=== PATIENT | female | born 1935 | race Caucasian/White ===

== ENCOUNTER 2016-08-20 08:00 | Day surgery (SDC) | payer MEDICARE, BC ==
[2016-08-15 15:37] VITALS: BMI 24.6
[~2016-08-20 08:00] MED LIST: DEXAMETHASONE SOD PHOSPHATE 10 MG/ML 1 ML VIAL IV ONE; FAMOTIDINE 20 MG/2 ML VIAL IV ONE; HYDROmorphone 1 MG/ML 1 ML SYRINGE IVP PRN; LACTATED RINGERS 1,000 ML IV SCH; LIDOCAINE 1% 20 ML VIAL (10MG/ML) FOR IV START INTRADERMA PRN; MIDAZOLAM 2 MG/2 ML VIAL IV PRN; ONDANSETRON 4 MG/2 ML VIAL IVP ONE; SCOPOLAMINE 1.5MG/72HR PATCH TRANSDERM ONE
[2016-08-20 09:08] LABS: Glucose,Whole Blood 156 mg/dL (75-99)
[2016-08-20] MEDS ORDERED: fentaNYL (PF) 50 MCG/ML 2 ML AMP ONE (09:10)
[2016-08-20] MEDS ORDERED: PROPOFOL 10 MG/ML 20 ML VIAL IV ONE (09:10)
[2016-08-20] MEDS ORDERED: LIDOCAINE 1% INJ 10MG/ML (20 ML MDV) ONE (09:10)
[2016-08-20] MEDS ORDERED: LIDOCAINE 1%-EPI 1:100,000 20 ML VIAL SQ ONE (09:30)
[2016-08-20] MEDS ORDERED: BACITRACIN 500 UNIT/GM OINT 28.4 GM TUBE TOPICAL ONE (09:36)
--- NOTE | 2016-08-20 10:17 | P.OP ---
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 Operative Findings: Healing eschar/cicatrix left cheek Description of Procedure: The patient was brought in the operative suite and placed in a supine position. The patient underwent induction of IV sedation by the christian counselor after appropriate monitors were placed. The patient was prepped and draped in usual aseptic fashion. 1% lidocaine with 1 100,000 epinephrine was infused subcutaneously and field block fashion. This was left to work for 7 minutes vasoconstrictive effect. The lesion was then excised from the surrounding tissue grossly entirely. This was sent to the pathologist for frozen section. Frozen section margins were noted to be negative. Defect this required local flap reconstruction. Once the lesion was excised an additional issue was removed in order to facilitate closure this was the final lesion and defect size. A local flap based inferiorly was then developed rotated and advanced into position at the appropriate level of depth and was then raised and sutured into place in the subcutaneous layer with inverted interrupted 5-0 Vicryl suture skin closed with running locking and simple interrupted 5-0 Prolene suture. Bacitracin ointment and a sterile dressing were placed. The patient was allowed to emerge from anesthesia having tolerated procedure well and was transferred postoperative recovery area in satisfactory condition.
[2016-08-20 10:24] VITALS: TEMP 97.8
[2016-08-20 10:35] VITALS: RESP 16
[2016-08-20 10:38] LABS: Glucose,Whole Blood 176 mg/dL (75-99)
[2016-08-20 11:01] VITALS: BP 135/66; PULSE 84
== END 2016-08-20 11:13 | disposition home or self-care (01) ==
LOC: OR 08:00
PROVIDERS: ATTEND Otolaryngology
DX: L90.5 Scar conditions and fibrosis of skin (principal); I10 Essential (primary) hypertension; E78.5 Hyperlipidemia, unspecified; E11.9 Type 2 diabetes mellitus without complications; Z79.84 Long term (current) use of oral hypoglycemic drugs; E07.9 Disorder of thyroid, unspecified; Z85.3 Personal history of malignant neoplasm of breast; Z79.82 Long term (current) use of aspirin; Z79.899 Other long term (current) drug therapy
CPT/HCPCS: 88305; 84132; 88331; 14041; J1100; J2405; J2001; J3010; J2704

== ENCOUNTER 2016-08-31 03:12 | Inpatient (IN) | payer MEDICARE, BC ==
[2016-08-31] MEDS ORDERED: SODIUM CHLORIDE 0.9% 1,000 ML IV ONE (03:47)
[2016-08-31] MEDS ORDERED: IV FLUID CONTINUATION 1,000 ML IV ONE (03:47)
[2016-08-31] MEDS ORDERED: LIDOCAINE 2% INJ 20 MG/ML (20 ML MDV) ONE (03:59)
[2016-08-31] MEDS ORDERED: MIDAZOLAM 2 MG/2 ML VIAL ONE (04:03)
[2016-08-31] MEDS ORDERED: MIDAZOLAM 2 MG/2 ML VIAL IV ONE (04:05)
[2016-08-31] MEDS ORDERED: LIDOCAINE 2% INJ 20 MG/ML SQ ONE (04:07)
--- NOTE | 2016-08-31 04:15 | P.CRDCN ---
History of Present Illness Consult reason: other History of present illness: 81-year-old female presenting with nausea and vomiting intermittently since Thursday. She presented to [facility] with symptoms that started this morning. She had no chest discomfort only nausea and vomiting only abdominal symptoms upper abdominal symptoms. On detailed questioning she's been having symptoms since Thursday intermittently with symptoms went away No chest discomfort no dizziness no shortness of breath Past history of diabetes and hypertension Past history of carotid atherosclerosis moderate NO KNOWN DRUG ALLERGIES Medication list not known at this time On examination her blood pressure is 152/81 mmHg heart rate in the 80s She has no symptoms at this time the symptoms resolved with nitroglycerin and on IV heparin. She also received atorvastatin and aspirin Breath sounds are normal no rhonchi no crackles. Heart sounds S1 and S2 are normal no murmurs no gallops Abdomen is soft Central obesity noted Extremities no edema Twelve-lead ECG shows sinus rhythm. Abdomen ST depression in inferior leads and lateral precordial leads with ST segment abnormality in aVr and V1 Patient transferred from [facility] for cardiac catheterization for acute coronary syndrome with symptoms onset continuously since this morning with symptoms actually began on Thursday intermittently Impression Acute OK with symptom onset this morning with symptoms actually began several days back on Thursday this week Diabetes adult-onset Hypertension Plan Initiate medical treatment Coronary angiography urgently Past Medical History Past Medical History: Cancer, Diabetes Mellitus, GERD/Reflux, Hyperlipidemia, Hypertension, Osteoarthritis (OA), Thyroid Disorder Additional Past Medical History / Comment(s): hx kidney stones, breast cancer, skin cancer, tear rt rotator cuff History of Any Multi-Drug Resistant Organisms: None Reported Past Surgical History: Breast Surgery, Cholecystectomy Additional Past Surgical History / Comment(s): skin cancer removed from nose, rt breast lumpectomy, brandon cataracts Past Anesthesia/Blood Transfusion Reactions: Motion Sickness Past Psychological History: No Psychological Hx Reported Smoking Status: Former smoker Past Alcohol Use History: None Reported Additional Past Alcohol Use History / Comment(s): quit smoking 45 yrs ago, smoked for 5 yrs, Past Drug Use History: None Reported - Past Family History Sister(s) Family Medical History: Cancer Brother(s) Family Medical History: Cancer Medications and Allergies Home Medications Medication Instructions Recorded Confirmed Type Aspirin [Adult Low Dose Aspirin EC] 81 mg PO DAILY 08/15/16 08/20/16 History Calcium Carbonate [Calcium] 600 mg PO BID 08/15/16 08/20/16 History Cholecalciferol [Vitamin D3] 2,000 unit PO DAILY 08/15/16 08/20/16 History Diltiazem HCl [Diltiazem ER] 240 mg PO BID 08/15/16 08/20/16 History Glimepiride [Amaryl] 1 mg PO BID 08/15/16 08/20/16 History Hydrochlorothiazide [Hydrodiuril] 25 mg PO 1200 08/15/16 08/20/16 History Methimazole [Tapazole] 5 mg PO DAILY 08/15/16 08/20/16 History Multivitamins, Thera [Multivitamin 1 tab PO DAILY 08/15/16 08/20/16 History (formulary)] Potassium 99 mg PO DAILY 08/15/16 08/20/16 History Red Yeast Rice 1,200 mg PO DAILY 08/15/16 08/20/16 History Slow-Mag(Dose Unknown) 1 tab PO BID 08/15/16 08/20/16 History hydrALAZINE HCL [Apresoline] 100 mg PO BID 08/15/16 08/20/16 History sitaGLIPtin PHOS/metFORMIN HCL 1 each PO BID 08/15/16 08/20/16 History [Janumet 50-500 mg Tablet] Allergies Allergy/AdvReac Type Severity Reaction Status Date / Time No Known Allergies Allergy Verified 08/20/16 08:25 Physical Exam Vitals: Intake and Output 08/30/16 08/30/16 08/31/16 14:59 22:59 06:59 Other: Weight 63.6 kg Patient Weight 08/31/16 06:59 Weight 63.6 kg Results Intake and Output 08/30/16 08/30/16 08/31/16 14:59 22:59 06:59 Other: Weight 63.6 kg Patient Weight 08/31/16 06:59 Weight 63.6 kg
[2016-08-31] MEDS ORDERED: IOHEXOL 350 MG/ML 125ML BOTTLE INJ ONE (04:58)
[2016-08-31] MEDS ORDERED: NITROGLYCERIN-D5W PMX 50 MG in DEXTROSE/WATER 1 250ML.BAG IV ONE (05:06)
[2016-08-31 05:21] LABS: Glucose,Whole Blood 169 mg/dL (75-99)
[2016-08-31] MEDS ORDERED: RX INFO: IV CONTRAST WAS GIVEN 1 EACH MISC MISCELLANE PRN (06:24)
[2016-08-31] MEDS ORDERED: SODIUM CHLORIDE 0.9% 1,000 ML IV SCH (06:30)
[2016-08-31 08:04] LABS: CH 24.6; CHCM 29.5; HCT 27.9 % (34.0-46.0); HDW 3.11; HGB 8.7 gm/dL (11.4-16.0); Hypochromasia Marked; MCHC 31.2 g/dL (31.0-37.0); MCV 83.4 fL (80.0-100.0); Mean Platelet Volume 7.9; RBC 3.35 m/uL (3.80-5.40); RDW 15.6 % (11.5-15.5)
[2016-08-31 08:13] LABS: INR 1.1 (<1.1); Partial Thromboplastin Time 24.4 sec (22.0-30.0); Prothrombin Time 10.9 sec (9.0-12.0)
[2016-08-31 08:18] LABS: Anion Gap 9 mmol/L; Blood Urea Nitrogen 15 mg/dL (7-17); Calcium 11.6 mg/dL (8.4-10.2); Carbon Dioxide 27 mmol/L (22-30); Chloride 99 mmol/L (98-107); Glucose 140 mg/dL (74-99); Non-African American GFR(MDRD) >60 (>60 ml/min/1.73 sqM); Sodium 135 mmol/L (137-145)
[2016-08-31 08:21] LABS: Potassium 2.8 mmol/L (3.5-5.1)
--- NOTE | 2016-08-31 08:44 | CC ---
DATE OF SERVICE: August 31, 2016 PERFORMING PHYSICIAN: Reed Fisher MD, crimping machine operator. PROCEDURE PERFORMED: 1. Selective right and left coronary angiogram. 2. Selective right common femoral artery angiogram. INDICATION: This is a pleasant 81-year-old female patient who presented to [facility] complaining of chest discomfort and she was ruled in for acute non- STEMI. The EKG showed sinus rhythm with diffuse ischemic changes. The cardiac enzymes were checked and came in to be abnormal. The patient was transferred to [facility] where she was seen and evaluated by Dr. Rivera and heart catheterization was recommended. APPROACH: Right common femoral artery. COMPLICATIONS: None. LEVEL OF SEDATION: Moderate with a sedation length of 30 minutes. PROCEDURE DESCRIPTION: After obtaining informed consent, the patient was brought to the cardiac cleaner laboratory equipment, the right common femoral artery was cannulated using micropuncture technique. The micropuncture wire passed easily, then I placed 6 Guamanian sheath in the right common femoral artery. Subsequently, I did selective right and left coronary angiogram using JR4 and JL4 catheters. The procedure was completed without any complication. SELECTIVE CORONARY ANGIOGRAM: 1. The right coronary artery is a large-caliber vessel, and is heavily calcified vessel. The proximal RCA appeared to have mild disease only. The mid RCA has calcified lesion that seems to be in the range of 30%. The RCA distally has mild disease only and bifurcates into PDA and PLV branches. The PDA branch appeared to have a long tubular lesion in the range of 50% and the PLV branch appeared to have mild disease only. 2. The left main is calcified as well. The distal left main appeared to have a plaque that seems to be in the range of 50% to 60%, involving the bifurcation of the LAD and left circumflex coronary artery. 3. Left circumflex is a large-caliber vessel and it is a nondominant vessel. The ostial left circumflex is involved in the plaque from the left main and appeared to have disease in the range of 70%. The proximal left circumflex has a plaque that seems to be in the range of 90%. The left circumflex distally appeared to have mild disease only. 4. Left anterior descending artery: The ostial LAD is also involved in the plaque from the left main and seems to be diseased in the range of 70%. The proximal LAD appeared to have mild disease only and gives rises into first diagonal branch. The LAD distally appeared to be angiographically normal and gives rise into second diagonal branch, which seems to be angiographically normal. CONCLUSION: 1. Extremely calcified right and left coronary systems. 2. Mild disease involving the mid right coronary artery. 3. Severe disease involving the distal left main coronary artery and involving the ostial left circumflex and ostial LAD. 4. Severe disease involving the ostial and proximal left circumflex coronary artery. 5. Severe disease involving the ostial LAD as well. POSTPROCEDURE MANAGEMENT: We will consult the surgeon to evaluate the patient for coronary artery bypass grafting. I discussed that with the patient in detail and also with the family.
[2016-08-31] MEDS: POTASSIUM CHLORIDE 10 MEQ, LIDOCAINE 2% INJ 10 MG in SODIUM CHLORIDE 0.9% 100 ML IV SCH ×5 (09:15→21:26)
[2016-08-31] MEDS: INSULIN LISPRO (humaLOG) 300 UNIT/3 ML VIAL SQ SCH ×4 (09:15→21:23)
[2016-08-31] MEDS ORDERED: HEPARIN SODIUM,PORCINE 5,000 UNIT/ML 1 ML VIAL IV PRN (09:25)
[2016-08-31] MEDS: HEPARIN SODIUM,PORCINE/D5W PMX 25,000 UNIT in DEXTROSE/WATER 1 500ML.BAG IV SCH (10:41)
[2016-08-31] MEDS: ASPIRIN 81 MG CHEW PO SCH (10:43)
[2016-08-31] MEDS: ATORVASTATIN 80 MG TAB PO SCH (10:43)
[2016-08-31] MEDS: METOPROLOL TARTRATE 25 MG TAB PO SCH ×2 (10:44→21:25)
[2016-08-31] MEDS ORDERED: Magnesium Replacement Protocol 1 EACH MISC MISCELLANE PRN (11:04)
--- NOTE | 2016-08-31 11:21 | HP ---
DATE OF ADMISSION: 08/31/2016 CHIEF COMPLAINT: Nausea, vomiting and tightness in the chest. This is an 81-year-old female with past medical history for diabetes, presents to [facility] with chest pain, nausea and vomiting intermittently since mid the last week. The patient stated that symptoms were persistent, not going away and presented to the emergency, EKG showed ST elevation in V1 V2 one V3 and cardiology consult was obtained. Immediately [employer] was activated and patient was stent to [facility] for immediate cardiac catheterization which showed multivessel disease including proximal lesion on the LAD and RCA and severe calcified vessels not amenable by traditional procedures and plan discussed with the family who were aware and cardiothoracic surgery consult was placed for open heart surgery. Patient was transferred to the intensive care unit and placed on the heparin drip and nitro drip and currently is denying chest pain, shortness breath, nausea, vomiting, abdominal pain, dizziness, lightheadedness, or blurry vision. Said that she is still sleepy from the procedure. No other symptoms patient reported that this point. ALLERGIES: No known drug allergies. HOME MEDICATIONS: 1. Sitagliptin/metformin 1 tablet twice daily. 2. Hydralazine 100 mg twice daily. 3. ( ) Rice daily. 4. Magnesium 1 tablet twice daily. 5. Potassium 99 mg p.o. daily. 6. Multivitamin daily. 7. Methimazole 5 mg p.o. daily. 8. Hydrochlorothiazide 25 mg p.o. daily. 9. Glimepiride 1 mg twice daily. 10. Diltiazem 240 mg twice daily. 11. Cholecalciferol 2000 units daily. 12. Calcium twice daily. 13. Aspirin 81 mg daily. SOCIAL HISTORY: The patient quit smoking a long time ago with no history of alcohol or drug abuse. PAST MEDICAL AND SURGICAL HISTORY: 1. Diabetes type 2. 2. Thyroid disease. 3. Hypertension. 4. 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 5. Peripheral arterial disease. 6. GERD. 7. Hyperlipidemia. 8. Osteoarthritis. 9. History of breast cancer. 10. History of kidney stones. PAST SURGICAL HISTORY: 1. Breast surgery. 2. Cholecystectomy. 3. Skin cancer removed from nose. 4. Right breast lumpectomy. 5. Bilateral cataract. 6. Recent cardiac catheterization. FAMILY HISTORY: Significant for cancer in brother and sister. PHYSICAL EXAMINATION: VITAL SIGNS: Reviewed and stable. GENERAL: In her stated age, in no acute distress. HEENT: Atraumatic, normocephalic. PERRLA. LUNGS: Clear to auscultation bilaterally. HEART: Normal S1, S2. ABDOMEN: Soft, no tenderness, quadrants. EXTREMITIES: Lower extremity no edema. PSYCH: Alert, oriented, following simple commands. Patient is lethargic after the cardiac catheterization. Imaging and labs: Revealed potassium at 2.8. Sodium 135, glucose 140, normal chemistry otherwise. PT, PTT, INR within normal limits. CBC showed hemoglobin 8.7, platelets 265, white blood count within normal limits. ASSESSMENT AND PLAN: 1. ST elevation myocardial infarction, status post cardiac catheterization and multivessel including proximal lesion to the RCA and LAD with severe calcification. The patient is felt to be candidate for open heart surgery. Consult placed for cardiothoracic surgeon. Family at the bedside understands risk and benefits and they would like to discuss it with the surgeon. Consider open heart surgery given the functional status for the patient, where she used to be independent in all her daily activities. Still drives her own car. The patient is limited with ambulation, said that she lives in a one story house, has no steps and does not do any exercise or activities but would like to consider surgery if that will help her to be ambulating and dependent as she used to be. We will continue heparin drip at this point. Nitro drip p.r.n. and will continue statin at this point. No Plavix indicated at this point and discussed the case with Dr. Rivera in detail. 2. Diabetes. Will place patient on her insulin sliding scale, hold oral medication at this point and continue monitoring. 3. Hyperlipidemia. We will continue statin. 4. Osteoarthritis we will continue with pain regimen as needed. 5. Hypertension, seems to be under fair control. We will continue home regimen. 6. Severe hypokalemia, will replace and repeat electrolytes in the morning. 7. Prognosis is still guarded.
[2016-08-31] MEDS ORDERED: MD COMMUNICATION TO PHARMACY 1 EACH MISC PO ONE ×2 (11:26)
--- NOTE | 2016-08-31 11:52 | P.CNPUL ---
History of Present Illness Consult date: 08/31/16 Reason for consult: chest pain (Coronary artery disease) History of present illness: This is a 81-year-old female patient was having intermittent nausea vomiting and her symptoms initially were essentially of a gastrointestinal in nature. Apparently there was no reported chest pain. The patient initially presented to [facility] and the EKG showed ST segment depression in the inferior leads and lateral leads and the patient was considered to have an acute coronary syndrome. The patient also ruled in for an acute ID. Based on that, the patient underwent a cardiac catheterization patient was found to have a left main disease and tight lesions in her left circumflex. The official report from the cardiac cath is not available to me at this point. This chest x -ray was free of any acute abnormalities. For that reason, the patient was started on IV heparin and the patient got moved to [facility] for cardiothoracic surgery evaluation. At this point in time, the patient is free of any chest pain. She is asymptomatic. She is hemodynamically stable. She has no specific complaints. She is known to have diabetes and hypertension pH is also known to have carotid artery disease. She is an ex-smoker. Most of emphysema. Most of asthma. She does not utilize any form of respiratory medications are inhalers on a regular basis. She is on oxygen at home.The patient has been independent. The patient has been able to perform household activities pH she is able to walk more than 600-700 feet at a time patient doesn 't own grocery. No pneumonias. No previous history of breathing complications. Review of Systems 12 point review of system was done and the positive findings are almost above in history of present illness Past Medical History Past Medical History: Cancer, Diabetes Mellitus, GERD/Reflux, Hyperlipidemia, Hypertension, Osteoarthritis (OA), Thyroid Disorder Additional Past Medical History / Comment(s): Coronary artery disease, diabetes mellitus, hypertension, hyperlipidemia, acid reflux, osteoarthritis, skin cancer , hyperthyroidism, breast cancer, rotator cuff surgery on the right, nephrolithiasis History of Any Multi-Drug Resistant Organisms: None Reported Past Surgical History: Breast Surgery, Cholecystectomy Additional Past Surgical History / Comment(s): skin cancer removed from nose, rt breast lumpectomy, brandon cataracts Past Anesthesia/Blood Transfusion Reactions: Motion Sickness Past Psychological History: No Psychological Hx Reported Smoking Status: Former smoker Past Alcohol Use History: None Reported Additional Past Alcohol Use History / Comment(s): quit smoking 45 yrs ago, smoked for 5 yrs, Past Drug Use History: None Reported - Past Family History Sister(s) Family Medical History: Cancer Brother(s) Family Medical History: Cancer Medications and Allergies Home Medications Medication Instructions Recorded Confirmed Type Aspirin [Adult Low Dose Aspirin EC] 81 mg PO DAILY 08/15/16 08/31/16 History Calcium Carbonate [Calcium] 600 mg PO BID 08/15/16 08/31/16 History Cholecalciferol [Vitamin D3] 2,000 unit PO DAILY 08/15/16 08/31/16 History Diltiazem HCl [Diltiazem ER] 240 mg PO BID 08/15/16 08/31/16 History Glimepiride [Amaryl] 1 mg PO BID 08/15/16 08/31/16 History Hydrochlorothiazide [Hydrodiuril] 25 mg PO 1200 08/15/16 08/31/16 History Methimazole [Tapazole] 5 mg PO DAILY 08/15/16 08/31/16 History Multivitamins, Thera [Multivitamin 1 tab PO DAILY 08/15/16 08/31/16 History (formulary)] Potassium 99 mg PO DAILY 08/15/16 08/31/16 History Red Yeast Rice 1,200 mg PO DAILY 08/15/16 08/31/16 History Slow-Mag(Dose Unknown) 1 tab PO BID 08/15/16 08/31/16 History hydrALAZINE HCL [Apresoline] 100 mg PO BID 08/15/16 08/31/16 History sitaGLIPtin PHOS/metFORMIN HCL 1 tab PO BID 08/15/16 08/31/16 History [Janumet 50-500 mg Tablet] Allergies Allergy/AdvReac Type Severity Reaction Status Date / Time No Known Allergies Allergy Verified 08/31/16 08:52 Physical Exam Vitals: Vital Signs Temp Pulse Pulse Resp BP BP Pulse Ox 08/31/16 11:00 79 125/58 08/31/16 10:30 80 140/65 08/31/16 10:00 80 130/59 08/31/16 09:30 68 118/58 08/31/16 09:00 73 113/57 08/31/16 08:30 68 120/58 08/31/16 08:00 98.4 F 75 18 131/56 100 05/21/17 07:30 75 134/56 08/31/16 07:00 84 124/53 98 08/31/16 06:30 77 141/62 08/31/16 06:00 98.7 F 85 140/52 98 08/31/16 05:30 83 140/72 08/31/16 05:18 84 08/31/16 04:23 98.6 F 76 12 140/72 95 Intake and Output 08/30/16 08/31/16 08/31/16 22:59 06:59 14:59 Intake Total 200 860 Output Total 100 100 Balance 100 760 Intake: IV 100 Intake, IV Titration 100 500 Amount Potassium Chloride 10 meq 200 Lidocaine 2% Inj 10 mg In Sodium Chloride 0.9% 100 ml @ 100 mls/hr IV Q1HR KALIN Rx#:[id number] Sodium Chloride 0.9% 1, 100 300 000 ml @ 100 mls/hr IV . Q10H KALIN Rx#:[id number] Oral 360 Output: Urine 100 100 Other: Voiding Method Bedpan # Voids 1 Weight 66.3 kg 66.3 kg Patient Weight 09/01/16 06:59 Weight 66.3 kg The patient appeared well nourished and normally developed. Vital signs as documented. Head exam is unremarkable. No scleral icterus or corneal arcus noted. Neck is without jugular venous distension, thyromegaly, or carotid bruits. Carotid upstrokes are brisk bilaterally. Lungs are clear to auscultation and percussion. Cardiac exam reveals the PMI to be normally sized and situated. Rhythm is regular. First and second heart sounds normal. No murmurs, rubs or gallops. Abdominal exam reveals normal bowel sounds, no masses , no organomegaly and no aortic enlargement. Extremities are nonedematous and both femoral and pedal pulses are normal. Results - Laboratory Findings CBC and BMP: 08/31/16 07:38 08/31/16 07:38 PT/INR, D-dimer PT 10.9 sec (9.0-12.0) 08/31/16 07:38 INR 1.1 (<1.1) 08/31/16 07:38 Abnormal lab findings: Abnormal Labs 08/31/16 08/31/16 08/31/16 05:20 07:38 07:38 RBC 3.35 L Hgb 8.7 L Hct 27.9 L RDW 15.6 H Sodium 135 L Potassium 2.8 L* Glucose 140 H POC Glucose (mg/dL) 169 H Calcium 11.6 H Magnesium 08/31/16 07:38 RBC Hgb Hct RDW Sodium Potassium Glucose POC Glucose (mg/dL) Calcium Magnesium 1.3 L Assessment and Plan Plan: Assessment 1 acute non-STEMI with multivessel coronary artery disease including left main disease. The patient is awaiting CT surgery evaluation for possible bypass surgery. Patient is hemodynamically stable at this point 2 diabetes mellitus 3 hypertension 4 hyperlipidemia 5 breast cancer with a previous lumpectomy 6 carotid artery disease 7 skin cancer 8 hypothyroidism 9 osteoarthritis 10 acid reflux PLAN Awaiting CT surgery evaluation. We'll continue to follow. She is hemodynamically stable and she is currently resting comfortably in bed. No active respiratory issues. May need to do a bedside spirometry to assess her lung functions if surgery is contemplated. Chest x-rays clear for now. We'll follow.
[2016-08-31 12:16] LABS: Hemoglobin A1C 7.2 % (4.2-6.1)
[2016-08-31] MEDS: MAGNESIUM SULFATE-D5W PMX 1 GM in DEXTROSE/WATER 1 100ML.BAG IVPB SCH ×2 (14:00→17:38)
[2016-08-31 14:54] LABS: Amorphous Sediment,Urine Rare /hpf; Appearance,Urine Cloudy (Clear); Bilirubin,Urine Negative (Negative); Glucose,Urine (UA) Negative (Negative); Ketones,Urine 1+ (Negative); Leukocyte Esterase,Urine Negative (Negative); Mucus,Urine Rare /hpf; Nitrite,Urine Negative (Negative); PH, Urine 6.5 (5.0-8.0); Particle Count 4148; Protein,Urine Trace (Negative); RBC,Urine 5 /hpf (0-5); Squamous Epithelial Cell,Urine <1 /hpf (0-4); UA Billing (MACRO vs. MICRO) MICRO; Urobilinogen,Urine <2.0 mg/dL (<2.0); WBC,Urine 2 /hpf (0-5)
[2016-08-31 15:19] LABS: Specific Gravity,Urine >1.050 (1.001-1.035)
--- NOTE | 2016-08-31 16:18 | US ---
EXAMINATION TYPE: US carotid duplex BILAT DATE OF EXAM: 08/31/2016 3:41 PM COMPARISON: NONE CLINICAL HISTORY: Ankle Brachial Index (ANTONIO) . EXAM MEASUREMENTS: RIGHT: Peak Systolic Velocity (PSV) cm/sec ----- Right CCA: 55.0 ----- Right ICA: 130.5 ----- Right ECA: 110.8 ICA/CCA ratio: 2.4 RIGHT: End Diastole cm/sec ----- Right CCA: 14.6 ----- Right ICA: 28.6 ----- Right ECA: 0.0 LEFT: Peak Systolic Velocity (PSV) cm/sec ----- Left CCA: 56.3 ----- Left ICA: 396.0 ----- Left ECA: 112.9 ICA/CCA ratio: 7.0 LEFT: End Diastole cm/sec ----- Left CCA: 16.8 ----- Left ICA: 176.4 ----- Left ECA: 7.3 VERTEBRALS (direction of flow): Right Vertebral: Antegrade Left Vertebral: Antegrade Severe atherosclerotic changes, more so on left with near occlusion on left. Moderate stenosis betwee n 50 and 69% right internal carotid artery. Severe stenosis within the left internal carotid artery g reater than 70%. Atheromatous plaquing is present within the right carotid bulb and proximal right internal carotid ar niko. Severe atheromatous plaquing is present on the left. IMPRESSION: 1. Severe stenosis left internal carotid artery from atheromatous plaquing greater than 70% with ma rked elevated internal left carotid artery velocity. 2. Mild atheromatous plaquing right internal carotid artery stenosis estimated between 50 and 69% Criteria for Assigning % of Stenosis / Diameter reduction (Estimation based on the indirect measurements of the internal carotid artery velocities (ICA PSV). 1. Normal (no stenosis)=ICA PSV < 125 cm/s: ratio < 2.0: ICA EDV<40 cm/s. 2. Less than 50% stenosis=ICA PSV < 125 cm/s: ratio < 2.0: ICA EDV<40 cm/s. 3. 50 to 69% stenosis=ICA PSV of 125 to 230 cm/s: ration 2.0 ? 4.0: ICA EDV 40-100 cm/s. 4. Greater than 70% stenosis to near occlusion= ICA PSV > 230 cm/s: ratio > 4.0: ICA EDV > 100 cm/s. 5. Near occlusion= ICA PSV velocities may be low or undetectable: variable ratio and ICA EDV. 6. Total occlusion=unable to detect flow.
--- NOTE | 2016-08-31 16:28 | P.GSCN ---
History of Present Illness Consult date: 08/31/16 Reason for Consult: Evaluation for coronary artery bypass grafting Requesting physician: Jake Rivera History of present illness: Patient is an 81s old lady transferred from [facility] for urgent cardiac catheterization and ST elevation myocardial infarction. Patient starting having a heartburn-like chest pain last week that initially lasted around half day then recurred couple of times. Yesterday she had associated nausea and vomiting and was taken to [facility] where she was ruled in for an ST elevation myocardial infarction. There was reportedly ST elevation in V1 to V3. Cardiac catheterization performed earlier this morning showed triple-vessel disease with left main involvement with heavily calcific coronaries. Patient is presently pain-free on IV heparin only without nitroglycerin. She is independent and relatively active. we were asked to evaluate this lady for potential coronary artery bypass grafting. Review of Systems - Constitutional Reports chills - Cardiovascular Reports chest pain, Reports high blood pressure - Respiratory Denies cough, Denies 7 - Gastrointestinal Reports heartburn - Genitourinary Genitourinary: Denies dysuria, Denies hematuria - Integumentary Integumentary Comment(s): Patient just had a left cheek skin cancer removed Past Medical History Past Medical History: Cancer, Diabetes Mellitus, GERD/Reflux, Hyperlipidemia, Hypertension, Osteoarthritis (OA), Thyroid Disorder Additional Past Medical History / Comment(s): Coronary artery disease, diabetes mellitus, hypertension, hyperlipidemia, acid reflux, osteoarthritis, skin cancer , hyperthyroidism, breast cancer, rotator cuff surgery on the right, nephrolithiasis History of Any Multi-Drug Resistant Organisms: None Reported Past Surgical History: Breast Surgery, Cholecystectomy Additional Past Surgical History / Comment(s): skin cancer removed from nose, rt breast lumpectomy, brandon cataracts Past Anesthesia/Blood Transfusion Reactions: Motion Sickness Past Psychological History: No Psychological Hx Reported Smoking Status: Former smoker Past Alcohol Use History: None Reported Additional Past Alcohol Use History / Comment(s): quit smoking 45 yrs ago, smoked for 5 yrs, Past Drug Use History: None Reported - Past Family History Sister(s) Family Medical History: Cancer Brother(s) Family Medical History: Cancer Medications and Allergies Home Medications Medication Instructions Recorded Confirmed Type Aspirin [Adult Low Dose Aspirin EC] 81 mg PO DAILY 08/15/16 08/31/16 History Calcium Carbonate [Calcium] 600 mg PO BID 08/15/16 08/31/16 History Cholecalciferol [Vitamin D3] 2,000 unit PO DAILY 08/15/16 08/31/16 History Diltiazem HCl [Diltiazem ER] 240 mg PO BID 08/15/16 08/31/16 History Glimepiride [Amaryl] 1 mg PO BID 08/15/16 08/31/16 History Hydrochlorothiazide [Hydrodiuril] 25 mg PO 1200 08/15/16 08/31/16 History Methimazole [Tapazole] 5 mg PO DAILY 08/15/16 08/31/16 History Multivitamins, Thera [Multivitamin 1 tab PO DAILY 08/15/16 08/31/16 History (formulary)] Potassium 99 mg PO DAILY 08/15/16 08/31/16 History Red Yeast Rice 1,200 mg PO DAILY 08/15/16 08/31/16 History Slow-Mag(Dose Unknown) 1 tab PO BID 08/15/16 08/31/16 History hydrALAZINE HCL [Apresoline] 100 mg PO BID 08/15/16 08/31/16 History sitaGLIPtin PHOS/metFORMIN HCL 1 tab PO BID 08/15/16 08/31/16 History [Janumet 50-500 mg Tablet] Allergies Allergy/AdvReac Type Severity Reaction Status Date / Time No Known Allergies Allergy Verified 08/31/16 08:52 Surgical - Exam Vital Signs Temp Pulse Resp BP Pulse Ox 98.6 F 76 12 140/72 95 08/31/16 04:23 08/31/16 04:23 08/31/16 04:23 08/31/16 04:23 08/31/16 04:23 - General well developed, well nourished, no distress - ENT Decreased hearing - Neck carotid bruit: left - Respiratory Left partial mastectomy scar normal respiratory effort, clear to auscultation - Cardiovascular Rhythm: regular (The) Heart Sounds: normal: S1, S2 - Rectum Deferred No peripheral edema. No obvious varicose veins. Recent left cheek scar well- healed. Results - Labs 08/31/16 07:38 08/31/16 07:38 Abnormal Lab Results - Last 24 Hours (Table) 08/31/16 08/31/16 08/31/16 Range/Units 05:20 07:38 07:38 RBC 3.35 L (3.80-5.40) m/uL Hgb 8.7 L (11.4-16.0) gm/dL Hct 27.9 L (34.0-46.0) % RDW 15.6 H (11.5-15.5) % Sodium 135 L (137-145) mmol/L Potassium 2.8 L* (3.5-5.1) mmol/L Glucose 140 H (74-99) mg/dL POC Glucose (mg/dL) 169 H (75-99) mg/dL Hemoglobin A1c (4.2-6.1) % Calcium 11.6 H (8.4-10.2) mg/dL Magnesium (1.6-2.3) mg/dL Urine Appearance (Clear) Ur Specific [place] (1.001-1.035) Urine Protein (Negative) Urine Ketones (Negative) Amorphous Sediment (None) /hpf Urine Mucus (None) /hpf Urine Yeast (Budding) (None) /hpf 08/31/16 08/31/16 08/31/16 Range/Units 07:38 07:38 14:28 RBC (3.80-5.40) m/uL Hgb (11.4-16.0) gm/dL Hct (34.0-46.0) % RDW (11.5-15.5) % Sodium (137-145) mmol/L Potassium (3.5-5.1) mmol/L Glucose (74-99) mg/dL POC Glucose (mg/dL) (75-99) mg/dL Hemoglobin A1c 7.2 H (4.2-6.1) % Calcium (8.4-10.2) mg/dL Magnesium 1.3 L (1.6-2.3) mg/dL Urine Appearance Cloudy H (Clear) Ur Specific [place] >1.050 H (1.001-1.035) Urine Protein Trace H (Negative) Urine Ketones 1+ H (Negative) Amorphous Sediment Rare H (None) /hpf Urine Mucus Rare H (None) /hpf Urine Yeast (Budding) Many H (None) /hpf Diabetes panel 08/31/16 08/31/16 Range/Units 07:38 07:38 Sodium 135 L (137-145) mmol/L Potassium 2.8 L* (3.5-5.1) mmol/L Chloride 99 (98-107) mmol/L Carbon Dioxide 27 (22-30) mmol/L BUN 15 (7-17) mg/dL Creatinine 0.61 (0.52-1.04) mg/dL Glucose 140 H (74-99) mg/dL Hemoglobin A1c 7.2 H (4.2-6.1) % Calcium 11.6 H (8.4-10.2) mg/dL Calcium panel 08/31/16 Range/Units 07:38 Calcium 11.6 H (8.4-10.2) mg/dL Pituitary panel 08/31/16 Range/Units 07:38 Sodium 135 L (137-145) mmol/L Potassium 2.8 L* (3.5-5.1) mmol/L Chloride 99 (98-107) mmol/L Carbon Dioxide 27 (22-30) mmol/L BUN 15 (7-17) mg/dL Creatinine 0.61 (0.52-1.04) mg/dL Glucose 140 H (74-99) mg/dL Calcium 11.6 H (8.4-10.2) mg/dL Adrenal panel 08/31/16 Range/Units 07:38 Sodium 135 L (137-145) mmol/L Potassium 2.8 L* (3.5-5.1) mmol/L Chloride 99 (98-107) mmol/L Carbon Dioxide 27 (22-30) mmol/L BUN 15 (7-17) mg/dL Creatinine 0.61 (0.52-1.04) mg/dL Glucose 140 H (74-99) mg/dL Calcium 11.6 H (8.4-10.2) mg/dL - Imaging EKG: report reviewed, image reviewed (Appearance of my diagnosis of the consult) Additional studies: Troponin 2.5. BNP 2200 Assessment and Plan Plan: 81s old lady with above past medical history with currently non-ST duration myocardial infarction and calcific triple-vessel disease with left main involvement not ideal for PTCA stenting strategy. We will be initiating workup to assess her surgical risks in particular echocardiogram and carotid duplex. She had a neck CTA in March 2016 that rules out significant carotid stenosis. We will finalize plans once the workup is completed. Patient was seen with family in the room and all their questions were answered. We'll follow the patient closely with you. Thank you Dr. Rivera for the privilege of this consult
[2016-08-31 17:45] LABS: Glucose,Whole Blood 134 mg/dL (75-99)
[2016-08-31] MEDS ORDERED: Potassium Replacement Protocol 1 EACH MISC MISCELLANE PRN (18:36)
[2016-08-31 21:04] LABS: Glucose,Whole Blood 156 mg/dL (75-99)
[2016-08-31] MEDS: MUPIROCIN 2% OINT 22 GM TUBE TOPICAL SCH (21:25)
[2016-09-01] MEDS ORDERED: Potassium Replacement Protocol 1 EACH MISC MISCELLANE PRN ×3 (01:38→18:59)
[2016-09-01] MEDS: POTASSIUM CHLORIDE 10 MEQ in WATER FOR INJECTION 1 100ML.BAG IVPB SCH ×2 (02:22→08:49)
[2016-09-01 05:48] LABS: Basophils % (A) 1 %; CH 24.6; CHCM 28.7; Eosinophils % (A) 0 %; HCT 24.5 % (34.0-46.0); HDW 3.06; Hypochromasia Marked; Luc # (Auto) 0.19; Luc % (Auto) 3; Lymphocytes # (A) 1.5 k/uL (1.0-4.8); Lymphocytes % (A) 23 %; MCH 25.1 pg (25.0-35.0); MCHC 29.3 g/dL (31.0-37.0); MCV 85.9 fL (80.0-100.0); Mean Platelet Volume 8.2; Monocytes # (A) 0.4 k/uL (0-1.0); Monocytes % (A) 5 %; Neutrophils # (A) 4.7 k/uL (1.3-7.7); Neutrophils % (A) 69 %; RBC 2.85 m/uL (3.80-5.40); RDW 15.6 % (11.5-15.5); WBC 6.8 k/uL (3.8-10.6); WBC (Perox) 6.96
[2016-09-01 05:52] LABS: HGB 7.2 gm/dL (11.4-16.0)
[2016-09-01 05:54] LABS: Partial Thromboplastin Time 66.5 sec (22.0-30.0); Prothrombin Time 10.6 sec (9.0-12.0)
[2016-09-01 06:23] LABS: ALT 32 U/L (9-52); AST 54 U/L (14-36); Alkaline Phosphatase 58 U/L (38-126); Bilirubin, Delta 0.1 mg/dL (0.0-0.2); Magnesium 1.9 mg/dL (1.6-2.3); Total Bilirubin 0.3 mg/dL (0.2-1.3); Total Protein 5.4 g/dL (6.3-8.2)
--- NOTE | 2016-09-01 07:22 | XR ---
EXAMINATION TYPE: XR chest 1V portable DATE OF EXAM: 09/01/2016 7:04 AM HISTORY: sob. REFERENCE: NONE. FINDINGS: Lung volumes are mildly prominent. There is left basilar airspace disease. The heart is mildly enlarged. I suspect a small left effusion . Surgical clips project over the right hemithorax. IMPRESSION: 1. I SUSPECT UNDERLYING COPD. 2. MILD CARDIOMEGALY. 3. LEFT BASILAR AIRSPACE DISEASE WITH A CONCOMITANT SMALL EFFUSION.
[2016-09-01 07:24] LABS: Glucose,Whole Blood 107 mg/dL (75-99)
[2016-09-01 08:04] LABS: Hepatitis B Core IgM Index 0.01; Hepatitis B Surface Ag Index 0.04; Hepatitis C Virus IgG Ab Negative (Negative); Hepatitis C Virus IgG Index 0.17
[2016-09-01 08:20] LABS: Anion Gap 5 mmol/L; Blood Urea Nitrogen 19 mg/dL (7-17); Calcium 9.7 mg/dL (8.4-10.2); Carbon Dioxide 24 mmol/L (22-30); Chloride 106 mmol/L (98-107); Glucose 105 mg/dL (74-99); Non-African American GFR(MDRD) >60 (>60 ml/min/1.73 sqM); Potassium 3.8 mmol/L (3.5-5.1); Sodium 135 mmol/L (137-145)
[2016-09-01] MEDS: INSULIN LISPRO (humaLOG) 300 UNIT/3 ML VIAL SQ SCH ×4 (08:50→21:23)
[2016-09-01] MEDS: ASPIRIN 81 MG CHEW PO SCH (08:55)
[2016-09-01] MEDS: ATORVASTATIN 80 MG TAB PO SCH (08:55)
[2016-09-01] MEDS: METOPROLOL TARTRATE 25 MG TAB PO SCH ×2 (08:56→21:20)
[2016-09-01] MEDS: METHIMAZOLE 5 MG TAB PO SCH (08:56)
[2016-09-01] MEDS: MUPIROCIN 2% OINT 22 GM TUBE TOPICAL SCH ×2 (08:56→21:20)
[2016-09-01] MEDS ORDERED: POTASSIUM CHLORIDE ER 20 MEQ TAB.ER PO ONE (11:00)
--- NOTE | 2016-09-01 11:26 | ECHOF ---
Referral Reason:DE, going for open heart surgery MEASUREMENTS -------- HEIGHT: 160.0 cm WEIGHT: 66.2 kg BP: 105/48 IVSd: 1.4 cm (0.6 - 1.1) LVIDd: 3.2 cm (3.9 - 5.3) LVPWd: 1.4 cm (0.6 - 1.1) IVSs: 2.2 cm LVIDs: 1.9 cm LVPWs: 1.9 cm LAESV Index (A-L): 14.17 ml/m Ao Diam: 3.4 cm (2.0 - 3.7) AV Cusp: 1.5 cm (1.5 - 2.6) LA Diam: 2.8 cm (2.7 - 3.8) MV EXCURSION: 13.666 mm (> 18.000) MV EF SLOPE: 64 mm/s (70 - 150) EPSS: 0.4 cm MV E Thang: 1.01 m/s MV DecT: 272 ms MV A Thang: 1.20 m/s MV E/A Ratio: 0.84 RAP: 5.00 mmHg RVSP: 26.13 mmHg FINDINGS -------- Sinus rhythm. This was a technically adequate study. The left ventricular size is normal. There is moderate concentric left ventricular hypertrophy. Overall left ventricular systolic function is normal with, an EF between 55 - 60 %. The right ventricle is normal in size and function. Normal LA size by volume 22+/-6 ml/m2. The right atrium is normal in size. There is mild aortic valve sclerosis. There is no evidence of aortic regurgitation. There is no evidence of aortic stenosis. The mitral valve leaflets are mildly thickened. Mild mitral regurgitation is present. Mild tricuspid regurgitation present. There is no evidence of pulmonary hypertension. The right ventricular systolic pressure, as measured by Doppler, is 26.13mmHg. The pulmonic valve was not well visualized. There is no pulmonic regurgitation present. The aortic root size is normal. There is no pericardial effusion. CONCLUSIONS -------- 1. Sinus rhythm. 2. The pulmonic valve was not well visualized. 3. There is no pulmonic regurgitation present. 4. The aortic root size is normal. 5. There is no pericardial effusion. 6. This was a technically adequate study. 7. There is moderate concentric left ventricular hypertrophy. 8. Overall left ventricular systolic function is normal with, an EF between 55 - 60 %. 9. Normal LA size by volume 22+/-6 ml/m2. 10. There is mild aortic valve sclerosis. 11. The mitral valve leaflets are mildly thickened. 12. Mild mitral regurgitation is present. 13. There is no evidence of pulmonary hypertension. REPAIR SERVICER: Vern Inman RDCS
[2016-09-01 11:28] LABS: Glucose,Whole Blood 165 mg/dL (75-99)
[2016-09-01] MEDS: MAGNESIUM OXIDE 400 MG TAB PO SCH ×2 (11:57→21:19)
--- NOTE | 2016-09-01 13:40 | P.PN ---
Subjective Principal diagnosis: Acute non-ST elevation myocardial infarction with multiple coronary artery disease including left main disease. This is a 81-year-old female patient was having intermittent nausea vomiting and her symptoms initially were essentially of a gastrointestinal in nature. Apparently there was no reported chest pain. The patient initially presented to [facility] and the EKG showed ST segment depression in the inferior leads and lateral leads and the patient was considered to have an acute coronary syndrome. The patient also ruled in for an acute MN. Based on that, the patient underwent a cardiac catheterization patient was found to have a left main disease and tight lesions in her left circumflex. The official report from the cardiac cath is not available to me at this point. This chest x -ray was free of any acute abnormalities. For that reason, the patient was started on IV heparin and the patient got moved to [facility] for cardiothoracic surgery evaluation. At this point in time, the patient is free of any chest pain. She is asymptomatic. She is hemodynamically stable. She has no specific complaints. She is known to have diabetes and hypertension pH is also known to have carotid artery disease. She is an ex-smoker. Most of emphysema. Most of asthma. She does not utilize any form of respiratory medications are inhalers on a regular basis. She is on oxygen at home.The patient has been independent. The patient has been able to perform household activities pH she is able to walk more than 600-700 feet at a time patient doesn 't own grocery. No pneumonias. No previous history of breathing complications. Patient was reevaluated today on 09/01/2016, she was already seen by cardiac surgery on consultation, and plans are being considered for possible myocardial revascularization in the next 24-48 hours. In the meantime the patient remains hemodynamically stable, denies any chest pain, no shortness of breath, no cough , no wheezing. Labs were reviewed, PTT is 66.5, hemoglobin is 7.2, basic metabolic profile and renal profile are normal. Hepatitis screening has been negative. Objective - Vital Signs Vital signs: Vital Signs Temp 98.0 F 09/01/16 12:00 Pulse 61 09/01/16 13:00 Resp 21 09/01/16 13:00 BP 110/44 09/01/16 13:00 Pulse Ox 99 09/01/16 13:00 Intake & Output 08/31/16 09/01/1617 18:59 06:59 18:59 Intake Total 1560 725.846 120 Output Total 300 0 0 Balance 1260 725.846 120 Weight 66.3 kg 60.9 kg Intake: IV 120 Sodium Chloride 0.9% 1, 120 000 ml @ 100 mls/hr IV . Q10H [facility] Rx#:[id number] Intake, IV Titration 1200 725.846 Amount Heparin Sodium,Porcine/ 265.846 D5w Pmx 25,000 unit In Dextrose/Water 1 500ml. bag @ 12 UNITS/KG/HR 15. 91 mls/hr IV .Q24H [facility] Rx #:[id number] Magnesium Sulfate-D5w Pmx 300 1 gm In Dextrose/Water 1 100ml.bag @ 100 mls/hr IVPB Q1H [facility] Rx#: [id number] Potassium Chloride 10 meq 200 Lidocaine 2% Inj 10 mg In Sodium Chloride 0.9% 100 ml @ 100 mls/hr IV Q1HR [facility] Rx#:[id number] Potassium Chloride 10 meq 360 Lidocaine 2% Inj 10 mg In Sodium Chloride 0.9% 100 ml @ 100 mls/hr IV Q1HR [facility] Rx#:[id number] Sodium Chloride 0.9% 1, 700 100 000 ml @ 100 mls/hr IV . Q10H [facility] Rx#:[id number] Oral 360 Output: Urine 300 0 0 Other: Voiding Method Bedpan Bedpan Bedpan # Voids 1 1 # Bowel Movements 1 - Exam Physical Exam: Revealed 81-year-old female in no distress. HEENT:[Neck is supple.] [No neck masses.] [No thyromegaly.] [No JVD.] Chest: [Clear throughout, no crackles, no rhonchi, no wheezes.] Cardiac Exam: [Normal S1 and S2, no S3 gallop, no murmur.] Abdomen: [Soft, nontender, no megaly, no rebound, no guarding, normal bowel sounds.] Extremities: [No clubbing, no edema, no cyanosis.] Neurological Exam: [No focal neurologic deficit.] - Labs CBC & Chem 7: 09/01/16 04:51 09/01/16 04:51 Labs: Abnormal Lab Results - Last 24 Hours (Table) 08/31/16 08/31/16 08/31/16 Range/Units 07:38 14:28 16:05 RBC (3.80-5.40) m/uL Hgb (11.4-16.0) gm/dL Hct (34.0-46.0) % MCHC (31.0-37.0) g/dL RDW (11.5-15.5) % APTT 39.9 H (22.0-30.0) sec Sodium (137-145) mmol/L Potassium (3.5-5.1) mmol/L BUN (7-17) mg/dL Glucose (74-99) mg/dL POC Glucose (mg/dL) (75-99) mg/dL Hemoglobin A1c 7.2 H (4.2-6.1) % AST (14-36) U/L Troponin I (0.000-0.034) ng/mL Total Protein (6.3-8.2) g/dL Albumin (3.5-5.0) g/dL Urine Appearance Cloudy H (Clear) Ur Specific [place] >1.050 H (1.001-1.035) Urine Protein Trace H (Negative) Urine Ketones 1+ H (Negative) Amorphous Sediment Rare H (None) /hpf Urine Mucus Rare H (None) /hpf Urine Yeast (Budding) Many H (None) /hpf 08/31/16 08/31/16 08/31/16 Range/Units 16:05 16:05 17:43 RBC (3.80-5.40) m/uL Hgb (11.4-16.0) gm/dL Hct (34.0-46.0) % MCHC (31.0-37.0) g/dL RDW (11.5-15.5) % APTT (22.0-30.0) sec Sodium (137-145) mmol/L Potassium 3.4 L (3.5-5.1) mmol/L BUN (7-17) mg/dL Glucose (74-99) mg/dL POC Glucose (mg/dL) 134 H (75-99) mg/dL Hemoglobin A1c (4.2-6.1) % AST (14-36) U/L Troponin I 7.620 H* (0.000-0.034) ng/mL Total Protein (6.3-8.2) g/dL Albumin (3.5-5.0) g/dL Urine Appearance (Clear) Ur Specific [place] (1.001-1.035) Urine Protein (Negative) Urine Ketones (Negative) Amorphous Sediment (None) /hpf Urine Mucus (None) /hpf Urine Yeast (Budding) (None) /hpf 08/31/16 09/01/16 09/01/16 Range/Units 21:03 00:51 00:51 RBC (3.80-5.40) m/uL Hgb (11.4-16.0) gm/dL Hct (34.0-46.0) % MCHC (31.0-37.0) g/dL RDW (11.5-15.5) % APTT 142.4 H* (22.0-30.0) sec Sodium (137-145) mmol/L Potassium 3.4 L (3.5-5.1) mmol/L BUN (7-17) mg/dL Glucose (74-99) mg/dL POC Glucose (mg/dL) 156 H (75-99) mg/dL Hemoglobin A1c (4.2-6.1) % AST (14-36) U/L Troponin I (0.000-0.034) ng/mL Total Protein (6.3-8.2) g/dL Albumin (3.5-5.0) g/dL Urine Appearance (Clear) Ur Specific [place] (1.001-1.035) Urine Protein (Negative) Urine Ketones (Negative) Amorphous Sediment (None) /hpf Urine Mucus (None) /hpf Urine Yeast (Budding) (None) /hpf 09/01/16 09/01/16 09/01/16 Range/Units 04:51 04:51 04:51 RBC 2.85 L (3.80-5.40) m/uL Hgb 7.2 L D (11.4-16.0) gm/dL Hct 24.5 L (34.0-46.0) % MCHC 29.3 L (31.0-37.0) g/dL RDW 15.6 H (11.5-15.5) % APTT (22.0-30.0) sec Sodium (137-145) mmol/L Potassium (3.5-5.1) mmol/L BUN (7-17) mg/dL Glucose (74-99) mg/dL POC Glucose (mg/dL) (75-99) mg/dL Hemoglobin A1c (4.2-6.1) % AST 54 H (14-36) U/L Troponin I 5.310 H* (0.000-0.034) ng/mL Total Protein 5.4 L (6.3-8.2) g/dL Albumin 2.8 L (3.5-5.0) g/dL Urine Appearance (Clear) Ur Specific [place] (1.001-1.035) Urine Protein (Negative) Urine Ketones (Negative) Amorphous Sediment (None) /hpf Urine Mucus (None) /hpf Urine Yeast (Budding) (None) /hpf 09/01/16 09/01/16 09/01/16 Range/Units 04:51 04:51 07:22 RBC (3.80-5.40) m/uL Hgb (11.4-16.0) gm/dL Hct (34.0-46.0) % MCHC (31.0-37.0) g/dL RDW (11.5-15.5) % APTT 66.5 H (22.0-30.0) sec Sodium 135 L (137-145) mmol/L Potassium (3.5-5.1) mmol/L BUN 19 H (7-17) mg/dL Glucose 105 H (74-99) mg/dL POC Glucose (mg/dL) 107 H (75-99) mg/dL Hemoglobin A1c (4.2-6.1) % AST (14-36) U/L Troponin I (0.000-0.034) ng/mL Total Protein (6.3-8.2) g/dL Albumin (3.5-5.0) g/dL Urine Appearance (Clear) Ur Specific [place] (1.001-1.035) Urine Protein (Negative) Urine Ketones (Negative) Amorphous Sediment (None) /hpf Urine Mucus (None) /hpf Urine Yeast (Budding) (None) /hpf 09/01/16 Range/Units 11:25 RBC (3.80-5.40) m/uL Hgb (11.4-16.0) gm/dL Hct (34.0-46.0) % MCHC (31.0-37.0) g/dL RDW (11.5-15.5) % APTT (22.0-30.0) sec Sodium (137-145) mmol/L Potassium (3.5-5.1) mmol/L BUN (7-17) mg/dL Glucose (74-99) mg/dL POC Glucose (mg/dL) 165 H (75-99) mg/dL Hemoglobin A1c (4.2-6.1) % AST (14-36) U/L Troponin I (0.000-0.034) ng/mL Total Protein (6.3-8.2) g/dL Albumin (3.5-5.0) g/dL Urine Appearance (Clear) Ur Specific [place] (1.001-1.035) Urine Protein (Negative) Urine Ketones (Negative) Amorphous Sediment (None) /hpf Urine Mucus (None) /hpf Urine Yeast (Budding) (None) /hpf Microbiology - Last 24 Hours (Table) 08/31/16 14:28 Urine Culture - Preliminary Urine,Voided 08/31/16 17:50 Nasal Screen MRSA/MSSA ([facility]IE) - Preliminary Nasal Swab Assessment and Plan Plan: 1 acute non-STEMI with multivessel coronary artery disease including left main disease. The patient is awaiting CT surgery evaluation for possible bypass surgery. Patient is hemodynamically stable at this point 2 diabetes mellitus 3 hypertension 4 hyperlipidemia 5 breast cancer with a previous lumpectomy 6 carotid artery disease 7 skin cancer 8 hypothyroidism 9 osteoarthritis 10 acid reflux Recommendation: Continue present treatment plan, patient will be cleared from the pulmonary perspective for surgical intervention, chest x-ray was reviewed, we'll continue to follow. Patient is considered low operative risk. Time with Patient: Less than 30
--- NOTE | 2016-09-01 14:42 | P.PN ---
Subjective Principal diagnosis: STEMI, preoperative coronary artery bypass graft surgery. Patient's currently sitting up in bed in no apparent distress. She is currently pain-free on IV heparin. Objective - Vital Signs Vital signs: Vital Signs Temp 98.0 F 09/01/16 12:00 Pulse 61 09/01/16 13:00 Resp 21 09/01/16 13:00 BP 110/44 09/01/16 13:00 Pulse Ox 99 09/01/16 13:00 Intake & Output 08/31/16 09/01/16 09/01/16 18:59 06:59 18:59 Intake Total 1560 725.846 120 Output Total 300 0 0 Balance 1260 725.846 120 Weight 66.3 kg 60.9 kg Intake: IV 120 Sodium Chloride 0.9% 1, 120 000 ml @ 100 mls/hr IV . Q10H [facility] Rx#:[id number] Intake, IV Titration 1200 725.846 Amount Heparin Sodium,Porcine/ 265.846 D5w Pmx 25,000 unit In Dextrose/Water 1 500ml. bag @ 12 UNITS/KG/HR 15. 91 mls/hr IV .Q24H [facility] Rx #:[id number] Magnesium Sulfate-D5w Pmx 300 1 gm In Dextrose/Water 1 100ml.bag @ 100 mls/hr IVPB Q1H [facility] Rx#: [id number] Potassium Chloride 10 meq 200 Lidocaine 2% Inj 10 mg In Sodium Chloride 0.9% 100 ml @ 100 mls/hr IV Q1HR [facility] Rx#:[id number] Potassium Chloride 10 meq 360 Lidocaine 2% Inj 10 mg In Sodium Chloride 0.9% 100 ml @ 100 mls/hr IV Q1HR [facility] Rx#:[id number] Sodium Chloride 0.9% 1, 700 100 000 ml @ 100 mls/hr IV . Q10H [facility] Rx#:[id number] Oral 360 Output: Urine 300 0 0 Other: Voiding Method Bedpan Bedpan Bedpan # Voids 1 1 # Bowel Movements 1 - Constitutional General appearance: Present: cooperative, no acute distress, obese - Respiratory Details: Lungs sounds diminished bilaterally. Respirations even, nonlabored. Currently on 2 L with oxygen saturation 98%. Able to achieve 1500 mL on her incentive spirometer. - Cardiovascular Details: S1, S2 present. Regular rate and rhythm, normal sinus rhythm on telemetry. - Gastrointestinal Gastrointestinal Comment(s): Abdomen soft, nontender, nondistended. Active bowel sounds 4 quadrants. Tolerating diet. - Genitourinary Genitourinary Comment(s): Continues to void clear, yellow urine. - Musculoskeletal Musculoskeletal: Present: strength equal bilaterally - Psychiatric Psychiatric: Present: A&O x's 3, appropriate affect, intact judgment & insight - Allied health notes Allied health notes reviewed: nursing - Labs CBC & Chem 7: 09/01/16 04:51 09/01/16 04:51 Labs: Abnormal Lab Results - Last 24 Hours (Table) 08/31/16 08/31/16 08/31/16 Range/Units 14:28 16:05 16:05 RBC (3.80-5.40) m/uL Hgb (11.4-16.0) gm/dL Hct (34.0-46.0) % MCHC (31.0-37.0) g/dL RDW (11.5-15.5) % APTT 39.9 H (22.0-30.0) sec Sodium (137-145) mmol/L Potassium 3.4 L (3.5-5.1) mmol/L BUN (7-17) mg/dL Glucose (74-99) mg/dL POC Glucose (mg/dL) (75-99) mg/dL AST (14-36) U/L Troponin I (0.000-0.034) ng/mL Total Protein (6.3-8.2) g/dL Albumin (3.5-5.0) g/dL Urine Appearance Cloudy H (Clear) Ur Specific [place] >1.050 H (1.001-1.035) Urine Protein Trace H (Negative) Urine Ketones 1+ H (Negative) Amorphous Sediment Rare H (None) /hpf Urine Mucus Rare H (None) /hpf Urine Yeast (Budding) Many H (None) /hpf Crossmatch 08/31/16 08/31/16 08/31/16 Range/Units 16:05 17:43 21:03 RBC (3.80-5.40) m/uL Hgb (11.4-16.0) gm/dL Hct (34.0-46.0) % MCHC (31.0-37.0) g/dL RDW (11.5-15.5) % APTT (22.0-30.0) sec Sodium (137-145) mmol/L Potassium (3.5-5.1) mmol/L BUN (7-17) mg/dL Glucose (74-99) mg/dL POC Glucose (mg/dL) 134 H 156 H (75-99) mg/dL AST (14-36) U/L Troponin I 7.620 H* (0.000-0.034) ng/mL Total Protein (6.3-8.2) g/dL Albumin (3.5-5.0) g/dL Urine Appearance (Clear) Ur Specific [place] (1.001-1.035) Urine Protein (Negative) Urine Ketones (Negative) Amorphous Sediment (None) /hpf Urine Mucus (None) /hpf Urine Yeast (Budding) (None) /hpf Crossmatch 09/01/16 09/01/16 09/01/16 Range/Units 00:51 00:51 04:51 RBC 2.85 L (3.80-5.40) m/uL Hgb 7.2 L D (11.4-16.0) gm/dL Hct 24.5 L (34.0-46.0) % MCHC 29.3 L (31.0-37.0) g/dL RDW 15.6 H (11.5-15.5) % APTT 142.4 H* (22.0-30.0) sec Sodium (137-145) mmol/L Potassium 3.4 L (3.5-5.1) mmol/L BUN (7-17) mg/dL Glucose (74-99) mg/dL POC Glucose (mg/dL) (75-99) mg/dL AST (14-36) U/L Troponin I (0.000-0.034) ng/mL Total Protein (6.3-8.2) g/dL Albumin (3.5-5.0) g/dL Urine Appearance (Clear) Ur Specific [place] (1.001-1.035) Urine Protein (Negative) Urine Ketones (Negative) Amorphous Sediment (None) /hpf Urine Mucus (None) /hpf Urine Yeast (Budding) (None) /hpf Crossmatch 09/01/16 09/01/16 09/01/16 Range/Units 04:51 04:51 04:51 RBC (3.80-5.40) m/uL Hgb (11.4-16.0) gm/dL Hct (34.0-46.0) % MCHC (31.0-37.0) g/dL RDW (11.5-15.5) % APTT 66.5 H (22.0-30.0) sec Sodium (137-145) mmol/L Potassium (3.5-5.1) mmol/L BUN (7-17) mg/dL Glucose (74-99) mg/dL POC Glucose (mg/dL) (75-99) mg/dL AST 54 H (14-36) U/L Troponin I 5.310 H* (0.000-0.034) ng/mL Total Protein 5.4 L (6.3-8.2) g/dL Albumin 2.8 L (3.5-5.0) g/dL Urine Appearance (Clear) Ur Specific [place] (1.001-1.035) Urine Protein (Negative) Urine Ketones (Negative) Amorphous Sediment (None) /hpf Urine Mucus (None) /hpf Urine Yeast (Budding) (None) /hpf Crossmatch 09/01/16 09/01/16 09/01/16 Range/Units 04:51 07:22 11:25 RBC (3.80-5.40) m/uL Hgb (11.4-16.0) gm/dL Hct (34.0-46.0) % MCHC (31.0-37.0) g/dL RDW (11.5-15.5) % APTT (22.0-30.0) sec Sodium 135 L (137-145) mmol/L Potassium (3.5-5.1) mmol/L BUN 19 H (7-17) mg/dL Glucose 105 H (74-99) mg/dL POC Glucose (mg/dL) 107 H 165 H (75-99) mg/dL AST (14-36) U/L Troponin I (0.000-0.034) ng/mL Total Protein (6.3-8.2) g/dL Albumin (3.5-5.0) g/dL Urine Appearance (Clear) Ur Specific [place] (1.001-1.035) Urine Protein (Negative) Urine Ketones (Negative) Amorphous Sediment (None) /hpf Urine Mucus (None) /hpf Urine Yeast (Budding) (None) /hpf Crossmatch 09/01/16 Range/Units 11:53 RBC (3.80-5.40) m/uL Hgb (11.4-16.0) gm/dL Hct (34.0-46.0) % MCHC (31.0-37.0) g/dL RDW (11.5-15.5) % APTT (22.0-30.0) sec Sodium (137-145) mmol/L Potassium (3.5-5.1) mmol/L BUN (7-17) mg/dL Glucose (74-99) mg/dL POC Glucose (mg/dL) (75-99) mg/dL AST (14-36) U/L Troponin I (0.000-0.034) ng/mL Total Protein (6.3-8.2) g/dL Albumin (3.5-5.0) g/dL Urine Appearance (Clear) Ur Specific [place] (1.001-1.035) Urine Protein (Negative) Urine Ketones (Negative) Amorphous Sediment (None) /hpf Urine Mucus (None) /hpf Urine Yeast (Budding) (None) /hpf Crossmatch See Detail Microbiology - Last 24 Hours (Table) 08/31/16 14:28 Urine Culture - Preliminary Urine,Voided 08/31/16 17:50 Nasal Screen MRSA/MSSA ([facility]) - Preliminary Nasal Swab - Imaging and Cardiology Chest x-ray: image reviewed Assessment and Plan (1) STEMI (ST elevation myocardial infarction) Status: Acute (2) Diabetes Status: Acute (3) Hypertension Status: Acute (4) Hyperlipidemia Status: Acute (5) Hyperthyroidism Status: Acute (6) History of breast cancer Status: Acute Plan: 1. Continue aspirin, Lipitor, Lopressor, heparin drip. 2. Echo pending. Preoperative diagnostics reviewed. 3. Encourage incentive spirometry. 4. Encourage increased activity. 5. Anticipate coronary artery bypass grafting tomorrow. DC heparin on-call to the OR. 6. More recommendations as patient progresses. Time with Patient: Greater than 30
--- NOTE | 2016-09-01 15:59 | P.PN ---
Subjective This is an 81-year-old female patient of Dr. Laboy with past medical history of breast cancer, diabetes mellitus type 2, gastroesophageal reflux disease, hyperlipidemia, hypertension. She initially presented to [facility] with nausea and vomiting and abdominal symptoms. She had no chest discomfort or dizziness, shortness of breath. She had an EKG that showed a sinus rhythm and abnormal ST depression in the inferior leads and lateral precordial leads with ST segment abnormality in aVR and V1. Patient was then transferred to [facility] for heart catheterization for acute coronary syndrome. Patient underwent heart catheterization that showed severe disease involving the distal left main coronary artery and involving the ostial left circumflex and ostial LAD. Severe disease involving ostial and proximal left circumflex coronary artery. Severe disease involving the ostial LAD. Carotid ultrasound showed severe stenosis of the left internal carotid artery of 70% and mild right internal carotid artery stenosis of 50-69%. Patient has been seen in consultation by Dr. Corona from pulmonary medicine. Chest x-ray reveals suspect COPD, mild cardiomegaly, left basilar airspace disease with constant intermittent small effusion. Echocardiogram shows moderate concentric left ventricular hypertrophy, EF 55-60%, mild aortic valve sclerosis, mild mitral regurgitation. Patient is tentatively planned for CABG in the next 24- 48 hours. Objective - Vital Signs Vital signs: Vital Signs Temp 98.3 F 09/01/16 08:00 Pulse 64 09/01/16 10:30 Resp 18 09/01/16 10:30 BP 107/49 09/01/16 10:30 Pulse Ox 96 09/01/16 10:30 Intake & Output 08/31/16 09/01/16 09/01/16 18:59 06:59 18:59 Intake Total 1560 725.846 40 Output Total 300 0 0 Balance 1260 725.846 40 Weight 66.3 kg Intake: IV 40 Sodium Chloride 0.9% 1, 40 000 ml @ 100 mls/hr IV . Q10H [facility] Rx#:[id number] Intake, IV Titration 1200 725.846 Amount Heparin Sodium,Porcine/ 265.846 D5w Pmx 25,000 unit In Dextrose/Water 1 500ml. bag @ 12 UNITS/KG/HR 15. 91 mls/hr IV .Q24H [facility] Rx #:[id number] Magnesium Sulfate-D5w Pmx 300 1 gm In Dextrose/Water 1 100ml.bag @ 100 mls/hr IVPB Q1H [facility] Rx#: [id number] Potassium Chloride 10 meq 200 Lidocaine 2% Inj 10 mg In Sodium Chloride 0.9% 100 ml @ 100 mls/hr IV Q1HR [facility] Rx#:[id number] Potassium Chloride 10 meq 360 Lidocaine 2% Inj 10 mg In Sodium Chloride 0.9% 100 ml @ 100 mls/hr IV Q1HR [facility] Rx#:[id number] Sodium Chloride 0.9% 1, 700 100 000 ml @ 100 mls/hr IV . Q10H [facility] Rx#:[id number] Oral 360 Output: Urine 300 0 0 Other: Voiding Method Bedpan Bedpan # Voids 1 1 # Bowel Movements 1 - Exam Gen: This is an 81-year-old female. She is laying in bed in the ICU and appears to be in no acute distress. Patient appears to be comfortable. HEENT: Head is atraumatic, normocephalic. Pupils equal, round. Sclerae is anicteric. NECK: Supple. No JVD. No lymphadenopathy. No thyromegaly. LUNGS: Clear to auscultation. No wheezes or rhonchi. No intercostal retractions. HEART: Regular rate and rhythm. No murmur. ABDOMEN: Soft. Bowel sounds are present. No masses. No tenderness. EXTREMITIES: No pedal edema. No calf tenderness. NEUROLOGICAL: Patient is awake, alert and oriented x3. Cranial nerves 2 through 12 are grossly intact. - Labs CBC & Chem 7: 09/01/16 04:51 09/01/16 04:51 Labs: Abnormal Lab Results - Last 24 Hours (Table) 08/31/16 08/31/16 08/31/16 Range/Units 07:38 14:28 16:05 RBC (3.80-5.40) m/uL Hgb (11.4-16.0) gm/dL Hct (34.0-46.0) % MCHC (31.0-37.0) g/dL RDW (11.5-15.5) % APTT 39.9 H (22.0-30.0) sec Sodium (137-145) mmol/L Potassium (3.5-5.1) mmol/L BUN (7-17) mg/dL Glucose (74-99) mg/dL POC Glucose (mg/dL) (75-99) mg/dL Hemoglobin A1c 7.2 H (4.2-6.1) % AST (14-36) U/L Troponin I (0.000-0.034) ng/mL Total Protein (6.3-8.2) g/dL Albumin (3.5-5.0) g/dL Urine Appearance Cloudy H (Clear) Ur Specific [place] >1.050 H (1.001-1.035) Urine Protein Trace H (Negative) Urine Ketones 1+ H (Negative) Amorphous Sediment Rare H (None) /hpf Urine Mucus Rare H (None) /hpf Urine Yeast (Budding) Many H (None) /hpf 08/31/16 08/31/16 08/31/16 Range/Units 16:05 16:05 17:43 RBC (3.80-5.40) m/uL Hgb (11.4-16.0) gm/dL Hct (34.0-46.0) % MCHC (31.0-37.0) g/dL RDW (11.5-15.5) % APTT (22.0-30.0) sec Sodium (137-145) mmol/L Potassium 3.4 L (3.5-5.1) mmol/L BUN (7-17) mg/dL Glucose (74-99) mg/dL POC Glucose (mg/dL) 134 H (75-99) mg/dL Hemoglobin A1c (4.2-6.1) % AST (14-36) U/L Troponin I 7.620 H* (0.000-0.034) ng/mL Total Protein (6.3-8.2) g/dL Albumin (3.5-5.0) g/dL Urine Appearance (Clear) Ur Specific [place] (1.001-1.035) Urine Protein (Negative) Urine Ketones (Negative) Amorphous Sediment (None) /hpf Urine Mucus (None) /hpf Urine Yeast (Budding) (None) /hpf 08/31/16 09/01/16 09/01/16 Range/Units 21:03 00:51 00:51 RBC (3.80-5.40) m/uL Hgb (11.4-16.0) gm/dL Hct (34.0-46.0) % MCHC (31.0-37.0) g/dL RDW (11.5-15.5) % APTT 142.4 H* (22.0-30.0) sec Sodium (137-145) mmol/L Potassium 3.4 L (3.5-5.1) mmol/L BUN (7-17) mg/dL Glucose (74-99) mg/dL POC Glucose (mg/dL) 156 H (75-99) mg/dL Hemoglobin A1c (4.2-6.1) % AST (14-36) U/L Troponin I (0.000-0.034) ng/mL Total Protein (6.3-8.2) g/dL Albumin (3.5-5.0) g/dL Urine Appearance (Clear) Ur Specific [place] (1.001-1.035) Urine Protein (Negative) Urine Ketones (Negative) Amorphous Sediment (None) /hpf Urine Mucus (None) /hpf Urine Yeast (Budding) (None) /hpf 09/01/16 09/01/16 09/01/16 Range/Units 04:51 04:51 04:51 RBC 2.85 L (3.80-5.40) m/uL Hgb 7.2 L D (11.4-16.0) gm/dL Hct 24.5 L (34.0-46.0) % MCHC 29.3 L (31.0-37.0) g/dL RDW 15.6 H (11.5-15.5) % APTT (22.0-30.0) sec Sodium (137-145) mmol/L Potassium (3.5-5.1) mmol/L BUN (7-17) mg/dL Glucose (74-99) mg/dL POC Glucose (mg/dL) (75-99) mg/dL Hemoglobin A1c (4.2-6.1) % AST 54 H (14-36) U/L Troponin I 5.310 H* (0.000-0.034) ng/mL Total Protein 5.4 L (6.3-8.2) g/dL Albumin 2.8 L (3.5-5.0) g/dL Urine Appearance (Clear) Ur Specific [place] (1.001-1.035) Urine Protein (Negative) Urine Ketones (Negative) Amorphous Sediment (None) /hpf Urine Mucus (None) /hpf Urine Yeast (Budding) (None) /hpf 09/01/16 09/01/16 09/01/16 Range/Units 04:51 04:51 07:22 RBC (3.80-5.40) m/uL Hgb (11.4-16.0) gm/dL Hct (34.0-46.0) % MCHC (31.0-37.0) g/dL RDW (11.5-15.5) % APTT 66.5 H (22.0-30.0) sec Sodium 135 L (137-145) mmol/L Potassium (3.5-5.1) mmol/L BUN 19 H (7-17) mg/dL Glucose 105 H (74-99) mg/dL POC Glucose (mg/dL) 107 H (75-99) mg/dL Hemoglobin A1c (4.2-6.1) % AST (14-36) U/L Troponin I (0.000-0.034) ng/mL Total Protein (6.3-8.2) g/dL Albumin (3.5-5.0) g/dL Urine Appearance (Clear) Ur Specific [place] (1.001-1.035) Urine Protein (Negative) Urine Ketones (Negative) Amorphous Sediment (None) /hpf Urine Mucus (None) /hpf Urine Yeast (Budding) (None) /hpf Microbiology - Last 24 Hours (Table) 08/31/16 14:28 Urine Culture - Preliminary Urine,Voided 08/31/16 17:50 Nasal Screen MRSA/MSSA ([facility]) - Preliminary Nasal Swab Assessment and Plan Plan: 1. 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 Patient has been seen by cardiothoracic surgeon for evaluation for possible CABG. Patient remains in the intensive care unit and hemodynamically stable. Continue aspirin, Lipitor, heparin, Lopressor 2. Diabetes mellitus type 2. Patient was on Janumet at home. Continue insulin drip. 3. Hypertension. Patient was on Cardizem, hydrochlorothiazide, hydralazine at home 4. Hyperlipidemia. Continue Lipitor 5. History of breast cancer status post lumpectomy. 6. Carotid artery disease. 7. History of skin cancer. 8. Hyperthyroidism. Continue Tapazole 9. Gastrointestinal prophylaxis. 10. DVT prophylaxis. Heparin. Discharge plan: To be determined Impression and plan of care have been directed as dictated by the signing physician. Eileen Gomez nurse practitioner acting as scribe for signing physician.
[2016-09-01] MEDS: HEPARIN SODIUM,PORCINE/D5W PMX 25,000 UNIT in DEXTROSE/WATER 1 500ML.BAG IV SCH (16:29)
[2016-09-01 17:11] LABS: Glucose,Whole Blood 142 mg/dL (75-99)
[2016-09-01] MEDS ORDERED: LACTATED RINGERS 1,000 ML IV SCH (19:39)
[2016-09-01] MEDS ORDERED: MIDAZOLAM 2 MG/2 ML VIAL IV PRN (19:39)
[2016-09-01] MEDS ORDERED: POTASSIUM CHLORIDE ER 20 MEQ TAB.ER PO SCH (20:30)
[2016-09-01 21:25] LABS: Glucose,Whole Blood 138 mg/dL (75-99)
[2016-09-02] MEDS ORDERED: ATORVASTATIN 10 MG TAB PO ONE (05:00)
[2016-09-02] MEDS ORDERED: NOREPINEPHRIN 4 MG-0.9% NS PMX 4 MG/250 ML ML IV SCH (05:00)
[2016-09-02] MEDS ORDERED: ALBUMIN HUMAN 25% 50 ML in EMPTY BAG 1 BAG IVPB ONE (05:00)
[2016-09-02] MEDS ORDERED: PROTAMINE SULFATE 250 MG in EMPTY BAG 1 BAG IV ONE (05:00)
[2016-09-02] MEDS ORDERED: CLEVIDIPINE BUTYRATE 25 MG in EMPTY BAG 1 BAG IV ONE (05:00)
[2016-09-02] MEDS ORDERED: PROTAMINE SULFATE 10 MG/ML 25 ML VIAL IV ONE (05:00)
[2016-09-02] MEDS ORDERED: ceFAZolin 2 GM in SODIUM CHLORIDE 0.9% 30 ML IVPB ONE (05:00)
[2016-09-02] MEDS ORDERED: ceFAZolin 1,000 MG in SODIUM CHLORIDE 0.9% IRRIGATIO 1,000 ML IRRIGATION ONE (05:00)
[2016-09-02] MEDS ORDERED: LACTATED RINGERS 1,000 ML IV SCH (05:00)
[2016-09-02] MEDS ORDERED: METOPROLOL TARTRATE 25 MG TAB PO ONE (05:00)
[2016-09-02] MEDS ORDERED: HEPARIN SODIUM 1,000 UNIT/ML VIAL IV ONE (05:00)
[2016-09-02] MEDS ORDERED: PHENYLEPHRINE-0.9% NACL SYG 1 MG/10 ML SYRINGE IV ONE ×4 (05:00)
[2016-09-02] MEDS ORDERED: CALCIUM CHLORIDE 100 MG/ML 10 ML SYRINGE IVP ONE (05:00)
[2016-09-02] MEDS ORDERED: CHLORHEXIDINE GLUCONATE 15 ML CUP MUCOUS MEM ONE (05:00)
[2016-09-02] MEDS ORDERED: HEPARIN SODIUM,PORCINE 5,000 UNIT in SODIUM CHLORIDE 0.9% 500 ML IV ONE (05:00)
[2016-09-02] MEDS ORDERED: SODIUM BICARB 8.4% 50 ML SYR (1 MEQ/ML) IV ONE (05:00)
[2016-09-02] MEDS ORDERED: ceFAZolin 2,000 MG in SODIUM CHLORIDE 0.9% 30 ML IVPB ONE (05:00)
[2016-09-02] MEDS ORDERED: ASPIRIN 325 MG TAB PO ONE (05:00)
[2016-09-02] MEDS ORDERED: PROPOFOL 500 MG in EMPTY BAG 1 BAG IV ONE (05:00)
[2016-09-02] MEDS ORDERED: NITROGLYCERIN-D5W PMX 50 MG in DEXTROSE/WATER 1 250ML.BAG IV ONE (05:00)
[2016-09-02] MEDS ORDERED: MAGNESIUM SULFATE SYG 4.06 MEQ/ML SYRINGE IV ONE (05:00)
[2016-09-02] MEDS ORDERED: NITROGLYCERIN-D5W PMX 25 MG/250 ML BTL IV ONE (05:00)
[2016-09-02] MEDS ORDERED: PAPAVERINE 360 MG in SODIUM CHLORIDE 0.9% 90 ML IV ONE (05:00)
[2016-09-02] MEDS ORDERED: INSULIN REGULAR 100 UNIT in SODIUM CHLORIDE 0.9% 100 ML IV ONE (05:00)
[2016-09-02] MEDS ORDERED: ALBUMIN HUMAN 5% 500 ML in EMPTY BAG 1 BAG IVPB ONE ×6 (05:00)
[2016-09-02] MEDS ORDERED: PHENYLEPHRINE 40 MG in SODIUM CHLORIDE 0.9% 250 ML IV ONE (05:00)
[2016-09-02 06:13] LABS: ALT 36 U/L (9-52); AST 33 U/L (14-36); Alkaline Phosphatase 67 U/L (38-126); Anion Gap 7 mmol/L; Blood Urea Nitrogen 16 mg/dL (7-17); Calcium 8.9 mg/dL (8.4-10.2); Carbon Dioxide 23 mmol/L (22-30); Chloride 106 mmol/L (98-107); Glucose 129 mg/dL (74-99); Non-African American GFR(MDRD) >60 (>60 ml/min/1.73 sqM); Partial Thromboplastin Time 51.4 sec (22.0-30.0); Prothrombin Time 10.5 sec (9.0-12.0); Sodium 136 mmol/L (137-145); Total Bilirubin 0.3 mg/dL (0.2-1.3); Total Protein 5.5 g/dL (6.3-8.2)
[2016-09-02] MEDS ORDERED: IV FLUID CONTINUATION 1,000 ML IV ONE (06:24)
[2016-09-02 06:54] LABS: Basophils % (A) 0 %; CH 24.5; CHCM 28.7; Eosinophils # (A) 0.1 k/uL (0-0.7); Eosinophils % (A) 1 %; HCT 22.9 % (34.0-46.0); HDW 3.12; Hypochromasia Marked; Luc # (Auto) 0.15; Luc % (Auto) 2; Lymphocytes # (A) 1.5 k/uL (1.0-4.8); Lymphocytes % (A) 20 %; MCHC 29.2 g/dL (31.0-37.0); MCV 85.4 fL (80.0-100.0); Mean Platelet Volume 8.4; Monocytes # (A) 0.4 k/uL (0-1.0); Monocytes % (A) 5 %; Neutrophils # (A) 5.6 k/uL (1.3-7.7); Neutrophils % (A) 72 %; RBC 2.68 m/uL (3.80-5.40); RDW 15.7 % (11.5-15.5); WBC 7.8 k/uL (3.8-10.6)
[2016-09-02 07:12] LABS: HGB 6.7 gm/dL (11.4-16.0)
[2016-09-02] MEDS ORDERED: ePHEDrine 50 MG/ML 1 ML AMP ONE (07:30)
[2016-09-02] MEDS ORDERED: PHENYLEPHRINE-0.9% NACL SYG 1 MG/10 ML SYRINGE ONE (07:30)
[2016-09-02] MEDS ORDERED: PROPOFOL 10 MG/ML 20 ML VIAL IV ONE (07:30)
[2016-09-02] MEDS ORDERED: ALBUMIN HUMAN 5% 500 ML VIAL IVPB ONE (07:30)
[2016-09-02] MEDS ORDERED: MIDAZOLAM 2 MG/2 ML VIAL ONE (07:30)
[2016-09-02] MEDS ORDERED: fentaNYL (PF) 50 MCG/ML 2 ML AMP ONE (07:30)
[2016-09-02] MEDS ORDERED: PROTAMINE SULFATE 10 MG/ML 5 ML VIAL IV ONE (07:30)
[2016-09-02] MEDS ORDERED: SODIUM CHLORIDE 0.9% IRRIG 1,000 ML BTL IRRIGATION ONE (07:30)
[2016-09-02] MEDS ORDERED: HEPARIN SODIUM,PORCINE 10,000 UNIT/ML 1 ML VIAL ONE (07:30)
[2016-09-02] MEDS ORDERED: WATER FOR INJECTION, STERILE 10 ML VIAL IV ONE (07:30)
[2016-09-02] MEDS ORDERED: SUCCINYLCHOLINE CHLORIDE 100 MG/5 ML SYR IV ONE (07:30)
[2016-09-02] MEDS ORDERED: HEPARIN SODIUM 1,000 UNIT/ML VIAL ONE (07:30)
[2016-09-02] MEDS ORDERED: SODIUM BICARB 8.4% 50 ML SYR (1 MEQ/ML) ONE (07:30)
[2016-09-02] MEDS ORDERED: fentaNYL (PF) 50 MCG/ML 50 ML VIAL ONE (07:30)
[2016-09-02] MEDS ORDERED: VECURONIUM 10 MG VIAL IV ONE (07:30)
[2016-09-02 09:26] LABS: Glucose,Whole Blood 132 mg/dL (75-99)
[2016-09-02 10:49] LABS: Glucose,Whole Blood 138 mg/dL (75-99)
[2016-09-02 11:40] LABS: Glucose,Whole Blood 135 mg/dL (75-99)
[2016-09-02 12:05] LABS: Glucose,Whole Blood 145 mg/dL (75-99)
--- NOTE | 2016-09-02 12:26 | P.PN ---
Subjective This is an 81-year-old female patient of Dr. Laboy with past medical history of breast cancer, diabetes mellitus type 2, gastroesophageal reflux disease, hyperlipidemia, hypertension. She initially presented to [facility] with nausea and vomiting and abdominal symptoms. She had no chest discomfort or dizziness, shortness of breath. She had an EKG that showed a sinus rhythm and abnormal ST depression in the inferior leads and lateral precordial leads with ST segment abnormality in aVR and V1. Patient was then transferred to [facility] for heart catheterization for acute coronary syndrome. Patient underwent heart catheterization that showed severe disease involving the distal left main coronary artery and involving the ostial left circumflex and ostial LAD. Severe disease involving ostial and proximal left circumflex coronary artery. Severe disease involving the ostial LAD. Carotid ultrasound showed severe stenosis of the left internal carotid artery of 70% and mild right internal carotid artery stenosis of 50-69%. Patient has been seen in consultation by Dr. Corona from pulmonary medicine. Chest x-ray reveals suspect COPD, mild cardiomegaly, left basilar airspace disease with constant intermittent small effusion. Echocardiogram shows moderate concentric left ventricular hypertrophy, EF 55-60%, mild aortic valve sclerosis, mild mitral regurgitation. Patient is tentatively planned for CABG in the next 24- 48 hours. 09/02: Patient is gone for CABG. Objective - Vital Signs Vital signs: Vital Signs Temp 98.5 F 09/02/16 06:21 Pulse 65 09/02/16 06:21 Resp 16 09/02/16 06:21 BP 138/56 09/02/16 06:21 Pulse Ox 100 09/02/16 06:21 Intake & Output 09/01/16 09/02/16 09/02/16 18:59 06:59 18:59 Intake Total 434.255 585 33 Output Total 900 1250 Balance -465.745 -665 33 Weight 62.7 kg Intake: IV 220 45 33 Sodium Chloride 0.9% 1, 220 20 000 ml @ 100 mls/hr IV . Q10H [facility] Rx#:[id number] Intake, IV Titration 214.255 60 Amount Heparin Sodium,Porcine/ 214.255 D5w Pmx 25,000 unit In Dextrose/Water 1 500ml. bag @ 12 UNITS/KG/HR 15. 91 mls/hr IV .Q24H [facility] Rx #:[id number] Sodium Chloride 0.9% 1, 60 000 ml As IV .[employer] Rx#:[id number] Oral 480 Blood Product 0 Rc As-1 Unit 0 [id number] Rc Pheresis As-3 Unit 0 [id number] Output: Urine 900 1250 Other: Voiding Method Bedpan Bedpan # Voids 1 # Bowel Movements 0 - Exam Gen: This is an 81-year-old female. She is laying in bed in the ICU and appears to be in no acute distress. Patient appears to be comfortable. HEENT: Head is atraumatic, normocephalic. Pupils equal, round. Sclerae is anicteric. NECK: Supple. No JVD. No lymphadenopathy. No thyromegaly. LUNGS: Clear to auscultation. No wheezes or rhonchi. No intercostal retractions. HEART: Regular rate and rhythm. No murmur. ABDOMEN: Soft. Bowel sounds are present. No masses. No tenderness. EXTREMITIES: No pedal edema. No calf tenderness. NEUROLOGICAL: Patient is awake, alert and oriented x3. Cranial nerves 2 through 12 are grossly intact. - Labs CBC & Chem 7: 09/02/16 05:30 09/02/16 05:30 Labs: Abnormal Lab Results - Last 24 Hours (Table) 09/01/16 09/01/16 09/01/16 Range/Units 11:25 11:53 17:09 RBC (3.80-5.40) m/uL Hgb (11.4-16.0) gm/dL Hct (34.0-46.0) % MCHC (31.0-37.0) g/dL RDW (11.5-15.5) % APTT (22.0-30.0) sec Sodium (137-145) mmol/L Glucose (74-99) mg/dL POC Glucose (mg/dL) 165 H 142 H (75-99) mg/dL Total Protein (6.3-8.2) g/dL Albumin (3.5-5.0) g/dL Crossmatch See Detail 09/01/16 09/02/16 09/02/16 Range/Units 21:23 05:30 05:30 RBC 2.68 L (3.80-5.40) m/uL Hgb 6.7 L* (11.4-16.0) gm/dL Hct 22.9 L (34.0-46.0) % MCHC 29.2 L (31.0-37.0) g/dL RDW 15.7 H (11.5-15.5) % APTT 51.4 H (22.0-30.0) sec Sodium (137-145) mmol/L Glucose (74-99) mg/dL POC Glucose (mg/dL) 138 H (75-99) mg/dL Total Protein (6.3-8.2) g/dL Albumin (3.5-5.0) g/dL Crossmatch 09/02/16 09/02/16 Range/Units 05:30 09:11 RBC (3.80-5.40) m/uL Hgb (11.4-16.0) gm/dL Hct (34.0-46.0) % MCHC (31.0-37.0) g/dL RDW (11.5-15.5) % APTT (22.0-30.0) sec Sodium 136 L (137-145) mmol/L Glucose 129 H (74-99) mg/dL POC Glucose (mg/dL) 132 H (75-99) mg/dL Total Protein 5.5 L (6.3-8.2) g/dL Albumin 2.9 L (3.5-5.0) g/dL Crossmatch Microbiology - Last 24 Hours (Table) 08/31/16 14:28 Urine Culture - Preliminary Urine,Voided Gram Neg Bacilli 08/31/16 17:50 Nasal Screen MRSA/MSSA (CATIE) - Final Nasal Swab Assessment and Plan Plan: 1. 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 Patient has been seen by cardiothoracic surgeon for evaluation for possible CABG. Patient remains in the intensive care unit and hemodynamically stable. Continue aspirin, Lipitor, heparin, Lopressor 2. Diabetes mellitus type 2. Patient was on Janumet at home. Continue insulin drip. 3. Hypertension. Patient was on Cardizem, hydrochlorothiazide, hydralazine at home 4. Hyperlipidemia. Continue Lipitor 5. History of breast cancer status post lumpectomy. 6. Carotid artery disease. 7. History of skin cancer. 8. Hyperthyroidism. Continue Tapazole 9. Gastrointestinal prophylaxis. 10. DVT prophylaxis. Heparin. Discharge plan: To be determined Impression and plan of care have been directed as dictated by the signing physician. Eileen Gomez nurse practitioner acting as scribe for signing physician.
[2016-09-02 12:54] LABS: Glucose,Whole Blood 168 mg/dL (75-99)
[2016-09-02 13:28] LABS: Glucose,Whole Blood 150 mg/dL (75-99)
[2016-09-02] MEDS ORDERED: Magnesium Replacement Protocol 1 EACH MISC MISCELLANE PRN (14:04)
[2016-09-02] MEDS ORDERED: METOCLOPRAMIDE 5 MG/ML 2 ML VIAL IVP PRN (14:04)
[2016-09-02] MEDS ORDERED: ALBUMIN HUMAN 5% 250 ML in EMPTY BAG 1 BAG IVPB PRN (14:04)
[2016-09-02] MEDS ORDERED: BENZOCAINE/MENTHOL LOZENG 1 EACH LOZENGE MUCOUS MEM PRN (14:04)
[2016-09-02] MEDS ORDERED: Potassium Replacement Protocol 1 EACH MISC MISCELLANE PRN (14:04)
[2016-09-02] MEDS ORDERED: ONDANSETRON 4 MG/2 ML VIAL IVP PRN (14:04)
[2016-09-02] MEDS ORDERED: ASPIRIN 300 MG SUPP RECTAL ONE (14:04)
[2016-09-02] MEDS ORDERED: Phosphorus Replacement Protoco 1 EACH MISC MISCELLANE PRN (14:04)
[2016-09-02] MEDS ORDERED: CALCIUM GLUCONATE 2,000 MG in SODIUM CHLORIDE 0.9% 100 ML IVPB PRN (14:04)
[2016-09-02 14:59] LABS: Glucose,Whole Blood 133 mg/dL (75-99)
[2016-09-02 15:03] LABS: ABG Base Excess -2.7 mmol/L; ABG HCO3 22 mmol/L (21-25); ABG PCO2 40 mmHg (35-45); ABG PH 7.36 (7.35-7.45); ABG PO2 335 mmHg (83-108); ABG TCO2 23 mmol/L (19-24)
[2016-09-02] MEDS: HEPARIN SODIUM,PORCINE/D5W PMX 25,000 UNIT in DEXTROSE/WATER 1 500ML.BAG IV SCH (15:03)
[2016-09-02 15:13] LABS: Ionized Calcium 4.9 mg/dL (4.5-5.3)
[2016-09-02] MEDS: IPRATROPIUM-ALBUTEROL 3 ML NEB INHALATION SCH ×3 (15:21→23:15)
--- NOTE | 2016-09-02 15:21 | PN ---
DATE OF SERVICE: 09/01/2016 I saw her on September 01, 2016. I am dictated on September 02, 2016. Nancy is lying flat in bed. She looks comfortable. She has no chest discomfort. No dizziness or lightheadedness. She denies any nausea or any upper abdominal symptoms that brought her to the hospital. She is post IA with significant 2-vessel disease. She is awaiting Surgery. Her blood pressure is 127/57 mmHg, heart rate is in the 60s. Head and neck examination is normal. Heart sounds are normal. Lungs are clear to auscultation. Extremities are warm, no edema. She is on appropriate medical treatment at this time and is awaiting bypass surgery. PLAN: Continue medications and proceed with bypass surgery on September 02, 2016. I discussed this with Dr. Kelsey and he will be proceeding with an off-pump bypass surgery. We did discuss that she had extremely calcified vessels that were visible even on fluoroscopy during cath.
[2016-09-02 15:23] LABS: INR 1.4 (<1.1); Partial Thromboplastin Time 37.6 sec (22.0-30.0)
--- NOTE | 2016-09-02 15:28 | XR ---
EXAMINATION TYPE: XR chest 1V portable DATE OF EXAM: 09/02/2016 3:09 PM Comparison: 09/01/2016 Clinical History: 81 year-old female post Operative Cardiac Surgery Findings: ET tube is present. NG tube courses below the diaphragm but the sidehole is at the level of the GE ju nction. Right IJ Washburn-Jose David catheter is looped within the right atrium and the tip appears somewhat mo re right-sided than expected. Median sternotomy wires with post-CABG clips, mediastinal drain, and le ft-sided chest tube are present. There is mild prominence to the pulmonary vasculature and some patch y left basilar opacity. Impression: 1. NG tube side hole at the level of the GE junction. This could be further advanced into the stomach . 2. Washburn-Jose David catheter looped within the right atrium. The tip of the catheter is somewhat more rightw bobbi positioned than typically seen and could still be within the right heart. Consider repositioning. 3. Possible mild pulmonary vascular congestion. 4. Trace left pleural effusion with left basilar and retrocardiac atelectasis and/or consolidation.
[2016-09-02 15:51] LABS: Glucose,Whole Blood 146 mg/dL (75-99)
[2016-09-02] MEDS: NITROGLYCERIN-D5W PMX 50 MG in DEXTROSE/WATER 1 250ML.BAG IV SCH (15:57)
[2016-09-02] MEDS: LACTATED RINGERS 1,000 ML IV SCH (15:57)
[2016-09-02] MEDS: PROPOFOL 500 MG in EMPTY BAG 1 BAG IV SCH ×3 (16:01→23:24)
[2016-09-02] MEDS: INSULIN REGULAR 100 UNIT in SODIUM CHLORIDE 0.9% 100 ML IV SCH (16:02)
[2016-09-02 16:03] LABS: Basophils % (A) 0 %; CH 26.9; CHCM 31.7; Eosinophils # (A) 0.1 k/uL (0-0.7); Eosinophils % (A) 1 %; HCT 21.4 % (34.0-46.0); HDW 4.68; Hypochromasia Marked; Luc # (Auto) 0.03; Luc % (Auto) 1; Lymphocytes # (A) 1.3 k/uL (1.0-4.8); Lymphocytes % (A) 22 %; MCH 27.3 pg (25.0-35.0); MCHC 32.1 g/dL (31.0-37.0); MCV 85.2 fL (80.0-100.0); Mean Platelet Volume 7.3; Monocytes # (A) 0.2 k/uL (0-1.0); Monocytes % (A) 4 %; Neutrophils # (A) 4.4 k/uL (1.3-7.7); Neutrophils % (A) 73 %; Poikilocytosis Marked; RBC 2.51 m/uL (3.80-5.40); RDW 15.4 % (11.5-15.5); WBC (Perox) 6.16
[2016-09-02 16:05] LABS: HGB 6.9 gm/dL (11.4-16.0)
[2016-09-02 16:06] LABS: ALT 49 U/L (9-52); AST 89 U/L (14-36); Alkaline Phosphatase 34 U/L (38-126); Anion Gap 8 mmol/L; Blood Urea Nitrogen 11 mg/dL (7-17); Calcium 7.4 mg/dL (8.4-10.2); Carbon Dioxide 22 mmol/L (22-30); Chloride 113 mmol/L (98-107); Glucose 121 mg/dL (74-99); Magnesium 1.8 mg/dL (1.6-2.3); Non-African American GFR(MDRD) >60 (>60 ml/min/1.73 sqM); Potassium 3.6 mmol/L (3.5-5.1); Sodium 143 mmol/L (137-145); Total Bilirubin 1.8 mg/dL (0.2-1.3); Total Protein 4.1 g/dL (6.3-8.2)
[2016-09-02] MEDS: CLEVIDIPINE BUTYRATE 25 MG in EMPTY BAG 1 BAG IV SCH ×2 (16:20→17:45)
[2016-09-02] MEDS: ceFAZolin 2 GM in SODIUM CHLORIDE 0.9% 100 ML IVPB SCH ×2 (16:25→22:59)
[2016-09-02] MEDS: MAGNESIUM SULFATE-D5W PMX 1 GM in DEXTROSE/WATER 1 100ML.BAG IVPB SCH ×2 (16:33→17:57)
[2016-09-02] MEDS: POTASSIUM CHLORIDE 10 MEQ in WATER FOR INJECTION 1 100ML.BAG IVPB SCH ×2 (16:34→17:57)
--- NOTE | 2016-09-02 16:47 | P.PN ---
Subjective Principal diagnosis: Non ST segment elevation myocardial infarction, coronary artery disease. This is a 81-year-old female patient was having intermittent nausea vomiting and her symptoms initially were essentially of a gastrointestinal in nature. Apparently there was no reported chest pain. The patient initially presented to [facility] and the EKG showed ST segment depression in the inferior leads and lateral leads and the patient was considered to have an acute coronary syndrome. The patient also ruled in for an acute [place]. Based on that, the patient underwent a cardiac catheterization patient was found to have a left main disease and tight lesions in her left circumflex. The official report from the cardiac cath is not available to me at this point. This chest x -ray was free of any acute abnormalities. For that reason, the patient was started on IV heparin and the patient got moved to [facility] for cardiothoracic surgery evaluation. At this point in time, the patient is free of any chest pain. She is asymptomatic. She is hemodynamically stable. She has no specific complaints. She is known to have diabetes and hypertension pH is also known to have carotid artery disease. She is an ex-smoker. Most of emphysema. Most of asthma. She does not utilize any form of respiratory medications are inhalers on a regular basis. She is on oxygen at home.The patient has been independent. The patient has been able to perform household activities pH she is able to walk more than 600-700 feet at a time patient doesn 't own grocery. No pneumonias. No previous history of breathing complications. The patient is seen again today 09/02/2016 immediately postoperatively in the intensive care unit. She is status post off-pump coronary artery bypass grafting utilizing a RAO to LAD, SVG to the OM1, SVG to the PDA. She is currently sedated and on the mechanical ventilator settings of SIMV of 12 tidal volume 350 FiO2 100% and a PEEP of 5. Follow-up blood gases revealed a pO2 of 335, pCO2 of 40 and a pH of 7.36. There are [address] 1 to the left pleural cavity and 2 to the mediastinum. Urine output is adequate. Current cardiac output 3.9, cardiac index 2.4. PA pressures 31/20 with a mean of 26. Current drips include nitroglycerin at 5 mcg/m, propofol at 50 mcg/kg/m , lactated Ringer's at 50 mL per hour, insulin drip at 1.5 units per hour. Dmitry hugger is in place. Core temperature 93.8. The patient did have a drop in hemoglobin prior to surgery from 8.7 down to 6.7 and received 3 units of packed red cells before the OR. Current hemoglobin is 6.9. Objective - Vital Signs Vital signs: Vital Signs Temp 93.8 F L 09/02/16 14:45 Pulse 81 09/02/16 15:27 Resp 16 09/02/16 06:21 BP 138/56 09/02/16 06:21 Pulse Ox 100 09/02/16 14:45 Intake & Output 09/01/16 09/02/16 09/02/16 18:59 06:59 18:59 Intake Total 434.255 585 844.6 Output Total 900 1250 2750 Balance -465.745 -665 -1905.4 Weight 62.7 kg Intake: IV 220 45 33 Sodium Chloride 0.9% 1, 220 20 000 ml @ 100 mls/hr IV . Q10H [facility] Rx#:[id number] Intake, IV Titration 214.255 60 191.6 Amount Heparin Sodium,Porcine/ 214.255 D5w Pmx 25,000 unit In Dextrose/Water 1 500ml. bag @ 12 UNITS/KG/HR 15. 91 mls/hr IV .Q24H [facility] Rx #:[id number] Insulin Regular 100 unit 1.5 In Sodium Chloride 0.9% 100 ml @ Per Protocol IV .Q0M [facility] Rx#:[id number] Lactated Ringers 1,000 ml 150 @ 50 mls/hr IV .Q20H [facility] Rx#:[id number] Nitroglycerin-D5w Pmx 50 3.0 mg In Dextrose/Water 1 250ml.bag @ 5 MCG/MIN 1.5 mls/hr IV .Q24H [facility] Rx#: [id number] Propofol 500 mg In Empty 37.1 Bag 1 bag @ Titrate IV . Q0M [facility] Rx#:[id number] Sodium Chloride 0.9% 1, 60 000 ml As IV .STK-MED ONE Rx#:[id number] Oral 480 Blood Product 620 Rc As-1 Unit 310 [id number] Rc Pheresis As-3 Unit 310 [id number] Rc Pheresis As-3 Unit 0 [id number] Output: Chest Tube Drainage 140 Bilateral Mid-Axillary 70 Chest Mediastinal 70 Urine 900 1250 1610 Estimated Blood Loss 1000 Other: Voiding Method Bedpan Bedpan # Voids 1 # Bowel Movements 0 - Exam GENERAL EXAM: Intubated, sedated. HEAD: Normocephalic. EYES: Sluggish reaction of pupils, equal size. NOSE: Clear with pink turbinates. THROAT: No erythema or exudates. NECK: No masses, no JVD. Right [place]-Jose David catheter in place. CHEST: Sternal dressing is dry and intact. Midsternal and left pleural chest tubes in place. LUNGS: Equal air entry with faint crackles in the left posterior base. CVS: S1 and S2 normal with no audible murmurs, regular rhythm. ABDOMEN: Soft. SPINE: No scoliosis or deformity SKIN: No rashes Extremities: There is bilateral lower extremities. SADAF drains by bilaterally. Peripheral pulses are intact. - Labs CBC & Chem 7: 09/02/16 14:49 09/02/16 14:49 Labs: Abnormal Lab Results - Last 24 Hours (Table) 09/01/16 09/01/16 09/01/16 Range/Units 11:53 17:09 21:23 RBC (3.80-5.40) m/uL Hgb (11.4-16.0) gm/dL Hct (34.0-46.0) % MCHC (31.0-37.0) g/dL RDW (11.5-15.5) % Plt Count (150-450) k/uL PT (9.0-12.0) sec APTT (22.0-30.0) sec ABG pO2 (83-108) mmHg ABG O2 Saturation (94-97) % Sodium (137-145) mmol/L Chloride (98-107) mmol/L Creatinine (0.52-1.04) mg/dL Glucose (74-99) mg/dL POC Glucose (mg/dL) 142 H 138 H (75-99) mg/dL Calcium (8.4-10.2) mg/dL Total Bilirubin (0.2-1.3) mg/dL AST (14-36) U/L Alkaline Phosphatase (38-126) U/L Total Protein (6.3-8.2) g/dL Albumin (3.5-5.0) g/dL Crossmatch See Detail 09/02/16 09/02/16 09/02/16 Range/Units 05:30 05:30 05:30 RBC 2.68 L (3.80-5.40) m/uL Hgb 6.7 L* (11.4-16.0) gm/dL Hct 22.9 L (34.0-46.0) % MCHC 29.2 L (31.0-37.0) g/dL RDW 15.7 H (11.5-15.5) % Plt Count (150-450) k/uL PT (9.0-12.0) sec APTT 51.4 H (22.0-30.0) sec ABG pO2 (83-108) mmHg ABG O2 Saturation (94-97) % Sodium 136 L (137-145) mmol/L Chloride (98-107) mmol/L Creatinine (0.52-1.04) mg/dL Glucose 129 H (74-99) mg/dL POC Glucose (mg/dL) (75-99) mg/dL Calcium (8.4-10.2) mg/dL Total Bilirubin (0.2-1.3) mg/dL AST (14-36) U/L Alkaline Phosphatase (38-126) U/L Total Protein 5.5 L (6.3-8.2) g/dL Albumin 2.9 L (3.5-5.0) g/dL Crossmatch 09/02/16 09/02/16 09/02/16 Range/Units 09:11 10:46 11:27 RBC (3.80-5.40) m/uL Hgb (11.4-16.0) gm/dL Hct (34.0-46.0) % MCHC (31.0-37.0) g/dL RDW (11.5-15.5) % Plt Count (150-450) k/uL PT (9.0-12.0) sec APTT (22.0-30.0) sec ABG pO2 (83-108) mmHg ABG O2 Saturation (94-97) % Sodium (137-145) mmol/L Chloride (98-107) mmol/L Creatinine (0.52-1.04) mg/dL Glucose (74-99) mg/dL POC Glucose (mg/dL) 132 H 138 H 135 H (75-99) mg/dL Calcium (8.4-10.2) mg/dL Total Bilirubin (0.2-1.3) mg/dL AST (14-36) U/L Alkaline Phosphatase (38-126) U/L Total Protein (6.3-8.2) g/dL Albumin (3.5-5.0) g/dL Crossmatch 09/02/16 09/02/16 09/02/16 Range/Units 12:02 12:52 13:25 RBC (3.80-5.40) m/uL Hgb (11.4-16.0) gm/dL Hct (34.0-46.0) % MCHC (31.0-37.0) g/dL RDW (11.5-15.5) % Plt Count (150-450) k/uL PT (9.0-12.0) sec APTT (22.0-30.0) sec ABG pO2 (83-108) mmHg ABG O2 Saturation (94-97) % Sodium (137-145) mmol/L Chloride (98-107) mmol/L Creatinine (0.52-1.04) mg/dL Glucose (74-99) mg/dL POC Glucose (mg/dL) 145 H 168 H 150 H (75-99) mg/dL Calcium (8.4-10.2) mg/dL Total Bilirubin (0.2-1.3) mg/dL AST (14-36) U/L Alkaline Phosphatase (38-126) U/L Total Protein (6.3-8.2) g/dL Albumin (3.5-5.0) g/dL Crossmatch 09/02/16 09/02/16 09/02/16 Range/Units 14:49 14:49 14:49 RBC 2.51 L (3.80-5.40) m/uL Hgb 6.9 L* (11.4-16.0) gm/dL Hct 21.4 L (34.0-46.0) % MCHC (31.0-37.0) g/dL RDW (11.5-15.5) % Plt Count 68 L D (150-450) k/uL PT 14.0 H (9.0-12.0) sec APTT 37.6 H (22.0-30.0) sec ABG pO2 (83-108) mmHg ABG O2 Saturation (94-97) % Sodium (137-145) mmol/L Chloride 113 H (98-107) mmol/L Creatinine 0.50 L (0.52-1.04) mg/dL Glucose 121 H (74-99) mg/dL POC Glucose (mg/dL) (75-99) mg/dL Calcium 7.4 L (8.4-10.2) mg/dL Total Bilirubin 1.8 H (0.2-1.3) mg/dL AST 89 H (14-36) U/L Alkaline Phosphatase 34 L (38-126) U/L Total Protein 4.1 L (6.3-8.2) g/dL Albumin 2.7 L (3.5-5.0) g/dL Crossmatch 09/02/16 09/02/16 09/02/16 Range/Units 14:50 14:58 15:49 RBC (3.80-5.40) m/uL Hgb (11.4-16.0) gm/dL Hct (34.0-46.0) % MCHC (31.0-37.0) g/dL RDW (11.5-15.5) % Plt Count (150-450) k/uL PT (9.0-12.0) sec APTT (22.0-30.0) sec ABG pO2 335 H (83-108) mmHg ABG O2 Saturation 100.0 H (94-97) % Sodium (137-145) mmol/L Chloride (98-107) mmol/L Creatinine (0.52-1.04) mg/dL Glucose (74-99) mg/dL POC Glucose (mg/dL) 133 H 146 H (75-99) mg/dL Calcium (8.4-10.2) mg/dL Total Bilirubin (0.2-1.3) mg/dL AST (14-36) U/L Alkaline Phosphatase (38-126) U/L Total Protein (6.3-8.2) g/dL Albumin (3.5-5.0) g/dL Crossmatch Microbiology - Last 24 Hours (Table) 08/31/16 14:28 Urine Culture - Preliminary Urine,Voided Gram Neg Bacilli 08/31/16 17:50 Nasal Screen MRSA/MSSA (CATIE) - Final Nasal Swab Assessment and Plan Plan: Impression: 1 acute non-STEMI with multivessel coronary artery disease including left main disease. Status post off-pump coronary artery bypass grafting utilizing a RAO to the LAD, SVG to the OM1, SVG to the PDA. Postoperative day #0. 2 postoperative thoracotomy with ventilator dependence as an expected outcome. 3 hypertension 4 hyperlipidemia 5 breast cancer with a previous lumpectomy 6 carotid artery disease 7 skin cancer 8 hypothyroidism 9 osteoarthritis 10 acid reflux 11 diabetes mellitus PLAN: The patient was seen and evaluated by Dr. Olivarez. Vent settings were adjusted appropriately according to the ABGs. She is now on SIMV of 10, tidal volume 450 , PEEP of 5 and FiO2 of 50%. Chest x-ray shows some mild pulmonary vascular congestion with a trace left pleural effusion with left basilar atelectasis. Continue bronchodilators. To receive an additional unit of packed red blood cells. We will continue to follow make further recommendations based on her clinical status. Critical care time 35 minutes. Time with Patient: Greater than 30
[2016-09-02 16:51] LABS: Glucose,Whole Blood 155 mg/dL (75-99)
[2016-09-02] MEDS: ACETAMINOPHEN IV (For NPO) 1,000 MG in EMPTY BAG 1 BAG IVPB SCH ×2 (17:58→22:59)
[2016-09-02 18:11] LABS: Glucose,Whole Blood 176 mg/dL (75-99)
[2016-09-02 19:04] LABS: Glucose,Whole Blood 163 mg/dL (75-99)
[2016-09-02 19:48] LABS: Glucose,Whole Blood 143 mg/dL (75-99)
[2016-09-02] MEDS: MUPIROCIN 2% OINT 22 GM TUBE NASAL SCH (20:03)
[2016-09-02 20:04] LABS: Basophils % (A) 0 %; CH 28.1; Eosinophils % (A) 0 %; HCT 28.8 % (34.0-46.0); HDW 4.84; Hypochromasia Marked; Luc # (Auto) 0.07; Luc % (Auto) 1; Lymphocytes # (A) 0.7 k/uL (1.0-4.8); Lymphocytes % (A) 7 %; MCH 28.3 pg (25.0-35.0); MCHC 33.2 g/dL (31.0-37.0); MCV 85.3 fL (80.0-100.0); Mean Platelet Volume 8.9; Monocytes # (A) 0.4 k/uL (0-1.0); Monocytes % (A) 5 %; Neutrophils % (A) 87 %; Poikilocytosis Marked; RBC 3.37 m/uL (3.80-5.40); RDW 15.2 % (11.5-15.5); WBC 9.2 k/uL (3.8-10.6); WBC (Perox) 9.62
[2016-09-02 20:11] LABS: HGB 9.6 gm/dL (11.4-16.0)
[2016-09-02 20:20] LABS: Magnesium 2.3 mg/dL (1.6-2.3); Potassium 3.7 mmol/L (3.5-5.1)
[2016-09-02 20:56] LABS: Glucose,Whole Blood 129 mg/dL (75-99)
[2016-09-02] MEDS ORDERED: POTASSIUM CHLORIDE 20 MEQ in WATER FOR INJECTION 1 100ML.BAG IVPB STA (21:03)
[2016-09-02 22:21] LABS: Glucose,Whole Blood 134 mg/dL (75-99)
--- NOTE | 2016-09-02 22:45 | OP ---
DATE OF SERVICE: 09/02/2016 SURGEON: Molly Kelsey MD ASSISTANTS: 1. Pro [place] 2. FLOR Gillespie PREOPERATIVE DIAGNOSES: 1. Hir-TK-[id number] myocardial infarction. 2. 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 3. Preserved systolic function. 4. Mild mitral valve regurgitation. 5. Hypertension. 6. Hyperlipidemia. 7. Diabetes mellitus. 8. Hyperparathyroidism. POSTOPERATIVE DIAGNOSES: 1. [id number]-yxyibeovt myocardial infarction. 2. 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 3. Preserved systolic function. 4. Mild mitral valve regurgitation. 5. Hypertension. 6. Hyperlipidemia. 7. Diabetes mellitus. 8. Hyperparathyroidism. PROCEDURES: 1. Non-aortic clamp off-pump triple coronary artery bypass grafting using the left internal mammary artery to the left anterior descending artery, reverse saphenous vein graft connected to the aorta using the Passport device connected distally to the posterior descending artery, reverse saphenous vein graft connected to the aorta using the Passport device to connect it distally to the obtuse marginal artery. 2. Endoscopic harvesting of the right and the left greater saphenous veins. 3. Intraoperative transesophageal echocardiogram and epiaortic scanning. 4. Intraoperative graft flow measurements using the [employer] system. INDICATION FOR SURGERY: Patient is an 81-year-old lady with above comorbidities who presented with several days' history of stuttering epigastric pain with a prolonged episode prompting admission to [facility]. She had positive enzymes and questionable ST-elevation myocardial infarction and was brought in to [facility], where she underwent urgent cardiac catheterization that showed severe triple-vessel calcific coronary artery disease. Patient was deemed a surgical candidate. Workup was completed. Patient is taken today for an off-pump triple-vessel bypass strategy to try to minimize her risks. Risks, benefits and alternatives were discussed with her and her family. They understood and agreed to proceed. DESCRIPTION OF THE PROCEDURE: Patient in supine position. Right internal jugular [place]-Jose David catheter was inserted in the preoperative holding area as well as right radial arterial line. Her PA pressure was 36/18. Her index was 2.1. Subsequently she was brought to the operating room, where general endotracheal anesthesia was induced uneventfully. Lane catheter was inserted. Chest, abdomen and both lower extremities were prepped and draped using ChloraPrep. Ioban was used to cover the skin. Transesophageal echocardiogram revealed preserved systolic function and mild to moderate mitral valve regurgitation. There was no other significant valvular abnormality. Midline sternotomy was performed and the bone was quite osteoporotic and profusely bleeding. No bone wax was used. The left hemisternum was elevated and the left internal mammary artery was harvested in a somewhat skeletonized fashion. The left pleura was intentionally opened in this process and was drained with a 28 [place] chest tube. The right pleura remained grossly intact. In the same setting, initially the right then the left greater saphenous veins were harvested to be able to obtain adequate veins. Both leg incisions were closed over a drain. The vein harvest followed administration of 2500 units of heparin intravenously. The branches were tied in anticipation of the use of a Passport device. Mediastinal fat was transected between 2 ties and epiaortic scanning revealed concentric intimal thickening of the aorta but no protruding atheroma. Pericardium was opened in an inverted T fashion and a pericardial cradle was created. Findings included the soft aorta, normal in size, mildly enlarged heart with diffuse calcific coronary artery disease, as suspected on cardiac catheterization. Heparinization to achieve an ACT above 250 seconds was administered. The mammary artery was clipped distally and transected. That mammary artery had webbing in its distal aspect and was very friable, with inflammatory thickened wall. However, it had good flow in it. The vein was prepared and was around 4 mm in diameter and of good quality. The first distal anastomosis was between the left internal mammary artery and the mid to distal aspect of the left anterior descending artery, which was opened, accepted a 2.5 mm shunt using Prolene 7-0 in continuous fashion. The mammary pedicle was affixed to the epicardium with Prolene 6-0. Subsequently the distance between the PDA and the aorta as well as the distance between the obtuse marginal artery and the aorta were measured. Two segments of veins were fashioned accordingly, loaded on 2 Passport devices and deployed on the left lateral aspect of the ascending aorta for the vein going to the obtuse marginal artery and on the anterior aspect of the proximal aorta for the vein going to the posterior descending artery. There was excellent flow from the other end of the veins. The second distal anastomosis was between the vein already connected to the aorta and the obtuse marginal artery, which was opened, accepted a 1.5 shunt using Prolene 7-0 in continuous fashion. To mention that the upper sioux flow in the left anterior descending artery was perfuse as well as the flow into the obtuse marginal artery. The vein was de-aired before completing the anastomosis after removing the shunt. That was well tolerated. The third and last distal anastomosis was between another segment of vein that was already connected to the aorta and the posterior descending artery, which was opened, was thin-walled, accepted a 1.5 mm shunt using Prolene 7-0 in continuous fashion. This vein was de-aired and the shunt was removed before completing the anastomosis, which was well tolerated. At this point we proceeded measuring graft flows. The flows were excellent, especially the flow into the vein going to the obtuse marginal artery, which was above 100 mL/minute. With that, test dose and half dose protamine was given. Two substernal chest tubes, 32 [place], were placed. A groove was made in the left pleural pericardial fat to accommodate the mammary artery medial to the lung and away from the posterior sternal table. Mediastinal fat was approximated over the aorta and the graft and the heart loosely. After ensuring adequate hemostasis and hemodynamics and after correct sponge, instrument and needle count, the sternum was approximated using stainless steel wires after interposing Fibrillar between the sternal edges. Thorough irrigation with cefazolin followed. The rest of the closure proceeded in layers. Skin glue was applied. Patient received 750 mL of Cell Saver blood. She had received 1 unit in the preoperative holding area as well as the second unit that was being infused as the patient was brought to the operating room. We gave her an extra third unit during surgery. Her hemoglobin before surgery was 6.7. Patient was transferred to the ICU with good hemodynamics, cardiac index of 2.3, PA pressure of 27/16, mean arterial pressure of 80, normal sinus rhythm at 73 with an EKG identical to baseline, on low-dose nitroglycerin. MTDD
[2016-09-02 23:13] LABS: Glucose,Whole Blood 112 mg/dL (75-99)
[2016-09-03] MEDS ORDERED: HEPARIN SODIUM,PORCINE 5,000 UNIT/ML 1 ML VIAL SQ SCH
[2016-09-03 00:16] LABS: Glucose,Whole Blood 127 mg/dL (75-99)
[2016-09-03] MEDS: MORPHINE SULFATE 2 MG/ML SYRINGE IVP PRN (00:19)
[2016-09-03 00:58] LABS: Glucose,Whole Blood 127 mg/dL (75-99)
[2016-09-03 01:59] LABS: Glucose,Whole Blood 114 mg/dL (75-99)
[2016-09-03 03:06] LABS: Glucose,Whole Blood 124 mg/dL (75-99)
[2016-09-03] MEDS: IPRATROPIUM-ALBUTEROL 3 ML NEB INHALATION SCH ×5 (03:15→19:57)
[2016-09-03] MEDS: PROPOFOL 500 MG in EMPTY BAG 1 BAG IV SCH (03:50)
[2016-09-03 04:07] LABS: Glucose,Whole Blood 134 mg/dL (75-99)
[2016-09-03 04:34] LABS: Basophils % (A) 0 %; CHCM 33.2; Eosinophils % (A) 0 %; HCT 25.7 % (34.0-46.0); HDW 5.04; HGB 8.3 gm/dL (11.4-16.0); Hypochromasia Marked; Luc # (Auto) 0.12; Luc % (Auto) 1; Lymphocytes # (A) 0.9 k/uL (1.0-4.8); Lymphocytes % (A) 10 %; MCH 27.2 pg (25.0-35.0); MCHC 32.2 g/dL (31.0-37.0); MCV 84.6 fL (80.0-100.0); Mean Platelet Volume 10.3; Monocytes # (A) 0.4 k/uL (0-1.0); Monocytes % (A) 5 %; Neutrophils # (A) 7.7 k/uL (1.3-7.7); Neutrophils % (A) 84 %; Poikilocytosis Marked; RBC 3.03 m/uL (3.80-5.40); RDW 15.6 % (11.5-15.5); WBC 9.2 k/uL (3.8-10.6); WBC (Perox) 9.16
[2016-09-03] MEDS: ACETAMINOPHEN IV (For NPO) 1,000 MG in EMPTY BAG 1 BAG IVPB SCH ×3 (05:15→18:04)
[2016-09-03 05:32] LABS: Ionized Calcium 4.8 mg/dL (4.5-5.3)
[2016-09-03 05:38] LABS: ALT 47 U/L (9-52); AST 52 U/L (14-36); Alkaline Phosphatase 46 U/L (38-126); Anion Gap 6 mmol/L; Blood Urea Nitrogen 10 mg/dL (7-17); Calcium 7.5 mg/dL (8.4-10.2); Carbon Dioxide 22 mmol/L (22-30); Chloride 109 mmol/L (98-107); Glucose 122 mg/dL (74-99); Magnesium 2.2 mg/dL (1.6-2.3); Non-African American GFR(MDRD) >60 (>60 ml/min/1.73 sqM); Sodium 137 mmol/L (137-145); Total Bilirubin 1.1 mg/dL (0.2-1.3); Total Protein 4.3 g/dL (6.3-8.2)
[2016-09-03 06:04] LABS: Glucose,Whole Blood 146 mg/dL (75-99)
[2016-09-03] MEDS: CLEVIDIPINE BUTYRATE 25 MG in EMPTY BAG 1 BAG IV SCH (06:05)
[2016-09-03 07:03] LABS: Glucose,Whole Blood 102 mg/dL (75-99)
--- NOTE | 2016-09-03 07:19 | XR ---
EXAMINATION TYPE: XR chest 1V portable DATE OF EXAM: 09/03/2016 7:06 AM HISTORY: Post Operative Cardiac Surgery. REFERENCE: Previous study dated 09/02/2016. FINDINGS: The patient has undergone a midline sternotomy. The patient is ET tube and NG tube remain i n place. The NG tube is barely within the stomach. This could be advanced. [place]-Jose David catheter in plac e via a right internal jugular approach. Its tip is in the right main pulmonary artery. A left pleura l drain is in place. There is vascular congestion there is mild interstitial change. The heart is enlarged. I suspect tiny , bilateral pleural effusions. IMPRESSION: CONTINUING POSTOPERATIVE CHANGE.
[2016-09-03] MEDS ORDERED: FUROSEMIDE 10 MG/ML 2 ML VIAL IV ONE (07:45)
[2016-09-03 08:15] LABS: Glucose,Whole Blood 103 mg/dL (75-99)
[2016-09-03] MEDS: METOPROLOL TARTRATE 25 MG TAB PO SCH ×2 (08:32→21:50)
[2016-09-03] MEDS: ceFAZolin 2 GM in SODIUM CHLORIDE 0.9% 100 ML IVPB SCH (08:48)
[2016-09-03 08:54] LABS: ABG HCO3 22 mmol/L (21-25); ABG Oxygen Saturation 96.3 % (94-97); ABG PCO2 32 mmHg (35-45); ABG PH 7.46 (7.35-7.45); ABG PO2 79 mmHg (83-108); ABG TCO2 23 mmol/L (19-24)
[2016-09-03] MEDS ORDERED: ASPIRIN 325 MG TAB PO SCH (09:00)
[2016-09-03] MEDS ORDERED: METOPROLOL TARTRATE 12.5 MG TAB PO SCH (09:00)
[2016-09-03] MEDS ORDERED: PANTOPRAZOLE 40 MG/10 ML VIAL IVP SCH (09:00)
[2016-09-03 09:14] LABS: Glucose,Whole Blood 114 mg/dL (75-99)
[2016-09-03] MEDS ORDERED: DEXMEDETOMIDINE 400 MCG in SODIUM CHLORIDE 0.9% 100 ML IV SCH (09:15)
[2016-09-03] MEDS: METHIMAZOLE 5 MG TAB PO SCH (09:33)
[2016-09-03] MEDS: MUPIROCIN 2% OINT 22 GM TUBE NASAL SCH ×2 (09:33→21:00)
[2016-09-03] MEDS: FONDAPARINUX 2.5 MG/0.5 ML SYRINGE SQ SCH (09:34)
[2016-09-03] MEDS: ATORVASTATIN 40 MG TAB PO SCH (09:34)
[2016-09-03] MEDS: ASPIRIN 81 MG CHEW PO SCH (09:34)
[2016-09-03] MEDS: CLOPIDOGREL 75 MG TAB PO SCH (09:34)
[2016-09-03 10:18] LABS: Glucose,Whole Blood 142 mg/dL (75-99)
--- NOTE | 2016-09-03 10:26 | P.PN ---
<Iesha Nina - Last Filed: 09/03/16 10:23> Subjective Principal diagnosis: Non-STEMI. 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 Preserved systolic function. Mild mitral valve regurgitation. Hypertension. Hyperlipidemia. Diabetes mellitus. Hyperparathyroidism. POD #1 non-aortic clamp off pump triple coronary artery bypass grafting using the left internal mammary artery to the left anterior descending artery, reverse saphenous vein graft connected to the aorta using the Passport device connected distally to the posterior descending artery, reverse saphenous vein graft connected to the aorta using the Passport device to connected distally to the obtuse marginal artery. Endoscopic harvesting of the right and the left greater saphenous veins. Intraoperative transesophageal echocardiogram and epi- aortic scanning. Intraoperative graft flow measurements using the Vouchr system. Patient's currently sedated on mechanical ventilation. Objective - Vital Signs Vital signs: Vital Signs Temp 99.8 F H 09/03/16 08:00 Pulse 88 09/03/16 09:00 Resp 23 09/03/16 09:00 BP 128/62 09/03/16 09:00 Pulse Ox 96 09/03/16 09:00 Intake & Output 09/02/16 09/03/16 09/03/16 18:59 06:59 18:59 Intake Total 1955.253 459.213 171.834 Output Total 3140 1381 335 Balance -1184.747 -921.787 -163.166 Weight 62.7 kg Intake: IV 33 159 27 CO/CI 60 Pressure Bag 99 27 Intake, IV Titration 992.253 300.213 144.834 Amount ACETAMINOPHEN IV (For NPO 100 ) 1,000 mg In Empty Bag 1 bag @ 400 mls/hr IVPB Q6HR [facility] Rx#:[id number] Clevidipine Butyrate 25 4.233 18.1 mg In Empty Bag 1 bag @ 1 MG/HR 2 mls/hr IV .Q24H [facility] Rx#:[id number] Insulin Regular 100 unit 5.595 30.283 2.814 In Sodium Chloride 0.9% 100 ml @ Per Protocol IV .Q0M [facility] Rx#:[id number] Lactated Ringers 1,000 ml 250 100 @ 20 mls/hr IV .Q24H [facility] Rx#:[id number] Magnesium Sulfate-D5w Pmx 200 1 gm In Dextrose/Water 1 100ml.bag @ 100 mls/hr IVPB Q1H [facility] Rx#: [id number] Nitroglycerin-D5w Pmx 50 7.725 49.95 93.9 mg In Dextrose/Water 1 250ml.bag @ 5 MCG/MIN 1.5 mls/hr IV .Q24H [facility] Rx#: [id number] Potassium Chloride 10 meq 200 In Water For Injection 1 100ml.bag @ 100 mls/hr IVPB Q1H [facility] Rx#: [id number] Propofol 500 mg In Empty 124.7 101.880 48.12 Bag 1 bag @ Titrate IV . Q0M [facility] Rx#:[id number] ceFAZolin 2 gm In Sodium 100 Chloride 0.9% 100 ml @ 100 mls/hr IVPB Q8HR [facility] Rx#:[id number] Blood Product 930 Rc As-1 Unit 310 [id number] Rc As-1 Unit 310 [id number] Rc Pheresis As-3 Unit 310 [id number] Rc Pheresis As-3 Unit 0 [id number] Output: Chest Tube Drainage 230 426 80 Bilateral Mediastinal 282 60 Bilateral Mid-Axillary 110 20 Chest Left Pleural 104 20 Mediastinal 120 20 Drainage 85 Left Thigh 50 Right Calf 35 Urine 1825 955 255 Estimated Blood Loss 1000 Other: Voiding Method Indwelling Catheter Indwelling Catheter # Voids 1 # Bowel Movements 0 ABP, PAP, CO, CI - Last Documented Arterial Blood Pressure 129/59 Pulmonary Artery Pressure 24/14 Cardiac Output 5.4 Cardiac Index 3.3 - Constitutional General appearance: Present: no acute distress - Respiratory Details: Lungs sounds mesh bilaterally. Respirations even, nonlabored on mechanical ventilation. Current ventilator settings SIMV mode, FiO2 50%, tidal volume 450 , respiratory rate 10, PEEP 5. Mediastinal chest tube to -20 cm wall suction, drained 185 mL serosanguineous drainage overnight, 400 mL since surgery. Left pleural chest tube to -20 cm wall suction, drained 70 mL serosanguineous drainage overnight, 250 mL since surgery. No air leaks present. - Cardiovascular Details: S1, S2 present. Regular rate and rhythm, normal sinus rhythm on telemetry. Heart hugger in place. Teds/SCDs present. - Gastrointestinal Gastrointestinal Comment(s): Abdomen soft, nontender, nondistended. Hypo-active bowel sounds 4 quadrants. - Genitourinary Genitourinary Comment(s): Lane present draining clear, yellow urine. Output 40-60 mL per hour. - Integumentary Integumentary Comment(s): Anterior chest incision well approximated and covered with dry intact dressing. Bilateral lower extremity EVH sites well approximated with SADAF drains present. - Neurologic Neurologic Comment(s): Sedated on mechanical ventilation but does wake up, does not follow commands. - Allied health notes Allied health notes reviewed: nursing - Labs CBC & Chem 7: 09/03/16 04:05 09/03/16 04:05 Labs: Abnormal Lab Results - Last 24 Hours (Table) 09/01/16 09/02/16 09/02/16 Range/Units 11:53 10:46 11:27 RBC (3.80-5.40) m/uL Hgb (11.4-16.0) gm/dL Hct (34.0-46.0) % RDW (11.5-15.5) % Plt Count (150-450) k/uL Neutrophils # (1.3-7.7) k/uL Lymphocytes # (1.0-4.8) k/uL PT (9.0-12.0) sec APTT (22.0-30.0) sec ABG pH (7.35-7.45) ABG pCO2 (35-45) mmHg ABG pO2 (83-108) mmHg ABG O2 Saturation (94-97) % Chloride (98-107) mmol/L Creatinine (0.52-1.04) mg/dL Glucose (74-99) mg/dL POC Glucose (mg/dL) 138 H 135 H (75-99) mg/dL Calcium (8.4-10.2) mg/dL Total Bilirubin (0.2-1.3) mg/dL AST (14-36) U/L Alkaline Phosphatase (38-126) U/L Total Protein (6.3-8.2) g/dL Albumin (3.5-5.0) g/dL Crossmatch See Detail 09/02/16 09/02/16 09/02/16 Range/Units 12:02 12:52 13:25 RBC (3.80-5.40) m/uL Hgb (11.4-16.0) gm/dL Hct (34.0-46.0) % RDW (11.5-15.5) % Plt Count (150-450) k/uL Neutrophils # (1.3-7.7) k/uL Lymphocytes # (1.0-4.8) k/uL PT (9.0-12.0) sec APTT (22.0-30.0) sec ABG pH (7.35-7.45) ABG pCO2 (35-45) mmHg ABG pO2 (83-108) mmHg ABG O2 Saturation (94-97) % Chloride (98-107) mmol/L Creatinine (0.52-1.04) mg/dL Glucose (74-99) mg/dL POC Glucose (mg/dL) 145 H 168 H 150 H (75-99) mg/dL Calcium (8.4-10.2) mg/dL Total Bilirubin (0.2-1.3) mg/dL AST (14-36) U/L Alkaline Phosphatase (38-126) U/L Total Protein (6.3-8.2) g/dL Albumin (3.5-5.0) g/dL Crossmatch 09/02/16 09/02/16 09/02/16 Range/Units 14:49 14:49 14:49 RBC 2.51 L (3.80-5.40) m/uL Hgb 6.9 L* (11.4-16.0) gm/dL Hct 21.4 L (34.0-46.0) % RDW (11.5-15.5) % Plt Count 68 L D (150-450) k/uL Neutrophils # (1.3-7.7) k/uL Lymphocytes # (1.0-4.8) k/uL PT 14.0 H (9.0-12.0) sec APTT 37.6 H (22.0-30.0) sec ABG pH (7.35-7.45) ABG pCO2 (35-45) mmHg ABG pO2 (83-108) mmHg ABG O2 Saturation (94-97) % Chloride 113 H (98-107) mmol/L Creatinine 0.50 L (0.52-1.04) mg/dL Glucose 121 H (74-99) mg/dL POC Glucose (mg/dL) (75-99) mg/dL Calcium 7.4 L (8.4-10.2) mg/dL Total Bilirubin 1.8 H (0.2-1.3) mg/dL AST 89 H (14-36) U/L Alkaline Phosphatase 34 L (38-126) U/L Total Protein 4.1 L (6.3-8.2) g/dL Albumin 2.7 L (3.5-5.0) g/dL Crossmatch 09/02/16 09/02/16 09/02/16 Range/Units 14:50 14:58 15:49 RBC (3.80-5.40) m/uL Hgb (11.4-16.0) gm/dL Hct (34.0-46.0) % RDW (11.5-15.5) % Plt Count (150-450) k/uL Neutrophils # (1.3-7.7) k/uL Lymphocytes # (1.0-4.8) k/uL PT (9.0-12.0) sec APTT (22.0-30.0) sec ABG pH (7.35-7.45) ABG pCO2 (35-45) mmHg ABG pO2 335 H (83-108) mmHg ABG O2 Saturation 100.0 H (94-97) % Chloride (98-107) mmol/L Creatinine (0.52-1.04) mg/dL Glucose (74-99) mg/dL POC Glucose (mg/dL) 133 H 146 H (75-99) mg/dL Calcium (8.4-10.2) mg/dL Total Bilirubin (0.2-1.3) mg/dL AST (14-36) U/L Alkaline Phosphatase (38-126) U/L Total Protein (6.3-8.2) g/dL Albumin (3.5-5.0) g/dL Crossmatch 09/02/16 09/02/16 09/02/16 Range/Units 16:49 18:08 19:02 RBC (3.80-5.40) m/uL Hgb (11.4-16.0) gm/dL Hct (34.0-46.0) % RDW (11.5-15.5) % Plt Count (150-450) k/uL Neutrophils # (1.3-7.7) k/uL Lymphocytes # (1.0-4.8) k/uL PT (9.0-12.0) sec APTT (22.0-30.0) sec ABG pH (7.35-7.45) ABG pCO2 (35-45) mmHg ABG pO2 (83-108) mmHg ABG O2 Saturation (94-97) % Chloride (98-107) mmol/L Creatinine (0.52-1.04) mg/dL Glucose (74-99) mg/dL POC Glucose (mg/dL) 155 H 176 H 163 H (75-99) mg/dL Calcium (8.4-10.2) mg/dL Total Bilirubin (0.2-1.3) mg/dL AST (14-36) U/L Alkaline Phosphatase (38-126) U/L Total Protein (6.3-8.2) g/dL Albumin (3.5-5.0) g/dL Crossmatch 09/02/16 09/02/16 09/02/16 Range/Units 19:46 19:47 20:54 RBC 3.37 L (3.80-5.40) m/uL Hgb 9.6 L D (11.4-16.0) gm/dL Hct 28.8 L (34.0-46.0) % RDW (11.5-15.5) % Plt Count 92 L (150-450) k/uL Neutrophils # 8.0 H (1.3-7.7) k/uL Lymphocytes # 0.7 L (1.0-4.8) k/uL PT (9.0-12.0) sec APTT (22.0-30.0) sec ABG pH (7.35-7.45) ABG pCO2 (35-45) mmHg ABG pO2 (83-108) mmHg ABG O2 Saturation (94-97) % Chloride (98-107) mmol/L Creatinine (0.52-1.04) mg/dL Glucose (74-99) mg/dL POC Glucose (mg/dL) 143 H 129 H (75-99) mg/dL Calcium (8.4-10.2) mg/dL Total Bilirubin (0.2-1.3) mg/dL AST (14-36) U/L Alkaline Phosphatase (38-126) U/L Total Protein (6.3-8.2) g/dL Albumin (3.5-5.0) g/dL Crossmatch 09/02/16 09/02/16 09/03/16 Range/Units 22:20 23:11 00:15 RBC (3.80-5.40) m/uL Hgb (11.4-16.0) gm/dL Hct (34.0-46.0) % RDW (11.5-15.5) % Plt Count (150-450) k/uL Neutrophils # (1.3-7.7) k/uL Lymphocytes # (1.0-4.8) k/uL PT (9.0-12.0) sec APTT (22.0-30.0) sec ABG pH (7.35-7.45) ABG pCO2 (35-45) mmHg ABG pO2 (83-108) mmHg ABG O2 Saturation (94-97) % Chloride (98-107) mmol/L Creatinine (0.52-1.04) mg/dL Glucose (74-99) mg/dL POC Glucose (mg/dL) 134 H 112 H 127 H (75-99) mg/dL Calcium (8.4-10.2) mg/dL Total Bilirubin (0.2-1.3) mg/dL AST (14-36) U/L Alkaline Phosphatase (38-126) U/L Total Protein (6.3-8.2) g/dL Albumin (3.5-5.0) g/dL Crossmatch 09/03/16 09/03/16 09/03/16 Range/Units 00:56 01:57 03:04 RBC (3.80-5.40) m/uL Hgb (11.4-16.0) gm/dL Hct (34.0-46.0) % RDW (11.5-15.5) % Plt Count (150-450) k/uL Neutrophils # (1.3-7.7) k/uL Lymphocytes # (1.0-4.8) k/uL PT (9.0-12.0) sec APTT (22.0-30.0) sec ABG pH (7.35-7.45) ABG pCO2 (35-45) mmHg ABG pO2 (83-108) mmHg ABG O2 Saturation (94-97) % Chloride (98-107) mmol/L Creatinine (0.52-1.04) mg/dL Glucose (74-99) mg/dL POC Glucose (mg/dL) 127 H 114 H 124 H (75-99) mg/dL Calcium (8.4-10.2) mg/dL Total Bilirubin (0.2-1.3) mg/dL AST (14-36) U/L Alkaline Phosphatase (38-126) U/L Total Protein (6.3-8.2) g/dL Albumin (3.5-5.0) g/dL Crossmatch 09/03/16 09/03/16 09/03/16 Range/Units 04:05 04:05 04:05 RBC 3.03 L (3.80-5.40) m/uL Hgb 8.3 L (11.4-16.0) gm/dL Hct 25.7 L (34.0-46.0) % RDW 15.6 H (11.5-15.5) % Plt Count 89 L (150-450) k/uL Neutrophils # (1.3-7.7) k/uL Lymphocytes # 0.9 L (1.0-4.8) k/uL PT (9.0-12.0) sec APTT (22.0-30.0) sec ABG pH (7.35-7.45) ABG pCO2 (35-45) mmHg ABG pO2 (83-108) mmHg ABG O2 Saturation (94-97) % Chloride 109 H (98-107) mmol/L Creatinine 0.49 L (0.52-1.04) mg/dL Glucose 122 H (74-99) mg/dL POC Glucose (mg/dL) 134 H (75-99) mg/dL Calcium 7.5 L (8.4-10.2) mg/dL Total Bilirubin (0.2-1.3) mg/dL AST 52 H (14-36) U/L Alkaline Phosphatase (38-126) U/L Total Protein 4.3 L (6.3-8.2) g/dL Albumin 2.5 L (3.5-5.0) g/dL Crossmatch 09/03/16 09/03/16 09/03/16 Range/Units 06:03 07:02 08:12 RBC (3.80-5.40) m/uL Hgb (11.4-16.0) gm/dL Hct (34.0-46.0) % RDW (11.5-15.5) % Plt Count (150-450) k/uL Neutrophils # (1.3-7.7) k/uL Lymphocytes # (1.0-4.8) k/uL PT (9.0-12.0) sec APTT (22.0-30.0) sec ABG pH (7.35-7.45) ABG pCO2 (35-45) mmHg ABG pO2 (83-108) mmHg ABG O2 Saturation (94-97) % Chloride (98-107) mmol/L Creatinine (0.52-1.04) mg/dL Glucose (74-99) mg/dL POC Glucose (mg/dL) 146 H 102 H 103 H (75-99) mg/dL Calcium (8.4-10.2) mg/dL Total Bilirubin (0.2-1.3) mg/dL AST (14-36) U/L Alkaline Phosphatase (38-126) U/L Total Protein (6.3-8.2) g/dL Albumin (3.5-5.0) g/dL Crossmatch 09/03/16 09/03/16 Range/Units 08:20 09:12 RBC (3.80-5.40) m/uL Hgb (11.4-16.0) gm/dL Hct (34.0-46.0) % RDW (11.5-15.5) % Plt Count (150-450) k/uL Neutrophils # (1.3-7.7) k/uL Lymphocytes # (1.0-4.8) k/uL PT (9.0-12.0) sec APTT (22.0-30.0) sec ABG pH 7.46 H (7.35-7.45) ABG pCO2 32 L (35-45) mmHg ABG pO2 79 L (83-108) mmHg ABG O2 Saturation (94-97) % Chloride (98-107) mmol/L Creatinine (0.52-1.04) mg/dL Glucose (74-99) mg/dL POC Glucose (mg/dL) 114 H (75-99) mg/dL Calcium (8.4-10.2) mg/dL Total Bilirubin (0.2-1.3) mg/dL AST (14-36) U/L Alkaline Phosphatase (38-126) U/L Total Protein (6.3-8.2) g/dL Albumin (3.5-5.0) g/dL Crossmatch - Imaging and Cardiology Chest x-ray: image reviewed Assessment and Plan (1) STEMI (ST elevation myocardial infarction) Status: Acute (2) Diabetes Status: Acute (3) Hypertension Status: Acute (4) Hyperlipidemia Status: Acute (5) Hyperthyroidism Status: Acute (6) History of breast cancer Status: Acute Plan: 1. Continue baby aspirin, Lipitor, Plavix, Arixtra. Will increase beta howard to 25 mg twice a day. Wean off Cleviprex/nitro drip 2. Ventilator management per pulmonary, wean O2 as tolerated. 3. Will give Lasix 20 mg IV push 1 today. 4. GI/DVT prophylaxis. 5. Monitor daily labs, chest x-rays. 6. DC [place]. 7. More recommendations as patient progresses. Time with Patient: Greater than 30 <Jose Luis Linton - Last Filed: 09/03/16 18:15> Objective - Vital Signs Vital signs: Vital Signs Temp 99.1 F 09/03/16 16:00 Pulse 90 09/03/16 17:00 Resp 19 09/03/16 17:00 BP 105/57 09/03/16 17:00 Pulse Ox 98 09/03/16 17:00 Intake & Output 09/02/16 09/03/16 09/03/16 18:59 06:59 18:59 Intake Total 1955.253 459.213 918.909 Output Total 3140 1381 1655 Balance -1184.747 -921.787 -736.091 Weight 62.7 kg Intake: IV 33 159 118 CO/CI 60 10 Pressure Bag 99 108 Intake, IV Titration 992.253 300.213 800.909 Amount ACETAMINOPHEN IV (For NPO 100 100 ) 1,000 mg In Empty Bag 1 bag @ 400 mls/hr IVPB Q6HR [facility] Rx#:[id number] Clevidipine Butyrate 25 4.233 18.1 20.2 mg In Empty Bag 1 bag @ 1 MG/HR 2 mls/hr IV .Q24H [facility] Rx#:[id number] Dexmedetomidine 400 mcg 23.255 In Sodium Chloride 0.9% 100 ml @ Titrate IV .Q0M [facility] Rx#:[id number] Insulin Regular 100 unit 5.595 30.283 15.434 In Sodium Chloride 0.9% 100 ml @ Per Protocol IV .Q0M [facility] Rx#:[id number] Lactated Ringers 1,000 ml 250 100 400 @ 20 mls/hr IV .Q24H [facility] Rx#:[id number] Magnesium Sulfate-D5w Pmx 200 1 gm In Dextrose/Water 1 100ml.bag @ 100 mls/hr IVPB Q1H [facility] Rx#: [id number] Nitroglycerin-D5w Pmx 50 7.725 49.95 93.9 mg In Dextrose/Water 1 250ml.bag @ 5 MCG/MIN 1.5 mls/hr IV .Q24H [facility] Rx#: [id number] Potassium Chloride 10 meq 200 In Water For Injection 1 100ml.bag @ 100 mls/hr IVPB Q1H [facility] Rx#: [id number] Propofol 500 mg In Empty 124.7 101.880 48.12 Bag 1 bag @ Titrate IV . Q0M [facility] Rx#:[id number] ceFAZolin 2 gm In Sodium 100 100 Chloride 0.9% 100 ml @ 100 mls/hr IVPB Q8HR [facility] Rx#:[id number] Blood Product 930 Rc As-1 Unit 310 [id number] Rc As-1 Unit 310 [id number] Pheresis As-3 Unit 310 [id number] Pheresis As-3 Unit 0 [id number] Output: Chest Tube Drainage 230 426 250 Bilateral Mediastinal 282 140 Bilateral Mid-Axillary 110 20 Chest Left Pleural 104 110 Mediastinal 120 20 Drainage 85 Left Thigh 50 Right Calf 35 Urine 4730 223 9745 Estimated Blood Loss 1000 Other: Voiding Method Indwelling Catheter Indwelling Catheter Indwelling Catheter # Voids 1 # Bowel Movements 0 0 ABP, PAP, CO, CI - Last Documented Arterial Blood Pressure 110/49 Pulmonary Artery Pressure 32/15 Cardiac Output 3.8 Cardiac Index 2.3 - Labs CBC & Chem 7: 09/03/16 04:05 09/03/16 13:09 Labs: Abnormal Lab Results - Last 24 Hours (Table) 09/01/16 09/02/16 09/02/16 Range/Units 11:53 19:02 19:46 RBC (3.80-5.40) m/uL Hgb (11.4-16.0) gm/dL Hct (34.0-46.0) % RDW (11.5-15.5) % Plt Count (150-450) k/uL Neutrophils # (1.3-7.7) k/uL Lymphocytes # (1.0-4.8) k/uL ABG pH (7.35-7.45) ABG pCO2 (35-45) mmHg ABG pO2 (83-108) mmHg Potassium (3.5-5.1) mmol/L Chloride (98-107) mmol/L Creatinine (0.52-1.04) mg/dL Glucose (74-99) mg/dL POC Glucose (mg/dL) 163 H 143 H (75-99) mg/dL Calcium (8.4-10.2) mg/dL AST (14-36) U/L Total Protein (6.3-8.2) g/dL Albumin (3.5-5.0) g/dL Crossmatch See Detail 09/02/16 09/02/16 09/02/16 Range/Units 19:47 20:54 22:20 RBC 3.37 L (3.80-5.40) m/uL Hgb 9.6 L D (11.4-16.0) gm/dL Hct 28.8 L (34.0-46.0) % RDW (11.5-15.5) % Plt Count 92 L (150-450) k/uL Neutrophils # 8.0 H (1.3-7.7) k/uL Lymphocytes # 0.7 L (1.0-4.8) k/uL ABG pH (7.35-7.45) ABG pCO2 (35-45) mmHg ABG pO2 (83-108) mmHg Potassium (3.5-5.1) mmol/L Chloride (98-107) mmol/L Creatinine (0.52-1.04) mg/dL Glucose (74-99) mg/dL POC Glucose (mg/dL) 129 H 134 H (75-99) mg/dL Calcium (8.4-10.2) mg/dL AST (14-36) U/L Total Protein (6.3-8.2) g/dL Albumin (3.5-5.0) g/dL Crossmatch 09/02/16 09/03/16 09/03/16 Range/Units 23:11 00:15 00:56 RBC (3.80-5.40) m/uL Hgb (11.4-16.0) gm/dL Hct (34.0-46.0) % RDW (11.5-15.5) % Plt Count (150-450) k/uL Neutrophils # (1.3-7.7) k/uL Lymphocytes # (1.0-4.8) k/uL ABG pH (7.35-7.45) ABG pCO2 (35-45) mmHg ABG pO2 (83-108) mmHg Potassium (3.5-5.1) mmol/L Chloride (98-107) mmol/L Creatinine (0.52-1.04) mg/dL Glucose (74-99) mg/dL POC Glucose (mg/dL) 112 H 127 H 127 H (75-99) mg/dL Calcium (8.4-10.2) mg/dL AST (14-36) U/L Total Protein (6.3-8.2) g/dL Albumin (3.5-5.0) g/dL Crossmatch 09/03/16 09/03/16 09/03/16 Range/Units 01:57 03:04 04:05 RBC 3.03 L (3.80-5.40) m/uL Hgb 8.3 L (11.4-16.0) gm/dL Hct 25.7 L (34.0-46.0) % RDW 15.6 H (11.5-15.5) % Plt Count 89 L (150-450) k/uL Neutrophils # (1.3-7.7) k/uL Lymphocytes # 0.9 L (1.0-4.8) k/uL ABG pH (7.35-7.45) ABG pCO2 (35-45) mmHg ABG pO2 (83-108) mmHg Potassium (3.5-5.1) mmol/L Chloride (98-107) mmol/L Creatinine (0.52-1.04) mg/dL Glucose (74-99) mg/dL POC Glucose (mg/dL) 114 H 124 H (75-99) mg/dL Calcium (8.4-10.2) mg/dL AST (14-36) U/L Total Protein (6.3-8.2) g/dL Albumin (3.5-5.0) g/dL Crossmatch 09/03/16 09/03/16 09/03/16 Range/Units 04:05 04:05 06:03 RBC (3.80-5.40) m/uL Hgb (11.4-16.0) gm/dL Hct (34.0-46.0) % RDW (11.5-15.5) % Plt Count (150-450) k/uL Neutrophils # (1.3-7.7) k/uL Lymphocytes # (1.0-4.8) k/uL ABG pH (7.35-7.45) ABG pCO2 (35-45) mmHg ABG pO2 (83-108) mmHg Potassium (3.5-5.1) mmol/L Chloride 109 H (98-107) mmol/L Creatinine 0.49 L (0.52-1.04) mg/dL Glucose 122 H (74-99) mg/dL POC Glucose (mg/dL) 134 H 146 H (75-99) mg/dL Calcium 7.5 L (8.4-10.2) mg/dL AST 52 H (14-36) U/L Total Protein 4.3 L (6.3-8.2) g/dL Albumin 2.5 L (3.5-5.0) g/dL Crossmatch 09/03/16 09/03/16 09/03/16 Range/Units 07:02 08:12 08:20 RBC (3.80-5.40) m/uL Hgb (11.4-16.0) gm/dL Hct (34.0-46.0) % RDW (11.5-15.5) % Plt Count (150-450) k/uL Neutrophils # (1.3-7.7) k/uL Lymphocytes # (1.0-4.8) k/uL ABG pH 7.46 H (7.35-7.45) ABG pCO2 32 L (35-45) mmHg ABG pO2 79 L (83-108) mmHg Potassium (3.5-5.1) mmol/L Chloride (98-107) mmol/L Creatinine (0.52-1.04) mg/dL Glucose (74-99) mg/dL POC Glucose (mg/dL) 102 H 103 H (75-99) mg/dL Calcium (8.4-10.2) mg/dL AST (14-36) U/L Total Protein (6.3-8.2) g/dL Albumin (3.5-5.0) g/dL Crossmatch 09/03/16 09/03/16 09/03/16 Range/Units 09:12 10:16 11:05 RBC (3.80-5.40) m/uL Hgb (11.4-16.0) gm/dL Hct (34.0-46.0) % RDW (11.5-15.5) % Plt Count (150-450) k/uL Neutrophils # (1.3-7.7) k/uL Lymphocytes # (1.0-4.8) k/uL ABG pH (7.35-7.45) ABG pCO2 (35-45) mmHg ABG pO2 (83-108) mmHg Potassium (3.5-5.1) mmol/L Chloride (98-107) mmol/L Creatinine (0.52-1.04) mg/dL Glucose (74-99) mg/dL POC Glucose (mg/dL) 114 H 142 H 142 H (75-99) mg/dL Calcium (8.4-10.2) mg/dL AST (14-36) U/L Total Protein (6.3-8.2) g/dL Albumin (3.5-5.0) g/dL Crossmatch 09/03/16 09/03/16 09/03/16 Range/Units 12:26 13:09 13:11 RBC (3.80-5.40) m/uL Hgb (11.4-16.0) gm/dL Hct (34.0-46.0) % RDW (11.5-15.5) % Plt Count (150-450) k/uL Neutrophils # (1.3-7.7) k/uL Lymphocytes # (1.0-4.8) k/uL ABG pH (7.35-7.45) ABG pCO2 (35-45) mmHg ABG pO2 (83-108) mmHg Potassium 3.3 L (3.5-5.1) mmol/L Chloride (98-107) mmol/L Creatinine (0.52-1.04) mg/dL Glucose (74-99) mg/dL POC Glucose (mg/dL) 133 H 120 H (75-99) mg/dL Calcium (8.4-10.2) mg/dL AST (14-36) U/L Total Protein (6.3-8.2) g/dL Albumin (3.5-5.0) g/dL Crossmatch 09/03/16 09/03/16 09/03/16 Range/Units 14:03 15:26 17:18 RBC (3.80-5.40) m/uL Hgb (11.4-16.0) gm/dL Hct (34.0-46.0) % RDW (11.5-15.5) % Plt Count (150-450) k/uL Neutrophils # (1.3-7.7) k/uL Lymphocytes # (1.0-4.8) k/uL ABG pH (7.35-7.45) ABG pCO2 (35-45) mmHg ABG pO2 (83-108) mmHg Potassium (3.5-5.1) mmol/L Chloride (98-107) mmol/L Creatinine (0.52-1.04) mg/dL Glucose (74-99) mg/dL POC Glucose (mg/dL) 111 H 100 H 135 H (75-99) mg/dL Calcium (8.4-10.2) mg/dL AST (14-36) U/L Total Protein (6.3-8.2) g/dL Albumin (3.5-5.0) g/dL Crossmatch Assessment and Plan Plan: The patient was seen and examined. I agree with the above assessment and plan. She is hemodynamically stable this morning. We will increase her beta howard and give her a dose of Lasix. She is currently on CPAP and we will continue to wean the ventilator as she wakes up some more. Her chest x-ray was reviewed and does not reveal any major abnormalities.
[2016-09-03 11:06] LABS: Glucose,Whole Blood 142 mg/dL (75-99)
--- NOTE | 2016-09-03 11:38 | P.VSCSTY ---
Greater Saphenous Vein Mapping This is bilateral lower extremity greater saphenous vein mapping. Date of service 09/01/1958 Vein quality and ultrasound appearance normal. Vein size groin right 4.8 x 4.0 groin left 5.6 x 5.5 High thigh right 4.0 x 3.9 high thigh left 4.5 x 5.0 Mid thigh right 3.2 x 3.2 mid thigh left 4.0 x 3.4 Above-knee right 2.8 x 3.0 above- knee left 2.9 x 2.2 Below knee right 2.1 x 1.9 below-knee left 2.6 x 1.8 Mid calf right 2.9 x 2.9 mid calf left 2.0 x 1.9 Ankle right 4.1 x 3.0 ankle left 2.9 x 1.9 Impression usable bilateral greater saphenous vein.
[2016-09-03 12:28] LABS: Glucose,Whole Blood 133 mg/dL (75-99)
[2016-09-03] MEDS: DEXAMETHASONE SOD PHOSPHATE 4 MG/ML 1 ML VIAL IV SCH ×3 (12:31→20:21)
--- NOTE | 2016-09-03 12:49 | P.PN ---
Subjective Principal diagnosis: Acute non-ST elevation myocardial infarction with multiple coronary artery disease including left main disease. Status post CABG, postoperative day #1. This is a 81-year-old female patient was having intermittent nausea vomiting and her symptoms initially were essentially of a gastrointestinal in nature. Apparently there was no reported chest pain. The patient initially presented to [facility] and the EKG showed ST segment depression in the inferior leads and lateral leads and the patient was considered to have an acute coronary syndrome. The patient also ruled in for an acute TX. Based on that, the patient underwent a cardiac catheterization patient was found to have a left main disease and tight lesions in her left circumflex. The official report from the cardiac cath is not available to me at this point. This chest x -ray was free of any acute abnormalities. For that reason, the patient was started on IV heparin and the patient got moved to [facility] for cardiothoracic surgery evaluation. At this point in time, the patient is free of any chest pain. She is asymptomatic. She is hemodynamically stable. She has no specific complaints. She is known to have diabetes and hypertension pH is also known to have carotid artery disease. She is an ex-smoker. Most of emphysema. Most of asthma. She does not utilize any form of respiratory medications are inhalers on a regular basis. She is on oxygen at home.The patient has been independent. The patient has been able to perform household activities pH she is able to walk more than 600-700 feet at a time patient doesn 't own grocery. No pneumonias. No previous history of breathing complications. The patient is seen again today 09/02/2016 immediately postoperatively in the intensive care unit. She is status post off-pump coronary artery bypass grafting utilizing a RAO to LAD, SVG to the OM1, SVG to the PDA. She is currently sedated and on the mechanical ventilator settings of SIMV of 12 tidal volume 350 FiO2 100% and a PEEP of 5. Follow-up blood gases revealed a pO2 of 335, pCO2 of 40 and a pH of 7.36. There are [address] 1 to the left pleural cavity and 2 to the mediastinum. Urine output is adequate. Current cardiac output 3.9, cardiac index 2.4. PA pressures 31/20 with a mean of 26. Current drips include nitroglycerin at 5 mcg/m, propofol at 50 mcg/kg/m , lactated Ringer's at 50 mL per hour, insulin drip at 1.5 units per hour. Dmitry hugger is in place. Core temperature 93.8. The patient did have a drop in hemoglobin prior to surgery from 8.7 down to 6.7 and received 3 units of packed red cells before the OR. Current hemoglobin is 6.9. Patient was reevaluated on 09/03/2016, she received a total of 6 units of packed RBCs and 1 unit of platelets yesterday. Patient remains on mechanical ventilation, chest x-ray showed mostly postoperative changes, patient is still on propofol, however I plan to switch the patient to Precedex, and I would like to start some weaning trials. Patient did well on CPAP and pressure support, however there was no evidence of any cuff leak whatsoever. Multiple attempts were made, but continued to have no cough leak. Hence we decided to give the patient some Decadron, and we will likely address weeding either later today or in a.m. She will receive Decadron for at least the next 24 hours. Labs were reviewed hemoglobin is 8.3 ABG showed a pO2 of 79 pCO2 of 32 pH of 7.46. Electrolytes and renal profile are normal. Hemoglobin today is 8.3. Objective - Vital Signs Vital signs: Vital Signs Temp 99.3 F 09/03/16 12:00 Pulse 83 09/03/16 12:00 Resp 18 09/03/16 12:00 BP 104/52 09/03/16 12:00 Pulse Ox 99 09/03/16 12:00 Intake & Output 09/02/16 09/03/16 09/03/16 18:59 06:59 18:59 Intake Total 1955.253 459.213 689.650 Output Total 3140 1381 1405 Balance -1184.747 -921.787 -715.350 Weight 62.7 kg Intake: IV 33 159 73 CO/CI 60 10 Pressure Bag 99 63 Intake, IV Titration 992.253 300.213 616.650 Amount ACETAMINOPHEN IV (For NPO 100 200 ) 1,000 mg In Empty Bag 1 bag @ 400 mls/hr IVPB Q6HR [facility] Rx#:[id number] Clevidipine Butyrate 25 4.233 18.1 20.2 mg In Empty Bag 1 bag @ 1 MG/HR 2 mls/hr IV .Q24H [facility] Rx#:[id number] Insulin Regular 100 unit 5.595 30.283 4.430 In Sodium Chloride 0.9% 100 ml @ Per Protocol IV .Q0M [facility] Rx#:[id number] Lactated Ringers 1,000 ml 250 100 150 @ 20 mls/hr IV .Q24H [facility] Rx#:[id number] Magnesium Sulfate-D5w Pmx 200 1 gm In Dextrose/Water 1 100ml.bag @ 100 mls/hr IVPB Q1H [facility] Rx#: [id number] Nitroglycerin-D5w Pmx 50 7.725 49.95 93.9 mg In Dextrose/Water 1 250ml.bag @ 5 MCG/MIN 1.5 mls/hr IV .Q24H [facility] Rx#: [id number] Potassium Chloride 10 meq 200 In Water For Injection 1 100ml.bag @ 100 mls/hr IVPB Q1H [facility] Rx#: [id number] Propofol 500 mg In Empty 124.7 101.880 48.12 Bag 1 bag @ Titrate IV . Q0M [facility] Rx#:[id number] ceFAZolin 2 gm In Sodium 100 100 Chloride 0.9% 100 ml @ 100 mls/hr IVPB Q8HR [facility] Rx#:[id number] Blood Product 930 Rc As-1 Unit 310 [id number] Rc As-1 Unit 310 [id number] Rc Pheresis As-3 Unit 310 [id number] Rc Pheresis As-3 Unit 0 [id number] Output: Chest Tube Drainage 230 426 150 Bilateral Mediastinal 282 90 Bilateral Mid-Axillary 110 20 Chest Left Pleural 104 60 Mediastinal 120 20 Drainage 85 Left Thigh 50 Right Calf 35 Urine 4195 056 0108 Estimated Blood Loss 1000 Other: Voiding Method Indwelling Catheter Indwelling Catheter Indwelling Catheter # Voids 1 # Bowel Movements 0 0 ABP, PAP, CO, CI - Last Documented Arterial Blood Pressure 104/48 Pulmonary Artery Pressure 22/15 Cardiac Output 3.8 Cardiac Index 2.3 - Exam GENERAL EXAM: Intubated, sedated. HEAD: Normocephalic. EYES: Sluggish reaction of pupils, equal size. NOSE: Clear with pink turbinates. THROAT: No erythema or exudates. NECK: No masses, no JVD. Right [place] David catheter in place. CHEST: Sternal dressing is dry and intact. Midsternal and left pleural chest tubes in place. LUNGS: Equal air entry with faint crackles in the left posterior base. CVS: S1 and S2 normal with no audible murmurs, regular rhythm. ABDOMEN: Soft. SPINE: No scoliosis or deformity SKIN: No rashes Extremities: There is bilateral lower extremities. SADAF drains by bilaterally. Peripheral pulses are intact. - Labs CBC & Chem 7: 09/03/16 04:05 09/03/16 04:05 Labs: Abnormal Lab Results - Last 24 Hours (Table) 09/01/16 09/02/16 09/02/16 Range/Units 11:53 12:52 13:25 RBC (3.80-5.40) m/uL Hgb (11.4-16.0) gm/dL Hct (34.0-46.0) % RDW (11.5-15.5) % Plt Count (150-450) k/uL Neutrophils # (1.3-7.7) k/uL Lymphocytes # (1.0-4.8) k/uL PT (9.0-12.0) sec APTT (22.0-30.0) sec ABG pH (7.35-7.45) ABG pCO2 (35-45) mmHg ABG pO2 (83-108) mmHg ABG O2 Saturation (94-97) % Chloride (98-107) mmol/L Creatinine (0.52-1.04) mg/dL Glucose (74-99) mg/dL POC Glucose (mg/dL) 168 H 150 H (75-99) mg/dL Calcium (8.4-10.2) mg/dL Total Bilirubin (0.2-1.3) mg/dL AST (14-36) U/L Alkaline Phosphatase (38-126) U/L Total Protein (6.3-8.2) g/dL Albumin (3.5-5.0) g/dL Crossmatch See Detail 09/02/16 09/02/16 09/02/16 Range/Units 14:49 14:49 14:49 RBC 2.51 L (3.80-5.40) m/uL Hgb 6.9 L* (11.4-16.0) gm/dL Hct 21.4 L (34.0-46.0) % RDW (11.5-15.5) % Plt Count 68 L D (150-450) k/uL Neutrophils # (1.3-7.7) k/uL Lymphocytes # (1.0-4.8) k/uL PT 14.0 H (9.0-12.0) sec APTT 37.6 H (22.0-30.0) sec ABG pH (7.35-7.45) ABG pCO2 (35-45) mmHg ABG pO2 (83-108) mmHg ABG O2 Saturation (94-97) % Chloride 113 H (98-107) mmol/L Creatinine 0.50 L (0.52-1.04) mg/dL Glucose 121 H (74-99) mg/dL POC Glucose (mg/dL) (75-99) mg/dL Calcium 7.4 L (8.4-10.2) mg/dL Total Bilirubin 1.8 H (0.2-1.3) mg/dL AST 89 H (14-36) U/L Alkaline Phosphatase 34 L (38-126) U/L Total Protein 4.1 L (6.3-8.2) g/dL Albumin 2.7 L (3.5-5.0) g/dL Crossmatch 09/02/16 09/02/16 09/02/16 Range/Units 14:50 14:58 15:49 RBC (3.80-5.40) m/uL Hgb (11.4-16.0) gm/dL Hct (34.0-46.0) % RDW (11.5-15.5) % Plt Count (150-450) k/uL Neutrophils # (1.3-7.7) k/uL Lymphocytes # (1.0-4.8) k/uL PT (9.0-12.0) sec APTT (22.0-30.0) sec ABG pH (7.35-7.45) ABG pCO2 (35-45) mmHg ABG pO2 335 H (83-108) mmHg ABG O2 Saturation 100.0 H (94-97) % Chloride (98-107) mmol/L Creatinine (0.52-1.04) mg/dL Glucose (74-99) mg/dL POC Glucose (mg/dL) 133 H 146 H (75-99) mg/dL Calcium (8.4-10.2) mg/dL Total Bilirubin (0.2-1.3) mg/dL AST (14-36) U/L Alkaline Phosphatase (38-126) U/L Total Protein (6.3-8.2) g/dL Albumin (3.5-5.0) g/dL Crossmatch 09/02/16 09/02/16 09/02/16 Range/Units 16:49 18:08 19:02 RBC (3.80-5.40) m/uL Hgb (11.4-16.0) gm/dL Hct (34.0-46.0) % RDW (11.5-15.5) % Plt Count (150-450) k/uL Neutrophils # (1.3-7.7) k/uL Lymphocytes # (1.0-4.8) k/uL PT (9.0-12.0) sec APTT (22.0-30.0) sec ABG pH (7.35-7.45) ABG pCO2 (35-45) mmHg ABG pO2 (83-108) mmHg ABG O2 Saturation (94-97) % Chloride (98-107) mmol/L Creatinine (0.52-1.04) mg/dL Glucose (74-99) mg/dL POC Glucose (mg/dL) 155 H 176 H 163 H (75-99) mg/dL Calcium (8.4-10.2) mg/dL Total Bilirubin (0.2-1.3) mg/dL AST (14-36) U/L Alkaline Phosphatase (38-126) U/L Total Protein (6.3-8.2) g/dL Albumin (3.5-5.0) g/dL Crossmatch 09/02/16 09/02/16 09/02/16 Range/Units 19:46 19:47 20:54 RBC 3.37 L (3.80-5.40) m/uL Hgb 9.6 L D (11.4-16.0) gm/dL Hct 28.8 L (34.0-46.0) % RDW (11.5-15.5) % Plt Count 92 L (150-450) k/uL Neutrophils # 8.0 H (1.3-7.7) k/uL Lymphocytes # 0.7 L (1.0-4.8) k/uL PT (9.0-12.0) sec APTT (22.0-30.0) sec ABG pH (7.35-7.45) ABG pCO2 (35-45) mmHg ABG pO2 (83-108) mmHg ABG O2 Saturation (94-97) % Chloride (98-107) mmol/L Creatinine (0.52-1.04) mg/dL Glucose (74-99) mg/dL POC Glucose (mg/dL) 143 H 129 H (75-99) mg/dL Calcium (8.4-10.2) mg/dL Total Bilirubin (0.2-1.3) mg/dL AST (14-36) U/L Alkaline Phosphatase (38-126) U/L Total Protein (6.3-8.2) g/dL Albumin (3.5-5.0) g/dL Crossmatch 09/02/16 09/02/16 09/03/16 Range/Units 22:20 23:11 00:15 RBC (3.80-5.40) m/uL Hgb (11.4-16.0) gm/dL Hct (34.0-46.0) % RDW (11.5-15.5) % Plt Count (150-450) k/uL Neutrophils # (1.3-7.7) k/uL Lymphocytes # (1.0-4.8) k/uL PT (9.0-12.0) sec APTT (22.0-30.0) sec ABG pH (7.35-7.45) ABG pCO2 (35-45) mmHg ABG pO2 (83-108) mmHg ABG O2 Saturation (94-97) % Chloride (98-107) mmol/L Creatinine (0.52-1.04) mg/dL Glucose (74-99) mg/dL POC Glucose (mg/dL) 134 H 112 H 127 H (75-99) mg/dL Calcium (8.4-10.2) mg/dL Total Bilirubin (0.2-1.3) mg/dL AST (14-36) U/L Alkaline Phosphatase (38-126) U/L Total Protein (6.3-8.2) g/dL Albumin (3.5-5.0) g/dL Crossmatch 09/03/16 09/03/16 09/03/16 Range/Units 00:56 01:57 03:04 RBC (3.80-5.40) m/uL Hgb (11.4-16.0) gm/dL Hct (34.0-46.0) % RDW (11.5-15.5) % Plt Count (150-450) k/uL Neutrophils # (1.3-7.7) k/uL Lymphocytes # (1.0-4.8) k/uL PT (9.0-12.0) sec APTT (22.0-30.0) sec ABG pH (7.35-7.45) ABG pCO2 (35-45) mmHg ABG pO2 (83-108) mmHg ABG O2 Saturation (94-97) % Chloride (98-107) mmol/L Creatinine (0.52-1.04) mg/dL Glucose (74-99) mg/dL POC Glucose (mg/dL) 127 H 114 H 124 H (75-99) mg/dL Calcium (8.4-10.2) mg/dL Total Bilirubin (0.2-1.3) mg/dL AST (14-36) U/L Alkaline Phosphatase (38-126) U/L Total Protein (6.3-8.2) g/dL Albumin (3.5-5.0) g/dL Crossmatch 09/03/16 09/03/16 09/03/16 Range/Units 04:05 04:05 04:05 RBC 3.03 L (3.80-5.40) m/uL Hgb 8.3 L (11.4-16.0) gm/dL Hct 25.7 L (34.0-46.0) % RDW 15.6 H (11.5-15.5) % Plt Count 89 L (150-450) k/uL Neutrophils # (1.3-7.7) k/uL Lymphocytes # 0.9 L (1.0-4.8) k/uL PT (9.0-12.0) sec APTT (22.0-30.0) sec ABG pH (7.35-7.45) ABG pCO2 (35-45) mmHg ABG pO2 (83-108) mmHg ABG O2 Saturation (94-97) % Chloride 109 H (98-107) mmol/L Creatinine 0.49 L (0.52-1.04) mg/dL Glucose 122 H (74-99) mg/dL POC Glucose (mg/dL) 134 H (75-99) mg/dL Calcium 7.5 L (8.4-10.2) mg/dL Total Bilirubin (0.2-1.3) mg/dL AST 52 H (14-36) U/L Alkaline Phosphatase (38-126) U/L Total Protein 4.3 L (6.3-8.2) g/dL Albumin 2.5 L (3.5-5.0) g/dL Crossmatch 09/03/16 09/03/16 09/03/16 Range/Units 06:03 07:02 08:12 RBC (3.80-5.40) m/uL Hgb (11.4-16.0) gm/dL Hct (34.0-46.0) % RDW (11.5-15.5) % Plt Count (150-450) k/uL Neutrophils # (1.3-7.7) k/uL Lymphocytes # (1.0-4.8) k/uL PT (9.0-12.0) sec APTT (22.0-30.0) sec ABG pH (7.35-7.45) ABG pCO2 (35-45) mmHg ABG pO2 (83-108) mmHg ABG O2 Saturation (94-97) % Chloride (98-107) mmol/L Creatinine (0.52-1.04) mg/dL Glucose (74-99) mg/dL POC Glucose (mg/dL) 146 H 102 H 103 H (75-99) mg/dL Calcium (8.4-10.2) mg/dL Total Bilirubin (0.2-1.3) mg/dL AST (14-36) U/L Alkaline Phosphatase (38-126) U/L Total Protein (6.3-8.2) g/dL Albumin (3.5-5.0) g/dL Crossmatch 09/03/16 09/03/16 09/03/16 Range/Units 08:20 09:12 10:16 RBC (3.80-5.40) m/uL Hgb (11.4-16.0) gm/dL Hct (34.0-46.0) % RDW (11.5-15.5) % Plt Count (150-450) k/uL Neutrophils # (1.3-7.7) k/uL Lymphocytes # (1.0-4.8) k/uL PT (9.0-12.0) sec APTT (22.0-30.0) sec ABG pH 7.46 H (7.35-7.45) ABG pCO2 32 L (35-45) mmHg ABG pO2 79 L (83-108) mmHg ABG O2 Saturation (94-97) % Chloride (98-107) mmol/L Creatinine (0.52-1.04) mg/dL Glucose (74-99) mg/dL POC Glucose (mg/dL) 114 H 142 H (75-99) mg/dL Calcium (8.4-10.2) mg/dL Total Bilirubin (0.2-1.3) mg/dL AST (14-36) U/L Alkaline Phosphatase (38-126) U/L Total Protein (6.3-8.2) g/dL Albumin (3.5-5.0) g/dL Crossmatch 09/03/16 09/03/16 Range/Units 11:05 12:26 RBC (3.80-5.40) m/uL Hgb (11.4-16.0) gm/dL Hct (34.0-46.0) % RDW (11.5-15.5) % Plt Count (150-450) k/uL Neutrophils # (1.3-7.7) k/uL Lymphocytes # (1.0-4.8) k/uL PT (9.0-12.0) sec APTT (22.0-30.0) sec ABG pH (7.35-7.45) ABG pCO2 (35-45) mmHg ABG pO2 (83-108) mmHg ABG O2 Saturation (94-97) % Chloride (98-107) mmol/L Creatinine (0.52-1.04) mg/dL Glucose (74-99) mg/dL POC Glucose (mg/dL) 142 H 133 H (75-99) mg/dL Calcium (8.4-10.2) mg/dL Total Bilirubin (0.2-1.3) mg/dL AST (14-36) U/L Alkaline Phosphatase (38-126) U/L Total Protein (6.3-8.2) g/dL Albumin (3.5-5.0) g/dL Crossmatch Assessment and Plan Plan: 1 acute non-STEMI with multivessel coronary artery disease including left main disease. Status post off-pump coronary artery bypass grafting utilizing a RAO to the LAD, SVG to the OM1, SVG to the PDA. Postoperative day #1 2 postoperative thoracotomy with ventilator dependence as an expected outcome. 3 hypertension 4 hyperlipidemia 5 breast cancer with a previous lumpectomy 6 carotid artery disease 7 skin cancer 8 hypothyroidism 9 osteoarthritis 10 acid reflux 11 diabetes mellitus Recommendation: Patient was actually ready for extubation, however because of the fact that she has no cough leak, I am concerned of possible swelling of the vocal cords and subglottic area. Hence we'll recommend Decadron, will hold on further weaning and extubation at this point. We'll readdress extubation either later today or in the next 24 hours. In the meantime continue present supportive care measures, switched propofol to Precedex. Critical care time is 33 minutes. Time with Patient: Greater than 30
[2016-09-03 13:12] LABS: Glucose,Whole Blood 120 mg/dL (75-99)
[2016-09-03 14:04] LABS: Glucose,Whole Blood 111 mg/dL (75-99)
[2016-09-03] MEDS ORDERED: MAGNESIUM HYDROXIDE 2,400 MG/10 ML CUP PO PRN (14:07)
[2016-09-03] MEDS ORDERED: BISACODYL 10 MG SUPP RECTAL PRN (14:07)
[2016-09-03] MEDS ORDERED: Potassium Replacement Protocol 1 EACH MISC MISCELLANE PRN (14:53)
[2016-09-03] MEDS: NITROGLYCERIN-D5W PMX 50 MG in DEXTROSE/WATER 1 250ML.BAG IV SCH (15:27)
[2016-09-03 15:28] LABS: Glucose,Whole Blood 100 mg/dL (75-99)
[2016-09-03] MEDS: LACTATED RINGERS 1,000 ML IV SCH (15:29)
[2016-09-03] MEDS: POTASSIUM CHLORIDE ORAL LIQUID 40 MEQ/30 ML CUP NG-TUBE SCH ×2 (15:36→17:02)
--- NOTE | 2016-09-03 15:37 | P.PN ---
Subjective This is an 81-year-old female patient of Dr. Laboy with past medical history of breast cancer, diabetes mellitus type 2, gastroesophageal reflux disease, hyperlipidemia, hypertension. She initially presented to [facility] with nausea and vomiting and abdominal symptoms. She had no chest discomfort or dizziness, shortness of breath. She had an EKG that showed a sinus rhythm and abnormal ST depression in the inferior leads and lateral precordial leads with ST segment abnormality in aVR and V1. Patient was then transferred to [facility] for heart catheterization for acute coronary syndrome. Patient underwent heart catheterization that showed severe disease involving the distal left main coronary artery and involving the ostial left circumflex and ostial LAD. Severe disease involving ostial and proximal left circumflex coronary artery. Severe disease involving the ostial LAD. Carotid ultrasound showed severe stenosis of the left internal carotid artery of 70% and mild right internal carotid artery stenosis of 50-69%. Patient has been seen in consultation by Dr. Corona from pulmonary medicine. Chest x-ray reveals suspect COPD, mild cardiomegaly, left basilar airspace disease with constant intermittent small effusion. Echocardiogram shows moderate concentric left ventricular hypertrophy, EF 55-60%, mild aortic valve sclerosis, mild mitral regurgitation. Patient is tentatively planned for CABG in the next 24- 48 hours. 09/02: Patient is gone for CABG. 09/03: Patient underwent CABG with RAO to LAD, SVG to OM 1, SVG to PDA. Patient remains intubated and on mechanical ventilation. She is status post 6 units of packed RBCs and 1 unit of platelets and hemoglobin is currently 8.3. Patient has no evidence of cuff leak and Decadron was started by Dr. Olivarez. Her blood glucose is running between 110 and 142. Objective - Vital Signs Vital signs: Vital Signs Temp 99.8 F H 09/03/16 08:00 Pulse 80 09/03/16 11:40 Resp 21 09/03/16 11:00 BP 120/57 09/03/16 11:00 Pulse Ox 98 09/03/16 11:00 Intake & Output 09/02/16 09/03/16 09/03/16 18:59 06:59 18:59 Intake Total 1955.253 459.213 361.650 Output Total 3140 1381 1115 Balance -1184.747 -921.787 -753.350 Weight 62.7 kg Intake: IV 33 159 45 CO/CI 60 Pressure Bag 99 45 Intake, IV Titration 992.253 300.213 316.650 Amount ACETAMINOPHEN IV (For NPO 100 ) 1,000 mg In Empty Bag 1 bag @ 400 mls/hr IVPB Q6HR [facility] Rx#:[id number] Clevidipine Butyrate 25 4.233 18.1 20.2 mg In Empty Bag 1 bag @ 1 MG/HR 2 mls/hr IV .Q24H [facility] Rx#:[id number] Insulin Regular 100 unit 5.595 30.283 4.430 In Sodium Chloride 0.9% 100 ml @ Per Protocol IV .Q0M [facility] Rx#:[id number] Lactated Ringers 1,000 ml 250 100 50 @ 20 mls/hr IV .Q24H [facility] Rx#:[id number] Magnesium Sulfate-D5w Pmx 200 1 gm In Dextrose/Water 1 100ml.bag @ 100 mls/hr IVPB Q1H [facility] Rx#: [id number] Nitroglycerin-D5w Pmx 50 7.725 49.95 93.9 mg In Dextrose/Water 1 250ml.bag @ 5 MCG/MIN 1.5 mls/hr IV .Q24H [facility] Rx#: [id number] Potassium Chloride 10 meq 200 In Water For Injection 1 100ml.bag @ 100 mls/hr IVPB Q1H [facility] Rx#: [id number] Propofol 500 mg In Empty 124.7 101.880 48.12 Bag 1 bag @ Titrate IV . Q0M [facility] Rx#:[id number] ceFAZolin 2 gm In Sodium 100 100 Chloride 0.9% 100 ml @ 100 mls/hr IVPB Q8HR [facility] Rx#:[id number] Blood Product 930 Rc As-1 Unit 310 [id number] Rc As-1 Unit 310 [id number] Rc Pheresis As-3 Unit 310 [id number] Rc Pheresis As-3 Unit 0 [id number] Output: Chest Tube Drainage 230 426 110 Bilateral Mediastinal 282 70 Bilateral Mid-Axillary 110 20 Chest Left Pleural 104 40 Mediastinal 120 20 Drainage 85 Left Thigh 50 Right Calf 35 Urine 4859 513 6004 Estimated Blood Loss 1000 Other: Voiding Method Indwelling Catheter Indwelling Catheter Indwelling Catheter # Voids 1 # Bowel Movements 0 0 ABP, PAP, CO, CI - Last Documented Arterial Blood Pressure 106/51 Pulmonary Artery Pressure 23/13 Cardiac Output 5.4 Cardiac Index 3.3 - Exam Gen: This is an 81-year-old female. She is laying in bed in the ICU and appears to be in no acute distress. Patient appears to be comfortable. HEENT: Head is atraumatic, normocephalic. Sclerae is anicteric. Intubated and on mechanical ventilation NECK: Supple. No JVD. No lymphadenopathy. No thyromegaly. Right-sided [place]- Jose David catheter in place LUNGS: Clear to auscultation. No wheezes or rhonchi. No intercostal retractions. HEART: Regular rate and rhythm. No murmur. Sternal wound dressing is dry and intact. Midsternal and left pleural chest tubes in place. ABDOMEN: Soft. Bowel sounds are present. No masses. No tenderness. EXTREMITIES: Bilateral lower extremities are wrapped with SADAF drains in place. NEUROLOGICAL: Patient is on sedation. - Labs CBC & Chem 7: 09/03/16 04:05 09/03/16 13:09 Labs: Abnormal Lab Results - Last 24 Hours (Table) 09/01/16 09/02/16 09/02/16 Range/Units 11:53 12:52 13:25 RBC (3.80-5.40) m/uL Hgb (11.4-16.0) gm/dL Hct (34.0-46.0) % RDW (11.5-15.5) % Plt Count (150-450) k/uL Neutrophils # (1.3-7.7) k/uL Lymphocytes # (1.0-4.8) k/uL PT (9.0-12.0) sec APTT (22.0-30.0) sec ABG pH (7.35-7.45) ABG pCO2 (35-45) mmHg ABG pO2 (83-108) mmHg ABG O2 Saturation (94-97) % Chloride (98-107) mmol/L Creatinine (0.52-1.04) mg/dL Glucose (74-99) mg/dL POC Glucose (mg/dL) 168 H 150 H (75-99) mg/dL Calcium (8.4-10.2) mg/dL Total Bilirubin (0.2-1.3) mg/dL AST (14-36) U/L Alkaline Phosphatase (38-126) U/L Total Protein (6.3-8.2) g/dL Albumin (3.5-5.0) g/dL Crossmatch See Detail 09/02/16 09/02/16 09/02/16 Range/Units 14:49 14:49 14:49 RBC 2.51 L (3.80-5.40) m/uL Hgb 6.9 L* (11.4-16.0) gm/dL Hct 21.4 L (34.0-46.0) % RDW (11.5-15.5) % Plt Count 68 L D (150-450) k/uL Neutrophils # (1.3-7.7) k/uL Lymphocytes # (1.0-4.8) k/uL PT 14.0 H (9.0-12.0) sec APTT 37.6 H (22.0-30.0) sec ABG pH (7.35-7.45) ABG pCO2 (35-45) mmHg ABG pO2 (83-108) mmHg ABG O2 Saturation (94-97) % Chloride 113 H (98-107) mmol/L Creatinine 0.50 L (0.52-1.04) mg/dL Glucose 121 H (74-99) mg/dL POC Glucose (mg/dL) (75-99) mg/dL Calcium 7.4 L (8.4-10.2) mg/dL Total Bilirubin 1.8 H (0.2-1.3) mg/dL AST 89 H (14-36) U/L Alkaline Phosphatase 34 L (38-126) U/L Total Protein 4.1 L (6.3-8.2) g/dL Albumin 2.7 L (3.5-5.0) g/dL Crossmatch 09/02/16 09/02/16 09/02/16 Range/Units 14:50 14:58 15:49 RBC (3.80-5.40) m/uL Hgb (11.4-16.0) gm/dL Hct (34.0-46.0) % RDW (11.5-15.5) % Plt Count (150-450) k/uL Neutrophils # (1.3-7.7) k/uL Lymphocytes # (1.0-4.8) k/uL PT (9.0-12.0) sec APTT (22.0-30.0) sec ABG pH (7.35-7.45) ABG pCO2 (35-45) mmHg ABG pO2 335 H (83-108) mmHg ABG O2 Saturation 100.0 H (94-97) % Chloride (98-107) mmol/L Creatinine (0.52-1.04) mg/dL Glucose (74-99) mg/dL POC Glucose (mg/dL) 133 H 146 H (75-99) mg/dL Calcium (8.4-10.2) mg/dL Total Bilirubin (0.2-1.3) mg/dL AST (14-36) U/L Alkaline Phosphatase (38-126) U/L Total Protein (6.3-8.2) g/dL Albumin (3.5-5.0) g/dL Crossmatch 09/02/16 09/02/16 09/02/16 Range/Units 16:49 18:08 19:02 RBC (3.80-5.40) m/uL Hgb (11.4-16.0) gm/dL Hct (34.0-46.0) % RDW (11.5-15.5) % Plt Count (150-450) k/uL Neutrophils # (1.3-7.7) k/uL Lymphocytes # (1.0-4.8) k/uL PT (9.0-12.0) sec APTT (22.0-30.0) sec ABG pH (7.35-7.45) ABG pCO2 (35-45) mmHg ABG pO2 (83-108) mmHg ABG O2 Saturation (94-97) % Chloride (98-107) mmol/L Creatinine (0.52-1.04) mg/dL Glucose (74-99) mg/dL POC Glucose (mg/dL) 155 H 176 H 163 H (75-99) mg/dL Calcium (8.4-10.2) mg/dL Total Bilirubin (0.2-1.3) mg/dL AST (14-36) U/L Alkaline Phosphatase (38-126) U/L Total Protein (6.3-8.2) g/dL Albumin (3.5-5.0) g/dL Crossmatch 09/02/16 09/02/16 09/02/16 Range/Units 19:46 19:47 20:54 RBC 3.37 L (3.80-5.40) m/uL Hgb 9.6 L D (11.4-16.0) gm/dL Hct 28.8 L (34.0-46.0) % RDW (11.5-15.5) % Plt Count 92 L (150-450) k/uL Neutrophils # 8.0 H (1.3-7.7) k/uL Lymphocytes # 0.7 L (1.0-4.8) k/uL PT (9.0-12.0) sec APTT (22.0-30.0) sec ABG pH (7.35-7.45) ABG pCO2 (35-45) mmHg ABG pO2 (83-108) mmHg ABG O2 Saturation (94-97) % Chloride (98-107) mmol/L Creatinine (0.52-1.04) mg/dL Glucose (74-99) mg/dL POC Glucose (mg/dL) 143 H 129 H (75-99) mg/dL Calcium (8.4-10.2) mg/dL Total Bilirubin (0.2-1.3) mg/dL AST (14-36) U/L Alkaline Phosphatase (38-126) U/L Total Protein (6.3-8.2) g/dL Albumin (3.5-5.0) g/dL Crossmatch 09/02/16 09/02/16 09/03/16 Range/Units 22:20 23:11 00:15 RBC (3.80-5.40) m/uL Hgb (11.4-16.0) gm/dL Hct (34.0-46.0) % RDW (11.5-15.5) % Plt Count (150-450) k/uL Neutrophils # (1.3-7.7) k/uL Lymphocytes # (1.0-4.8) k/uL PT (9.0-12.0) sec APTT (22.0-30.0) sec ABG pH (7.35-7.45) ABG pCO2 (35-45) mmHg ABG pO2 (83-108) mmHg ABG O2 Saturation (94-97) % Chloride (98-107) mmol/L Creatinine (0.52-1.04) mg/dL Glucose (74-99) mg/dL POC Glucose (mg/dL) 134 H 112 H 127 H (75-99) mg/dL Calcium (8.4-10.2) mg/dL Total Bilirubin (0.2-1.3) mg/dL AST (14-36) U/L Alkaline Phosphatase (38-126) U/L Total Protein (6.3-8.2) g/dL Albumin (3.5-5.0) g/dL Crossmatch 09/03/16 09/03/16 09/03/16 Range/Units 00:56 01:57 03:04 RBC (3.80-5.40) m/uL Hgb (11.4-16.0) gm/dL Hct (34.0-46.0) % RDW (11.5-15.5) % Plt Count (150-450) k/uL Neutrophils # (1.3-7.7) k/uL Lymphocytes # (1.0-4.8) k/uL PT (9.0-12.0) sec APTT (22.0-30.0) sec ABG pH (7.35-7.45) ABG pCO2 (35-45) mmHg ABG pO2 (83-108) mmHg ABG O2 Saturation (94-97) % Chloride (98-107) mmol/L Creatinine (0.52-1.04) mg/dL Glucose (74-99) mg/dL POC Glucose (mg/dL) 127 H 114 H 124 H (75-99) mg/dL Calcium (8.4-10.2) mg/dL Total Bilirubin (0.2-1.3) mg/dL AST (14-36) U/L Alkaline Phosphatase (38-126) U/L Total Protein (6.3-8.2) g/dL Albumin (3.5-5.0) g/dL Crossmatch 09/03/16 09/03/16 09/03/16 Range/Units 04:05 04:05 04:05 RBC 3.03 L (3.80-5.40) m/uL Hgb 8.3 L (11.4-16.0) gm/dL Hct 25.7 L (34.0-46.0) % RDW 15.6 H (11.5-15.5) % Plt Count 89 L (150-450) k/uL Neutrophils # (1.3-7.7) k/uL Lymphocytes # 0.9 L (1.0-4.8) k/uL PT (9.0-12.0) sec APTT (22.0-30.0) sec ABG pH (7.35-7.45) ABG pCO2 (35-45) mmHg ABG pO2 (83-108) mmHg ABG O2 Saturation (94-97) % Chloride 109 H (98-107) mmol/L Creatinine 0.49 L (0.52-1.04) mg/dL Glucose 122 H (74-99) mg/dL POC Glucose (mg/dL) 134 H (75-99) mg/dL Calcium 7.5 L (8.4-10.2) mg/dL Total Bilirubin (0.2-1.3) mg/dL AST 52 H (14-36) U/L Alkaline Phosphatase (38-126) U/L Total Protein 4.3 L (6.3-8.2) g/dL Albumin 2.5 L (3.5-5.0) g/dL Crossmatch 09/03/16 09/03/16 09/03/16 Range/Units 06:03 07:02 08:12 RBC (3.80-5.40) m/uL Hgb (11.4-16.0) gm/dL Hct (34.0-46.0) % RDW (11.5-15.5) % Plt Count (150-450) k/uL Neutrophils # (1.3-7.7) k/uL Lymphocytes # (1.0-4.8) k/uL PT (9.0-12.0) sec APTT (22.0-30.0) sec ABG pH (7.35-7.45) ABG pCO2 (35-45) mmHg ABG pO2 (83-108) mmHg ABG O2 Saturation (94-97) % Chloride (98-107) mmol/L Creatinine (0.52-1.04) mg/dL Glucose (74-99) mg/dL POC Glucose (mg/dL) 146 H 102 H 103 H (75-99) mg/dL Calcium (8.4-10.2) mg/dL Total Bilirubin (0.2-1.3) mg/dL AST (14-36) U/L Alkaline Phosphatase (38-126) U/L Total Protein (6.3-8.2) g/dL Albumin (3.5-5.0) g/dL Crossmatch 09/03/16 09/03/16 09/03/16 Range/Units 08:20 09:12 10:16 RBC (3.80-5.40) m/uL Hgb (11.4-16.0) gm/dL Hct (34.0-46.0) % RDW (11.5-15.5) % Plt Count (150-450) k/uL Neutrophils # (1.3-7.7) k/uL Lymphocytes # (1.0-4.8) k/uL PT (9.0-12.0) sec APTT (22.0-30.0) sec ABG pH 7.46 H (7.35-7.45) ABG pCO2 32 L (35-45) mmHg ABG pO2 79 L (83-108) mmHg ABG O2 Saturation (94-97) % Chloride (98-107) mmol/L Creatinine (0.52-1.04) mg/dL Glucose (74-99) mg/dL POC Glucose (mg/dL) 114 H 142 H (75-99) mg/dL Calcium (8.4-10.2) mg/dL Total Bilirubin (0.2-1.3) mg/dL AST (14-36) U/L Alkaline Phosphatase (38-126) U/L Total Protein (6.3-8.2) g/dL Albumin (3.5-5.0) g/dL Crossmatch 09/03/16 Range/Units 11:05 RBC (3.80-5.40) m/uL Hgb (11.4-16.0) gm/dL Hct (34.0-46.0) % RDW (11.5-15.5) % Plt Count (150-450) k/uL Neutrophils # (1.3-7.7) k/uL Lymphocytes # (1.0-4.8) k/uL PT (9.0-12.0) sec APTT (22.0-30.0) sec ABG pH (7.35-7.45) ABG pCO2 (35-45) mmHg ABG pO2 (83-108) mmHg ABG O2 Saturation (94-97) % Chloride (98-107) mmol/L Creatinine (0.52-1.04) mg/dL Glucose (74-99) mg/dL POC Glucose (mg/dL) 142 H (75-99) mg/dL Calcium (8.4-10.2) mg/dL Total Bilirubin (0.2-1.3) mg/dL AST (14-36) U/L Alkaline Phosphatase (38-126) U/L Total Protein (6.3-8.2) g/dL Albumin (3.5-5.0) g/dL Crossmatch Assessment and Plan Plan: 1. 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 Patient has been seen by cardiothoracic surgeon status post CABG. Patient remains in the intensive care unit intubated and on mechanical ventilation. Continue aspirin, Lipitor, Lopressor 2. Diabetes mellitus type 2. Patient was on Janumet at home. Continue insulin drip. 3. Hypertension. Patient was on Cardizem, hydrochlorothiazide, hydralazine at home 4. Hyperlipidemia. Continue Lipitor 5. History of breast cancer status post lumpectomy. 6. Carotid artery disease. 7. History of skin cancer. 8. Hyperthyroidism. Continue Tapazole 9. Gastrointestinal prophylaxis. 10. DVT prophylaxis. Heparin. Discharge plan: To be determined Impression and plan of care have been directed as dictated by the signing physician. Eileen Gomez nurse practitioner acting as scribe for signing physician.
[2016-09-03 17:23] LABS: Glucose,Whole Blood 135 mg/dL (75-99)
[2016-09-03 19:08] LABS: Glucose,Whole Blood 187 mg/dL (75-99)
[2016-09-03 20:19] LABS: Glucose,Whole Blood 197 mg/dL (75-99)
[2016-09-03 21:51] LABS: ABG Base Excess -2.8 mmol/L; ABG HCO3 20 mmol/L (21-25); ABG PCO2 29 mmHg (35-45); ABG PH 7.46 (7.35-7.45); ABG PO2 98 mmHg (83-108); ABG TCO2 21 mmol/L (19-24)
[2016-09-03] MEDS: SENNOSIDES-DOCUSATE SODIUM 1 EACH TAB PO SCH (21:51)
[2016-09-03 22:18] LABS: Glucose,Whole Blood 234 mg/dL (75-99)
[2016-09-04 00:24] LABS: Glucose,Whole Blood 156 mg/dL (75-99)
[2016-09-04] MEDS: DEXAMETHASONE SOD PHOSPHATE 4 MG/ML 1 ML VIAL IV SCH (00:27)
[2016-09-04 01:19] LABS: Glucose,Whole Blood 118 mg/dL (75-99)
[2016-09-04 02:12] LABS: Glucose,Whole Blood 121 mg/dL (75-99)
[2016-09-04 03:02] LABS: Glucose,Whole Blood 115 mg/dL (75-99)
[2016-09-04] MEDS: MORPHINE SULFATE 2 MG/ML SYRINGE IVP PRN (04:00)
[2016-09-04 04:08] LABS: Glucose,Whole Blood 131 mg/dL (75-99)
[2016-09-04 04:32] LABS: Anisocytosis Slight; Basophils % (A) 0 %; CH 28.1; CHCM 32.7; Eosinophils % (A) 0 %; HCT 26.7 % (34.0-46.0); HDW 4.71; HGB 8.9 gm/dL (11.4-16.0); Hypochromasia Marked; Luc # (Auto) 0.06; Luc % (Auto) 1; Lymphocytes # (A) 0.6 k/uL (1.0-4.8); Lymphocytes % (A) 5 %; MCH 28.7 pg (25.0-35.0); MCHC 33.3 g/dL (31.0-37.0); MCV 86.3 fL (80.0-100.0); Mean Platelet Volume 10.8; Monocytes # (A) 0.3 k/uL (0-1.0); Monocytes % (A) 3 %; Neutrophils # (A) 10.5 k/uL (1.3-7.7); Neutrophils % (A) 92 %; Poikilocytosis Marked; RBC 3.09 m/uL (3.80-5.40); RDW 16.2 % (11.5-15.5); WBC 11.4 k/uL (3.8-10.6); WBC (Perox) 11.72
[2016-09-04 04:52] LABS: INR 1.1 (<1.1); Prothrombin Time 10.9 sec (9.0-12.0)
[2016-09-04 04:55] LABS: ALT 27 U/L (9-52); AST 24 U/L (14-36); Alkaline Phosphatase 49 U/L (38-126); Anion Gap 6 mmol/L; Blood Urea Nitrogen 13 mg/dL (7-17); Calcium 8.2 mg/dL (8.4-10.2); Carbon Dioxide 23 mmol/L (22-30); Chloride 109 mmol/L (98-107); Glucose 129 mg/dL (74-99); Magnesium 2.2 mg/dL (1.6-2.3); Non-African American GFR(MDRD) >60 (>60 ml/min/1.73 sqM); Potassium 4.4 mmol/L (3.5-5.1); Sodium 138 mmol/L (137-145); Total Protein 5.1 g/dL (6.3-8.2)
[2016-09-04 05:10] LABS: Glucose,Whole Blood 129 mg/dL (75-99)
[2016-09-04 06:08] LABS: Glucose,Whole Blood 142 mg/dL (75-99)
[2016-09-04] MEDS: METOPROLOL TARTRATE 25 MG TAB PO SCH (06:15)
[2016-09-04 07:22] LABS: Glucose,Whole Blood 128 mg/dL (75-99)
[2016-09-04] MEDS ORDERED: METOPROLOL TARTRATE 25 MG TAB PO STA (07:37)
--- NOTE | 2016-09-04 07:59 | XR ---
EXAMINATION TYPE: XR chest 1V portable DATE OF EXAM: 09/04/2016 6:41 AM COMPARISON: 09/03/2016 HISTORY: SOB, Follow Up FINDINGS: Left-sided chest tube remains in place as well as mediastinal drains. Right IJ sheath is noted. [place]- Jose David catheter, endotracheal tube and NG tube have been removed. No change in bibasilar opacities. Mild pulmonary venous congestion persists. No sizable pneumothorax. Stable appearance of the cardio-mediastinal structures at this time. Pleural effusion unchanged. IMPRESSION: 1. Stable portable chest. Clinical correlation and follow up until resolution is recommended.
[2016-09-04] MEDS: IPRATROPIUM-ALBUTEROL 3 ML NEB INHALATION PRN ×4 (08:03→19:53)
[2016-09-04] MEDS: CLOPIDOGREL 75 MG TAB PO SCH (08:53)
[2016-09-04] MEDS: ASPIRIN 81 MG CHEW PO SCH (08:53)
[2016-09-04] MEDS: ATORVASTATIN 40 MG TAB PO SCH (08:53)
[2016-09-04] MEDS: METHIMAZOLE 5 MG TAB PO SCH (08:53)
[2016-09-04] MEDS: MUPIROCIN 2% OINT 22 GM TUBE NASAL SCH ×2 (08:53→20:03)
[2016-09-04] MEDS: FONDAPARINUX 2.5 MG/0.5 ML SYRINGE SQ SCH (08:53)
[2016-09-04 09:10] LABS: Glucose,Whole Blood 125 mg/dL (75-99)
[2016-09-04] MEDS ORDERED: FUROSEMIDE 10 MG/ML 2 ML VIAL IV ONE (09:15)
--- NOTE | 2016-09-04 10:06 | PN ---
DATE OF SERVICE: 09/03/2016 Nancy is intubated at this time, but she is awake. She follows commands and she recognizes me. She bats her eyelids when I ask her a question of yes or no. She has severe two-vessel coronary artery disease and underwent coronary artery bypass grafting. She is post DC. She got ( ) and platelets. She is still on a ventilator. She is on Precedex and weaning trials are being performed. Breath sounds are reduced bilaterally. Heart sounds S1, S2 are soft. She has some swelling of the jaw and the neck. Labs are reviewed. Electrolytes are normal. On examination, her blood pressure was 104/52 mmHg, pulse rate in the 80s. She is intubated. Her breath sounds are equal bilaterally. Heart sounds are soft. Abdomen is soft. IMPRESSION: 1. Acute myocardial infarction. 2. Coronary artery disease, severe, very calcified vessels. 3. Diabetes. 4. Status post coronary artery bypass grafting. SUGGEST: Continue current medications and ICU and postoperative cardiac surgery care to continue for now.
[2016-09-04 10:58] LABS: Glucose,Whole Blood 129 mg/dL (75-99)
--- NOTE | 2016-09-04 12:05 | P.PN ---
Subjective Principal diagnosis: Acute non-ST elevation myocardial infarction with multiple coronary artery disease including left main disease. Status post CABG, postoperative day #2 This is a 81-year-old female patient was having intermittent nausea vomiting and her symptoms initially were essentially of a gastrointestinal in nature. Apparently there was no reported chest pain. The patient initially presented to [facility] and the EKG showed ST segment depression in the inferior leads and lateral leads and the patient was considered to have an acute coronary syndrome. The patient also ruled in for an acute VT. Based on that, the patient underwent a cardiac catheterization patient was found to have a left main disease and tight lesions in her left circumflex. The official report from the cardiac cath is not available to me at this point. This chest x -ray was free of any acute abnormalities. For that reason, the patient was started on IV heparin and the patient got moved to [facility] for cardiothoracic surgery evaluation. At this point in time, the patient is free of any chest pain. She is asymptomatic. She is hemodynamically stable. She has no specific complaints. She is known to have diabetes and hypertension pH is also known to have carotid artery disease. She is an ex-smoker. Most of emphysema. Most of asthma. She does not utilize any form of respiratory medications are inhalers on a regular basis. She is on oxygen at home.The patient has been independent. The patient has been able to perform household activities pH she is able to walk more than 600-700 feet at a time patient doesn 't own grocery. No pneumonias. No previous history of breathing complications. The patient is seen again today 09/02/2016 immediately postoperatively in the intensive care unit. She is status post off-pump coronary artery bypass grafting utilizing a RAO to LAD, SVG to the OM1, SVG to the PDA. She is currently sedated and on the mechanical ventilator settings of SIMV of 12 tidal volume 350 FiO2 100% and a PEEP of 5. Follow-up blood gases revealed a pO2 of 335, pCO2 of 40 and a pH of 7.36. There are [address] 1 to the left pleural cavity and 2 to the mediastinum. Urine output is adequate. Current cardiac output 3.9, cardiac index 2.4. PA pressures 31/20 with a mean of 26. Current drips include nitroglycerin at 5 mcg/m, propofol at 50 mcg/kg/m , lactated Ringer's at 50 mL per hour, insulin drip at 1.5 units per hour. Dmitry hugger is in place. Core temperature 93.8. The patient did have a drop in hemoglobin prior to surgery from 8.7 down to 6.7 and received 3 units of packed red cells before the OR. Current hemoglobin is 6.9. Patient was reevaluated on 09/03/2016, she received a total of 6 units of packed RBCs and 1 unit of platelets yesterday. Patient remains on mechanical ventilation, chest x-ray showed mostly postoperative changes, patient is still on propofol, however I plan to switch the patient to Precedex, and I would like to start some weaning trials. Patient did well on CPAP and pressure support, however there was no evidence of any cuff leak whatsoever. Multiple attempts were made, but continued to have no cough leak. Hence we decided to give the patient some Decadron, and we will likely address weeding either later today or in a.m. She will receive Decadron for at least the next 24 hours. Labs were reviewed hemoglobin is 8.3 ABG showed a pO2 of 79 pCO2 of 32 pH of 7.46. Electrolytes and renal profile are normal. Hemoglobin today is 8.3. reevaluated on 09/04/2016, patient was extubated last night uneventfully, and I was at bedside when the patient was extubated. so far the patient seems to have tolerated the extubation quite well. she is basically asymptomatic, following all instructions, and doing relatively well with incentive spirometry. chest x- ray showed minimal atelectasis, WBC count is 11.4 hemoglobin is 8.9. basic metabolic profile is normal. Renal profile is normal. Objective - Vital Signs Vital signs: Vital Signs Temp 98.4 F 09/04/16 09:00 Pulse 92 09/04/16 11:43 Resp 17 09/04/16 10:00 BP 146/72 09/04/16 10:00 Pulse Ox 100 09/04/16 10:00 Intake & Output 09/03/16 09/04/16 09/04/16 18:59 06:59 18:59 Intake Total 977.909 208.521 208 Output Total 1740 555 270 Balance -762.091 -346.479 -62 Weight 65.9 kg 65.9 kg Intake: IV 127 75 18 CO/CI 10 Pressure Bag 117 75 18 Intake, IV Titration 850.909 133.521 70 Amount ACETAMINOPHEN IV (For NPO 100 ) 1,000 mg In Empty Bag 1 bag @ 400 mls/hr IVPB Q6HR [facility] Rx#:[id number] Clevidipine Butyrate 25 20.2 mg In Empty Bag 1 bag @ 1 MG/HR 2 mls/hr IV .Q24H [facility] Rx#:[id number] Dexmedetomidine 400 mcg 23.255 44.173 In Sodium Chloride 0.9% 100 ml @ Titrate IV .Q0M [facility] Rx#:[id number] Insulin Regular 100 unit 15.434 39.348 In Sodium Chloride 0.9% 100 ml @ Per Protocol IV .Q0M [facility] Rx#:[id number] Lactated Ringers 1,000 ml 450 50 70 @ 20 mls/hr IV .Q24H [facility] Rx#:[id number] Nitroglycerin-D5w Pmx 50 93.9 mg In Dextrose/Water 1 250ml.bag @ 5 MCG/MIN 1.5 mls/hr IV .Q24H [facility] Rx#: [id number] Propofol 500 mg In Empty 48.12 Bag 1 bag @ Titrate IV . Q0M [facility] Rx#:[id number] ceFAZolin 2 gm In Sodium 100 Chloride 0.9% 100 ml @ 100 mls/hr IVPB Q8HR [facility] Rx#:[id number] Oral 120 Output: Chest Tube Drainage 290 240 20 Bilateral Mediastinal 170 130 20 Left Pleural 120 110 0 Drainage 60 Left Thigh 30 Right Calf 30 Urine 1450 315 190 Other: Voiding Method Indwelling Catheter Indwelling Catheter Indwelling Catheter # Voids 1 1 # Bowel Movements 0 0 0 ABP, PAP, CO, CI - Last Documented Arterial Blood Pressure 152/66 Pulmonary Artery Pressure 32/15 Cardiac Output 3.8 Cardiac Index 2.3 - Exam GENERAL EXAM: 81-year-old female in no distress, on nasal annula. HEAD: Normocephalic. EYES: Sluggish reaction of pupils, equal size. NOSE: Clear with pink turbinates. THROAT: No erythema or exudates. NECK: No masses, no JVD. Right [place] David catheter in place. CHEST: Sternal dressing is dry and intact. Midsternal and left pleural chest tubes in place. LUNGS: Equal air entry with faint crackles in the left posterior base. CVS: S1 and S2 normal with no audible murmurs, regular rhythm. ABDOMEN: Soft. SPINE: No scoliosis or deformity SKIN: No rashes Extremities: There is bilateral lower extremities. SADAF drains by bilaterally. Peripheral pulses are intact. neurologic: no focal neurologic deficit. - Labs CBC & Chem 7: 09/04/16 04:05 09/04/16 04:05 Labs: Abnormal Lab Results - Last 24 Hours (Table) 09/01/16 09/03/16 09/03/16 Range/Units 11:53 12:26 13:09 WBC (3.8-10.6) k/uL RBC (3.80-5.40) m/uL Hgb (11.4-16.0) gm/dL Hct (34.0-46.0) % RDW (11.5-15.5) % Plt Count (150-450) k/uL Neutrophils # (1.3-7.7) k/uL Lymphocytes # (1.0-4.8) k/uL ABG pH (7.35-7.45) ABG pCO2 (35-45) mmHg ABG HCO3 (21-25) mmol/L ABG O2 Saturation (94-97) % Potassium 3.3 L (3.5-5.1) mmol/L Chloride (98-107) mmol/L Creatinine (0.52-1.04) mg/dL Glucose (74-99) mg/dL POC Glucose (mg/dL) 133 H (75-99) mg/dL Calcium (8.4-10.2) mg/dL Total Protein (6.3-8.2) g/dL Albumin (3.5-5.0) g/dL Crossmatch See Detail 09/03/16 09/03/16 09/03/16 Range/Units 13:11 14:03 15:26 WBC (3.8-10.6) k/uL RBC (3.80-5.40) m/uL Hgb (11.4-16.0) gm/dL Hct (34.0-46.0) % RDW (11.5-15.5) % Plt Count (150-450) k/uL Neutrophils # (1.3-7.7) k/uL Lymphocytes # (1.0-4.8) k/uL ABG pH (7.35-7.45) ABG pCO2 (35-45) mmHg ABG HCO3 (21-25) mmol/L ABG O2 Saturation (94-97) % Potassium (3.5-5.1) mmol/L Chloride (98-107) mmol/L Creatinine (0.52-1.04) mg/dL Glucose (74-99) mg/dL POC Glucose (mg/dL) 120 H 111 H 100 H (75-99) mg/dL Calcium (8.4-10.2) mg/dL Total Protein (6.3-8.2) g/dL Albumin (3.5-5.0) g/dL Crossmatch 09/03/16 09/03/16 09/03/16 Range/Units 17:18 19:06 20:18 WBC (3.8-10.6) k/uL RBC (3.80-5.40) m/uL Hgb (11.4-16.0) gm/dL Hct (34.0-46.0) % RDW (11.5-15.5) % Plt Count (150-450) k/uL Neutrophils # (1.3-7.7) k/uL Lymphocytes # (1.0-4.8) k/uL ABG pH (7.35-7.45) ABG pCO2 (35-45) mmHg ABG HCO3 (21-25) mmol/L ABG O2 Saturation (94-97) % Potassium (3.5-5.1) mmol/L Chloride (98-107) mmol/L Creatinine (0.52-1.04) mg/dL Glucose (74-99) mg/dL POC Glucose (mg/dL) 135 H 187 H 197 H (75-99) mg/dL Calcium (8.4-10.2) mg/dL Total Protein (6.3-8.2) g/dL Albumin (3.5-5.0) g/dL Crossmatch 09/03/16 09/03/16 09/04/16 Range/Units 21:18 22:16 00:22 WBC (3.8-10.6) k/uL RBC (3.80-5.40) m/uL Hgb (11.4-16.0) gm/dL Hct (34.0-46.0) % RDW (11.5-15.5) % Plt Count (150-450) k/uL Neutrophils # (1.3-7.7) k/uL Lymphocytes # (1.0-4.8) k/uL ABG pH 7.46 H (7.35-7.45) ABG pCO2 29 L (35-45) mmHg ABG HCO3 20 L (21-25) mmol/L ABG O2 Saturation 98.0 H (94-97) % Potassium (3.5-5.1) mmol/L Chloride (98-107) mmol/L Creatinine (0.52-1.04) mg/dL Glucose (74-99) mg/dL POC Glucose (mg/dL) 234 H 156 H (75-99) mg/dL Calcium (8.4-10.2) mg/dL Total Protein (6.3-8.2) g/dL Albumin (3.5-5.0) g/dL Crossmatch 09/04/16 09/04/16 09/04/16 Range/Units 01:17 02:11 02:59 WBC (3.8-10.6) k/uL RBC (3.80-5.40) m/uL Hgb (11.4-16.0) gm/dL Hct (34.0-46.0) % RDW (11.5-15.5) % Plt Count (150-450) k/uL Neutrophils # (1.3-7.7) k/uL Lymphocytes # (1.0-4.8) k/uL ABG pH (7.35-7.45) ABG pCO2 (35-45) mmHg ABG HCO3 (21-25) mmol/L ABG O2 Saturation (94-97) % Potassium (3.5-5.1) mmol/L Chloride (98-107) mmol/L Creatinine (0.52-1.04) mg/dL Glucose (74-99) mg/dL POC Glucose (mg/dL) 118 H 121 H 115 H (75-99) mg/dL Calcium (8.4-10.2) mg/dL Total Protein (6.3-8.2) g/dL Albumin (3.5-5.0) g/dL Crossmatch 09/04/16 09/04/16 09/04/16 Range/Units 04:05 04:05 04:07 WBC 11.4 H (3.8-10.6) k/uL RBC 3.09 L (3.80-5.40) m/uL Hgb 8.9 L (11.4-16.0) gm/dL Hct 26.7 L (34.0-46.0) % RDW 16.2 H (11.5-15.5) % Plt Count 118 L (150-450) k/uL Neutrophils # 10.5 H (1.3-7.7) k/uL Lymphocytes # 0.6 L (1.0-4.8) k/uL ABG pH (7.35-7.45) ABG pCO2 (35-45) mmHg ABG HCO3 (21-25) mmol/L ABG O2 Saturation (94-97) % Potassium (3.5-5.1) mmol/L Chloride 109 H (98-107) mmol/L Creatinine 0.47 L (0.52-1.04) mg/dL Glucose 129 H (74-99) mg/dL POC Glucose (mg/dL) 131 H (75-99) mg/dL Calcium 8.2 L (8.4-10.2) mg/dL Total Protein 5.1 L (6.3-8.2) g/dL Albumin 2.9 L (3.5-5.0) g/dL Crossmatch 09/04/16 09/04/16 09/04/16 Range/Units 05:08 06:07 07:20 WBC (3.8-10.6) k/uL RBC (3.80-5.40) m/uL Hgb (11.4-16.0) gm/dL Hct (34.0-46.0) % RDW (11.5-15.5) % Plt Count (150-450) k/uL Neutrophils # (1.3-7.7) k/uL Lymphocytes # (1.0-4.8) k/uL ABG pH (7.35-7.45) ABG pCO2 (35-45) mmHg ABG HCO3 (21-25) mmol/L ABG O2 Saturation (94-97) % Potassium (3.5-5.1) mmol/L Chloride (98-107) mmol/L Creatinine (0.52-1.04) mg/dL Glucose (74-99) mg/dL POC Glucose (mg/dL) 129 H 142 H 128 H (75-99) mg/dL Calcium (8.4-10.2) mg/dL Total Protein (6.3-8.2) g/dL Albumin (3.5-5.0) g/dL Crossmatch 09/04/16 09/04/16 Range/Units 09:09 10:56 WBC (3.8-10.6) k/uL RBC (3.80-5.40) m/uL Hgb (11.4-16.0) gm/dL Hct (34.0-46.0) % RDW (11.5-15.5) % Plt Count (150-450) k/uL Neutrophils # (1.3-7.7) k/uL Lymphocytes # (1.0-4.8) k/uL ABG pH (7.35-7.45) ABG pCO2 (35-45) mmHg ABG HCO3 (21-25) mmol/L ABG O2 Saturation (94-97) % Potassium (3.5-5.1) mmol/L Chloride (98-107) mmol/L Creatinine (0.52-1.04) mg/dL Glucose (74-99) mg/dL POC Glucose (mg/dL) 125 H 129 H (75-99) mg/dL Calcium (8.4-10.2) mg/dL Total Protein (6.3-8.2) g/dL Albumin (3.5-5.0) g/dL Crossmatch Microbiology - Last 24 Hours (Table) 08/31/16 14:28 Urine Culture - Final Urine,Voided Citrobacter freundii Enterococcus faecalis Assessment and Plan Plan: 1 acute non-STEMI with multivessel coronary artery disease including left main disease. Status post off-pump coronary artery bypass grafting utilizing a RAO to the LAD, SVG to the OM1, SVG to the PDA. Postoperative day #2 2 postoperative thoracotomy with ventilator dependence as an expected outcome. 3 hypertension 4 hyperlipidemia 5 breast cancer with a previous lumpectomy 6 carotid artery disease 7 skin cancer 8 hypothyroidism 9 osteoarthritis 10 acid reflux 11 diabetes mellitus Recommendation: patient was extubated last night uneventfully, this was done after the patient received a few doses of Decadron, and there was clearly some evidence of cuff leak prior to extubation. patient tolerated the extubation well , we'll continue present supportive care measures, and will follow. Time with Patient: Less than 30
[2016-09-04 12:46] LABS: Glucose,Whole Blood 134 mg/dL (75-99)
--- NOTE | 2016-09-04 13:16 | P.PN ---
<Iesha Nina - Last Filed: 09/04/16 13:07> Subjective Principal diagnosis: Non-STEMI. 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 Preserved systolic function. Mild mitral valve regurgitation. Hypertension. Hyperlipidemia. Diabetes mellitus. Hyperparathyroidism. POD #2 non-aortic clamp off pump triple coronary artery bypass grafting using the left internal mammary artery to the left anterior descending artery, reverse saphenous vein graft connected to the aorta using the Passport device connected distally to the posterior descending artery, reverse saphenous vein graft connected to the aorta using the Passport device to connected distally to the obtuse marginal artery. Endoscopic harvesting of the right and the left greater saphenous veins. Intraoperative transesophageal echocardiogram and epi- aortic scanning. Intraoperative graft flow measurements using the [employer] system. Patient was extubated last night. Currently sitting up in the chair in no apparent distress. States her pain is well-controlled. Was slightly disoriented this morning, better now. Objective - Vital Signs Vital signs: Vital Signs Temp 98.6 F 09/04/16 12:00 Pulse 97 09/04/16 12:00 Resp 21 09/04/16 12:00 BP 146/72 09/04/16 10:00 Pulse Ox 100 09/04/16 12:00 Intake & Output 09/03/16 09/04/16 09/04/16 18:59 06:59 18:59 Intake Total 977.909 208.521 488 Output Total 9014 959 2942 Balance -762.091 -346.479 -1982 Weight 65.9 kg 65.9 kg Intake: IV 127 75 18 CO/CI 10 Pressure Bag 117 75 18 Intake, IV Titration 850.909 133.521 110 Amount ACETAMINOPHEN IV (For NPO 100 ) 1,000 mg In Empty Bag 1 bag @ 400 mls/hr IVPB Q6HR [facility] Rx#:[id number] Clevidipine Butyrate 25 20.2 mg In Empty Bag 1 bag @ 1 MG/HR 2 mls/hr IV .Q24H [facility] Rx#:[id number] Dexmedetomidine 400 mcg 23.255 44.173 In Sodium Chloride 0.9% 100 ml @ Titrate IV .Q0M [facility] Rx#:[id number] Insulin Regular 100 unit 15.434 39.348 In Sodium Chloride 0.9% 100 ml @ Per Protocol IV .Q0M [facility] Rx#:[id number] Lactated Ringers 1,000 ml 450 50 110 @ 20 mls/hr IV .Q24H [facility] Rx#:[id number] Nitroglycerin-D5w Pmx 50 93.9 mg In Dextrose/Water 1 250ml.bag @ 5 MCG/MIN 1.5 mls/hr IV .Q24H [facility] Rx#: [id number] Propofol 500 mg In Empty 48.12 Bag 1 bag @ Titrate IV . Q0M [facility] Rx#:[id number] ceFAZolin 2 gm In Sodium 100 Chloride 0.9% 100 ml @ 100 mls/hr IVPB Q8HR [facility] Rx#:[id number] Oral 360 Output: Chest Tube Drainage 290 240 70 Bilateral Mediastinal 170 130 40 Left Pleural 120 110 30 Drainage 60 Left Thigh 30 Right Calf 30 Urine 6500 459 0612 Other: Voiding Method Indwelling Catheter Indwelling Catheter Indwelling Catheter # Voids 1 1 # Bowel Movements 0 0 0 ABP, PAP, CO, CI - Last Documented Arterial Blood Pressure 161/62 Pulmonary Artery Pressure 32/15 Cardiac Output 3.8 Cardiac Index 2.3 - Constitutional General appearance: Present: cooperative, no acute distress - Respiratory Details: Lungs soundsbilaterally. Respirations even, nonlabored. Currently on 4 L nasal cannula oxygen saturation 99%. Able to achieve 1000 mL on incentive spirometry. Left pleural chest tube to -20 cm wall suction, drained 90 mL serosanguineous fluid overnight, 200 mL in the last 24 hours. Mediastinal chest tube to -20 cm wall suction, drained 90 mL serosanguineous fluid overnight, 300 mL in the last 24 hours, discontinued without incident this morning. No air leaks present. - Cardiovascular Details: S1, S2 present. Regular rate and rhythm, normal sinus rhythm on telemetry. Sternum stable. Heart hugger in place with patient demonstrating appropriate use. No peripheral edema present. Teds/SCDs present bilaterally. - Gastrointestinal Gastrointestinal Comment(s): Abdomen soft, nontender, nondistended. Active bowel sounds 4 quadrants. Tolerating diet. - Genitourinary Genitourinary Comment(s): Lane present draining clear, yellow urine. Urine output 20 old overnight, 20- 30 mL/h. Lasix IV push ordered and given, patient has diuresed over 1 L since Lasix. - Integumentary Integumentary Comment(s): Anterior chest incision well approximated, covered with dry intact dressing. Bilateral lower extremity EVH sites well approximated with SADAF drains present. - Musculoskeletal Musculoskeletal: Present: strength equal bilaterally - Psychiatric Psychiatric Comment(s): Alert and oriented 2-3. Calm, cooperative. - Allied health notes Allied health notes reviewed: nursing - Labs CBC & Chem 7: 09/04/16 04:05 09/04/16 04:05 Labs: Abnormal Lab Results - Last 24 Hours (Table) 09/01/16 09/03/16 09/03/16 Range/Units 11:53 13:09 13:11 WBC (3.8-10.6) k/uL RBC (3.80-5.40) m/uL Hgb (11.4-16.0) gm/dL Hct (34.0-46.0) % RDW (11.5-15.5) % Plt Count (150-450) k/uL Neutrophils # (1.3-7.7) k/uL Lymphocytes # (1.0-4.8) k/uL ABG pH (7.35-7.45) ABG pCO2 (35-45) mmHg ABG HCO3 (21-25) mmol/L ABG O2 Saturation (94-97) % Potassium 3.3 L (3.5-5.1) mmol/L Chloride (98-107) mmol/L Creatinine (0.52-1.04) mg/dL Glucose (74-99) mg/dL POC Glucose (mg/dL) 120 H (75-99) mg/dL Calcium (8.4-10.2) mg/dL Total Protein (6.3-8.2) g/dL Albumin (3.5-5.0) g/dL Crossmatch See Detail 09/03/16 09/03/16 09/03/16 Range/Units 14:03 15:26 17:18 WBC (3.8-10.6) k/uL RBC (3.80-5.40) m/uL Hgb (11.4-16.0) gm/dL Hct (34.0-46.0) % RDW (11.5-15.5) % Plt Count (150-450) k/uL Neutrophils # (1.3-7.7) k/uL Lymphocytes # (1.0-4.8) k/uL ABG pH (7.35-7.45) ABG pCO2 (35-45) mmHg ABG HCO3 (21-25) mmol/L ABG O2 Saturation (94-97) % Potassium (3.5-5.1) mmol/L Chloride (98-107) mmol/L Creatinine (0.52-1.04) mg/dL Glucose (74-99) mg/dL POC Glucose (mg/dL) 111 H 100 H 135 H (75-99) mg/dL Calcium (8.4-10.2) mg/dL Total Protein (6.3-8.2) g/dL Albumin (3.5-5.0) g/dL Crossmatch 09/03/16 09/03/16 09/03/16 Range/Units 19:06 20:18 21:18 WBC (3.8-10.6) k/uL RBC (3.80-5.40) m/uL Hgb (11.4-16.0) gm/dL Hct (34.0-46.0) % RDW (11.5-15.5) % Plt Count (150-450) k/uL Neutrophils # (1.3-7.7) k/uL Lymphocytes # (1.0-4.8) k/uL ABG pH 7.46 H (7.35-7.45) ABG pCO2 29 L (35-45) mmHg ABG HCO3 20 L (21-25) mmol/L ABG O2 Saturation 98.0 H (94-97) % Potassium (3.5-5.1) mmol/L Chloride (98-107) mmol/L Creatinine (0.52-1.04) mg/dL Glucose (74-99) mg/dL POC Glucose (mg/dL) 187 H 197 H (75-99) mg/dL Calcium (8.4-10.2) mg/dL Total Protein (6.3-8.2) g/dL Albumin (3.5-5.0) g/dL Crossmatch 09/03/16 09/04/16 09/04/16 Range/Units 22:16 00:22 01:17 WBC (3.8-10.6) k/uL RBC (3.80-5.40) m/uL Hgb (11.4-16.0) gm/dL Hct (34.0-46.0) % RDW (11.5-15.5) % Plt Count (150-450) k/uL Neutrophils # (1.3-7.7) k/uL Lymphocytes # (1.0-4.8) k/uL ABG pH (7.35-7.45) ABG pCO2 (35-45) mmHg ABG HCO3 (21-25) mmol/L ABG O2 Saturation (94-97) % Potassium (3.5-5.1) mmol/L Chloride (98-107) mmol/L Creatinine (0.52-1.04) mg/dL Glucose (74-99) mg/dL POC Glucose (mg/dL) 234 H 156 H 118 H (75-99) mg/dL Calcium (8.4-10.2) mg/dL Total Protein (6.3-8.2) g/dL Albumin (3.5-5.0) g/dL Crossmatch 09/04/16 09/04/16 09/04/16 Range/Units 02:11 02:59 04:05 WBC (3.8-10.6) k/uL RBC (3.80-5.40) m/uL Hgb (11.4-16.0) gm/dL Hct (34.0-46.0) % RDW (11.5-15.5) % Plt Count (150-450) k/uL Neutrophils # (1.3-7.7) k/uL Lymphocytes # (1.0-4.8) k/uL ABG pH (7.35-7.45) ABG pCO2 (35-45) mmHg ABG HCO3 (21-25) mmol/L ABG O2 Saturation (94-97) % Potassium (3.5-5.1) mmol/L Chloride 109 H (98-107) mmol/L Creatinine 0.47 L (0.52-1.04) mg/dL Glucose 129 H (74-99) mg/dL POC Glucose (mg/dL) 121 H 115 H (75-99) mg/dL Calcium 8.2 L (8.4-10.2) mg/dL Total Protein 5.1 L (6.3-8.2) g/dL Albumin 2.9 L (3.5-5.0) g/dL Crossmatch 09/04/16 09/04/16 09/04/16 Range/Units 04:05 04:07 05:08 WBC 11.4 H (3.8-10.6) k/uL RBC 3.09 L (3.80-5.40) m/uL Hgb 8.9 L (11.4-16.0) gm/dL Hct 26.7 L (34.0-46.0) % RDW 16.2 H (11.5-15.5) % Plt Count 118 L (150-450) k/uL Neutrophils # 10.5 H (1.3-7.7) k/uL Lymphocytes # 0.6 L (1.0-4.8) k/uL ABG pH (7.35-7.45) ABG pCO2 (35-45) mmHg ABG HCO3 (21-25) mmol/L ABG O2 Saturation (94-97) % Potassium (3.5-5.1) mmol/L Chloride (98-107) mmol/L Creatinine (0.52-1.04) mg/dL Glucose (74-99) mg/dL POC Glucose (mg/dL) 131 H 129 H (75-99) mg/dL Calcium (8.4-10.2) mg/dL Total Protein (6.3-8.2) g/dL Albumin (3.5-5.0) g/dL Crossmatch 09/04/16 09/04/16 09/04/16 Range/Units 06:07 07:20 09:09 WBC (3.8-10.6) k/uL RBC (3.80-5.40) m/uL Hgb (11.4-16.0) gm/dL Hct (34.0-46.0) % RDW (11.5-15.5) % Plt Count (150-450) k/uL Neutrophils # (1.3-7.7) k/uL Lymphocytes # (1.0-4.8) k/uL ABG pH (7.35-7.45) ABG pCO2 (35-45) mmHg ABG HCO3 (21-25) mmol/L ABG O2 Saturation (94-97) % Potassium (3.5-5.1) mmol/L Chloride (98-107) mmol/L Creatinine (0.52-1.04) mg/dL Glucose (74-99) mg/dL POC Glucose (mg/dL) 142 H 128 H 125 H (75-99) mg/dL Calcium (8.4-10.2) mg/dL Total Protein (6.3-8.2) g/dL Albumin (3.5-5.0) g/dL Crossmatch 09/04/16 09/04/16 Range/Units 10:56 12:45 WBC (3.8-10.6) k/uL RBC (3.80-5.40) m/uL Hgb (11.4-16.0) gm/dL Hct (34.0-46.0) % RDW (11.5-15.5) % Plt Count (150-450) k/uL Neutrophils # (1.3-7.7) k/uL Lymphocytes # (1.0-4.8) k/uL ABG pH (7.35-7.45) ABG pCO2 (35-45) mmHg ABG HCO3 (21-25) mmol/L ABG O2 Saturation (94-97) % Potassium (3.5-5.1) mmol/L Chloride (98-107) mmol/L Creatinine (0.52-1.04) mg/dL Glucose (74-99) mg/dL POC Glucose (mg/dL) 129 H 134 H (75-99) mg/dL Calcium (8.4-10.2) mg/dL Total Protein (6.3-8.2) g/dL Albumin (3.5-5.0) g/dL Crossmatch Microbiology - Last 24 Hours (Table) 08/31/16 14:28 Urine Culture - Final Urine,Voided Citrobacter freundii Enterococcus faecalis - Imaging and Cardiology Chest x-ray: image reviewed Assessment and Plan (1) STEMI (ST elevation myocardial infarction) Status: Acute (2) Diabetes Status: Acute (3) Hypertension Status: Acute (4) Hyperlipidemia Status: Acute (5) Hyperthyroidism Status: Acute (6) History of breast cancer Status: Acute Plan: 1. Continue baby aspirin, Lipitor, Plavix, Arixtra. Will increase beta howard to 50 mg twice a day. 2. Wean O2 as tolerated. Encourage incentive spirometer use. 3. Lasix 20 mg IV push 1 given today. 4. Mediastinal chest tubes discontinued today. Chest x-ray in the morning. 5. GI/DVT prophylaxis. 6. Monitor daily labs, chest x-rays. 7. Reorient patient as necessary. 8. More recommendations as patient progresses. Time with Patient: Greater than 30 <Jose Luis Linton - Last Filed: 09/05/16 17:30> Objective - Vital Signs Vital signs: Vital Signs Temp 98.0 F 09/05/16 12:00 Pulse 84 09/05/16 16:33 Resp 24 09/05/16 12:00 BP 133/58 09/05/16 02:00 Pulse Ox 94 L 09/05/16 12:00 Intake & Output 09/04/16 09/05/16 09/05/16 18:59 06:59 18:59 Intake Total 1249.84 369.59 132 Output Total 3205 805 880 Balance -1955.16 -435.41 -748 Weight 65.9 kg 65.5 kg 65.5 kg Intake: IV 18 33 12 Pressure Bag 18 33 12 Intake, IV Titration 271.84 336.59 120 Amount Insulin Regular 100 unit 11.84 6.59 In Sodium Chloride 0.9% 100 ml @ Per Protocol IV .Q0M [facility] Rx#:[id number] Lactated Ringers 1,000 ml 260 330 120 @ 20 mls/hr IV .Q24H [facility] Rx#:[id number] Oral 960 Output: Chest Tube Drainage 100 140 Bilateral Mediastinal 40 Left Pleural 60 140 Drainage 260 140 Left Thigh 130 80 Right Calf 130 60 Urine 2845 525 880 Other: Voiding Method Indwelling Catheter Indwelling Catheter Indwelling Catheter # Voids 1 1 # Bowel Movements 0 0 0 ABP, PAP, CO, CI - Last Documented Arterial Blood Pressure 158/73 Pulmonary Artery Pressure 32/15 Cardiac Output 3.8 Cardiac Index 2.3 - Labs CBC & Chem 7: 09/05/16 06:43 09/05/16 06:43 Labs: Abnormal Lab Results - Last 24 Hours (Table) 09/01/16 09/04/16 09/04/16 Range/Units 11:53 18:56 21:18 WBC (3.8-10.6) k/uL RBC (3.80-5.40) m/uL Hgb (11.4-16.0) gm/dL Hct (34.0-46.0) % RDW (11.5-15.5) % Neutrophils # (1.3-7.7) k/uL Creatinine (0.52-1.04) mg/dL Glucose (74-99) mg/dL POC Glucose (mg/dL) 181 H 103 H (75-99) mg/dL Total Protein (6.3-8.2) g/dL Albumin (3.5-5.0) g/dL Crossmatch See Detail 09/05/16 09/05/16 09/05/16 Range/Units 00:32 02:25 05:44 WBC (3.8-10.6) k/uL RBC (3.80-5.40) m/uL Hgb (11.4-16.0) gm/dL Hct (34.0-46.0) % RDW (11.5-15.5) % Neutrophils # (1.3-7.7) k/uL Creatinine (0.52-1.04) mg/dL Glucose (74-99) mg/dL POC Glucose (mg/dL) 110 H 138 H 100 H (75-99) mg/dL Total Protein (6.3-8.2) g/dL Albumin (3.5-5.0) g/dL Crossmatch 09/05/16 09/05/16 09/05/16 Range/Units 06:43 06:43 08:47 WBC 12.2 H (3.8-10.6) k/uL RBC 3.05 L (3.80-5.40) m/uL Hgb 8.7 L (11.4-16.0) gm/dL Hct 26.1 L (34.0-46.0) % RDW 16.8 H (11.5-15.5) % Neutrophils # 10.3 H (1.3-7.7) k/uL Creatinine 0.50 L (0.52-1.04) mg/dL Glucose 101 H (74-99) mg/dL POC Glucose (mg/dL) 192 H (75-99) mg/dL Total Protein 5.1 L (6.3-8.2) g/dL Albumin 2.7 L (3.5-5.0) g/dL Crossmatch 09/05/16 09/05/16 Range/Units 11:49 16:24 WBC (3.8-10.6) k/uL RBC (3.80-5.40) m/uL Hgb (11.4-16.0) gm/dL Hct (34.0-46.0) % RDW (11.5-15.5) % Neutrophils # (1.3-7.7) k/uL Creatinine (0.52-1.04) mg/dL Glucose (74-99) mg/dL POC Glucose (mg/dL) 160 H 127 H (75-99) mg/dL Total Protein (6.3-8.2) g/dL Albumin (3.5-5.0) g/dL Crossmatch Assessment and Plan Plan: The patient was seen and examined. I agree with the above assessment and plan. She was extubated last night. She is currently on nasal cannula oxygen. We will continue to wean her oxygen as tolerated. We will increase her beta howard today and give her dose of Lasix. Her mediastinal chest tubes were removed earlier this morning. She is somewhat disoriented but is still cooperative.
--- NOTE | 2016-09-04 13:32 | PN ---
Mrs. Garvin was extubated and is now resting comfortably in bed. Previously she was sitting in a chair. Her vitals are stable. She is afebrile at 98.6 degrees Fahrenheit. Blood pressure is elevated at 161/62 and 161/70 mmHg. Breath sounds are equal, but reduced bilaterally. Heart sounds S1, S2 are soft. Abdomen is soft, nontender. Extremities are warm. IMPRESSION: 1. Acute myocardial infarction ST elevation. 2. Significant 2-vessel coronary artery disease involving the proximal left anterior descending artery and proximal left circumflex, status post coronary artery bypass surgery. 3. Status post coronary artery bypass grafting. Labs reviewed. SUGGEST: Continue beta blockers and start losartan 50 mg p.o. daily.
[2016-09-04] MEDS: HYDROcodone/APAP 5-325MG 1 EACH TAB PO PRN ×2 (14:26→18:46)
[2016-09-04] MEDS: CLEVIDIPINE BUTYRATE 25 MG in EMPTY BAG 1 BAG IV SCH (14:27)
[2016-09-04] MEDS: LOSARTAN 50 MG TAB PO SCH (14:27)
[2016-09-04] MEDS: LACTATED RINGERS 1,000 ML IV SCH (14:27)
[2016-09-04 15:40] LABS: Glucose,Whole Blood 234 mg/dL (75-99)
[2016-09-04 17:10] LABS: Glucose,Whole Blood 181 mg/dL (75-99)
[2016-09-04] MEDS: METOPROLOL TARTRATE 50 MG TAB PO SCH (17:11)
[2016-09-04 18:59] LABS: Glucose,Whole Blood 181 mg/dL (75-99)
[2016-09-04] MEDS: SENNOSIDES-DOCUSATE SODIUM 1 EACH TAB PO SCH (20:03)
[2016-09-04] MEDS ORDERED: METOPROLOL TARTRATE 50 MG TAB PO SCH (21:00)
[2016-09-04] MEDS: INSULIN REGULAR 100 UNIT in SODIUM CHLORIDE 0.9% 100 ML IV SCH (21:22)
[2016-09-04 21:24] LABS: Glucose,Whole Blood 103 mg/dL (75-99)
[2016-09-04 22:27] LABS: Glucose,Whole Blood 86 mg/dL (75-99)
[2016-09-04 23:04] LABS: Glucose,Whole Blood 97 mg/dL (75-99)
[2016-09-05 00:34] LABS: Glucose,Whole Blood 110 mg/dL (75-99)
[2016-09-05] MEDS: METOPROLOL TARTRATE 50 MG TAB PO SCH ×3 (00:34→22:37)
[2016-09-05 02:27] LABS: Glucose,Whole Blood 138 mg/dL (75-99)
[2016-09-05 03:49] LABS: Glucose,Whole Blood 98 mg/dL (75-99)
[2016-09-05 05:46] LABS: Glucose,Whole Blood 100 mg/dL (75-99)
[2016-09-05] MEDS: HYDROcodone/APAP 5-325MG 1 EACH TAB PO PRN ×2 (06:00→21:50)
[2016-09-05 06:52] LABS: Anisocytosis Slight; Basophils % (A) 0 %; CH 28.3; CHCM 33.3; Eosinophils % (A) 0 %; HCT 26.1 % (34.0-46.0); HDW 4.68; HGB 8.7 gm/dL (11.4-16.0); Hypochromasia Moderate; Luc # (Auto) 0.16; Luc % (Auto) 1; Lymphocytes # (A) 1.2 k/uL (1.0-4.8); Lymphocytes % (A) 10 %; MCH 28.3 pg (25.0-35.0); MCHC 33.2 g/dL (31.0-37.0); MCV 85.4 fL (80.0-100.0); Mean Platelet Volume 9.4; Monocytes # (A) 0.5 k/uL (0-1.0); Monocytes % (A) 4 %; Neutrophils # (A) 10.3 k/uL (1.3-7.7); Neutrophils % (A) 84 %; Poikilocytosis Marked; RBC 3.05 m/uL (3.80-5.40); RDW 16.8 % (11.5-15.5); WBC 12.2 k/uL (3.8-10.6); WBC (Perox) 12.25
[2016-09-05 07:07] LABS: ALT 30 U/L (9-52); AST 19 U/L (14-36); Alkaline Phosphatase 53 U/L (38-126); Anion Gap 6 mmol/L; Blood Urea Nitrogen 15 mg/dL (7-17); Calcium 8.5 mg/dL (8.4-10.2); Carbon Dioxide 24 mmol/L (22-30); Chloride 107 mmol/L (98-107); Glucose 101 mg/dL (74-99); Magnesium 1.7 mg/dL (1.6-2.3); Non-African American GFR(MDRD) >60 (>60 ml/min/1.73 sqM); Potassium 3.8 mmol/L (3.5-5.1); Sodium 137 mmol/L (137-145); Total Bilirubin 1.2 mg/dL (0.2-1.3); Total Protein 5.1 g/dL (6.3-8.2)
[2016-09-05] MEDS ORDERED: FUROSEMIDE 10 MG/ML 2 ML VIAL IV ONE (08:12)
[2016-09-05] MEDS: IPRATROPIUM-ALBUTEROL 3 ML NEB INHALATION PRN ×2 (08:21→16:22)
[2016-09-05] MEDS: ASPIRIN 81 MG CHEW PO SCH ×2 (08:31→09:30)
[2016-09-05] MEDS: MUPIROCIN 2% OINT 22 GM TUBE NASAL SCH ×2 (08:31→22:38)
[2016-09-05] MEDS: ATORVASTATIN 40 MG TAB PO SCH (08:31)
[2016-09-05] MEDS: PANTOPRAZOLE 40 MG TABLET PO SCH (08:32)
[2016-09-05] MEDS: METHIMAZOLE 5 MG TAB PO SCH ×2 (08:32→09:34)
[2016-09-05] MEDS: LOSARTAN 50 MG TAB PO SCH (08:32)
[2016-09-05] MEDS: FONDAPARINUX 2.5 MG/0.5 ML SYRINGE SQ SCH (08:32)
[2016-09-05] MEDS: CLOPIDOGREL 75 MG TAB PO SCH (08:32)
[2016-09-05] MEDS: CIPROFLOXACIN HCL 250 MG TAB PO SCH ×2 (08:34→22:37)
[2016-09-05] MEDS: INSULIN LISPRO (humaLOG) 300 UNIT/3 ML VIAL SQ SCH ×6 (08:48→22:37)
[2016-09-05 08:50] LABS: Glucose,Whole Blood 192 mg/dL (75-99)
--- NOTE | 2016-09-05 09:08 | XR ---
EXAMINATION TYPE: XR chest 1V portable DATE OF EXAM: 09/05/2016 6:28 AM COMPARISON: Prior chest x-ray 04 Sep 2016 HISTORY: Postop cardiac surgery TECHNIQUE: Single frontal view of the chest is obtained. FINDINGS: Right jugular central venous sheath, left chest tube, post median sternotomy change again noted. There is no sizable pneumothorax. Cardiac mediastinal silhouette, pulmonary vascularity and hi la are unchanged. Patchy basilar density persists. There are overlying cardiac leads. IMPRESSION: Similar findings to prior exam. Stable left chest tube. There may be basilar atelectasis , small effusion, there is persistent cardiomegaly. Lung volumes somewhat lower. Additional follow-up recommended.
[2016-09-05] MEDS: ATORVASTATIN 80 MG TAB PO SCH (09:30)
[2016-09-05] MEDS: METOPROLOL TARTRATE 25 MG TAB PO SCH (09:34)
[2016-09-05] MEDS: MAGNESIUM OXIDE 400 MG TAB PO SCH (09:34)
[2016-09-05] MEDS: MUPIROCIN 2% OINT 22 GM TUBE TOPICAL SCH (09:35)
--- NOTE | 2016-09-05 10:49 | P.PN ---
<Iesha Nina - Last Filed: 09/05/16 10:43> Subjective Principal diagnosis: Non-STEMI. 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 Preserved systolic function. Mild mitral valve regurgitation. Hypertension. Hyperlipidemia. Diabetes mellitus. Hyperparathyroidism. POD #3 non-aortic clamp off pump triple coronary artery bypass grafting using the left internal mammary artery to the left anterior descending artery, reverse saphenous vein graft connected to the aorta using the Passport device connected distally to the posterior descending artery, reverse saphenous vein graft connected to the aorta using the Passport device to connected distally to the obtuse marginal artery. Endoscopic harvesting of the right and the left greater saphenous veins. Intraoperative transesophageal echocardiogram and epi- aortic scanning. Intraoperative graft flow measurements using the [employer] system. Currently sitting up in the chair in no apparent distress. States her pain is well-controlled. Mediastinal chest tubes were discontinued yesterday. IV Lasix was given yesterday with good diuresis. Objective - Vital Signs Vital signs: Vital Signs Temp 98.2 F 09/05/16 08:00 Pulse 75 09/05/16 10:00 Resp 26 H 09/05/16 10:00 BP 133/58 09/05/16 02:00 Pulse Ox 94 L 09/05/16 10:00 Intake & Output 09/04/16 09/05/16 09/05/16 18:59 06:59 18:59 Intake Total 1249.84 369.59 132 Output Total 3205 805 310 Balance -1955.16 -435.41 -178 Weight 65.9 kg 65.5 kg Intake: IV 18 33 12 Pressure Bag 18 33 12 Intake, IV Titration 271.84 336.59 120 Amount Insulin Regular 100 unit 11.84 6.59 In Sodium Chloride 0.9% 100 ml @ Per Protocol IV .Q0M [facility] Rx#:[id number] Lactated Ringers 1,000 ml 260 330 120 @ 20 mls/hr IV .Q24H [facility] Rx#:[id number] Oral 960 Output: Chest Tube Drainage 100 140 Bilateral Mediastinal 40 Left Pleural 60 140 Drainage 260 140 Left Thigh 130 80 Right Calf 130 60 Urine 2845 525 310 Other: Voiding Method Indwelling Catheter Indwelling Catheter Indwelling Catheter # Voids 1 # Bowel Movements 0 0 0 ABP, PAP, CO, CI - Last Documented Arterial Blood Pressure 124/45 Pulmonary Artery Pressure 32/15 Cardiac Output 3.8 Cardiac Index 2.3 - Constitutional General appearance: Present: cooperative, no acute distress - Respiratory Details: Lungs sounds diminished bilaterally. Respirations even, nonlabored. Currently on room air with oxygen saturation 92%. Able to achieve 750 mL on her incentive spirometry. Left pleural chest tube to -20 cm wall suction, drained 70 mL serous fluid overnight, 220 mL in the last 24 hours. - Cardiovascular Details: S1, S2 present. Regular rate and rhythm, normal sinus rhythm on telemetry. Sternum stable. Heart hugger in place with patient demonstrating appropriate use. Teds/SCDs present. - Gastrointestinal Gastrointestinal Comment(s): Abdomen soft, nontender, nondistended. Active bowel sounds 4 quadrants. Tolerating diet. - Genitourinary Genitourinary Comment(s): Lane present draining clear, yellow urine. Output 40-60 mL per hour. - Integumentary Integumentary Comment(s): Anterior chest incision well approximated and covered with dry intact dressing. Bilateral lower extremity EVH sites well approximated with SADAF's in place. - Musculoskeletal Musculoskeletal: Present: strength equal bilaterally - Psychiatric Psychiatric Comment(s): Alert and oriented 2. Unsure of month and year. Psychiatric: Present: appropriate affect - Allied health notes Allied health notes reviewed: nursing - Labs CBC & Chem 7: 09/05/16 06:43 09/05/16 06:43 Labs: Abnormal Lab Results - Last 24 Hours (Table) 09/01/16 09/04/16 09/04/16 Range/Units 11:53 10:56 12:45 WBC (3.8-10.6) k/uL RBC (3.80-5.40) m/uL Hgb (11.4-16.0) gm/dL Hct (34.0-46.0) % RDW (11.5-15.5) % Neutrophils # (1.3-7.7) k/uL Creatinine (0.52-1.04) mg/dL Glucose (74-99) mg/dL POC Glucose (mg/dL) 129 H 134 H (75-99) mg/dL Total Protein (6.3-8.2) g/dL Albumin (3.5-5.0) g/dL Crossmatch See Detail 09/04/16 09/04/16 09/04/16 Range/Units 15:38 17:09 18:56 WBC (3.8-10.6) k/uL RBC (3.80-5.40) m/uL Hgb (11.4-16.0) gm/dL Hct (34.0-46.0) % RDW (11.5-15.5) % Neutrophils # (1.3-7.7) k/uL Creatinine (0.52-1.04) mg/dL Glucose (74-99) mg/dL POC Glucose (mg/dL) 234 H 181 H 181 H (75-99) mg/dL Total Protein (6.3-8.2) g/dL Albumin (3.5-5.0) g/dL Crossmatch 09/04/16 09/05/16 09/05/16 Range/Units 21:18 00:32 02:25 WBC (3.8-10.6) k/uL RBC (3.80-5.40) m/uL Hgb (11.4-16.0) gm/dL Hct (34.0-46.0) % RDW (11.5-15.5) % Neutrophils # (1.3-7.7) k/uL Creatinine (0.52-1.04) mg/dL Glucose (74-99) mg/dL POC Glucose (mg/dL) 103 H 110 H 138 H (75-99) mg/dL Total Protein (6.3-8.2) g/dL Albumin (3.5-5.0) g/dL Crossmatch 09/05/16 09/05/16 09/05/16 Range/Units 05:44 06:43 06:43 WBC 12.2 H (3.8-10.6) k/uL RBC 3.05 L (3.80-5.40) m/uL Hgb 8.7 L (11.4-16.0) gm/dL Hct 26.1 L (34.0-46.0) % RDW 16.8 H (11.5-15.5) % Neutrophils # 10.3 H (1.3-7.7) k/uL Creatinine 0.50 L (0.52-1.04) mg/dL Glucose 101 H (74-99) mg/dL POC Glucose (mg/dL) 100 H (75-99) mg/dL Total Protein 5.1 L (6.3-8.2) g/dL Albumin 2.7 L (3.5-5.0) g/dL Crossmatch 09/05/16 Range/Units 08:47 WBC (3.8-10.6) k/uL RBC (3.80-5.40) m/uL Hgb (11.4-16.0) gm/dL Hct (34.0-46.0) % RDW (11.5-15.5) % Neutrophils # (1.3-7.7) k/uL Creatinine (0.52-1.04) mg/dL Glucose (74-99) mg/dL POC Glucose (mg/dL) 192 H (75-99) mg/dL Total Protein (6.3-8.2) g/dL Albumin (3.5-5.0) g/dL Crossmatch - Imaging and Cardiology Chest x-ray: image reviewed Assessment and Plan (1) STEMI (ST elevation myocardial infarction) Status: Acute (2) Diabetes Status: Acute (3) Hypertension Status: Acute (4) Hyperlipidemia Status: Acute (5) Hyperthyroidism Status: Acute (6) History of breast cancer Status: Acute Plan: 1. Continue baby aspirin, Lipitor, Plavix, Arixtra, beta howard. Cozaar added yesterday per cardiology. 2. Encourage incentive spirometer use. 3. Lasix 20 mg IV push 1 given today. 4. Will discontinue pleural chest tube today. 5. Will start Cipro for pre-operative urinary tract infection. 6. GI/DVT prophylaxis. 7. Monitor daily labs, chest x-rays. 8. Reorient patient as necessary. 9. We'll transfer out of ICU to 6 E. selective care today. Time with Patient: Greater than 30 <Jose Luis Linton - Last Filed: 09/05/16 17:31> Objective - Vital Signs Vital signs: Vital Signs Temp 98.0 F 09/05/16 12:00 Pulse 84 09/05/16 16:33 Resp 24 09/05/16 12:00 BP 133/58 09/05/16 02:00 Pulse Ox 94 L 09/05/16 12:00 Intake & Output 09/04/16 09/05/1617 18:59 06:59 18:59 Intake Total 1249.84 369.59 132 Output Total 3205 805 880 Balance -1955.16 -435.41 -748 Weight 65.9 kg 65.5 kg 65.5 kg Intake: IV 18 33 12 Pressure Bag 18 33 12 Intake, IV Titration 271.84 336.59 120 Amount Insulin Regular 100 unit 11.84 6.59 In Sodium Chloride 0.9% 100 ml @ Per Protocol IV .Q0M [facility] Rx#:[id number] Lactated Ringers 1,000 ml 260 330 120 @ 20 mls/hr IV .Q24H [facility] Rx#:[id number] Oral 960 Output: Chest Tube Drainage 100 140 Bilateral Mediastinal 40 Left Pleural 60 140 Drainage 260 140 Left Thigh 130 80 Right Calf 130 60 Urine 2845 525 880 Other: Voiding Method Indwelling Catheter Indwelling Catheter Indwelling Catheter # Voids 1 1 # Bowel Movements 0 0 0 ABP, PAP, CO, CI - Last Documented Arterial Blood Pressure 158/73 Pulmonary Artery Pressure 32/15 Cardiac Output 3.8 Cardiac Index 2.3 - Labs CBC & Chem 7: 09/05/16 06:43 09/05/16 06:43 Labs: Abnormal Lab Results - Last 24 Hours (Table) 09/01/16 09/04/16 09/04/16 Range/Units 11:53 18:56 21:18 WBC (3.8-10.6) k/uL RBC (3.80-5.40) m/uL Hgb (11.4-16.0) gm/dL Hct (34.0-46.0) % RDW (11.5-15.5) % Neutrophils # (1.3-7.7) k/uL Creatinine (0.52-1.04) mg/dL Glucose (74-99) mg/dL POC Glucose (mg/dL) 181 H 103 H (75-99) mg/dL Total Protein (6.3-8.2) g/dL Albumin (3.5-5.0) g/dL Crossmatch See Detail 09/05/16 09/05/16 09/05/16 Range/Units 00:32 02:25 05:44 WBC (3.8-10.6) k/uL RBC (3.80-5.40) m/uL Hgb (11.4-16.0) gm/dL Hct (34.0-46.0) % RDW (11.5-15.5) % Neutrophils # (1.3-7.7) k/uL Creatinine (0.52-1.04) mg/dL Glucose (74-99) mg/dL POC Glucose (mg/dL) 110 H 138 H 100 H (75-99) mg/dL Total Protein (6.3-8.2) g/dL Albumin (3.5-5.0) g/dL Crossmatch 09/05/16 09/05/16 09/05/16 Range/Units 06:43 06:43 08:47 WBC 12.2 H (3.8-10.6) k/uL RBC 3.05 L (3.80-5.40) m/uL Hgb 8.7 L (11.4-16.0) gm/dL Hct 26.1 L (34.0-46.0) % RDW 16.8 H (11.5-15.5) % Neutrophils # 10.3 H (1.3-7.7) k/uL Creatinine 0.50 L (0.52-1.04) mg/dL Glucose 101 H (74-99) mg/dL POC Glucose (mg/dL) 192 H (75-99) mg/dL Total Protein 5.1 L (6.3-8.2) g/dL Albumin 2.7 L (3.5-5.0) g/dL Crossmatch 09/05/16 09/05/16 Range/Units 11:49 16:24 WBC (3.8-10.6) k/uL RBC (3.80-5.40) m/uL Hgb (11.4-16.0) gm/dL Hct (34.0-46.0) % RDW (11.5-15.5) % Neutrophils # (1.3-7.7) k/uL Creatinine (0.52-1.04) mg/dL Glucose (74-99) mg/dL POC Glucose (mg/dL) 160 H 127 H (75-99) mg/dL Total Protein (6.3-8.2) g/dL Albumin (3.5-5.0) g/dL Crossmatch Assessment and Plan Plan: The patient was seen and examined. I agree with the above assessment and plan. The patient was transferred to [facility] care later this morning. She appears to be doing well. She was given a dose of Lasix. Her remaining chest tube was removed. We will begin antibiotics secondary to her urinary tract infection. We will continue with physical therapy. I do believe she will likely require rehab upon discharge from the hospital.
--- NOTE | 2016-09-05 11:46 | P.PN ---
Subjective Principal diagnosis: Acute non-ST elevation myocardial infarction with multiple coronary artery disease including left main disease. Status post CABG, postoperative day #3 This is a 81-year-old female patient was having intermittent nausea vomiting and her symptoms initially were essentially of a gastrointestinal in nature. Apparently there was no reported chest pain. The patient initially presented to [facility] and the EKG showed ST segment depression in the inferior leads and lateral leads and the patient was considered to have an acute coronary syndrome. The patient also ruled in for an acute TN. Based on that, the patient underwent a cardiac catheterization patient was found to have a left main disease and tight lesions in her left circumflex. The official report from the cardiac cath is not available to me at this point. This chest x -ray was free of any acute abnormalities. For that reason, the patient was started on IV heparin and the patient got moved to [facility] for cardiothoracic surgery evaluation. At this point in time, the patient is free of any chest pain. She is asymptomatic. She is hemodynamically stable. She has no specific complaints. She is known to have diabetes and hypertension pH is also known to have carotid artery disease. She is an ex-smoker. Most of emphysema. Most of asthma. She does not utilize any form of respiratory medications are inhalers on a regular basis. She is on oxygen at home.The patient has been independent. The patient has been able to perform household activities pH she is able to walk more than 600-700 feet at a time patient doesn 't own grocery. No pneumonias. No previous history of breathing complications. The patient is seen again today 09/02/2016 immediately postoperatively in the intensive care unit. She is status post off-pump coronary artery bypass grafting utilizing a RAO to LAD, SVG to the OM1, SVG to the PDA. She is currently sedated and on the mechanical ventilator settings of SIMV of 12 tidal volume 350 FiO2 100% and a PEEP of 5. Follow-up blood gases revealed a pO2 of 335, pCO2 of 40 and a pH of 7.36. There are [address] 1 to the left pleural cavity and 2 to the mediastinum. Urine output is adequate. Current cardiac output 3.9, cardiac index 2.4. PA pressures 31/20 with a mean of 26. Current drips include nitroglycerin at 5 mcg/m, propofol at 50 mcg/kg/m , lactated Ringer's at 50 mL per hour, insulin drip at 1.5 units per hour. Dmitry hugger is in place. Core temperature 93.8. The patient did have a drop in hemoglobin prior to surgery from 8.7 down to 6.7 and received 3 units of packed red cells before the OR. Current hemoglobin is 6.9. Patient was reevaluated on 09/03/2016, she received a total of 6 units of packed RBCs and 1 unit of platelets yesterday. Patient remains on mechanical ventilation, chest x-ray showed mostly postoperative changes, patient is still on propofol, however I plan to switch the patient to Precedex, and I would like to start some weaning trials. Patient did well on CPAP and pressure support, however there was no evidence of any cuff leak whatsoever. Multiple attempts were made, but continued to have no cough leak. Hence we decided to give the patient some Decadron, and we will likely address weeding either later today or in a.m. She will receive Decadron for at least the next 24 hours. Labs were reviewed hemoglobin is 8.3 ABG showed a pO2 of 79 pCO2 of 32 pH of 7.46. Electrolytes and renal profile are normal. Hemoglobin today is 8.3. reevaluated on 09/04/2016, patient was extubated last night uneventfully, and I was at bedside when the patient was extubated. so far the patient seems to have tolerated the extubation quite well. she is basically asymptomatic, following all instructions, and doing relatively well with incentive spirometry. chest x- ray showed minimal atelectasis, WBC count is 11.4 hemoglobin is 8.9. basic metabolic profile is normal. Renal profile is normal. Reevaluated today on 09/05/2016, patient continues to do well. She is relatively asymptomatic, patient is sitting in the chair, in no distress. Off oxygen she is presently on room air. Chest x-ray is reassuring. CBC is relatively normal except for hemoglobin of 8.7 electrolytes and renal profile are normal. Objective - Vital Signs Vital signs: Vital Signs Temp 98.2 F 09/05/16 08:00 Pulse 75 09/05/16 10:00 Resp 26 H 09/05/16 10:00 BP 133/58 09/05/16 02:00 Pulse Ox 94 L 09/05/16 10:00 Intake & Output 09/04/16 09/05/16 09/05/16 18:59 06:59 18:59 Intake Total 1249.84 369.59 132 Output Total 3205 805 310 Balance -1955.16 -435.41 -178 Weight 65.9 kg 65.5 kg Intake: IV 18 33 12 Pressure Bag 18 33 12 Intake, IV Titration 271.84 336.59 120 Amount Insulin Regular 100 unit 11.84 6.59 In Sodium Chloride 0.9% 100 ml @ Per Protocol IV .Q0M KALIN Rx#:[id number] Lactated Ringers 1,000 ml 260 330 120 @ 20 mls/hr IV .Q24H KALIN Rx#:[id number] Oral 960 Output: Chest Tube Drainage 100 140 Bilateral Mediastinal 40 Left Pleural 60 140 Drainage 260 140 Left Thigh 130 80 Right Calf 130 60 Urine 2845 525 310 Other: Voiding Method Indwelling Catheter Indwelling Catheter Indwelling Catheter # Voids 1 # Bowel Movements 0 0 0 ABP, PAP, CO, CI - Last Documented Arterial Blood Pressure 124/45 Pulmonary Artery Pressure 32/15 Cardiac Output 3.8 Cardiac Index 2.3 - Exam GENERAL EXAM: 81-year-old female in no distress, on room air. HEAD: Normocephalic. EYES: Within normal NOSE: Clear with pink turbinates. THROAT: No erythema or exudates. NECK: No masses, no JVD. CHEST: Sternal dressing is dry and intact. Midsternal and left pleural chest tubes in place. LUNGS: Equal air entry with faint crackles in the left posterior base. CVS: S1 and S2 normal with no audible murmurs, regular rhythm. ABDOMEN: Soft. SPINE: No scoliosis or deformity SKIN: No rashes Extremities: No clubbing, trace of edema, no cyanosis. - Labs CBC & Chem 7: 09/05/16 06:43 09/05/16 06:43 Labs: Abnormal Lab Results - Last 24 Hours (Table) 09/01/16 09/04/16 09/04/16 Range/Units 11:53 12:45 15:38 WBC (3.8-10.6) k/uL RBC (3.80-5.40) m/uL Hgb (11.4-16.0) gm/dL Hct (34.0-46.0) % RDW (11.5-15.5) % Neutrophils # (1.3-7.7) k/uL Creatinine (0.52-1.04) mg/dL Glucose (74-99) mg/dL POC Glucose (mg/dL) 134 H 234 H (75-99) mg/dL Total Protein (6.3-8.2) g/dL Albumin (3.5-5.0) g/dL Crossmatch See Detail 09/04/16 09/04/16 09/04/16 Range/Units 17:09 18:56 21:18 WBC (3.8-10.6) k/uL RBC (3.80-5.40) m/uL Hgb (11.4-16.0) gm/dL Hct (34.0-46.0) % RDW (11.5-15.5) % Neutrophils # (1.3-7.7) k/uL Creatinine (0.52-1.04) mg/dL Glucose (74-99) mg/dL POC Glucose (mg/dL) 181 H 181 H 103 H (75-99) mg/dL Total Protein (6.3-8.2) g/dL Albumin (3.5-5.0) g/dL Crossmatch 09/05/16 09/05/16 09/05/16 Range/Units 00:32 02:25 05:44 WBC (3.8-10.6) k/uL RBC (3.80-5.40) m/uL Hgb (11.4-16.0) gm/dL Hct (34.0-46.0) % RDW (11.5-15.5) % Neutrophils # (1.3-7.7) k/uL Creatinine (0.52-1.04) mg/dL Glucose (74-99) mg/dL POC Glucose (mg/dL) 110 H 138 H 100 H (75-99) mg/dL Total Protein (6.3-8.2) g/dL Albumin (3.5-5.0) g/dL Crossmatch 09/05/16 09/05/16 09/05/16 Range/Units 06:43 06:43 08:47 WBC 12.2 H (3.8-10.6) k/uL RBC 3.05 L (3.80-5.40) m/uL Hgb 8.7 L (11.4-16.0) gm/dL Hct 26.1 L (34.0-46.0) % RDW 16.8 H (11.5-15.5) % Neutrophils # 10.3 H (1.3-7.7) k/uL Creatinine 0.50 L (0.52-1.04) mg/dL Glucose 101 H (74-99) mg/dL POC Glucose (mg/dL) 192 H (75-99) mg/dL Total Protein 5.1 L (6.3-8.2) g/dL Albumin 2.7 L (3.5-5.0) g/dL Crossmatch Assessment and Plan Plan: 1 acute non-STEMI with multivessel coronary artery disease including left main disease. Status post off-pump coronary artery bypass grafting utilizing a RAO to the LAD, SVG to the OM1, SVG to the PDA. Postoperative day #3 2 postoperative thoracotomy with ventilator dependence as an expected outcome. 3 hypertension 4 hyperlipidemia 5 breast cancer with a previous lumpectomy 6 carotid artery disease 7 skin cancer 8 hypothyroidism 9 osteoarthritis 10 acid reflux 11 diabetes mellitus Recommendation: Continue present supportive care measures, continue incentive spirometry, patient will likely be transferred to selective/monitor bed today. We'll continue to follow. Time with Patient: Less than 30
[2016-09-05 11:50] LABS: Glucose,Whole Blood 160 mg/dL (75-99)
[2016-09-05] MEDS: CHOLECALCIFEROL 1,000 UNIT TAB PO SCH (11:50)
[2016-09-05] MEDS: MULTIVITAMINS, THERA 1 EACH TAB PO SCH (11:50)
--- NOTE | 2016-09-05 12:33 | P.PN ---
Subjective This is an 81-year-old female patient of Dr. Laboy with past medical history of breast cancer, diabetes mellitus type 2, gastroesophageal reflux disease, hyperlipidemia, hypertension. She initially presented to [facility] with nausea and vomiting and abdominal symptoms. She had no chest discomfort or dizziness, shortness of breath. She had an EKG that showed a sinus rhythm and abnormal ST depression in the inferior leads and lateral precordial leads with ST segment abnormality in aVR and V1. Patient was then transferred to [facility] for heart catheterization for acute coronary syndrome. Patient underwent heart catheterization that showed severe disease involving the distal left main coronary artery and involving the ostial left circumflex and ostial LAD. Severe disease involving ostial and proximal left circumflex coronary artery. Severe disease involving the ostial LAD. Carotid ultrasound showed severe stenosis of the left internal carotid artery of 70% and mild right internal carotid artery stenosis of 50-69%. Patient has been seen in consultation by Dr. Corona from pulmonary medicine. Chest x-ray reveals suspect COPD, mild cardiomegaly, left basilar airspace disease with constant intermittent small effusion. Echocardiogram shows moderate concentric left ventricular hypertrophy, EF 55-60%, mild aortic valve sclerosis, mild mitral regurgitation. Patient is tentatively planned for CABG in the next 24- 48 hours. 09/02: Patient is gone for CABG. 09/03: Patient underwent CABG with RAO to LAD, SVG to OM 1, SVG to PDA. Patient remains intubated and on mechanical ventilation. She is status post 6 units of packed RBCs and 1 unit of platelets and hemoglobin is currently 8.3. Patient has no evidence of cuff leak and Decadron was started by Dr. Olivarez. Her blood glucose is running between 110 and 142. 09/04: Patient remains in the intensive care unit. She has been successfully extubated. Patient's blood pressure was elevated for which cardiology continue beta howard and started losartan. He was apparently disoriented this morning but much improved by the time of our visit. One dose of IV Lasix were given. Mediastinal chest tube to be discontinued. Objective - Vital Signs Vital signs: Vital Signs Temp 98.4 F 09/04/16 09:00 Pulse 92 09/04/16 11:43 Resp 17 09/04/16 10:00 BP 146/72 09/04/16 10:00 Pulse Ox 100 09/04/16 10:00 Intake & Output 09/03/16 09/04/16 09/04/16 18:59 06:59 18:59 Intake Total 977.909 208.521 208 Output Total 1740 555 270 Balance -762.091 -346.479 -62 Weight 65.9 kg 65.9 kg Intake: IV 127 75 18 CO/CI 10 Pressure Bag 117 75 18 Intake, IV Titration 850.909 133.521 70 Amount ACETAMINOPHEN IV (For NPO 100 ) 1,000 mg In Empty Bag 1 bag @ 400 mls/hr IVPB Q6HR [facility] Rx#:[id number] Clevidipine Butyrate 25 20.2 mg In Empty Bag 1 bag @ 1 MG/HR 2 mls/hr IV .Q24H [facility]IN Rx#:[id number] Dexmedetomidine 400 mcg 23.255 44.173 In Sodium Chloride 0.9% 100 ml @ Titrate IV .Q0M [facility]IN Rx#:[id number] Insulin Regular 100 unit 15.434 39.348 In Sodium Chloride 0.9% 100 ml @ Per Protocol IV .Q0M [facility]IN Rx#:[id number] Lactated Ringers 1,000 ml 450 50 70 @ 20 mls/hr IV .Q24H [facility]IN Rx#:[id number] Nitroglycerin-D5w Pmx 50 93.9 mg In Dextrose/Water 1 250ml.bag @ 5 MCG/MIN 1.5 mls/hr IV .Q24H [facility]ALIN Rx#: [id number] Propofol 500 mg In Empty 48.12 Bag 1 bag @ Titrate IV . Q0M [facility]IN Rx#:[id number] ceFAZolin 2 gm In Sodium 100 Chloride 0.9% 100 ml @ 100 mls/hr IVPB Q8HR KALIN Rx#:[id number] Oral 120 Output: Chest Tube Drainage 290 240 20 Bilateral Mediastinal 170 130 20 Left Pleural 120 110 0 Drainage 60 Left Thigh 30 Right Calf 30 Urine 1450 315 190 Other: Voiding Method Indwelling Catheter Indwelling Catheter Indwelling Catheter # Voids 1 1 # Bowel Movements 0 0 0 ABP, PAP, CO, CI - Last Documented Arterial Blood Pressure 152/66 Pulmonary Artery Pressure 32/15 Cardiac Output 3.8 Cardiac Index 2.3 - Exam Gen: This is an 81-year-old female. She is laying in bed in the ICU and appears to be in no acute distress. Patient appears to be comfortable. HEENT: Head is atraumatic, normocephalic. Sclerae is anicteric. NECK: Supple. No JVD. No lymphadenopathy. No thyromegaly. Right-sided [place]- [place] David catheter in place LUNGS: Clear to auscultation. No wheezes or rhonchi. No intercostal retractions. HEART: Regular rate and rhythm. No murmur. Sternal wound dressing is dry and intact. Midsternal and left pleural chest tubes in place. ABDOMEN: Soft. Bowel sounds are present. No masses. No tenderness. EXTREMITIES: Bilateral lower extremities are wrapped with SADAF drains in place. NEUROLOGICAL: Alert and oriented 3. Cranial nerves II through XII are grossly in place.. - Labs CBC & Chem 7: 09/05/16 06:43 09/05/16 06:43 Labs: Abnormal Lab Results - Last 24 Hours (Table) 09/01/16 09/03/16 09/03/16 Range/Units 11:53 12:26 13:09 WBC (3.8-10.6) k/uL RBC (3.80-5.40) m/uL Hgb (11.4-16.0) gm/dL Hct (34.0-46.0) % RDW (11.5-15.5) % Plt Count (150-450) k/uL Neutrophils # (1.3-7.7) k/uL Lymphocytes # (1.0-4.8) k/uL ABG pH (7.35-7.45) ABG pCO2 (35-45) mmHg ABG HCO3 (21-25) mmol/L ABG O2 Saturation (94-97) % Potassium 3.3 L (3.5-5.1) mmol/L Chloride (98-107) mmol/L Creatinine (0.52-1.04) mg/dL Glucose (74-99) mg/dL POC Glucose (mg/dL) 133 H (75-99) mg/dL Calcium (8.4-10.2) mg/dL Total Protein (6.3-8.2) g/dL Albumin (3.5-5.0) g/dL Crossmatch See Detail 09/03/16 09/03/16 09/03/16 Range/Units 13:11 14:03 15:26 WBC (3.8-10.6) k/uL RBC (3.80-5.40) m/uL Hgb (11.4-16.0) gm/dL Hct (34.0-46.0) % RDW (11.5-15.5) % Plt Count (150-450) k/uL Neutrophils # (1.3-7.7) k/uL Lymphocytes # (1.0-4.8) k/uL ABG pH (7.35-7.45) ABG pCO2 (35-45) mmHg ABG HCO3 (21-25) mmol/L ABG O2 Saturation (94-97) % Potassium (3.5-5.1) mmol/L Chloride (98-107) mmol/L Creatinine (0.52-1.04) mg/dL Glucose (74-99) mg/dL POC Glucose (mg/dL) 120 H 111 H 100 H (75-99) mg/dL Calcium (8.4-10.2) mg/dL Total Protein (6.3-8.2) g/dL Albumin (3.5-5.0) g/dL Crossmatch 09/03/16 09/03/16 09/03/16 Range/Units 17:18 19:06 20:18 WBC (3.8-10.6) k/uL RBC (3.80-5.40) m/uL Hgb (11.4-16.0) gm/dL Hct (34.0-46.0) % RDW (11.5-15.5) % Plt Count (150-450) k/uL Neutrophils # (1.3-7.7) k/uL Lymphocytes # (1.0-4.8) k/uL ABG pH (7.35-7.45) ABG pCO2 (35-45) mmHg ABG HCO3 (21-25) mmol/L ABG O2 Saturation (94-97) % Potassium (3.5-5.1) mmol/L Chloride (98-107) mmol/L Creatinine (0.52-1.04) mg/dL Glucose (74-99) mg/dL POC Glucose (mg/dL) 135 H 187 H 197 H (75-99) mg/dL Calcium (8.4-10.2) mg/dL Total Protein (6.3-8.2) g/dL Albumin (3.5-5.0) g/dL Crossmatch 09/03/16 09/03/16 09/04/16 Range/Units 21:18 22:16 00:22 WBC (3.8-10.6) k/uL RBC (3.80-5.40) m/uL Hgb (11.4-16.0) gm/dL Hct (34.0-46.0) % RDW (11.5-15.5) % Plt Count (150-450) k/uL Neutrophils # (1.3-7.7) k/uL Lymphocytes # (1.0-4.8) k/uL ABG pH 7.46 H (7.35-7.45) ABG pCO2 29 L (35-45) mmHg ABG HCO3 20 L (21-25) mmol/L ABG O2 Saturation 98.0 H (94-97) % Potassium (3.5-5.1) mmol/L Chloride (98-107) mmol/L Creatinine (0.52-1.04) mg/dL Glucose (74-99) mg/dL POC Glucose (mg/dL) 234 H 156 H (75-99) mg/dL Calcium (8.4-10.2) mg/dL Total Protein (6.3-8.2) g/dL Albumin (3.5-5.0) g/dL Crossmatch 09/04/16 09/04/16 09/04/16 Range/Units 01:17 02:11 02:59 WBC (3.8-10.6) k/uL RBC (3.80-5.40) m/uL Hgb (11.4-16.0) gm/dL Hct (34.0-46.0) % RDW (11.5-15.5) % Plt Count (150-450) k/uL Neutrophils # (1.3-7.7) k/uL Lymphocytes # (1.0-4.8) k/uL ABG pH (7.35-7.45) ABG pCO2 (35-45) mmHg ABG HCO3 (21-25) mmol/L ABG O2 Saturation (94-97) % Potassium (3.5-5.1) mmol/L Chloride (98-107) mmol/L Creatinine (0.52-1.04) mg/dL Glucose (74-99) mg/dL POC Glucose (mg/dL) 118 H 121 H 115 H (75-99) mg/dL Calcium (8.4-10.2) mg/dL Total Protein (6.3-8.2) g/dL Albumin (3.5-5.0) g/dL Crossmatch 09/04/16 09/04/16 09/04/16 Range/Units 04:05 04:05 04:07 WBC 11.4 H (3.8-10.6) k/uL RBC 3.09 L (3.80-5.40) m/uL Hgb 8.9 L (11.4-16.0) gm/dL Hct 26.7 L (34.0-46.0) % RDW 16.2 H (11.5-15.5) % Plt Count 118 L (150-450) k/uL Neutrophils # 10.5 H (1.3-7.7) k/uL Lymphocytes # 0.6 L (1.0-4.8) k/uL ABG pH (7.35-7.45) ABG pCO2 (35-45) mmHg ABG HCO3 (21-25) mmol/L ABG O2 Saturation (94-97) % Potassium (3.5-5.1) mmol/L Chloride 109 H (98-107) mmol/L Creatinine 0.47 L (0.52-1.04) mg/dL Glucose 129 H (74-99) mg/dL POC Glucose (mg/dL) 131 H (75-99) mg/dL Calcium 8.2 L (8.4-10.2) mg/dL Total Protein 5.1 L (6.3-8.2) g/dL Albumin 2.9 L (3.5-5.0) g/dL Crossmatch 09/04/16 09/04/16 09/04/16 Range/Units 05:08 06:07 07:20 WBC (3.8-10.6) k/uL RBC (3.80-5.40) m/uL Hgb (11.4-16.0) gm/dL Hct (34.0-46.0) % RDW (11.5-15.5) % Plt Count (150-450) k/uL Neutrophils # (1.3-7.7) k/uL Lymphocytes # (1.0-4.8) k/uL ABG pH (7.35-7.45) ABG pCO2 (35-45) mmHg ABG HCO3 (21-25) mmol/L ABG O2 Saturation (94-97) % Potassium (3.5-5.1) mmol/L Chloride (98-107) mmol/L Creatinine (0.52-1.04) mg/dL Glucose (74-99) mg/dL POC Glucose (mg/dL) 129 H 142 H 128 H (75-99) mg/dL Calcium (8.4-10.2) mg/dL Total Protein (6.3-8.2) g/dL Albumin (3.5-5.0) g/dL Crossmatch 09/04/16 09/04/16 Range/Units 09:09 10:56 WBC (3.8-10.6) k/uL RBC (3.80-5.40) m/uL Hgb (11.4-16.0) gm/dL Hct (34.0-46.0) % RDW (11.5-15.5) % Plt Count (150-450) k/uL Neutrophils # (1.3-7.7) k/uL Lymphocytes # (1.0-4.8) k/uL ABG pH (7.35-7.45) ABG pCO2 (35-45) mmHg ABG HCO3 (21-25) mmol/L ABG O2 Saturation (94-97) % Potassium (3.5-5.1) mmol/L Chloride (98-107) mmol/L Creatinine (0.52-1.04) mg/dL Glucose (74-99) mg/dL POC Glucose (mg/dL) 125 H 129 H (75-99) mg/dL Calcium (8.4-10.2) mg/dL Total Protein (6.3-8.2) g/dL Albumin (3.5-5.0) g/dL Crossmatch Microbiology - Last 24 Hours (Table) 08/31/16 14:28 Urine Culture - Final Urine,Voided Citrobacter freundii Enterococcus faecalis Assessment and Plan Plan: 1. 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 Patient has been seen by cardiothoracic surgeon status post CABG. Patient remains in the intensive care unit successfully extubated. Continue aspirin, Lipitor, Lopressor 2. Diabetes mellitus type 2. Patient was on Janumet at home. Continue insulin drip. 3. Hypertension. Patient was on Cardizem, hydrochlorothiazide, hydralazine at home 4. Hyperlipidemia. Continue Lipitor 5. History of breast cancer status post lumpectomy. 6. Carotid artery disease. 7. History of skin cancer. 8. Hyperthyroidism. Continue Tapazole 9. Gastrointestinal prophylaxis. 10. DVT prophylaxis. Heparin. Discharge plan: To be determined Impression and plan of care have been directed as dictated by the signing physician. Eileen Gomez nurse practitioner acting as scribe for signing physician.
[2016-09-05 13:32] VITALS: BMI 25.5
--- NOTE | 2016-09-05 14:02 | P.PN ---
Subjective This is an 81-year-old female patient of Dr. Laboy with past medical history of breast cancer, diabetes mellitus type 2, gastroesophageal reflux disease, hyperlipidemia, hypertension. She initially presented to [facility] with nausea and vomiting and abdominal symptoms. She had no chest discomfort or dizziness, shortness of breath. She had an EKG that showed a sinus rhythm and abnormal ST depression in the inferior leads and lateral precordial leads with ST segment abnormality in aVR and V1. Patient was then transferred to [facility] for heart catheterization for acute coronary syndrome. Patient underwent heart catheterization that showed severe disease involving the distal left main coronary artery and involving the ostial left circumflex and ostial LAD. Severe disease involving ostial and proximal left circumflex coronary artery. Severe disease involving the ostial LAD. Carotid ultrasound showed severe stenosis of the left internal carotid artery of 70% and mild right internal carotid artery stenosis of 50-69%. Patient has been seen in consultation by Dr. Corona from pulmonary medicine. Chest x-ray reveals suspect COPD, mild cardiomegaly, left basilar airspace disease with constant intermittent small effusion. Echocardiogram shows moderate concentric left ventricular hypertrophy, EF 55-60%, mild aortic valve sclerosis, mild mitral regurgitation. Patient is tentatively planned for CABG in the next 24- 48 hours. 09/02: Patient is gone for CABG. 09/03: Patient underwent CABG with RAO to LAD, SVG to OM 1, SVG to PDA. Patient remains intubated and on mechanical ventilation. She is status post 6 units of packed RBCs and 1 unit of platelets and hemoglobin is currently 8.3. Patient has no evidence of cuff leak and Decadron was started by Dr. Olivarez. Her blood glucose is running between 110 and 142. 09/04: Patient remains in the intensive care unit. She has been successfully extubated. Patient's blood pressure was elevated for which cardiology continue beta howard and started losartan. He was apparently disoriented this morning but much improved by the time of our visit. One dose of IV Lasix were given. Mediastinal chest tube to be discontinued. 09/05: Patient remains in the intensive care unit and has been hemodynamically stable with plan to [facility]. Patient denies any chest pain or shortness of breath. Lane catheter has also been discontinued. Patient is planning for discharge to [facility] for subacute rehab. Objective - Vital Signs Vital signs: Vital Signs Temp 98.2 F 09/05/16 08:00 Pulse 75 09/05/16 10:00 Resp 26 H 09/05/16 10:00 BP 133/58 09/05/16 02:00 Pulse Ox 94 L 09/05/16 10:00 Intake & Output 09/04/16 09/05/16 09/05/16 18:59 06:59 18:59 Intake Total 1249.84 369.59 132 Output Total 3205 805 310 Balance -1955.16 -435.41 -178 Weight 65.9 kg 65.5 kg Intake: IV 18 33 12 Pressure Bag 18 33 12 Intake, IV Titration 271.84 336.59 120 Amount Insulin Regular 100 unit 11.84 6.59 In Sodium Chloride 0.9% 100 ml @ Per Protocol IV .Q0M KALIN Rx#:[id number] Lactated Ringers 1,000 ml 260 330 120 @ 20 mls/hr IV .Q24H KALIN Rx#:[id number] Oral 960 Output: Chest Tube Drainage 100 140 Bilateral Mediastinal 40 Left Pleural 60 140 Drainage 260 140 Left Thigh 130 80 Right Calf 130 60 Urine 2845 525 310 Other: Voiding Method Indwelling Catheter Indwelling Catheter Indwelling Catheter # Voids 1 # Bowel Movements 0 0 0 ABP, PAP, CO, CI - Last Documented Arterial Blood Pressure 124/45 Pulmonary Artery Pressure 32/15 Cardiac Output 3.8 Cardiac Index 2.3 - Exam Gen: This is an 81-year-old female. She is laying in bed in the ICU and appears to be in no acute distress. Patient appears to be comfortable. HEENT: Head is atraumatic, normocephalic. Sclerae is anicteric. NECK: Supple. No JVD. No lymphadenopathy. No thyromegaly. Right-sided [place]- Jose David catheter in place LUNGS: Clear to auscultation. No wheezes or rhonchi. No intercostal retractions. HEART: Regular rate and rhythm. No murmur. Sternal wound dressing is dry and intact. Midsternal and left pleural chest tubes in place. ABDOMEN: Soft. Bowel sounds are present. No masses. No tenderness. EXTREMITIES: Bilateral lower extremities are wrapped with SADAF drains in place. NEUROLOGICAL: Alert and oriented 3. Cranial nerves II through XII are grossly in place.. - Labs CBC & Chem 7: 05/26/17 06:43 09/05/16 06:43 Labs: Abnormal Lab Results - Last 24 Hours (Table) 09/01/16 09/04/16 09/04/16 Range/Units 11:53 12:45 15:38 WBC (3.8-10.6) k/uL RBC (3.80-5.40) m/uL Hgb (11.4-16.0) gm/dL Hct (34.0-46.0) % RDW (11.5-15.5) % Neutrophils # (1.3-7.7) k/uL Creatinine (0.52-1.04) mg/dL Glucose (74-99) mg/dL POC Glucose (mg/dL) 134 H 234 H (75-99) mg/dL Total Protein (6.3-8.2) g/dL Albumin (3.5-5.0) g/dL Crossmatch See Detail 09/04/16 09/04/16 09/04/16 Range/Units 17:09 18:56 21:18 WBC (3.8-10.6) k/uL RBC (3.80-5.40) m/uL Hgb (11.4-16.0) gm/dL Hct (34.0-46.0) % RDW (11.5-15.5) % Neutrophils # (1.3-7.7) k/uL Creatinine (0.52-1.04) mg/dL Glucose (74-99) mg/dL POC Glucose (mg/dL) 181 H 181 H 103 H (75-99) mg/dL Total Protein (6.3-8.2) g/dL Albumin (3.5-5.0) g/dL Crossmatch 09/05/16 09/05/16 09/05/16 Range/Units 00:32 02:25 05:44 WBC (3.8-10.6) k/uL RBC (3.80-5.40) m/uL Hgb (11.4-16.0) gm/dL Hct (34.0-46.0) % RDW (11.5-15.5) % Neutrophils # (1.3-7.7) k/uL Creatinine (0.52-1.04) mg/dL Glucose (74-99) mg/dL POC Glucose (mg/dL) 110 H 138 H 100 H (75-99) mg/dL Total Protein (6.3-8.2) g/dL Albumin (3.5-5.0) g/dL Crossmatch 09/05/16 09/05/16 09/05/16 Range/Units 06:43 06:43 08:47 WBC 12.2 H (3.8-10.6) k/uL RBC 3.05 L (3.80-5.40) m/uL Hgb 8.7 L (11.4-16.0) gm/dL Hct 26.1 L (34.0-46.0) % RDW 16.8 H (11.5-15.5) % Neutrophils # 10.3 H (1.3-7.7) k/uL Creatinine 0.50 L (0.52-1.04) mg/dL Glucose 101 H (74-99) mg/dL POC Glucose (mg/dL) 192 H (75-99) mg/dL Total Protein 5.1 L (6.3-8.2) g/dL Albumin 2.7 L (3.5-5.0) g/dL Crossmatch 09/05/16 Range/Units 11:49 WBC (3.8-10.6) k/uL RBC (3.80-5.40) m/uL Hgb (11.4-16.0) gm/dL Hct (34.0-46.0) % RDW (11.5-15.5) % Neutrophils # (1.3-7.7) k/uL Creatinine (0.52-1.04) mg/dL Glucose (74-99) mg/dL POC Glucose (mg/dL) 160 H (75-99) mg/dL Total Protein (6.3-8.2) g/dL Albumin (3.5-5.0) g/dL Crossmatch Assessment and Plan Plan: 1. 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 Patient has been seen by cardiothoracic surgeon status post CABG. Patient remains in the intensive care unit successfully extubated and will be [facility]. Continue aspirin, Lipitor, Lopressor 2. Diabetes mellitus type 2. Patient was on Janumet at home. Continue insulin drip. 3. Hypertension. Patient was on Cardizem, hydrochlorothiazide, hydralazine at home 4. Hyperlipidemia. Continue Lipitor 5. History of breast cancer status post lumpectomy. 6. Carotid artery disease. 7. History of skin cancer. 8. Hyperthyroidism. Continue Tapazole 9. Gastrointestinal prophylaxis. 10. DVT prophylaxis. Heparin. Discharge plan: [facility] Impression and plan of care have been directed as dictated by the signing physician. Eileen Gomez nurse practitioner acting as scribe for signing physician.
[2016-09-05 14:14] LABS: Ionized Calcium 5.3 mg/dL (4.5-5.3)
--- NOTE | 2016-09-05 14:28 | PN ---
Ms. Garvin is an 81-year-old female who underwent coronary artery bypass grafting after an acute MD and coronary angiography. She is doing fairly well. She is waiting transfer to telemetry. She is lying flat. Her respirations are 20. Blood pressure is 118/53 mmHg. She is afebrile. Breath sounds are reduced bilaterally. Heart sounds S1, S2 are soft. Lungs decreased breath sounds bilaterally. Abdomen is soft, nontender. Extremities are warm. SUGGEST: Continue current medications post MD and post CABG. Continue cardiac medications.
[2016-09-05 14:48] LABS: Mis test requested (Blood) Ionized Calcium
[2016-09-05] MEDS: IPRATROPIUM-ALBUTEROL 3 ML NEB INHALATION SCH (16:21)
[2016-09-05 16:26] LABS: Glucose,Whole Blood 127 mg/dL (75-99)
[2016-09-05 21:09] LABS: Glucose,Whole Blood 187 mg/dL (75-99)
[2016-09-05] MEDS: SENNOSIDES-DOCUSATE SODIUM 1 EACH TAB PO SCH (22:18)
[2016-09-06 02:52] LABS: Glucose,Whole Blood 197 mg/dL (75-99)
[2016-09-06 06:46] LABS: Anisocytosis Slight; CHCM 32.2; HCT 29.7 % (34.0-46.0); HDW 4.47; HGB 9.5 gm/dL (11.4-16.0); Hypochromasia Marked; MCV 87.4 fL (80.0-100.0); Poikilocytosis Moderate; RBC 3.39 m/uL (3.80-5.40); RDW 16.8 % (11.5-15.5); WBC 9.2 k/uL (3.8-10.6)
[2016-09-06 06:54] LABS: ALT 27 U/L (9-52); AST 20 U/L (14-36); Alkaline Phosphatase 62 U/L (38-126); Anion Gap 9 mmol/L; Blood Urea Nitrogen 17 mg/dL (7-17); Calcium 9.1 mg/dL (8.4-10.2); Carbon Dioxide 25 mmol/L (22-30); Chloride 103 mmol/L (98-107); Glucose 171 mg/dL (74-99); Non-African American GFR(MDRD) >60 (>60 ml/min/1.73 sqM); Potassium 4.1 mmol/L (3.5-5.1); Sodium 137 mmol/L (137-145); Total Bilirubin 1.2 mg/dL (0.2-1.3); Total Protein 5.4 g/dL (6.3-8.2)
[2016-09-06 07:01] LABS: Glucose,Whole Blood 186 mg/dL (75-99)
[2016-09-06] MEDS: PANTOPRAZOLE 40 MG TABLET PO SCH (07:04)
[2016-09-06] MEDS: INSULIN LISPRO (humaLOG) 300 UNIT/3 ML VIAL SQ SCH ×4 (07:04→21:14)
--- NOTE | 2016-09-06 07:53 | XR ---
EXAMINATION TYPE: XR chest 2V DATE OF EXAM: 09/06/2016 COMPARISON: Prior chest x-ray 05 Sep 2016 HISTORY: Status post chest tube removal TECHNIQUE: Frontal and lateral views of the chest are obtained. FINDINGS: Interval removal left-sided chest tube. No sizable pneumothorax. Basilar increased density persists, the heart remains enlarged. Patient is post median sternotomy. There are coronary artery c alcifications. There are overlying cardiac leads. IMPRESSION: No evident complication status post chest tube removal. Basilar atelectasis, cardiomegal y. Postop changes.
[2016-09-06] MEDS: ATORVASTATIN 40 MG TAB PO SCH (08:42)
[2016-09-06] MEDS: CLOPIDOGREL 75 MG TAB PO SCH (08:42)
[2016-09-06] MEDS: FONDAPARINUX 2.5 MG/0.5 ML SYRINGE SQ SCH (08:42)
[2016-09-06] MEDS: ASPIRIN 81 MG CHEW PO SCH (08:42)
[2016-09-06] MEDS: LOSARTAN 50 MG TAB PO SCH (08:43)
[2016-09-06] MEDS: CIPROFLOXACIN HCL 250 MG TAB PO SCH ×2 (08:43→21:14)
[2016-09-06] MEDS: METHIMAZOLE 5 MG TAB PO SCH (08:44)
[2016-09-06] MEDS: METOPROLOL TARTRATE 50 MG TAB PO SCH ×2 (08:44→21:14)
[2016-09-06] MEDS: CHOLECALCIFEROL 1,000 UNIT TAB PO SCH (08:44)
[2016-09-06] MEDS: MULTIVITAMINS, THERA 1 EACH TAB PO SCH (08:45)
--- NOTE | 2016-09-06 11:17 | P.PN ---
<Sha London - Last Filed: 09/06/16 11:14> Progress Note - Text CV Surgery Nursing Principal diagnosis: Non-STEMI. 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 Preserved systolic function. Mild mitral valve regurgitation. Hypertension. Hyperlipidemia. Diabetes mellitus. Hyperparathyroidism. POD #4 non-aortic clamp off pump triple vessel coronary artery bypass grafting using the left internal mammary artery to the left anterior descending artery, a reverse saphenous vein graft connected to the aorta using the Passport device connected distally to the posterior descending artery, a reverse saphenous vein graft connected to the aorta using the Passport device to connected distally to the obtuse marginal artery. Endoscopic harvesting of the right and the left greater saphenous veins. Intraoperative transesophageal echocardiogram and epi- aortic scanning. Intraoperative graft flow measurements using the [employer] system. Patient awake and alert, no distress noted, no specific complaints, she is sitting up to bedside chair. Vital Signs: Afebrile Vital Signs - 24 hr 09/05/16 09/05/16 09/05/16 11:00 12:00 16:00 Temperature 98.0 F 97.8 F Pulse Rate 85 81 Pulse Rate [ 83 Inside [employer] Account Executive ] Respiratory 22 24 18 Rate Blood Pressure 109/52 [Right Arm] O2 Sat by Pulse 94 L 95 Oximetry 09/05/16 09/05/16 09/05/16 16:22 16:33 20:00 Temperature 98.3 F Pulse Rate 82 84 Pulse Rate [ 100 Inside Sales Account Executive ] Respiratory 20 Rate Blood Pressure 130/60 [Right Arm] O2 Sat by Pulse 93 L Oximetry 09/05/16 09/05/16 09/06/16 20:26 20:37 00:00 Temperature 98.3 F Pulse Rate 80 80 Pulse Rate [ 92 Inside Sales Account Executive ] Respiratory 18 Rate Blood Pressure 104/54 [Right Arm] O2 Sat by Pulse 92 L Oximetry 09/06/16 03:51 Temperature 97.9 F Pulse Rate Pulse Rate [ 81 [employer] Account Executive ] Respiratory 18 Rate Blood Pressure 107/55 [Right Arm] O2 Sat by Pulse 92 L Oximetry Labs: Short CBC 09/06/16 Range/Units 06:29 WBC 9.2 (3.8-10.6) k/uL Hgb 9.5 L (11.4-16.0) gm/dL Hct 29.7 L (34.0-46.0) % Plt Count 240 (150-450) k/uL BMP 09/06/16 06:26 Sodium 137 Potassium 4.1 Chloride 103 Carbon Dioxide 25 BUN 17 Creatinine 0.60 Glucose 171 H Calcium 9.1 Liver Function 09/06/16 Range/Units 06:26 Total Bilirubin 1.2 (0.2-1.3) mg/dL AST 20 (14-36) U/L ALT 27 (9-52) U/L Alkaline Phosphatase 62 (38-126) U/L Albumin 3.1 L (3.5-5.0) g/dL ABG ABG pH 7.46 (7.35-7.45) H 09/03/16 21:18 ABG pCO2 29 mmHg (35-45) L 09/03/16 21:18 ABG pO2 98 mmHg (83-108) 09/03/16 21:18 ABG O2 Saturation 98.0 % (94-97) H 09/03/16 21:18 Microbiology 08/31/16 14:28 Urine,Voided Urine Culture - Final Citrobacter freundii Enterococcus faecalis 08/31/16 17:50 Nasal Swab Nasal Screen MRSA/MSSA (CATIE) - Final Lungs: Essentially clear throughout, diminished bilateral bases. Respirations are symmetrical and unlabored. O2 sat: 99% on room air. I/S: 750 mL, reviewed with the patient important of using her incentive spirometry every hour while awake. The patient did give a good return demonstration on her incentive spirometry. Heart: S1S2, regular rhythm and rate, negative for S3, gallop or murmur. Remote telemetry showing normal sinus rhythm heart rate 85. Sternum stable, chest incision clean with sternal dressing clean and dry. Heart hugger in place, patient demonstrating appropriate use of her heart hugger. Left leg incisions clean dry and well approximated. SADAF drain remains in place, draining thin serosanguineous drainage. 10 mL output in the last 8 hours, 40 mL output in the 24 hours. Right leg incisions clean dry and well approximated. No drainage noted. SADAF drain remains in place, draining thin serosanguineous drainage. 15 mL output in the last 8 hours, 75 mL output in the last 24 hours. Knee-high IRWIN hose and sequential compression devices in place to bilateral lower extremities. Abdomen: Soft, Positive bowel sounds present in all 4 quadrants. Patient has not had a bowel movement since 08/31/2016. CBGs: 186-197 mg/dL in the last 24 hours. U/O: Adequate. 24 hr Total: Intake & Output 09/04/16 09/05/16 09/06/16 09/07/16 06:59 06:59 06:59 06:59 Intake Total 7441.273 3357.43 132 Output Total 2295 4010 995 Balance -1108.570 -2390.57 -863 Weight 65.9 kg 65.5 kg 63.9 kg Active Medications Hydrocodone Bitart/Acetaminophen (Rector 5-325) 2 each PO Q4HR PRN PRN Reason: Severe Pain Hydrocodone Bitart/Acetaminophen (Rector 5-325) 1 each PO Q4HR PRN PRN Reason: Moderate Pain Last Admin: 09/05/16 21:50 Dose: 1 each Albuterol/Ipratropium (Duoneb 0.5 Mg-3 Mg/3 Ml Soln) 3 ml INHALATION RT-Q2H PRN PRN Reason: Shortness Of Breath Or Wheezing Last Admin: 09/05/16 16:22 Dose: 3 ml Aspirin (Aspirin) 81 mg PO DAILY [facility] Last Admin: 09/06/16 08:42 Dose: 81 mg Atorvastatin Calcium (Lipitor) 40 mg PO DAILY [facility] Last Admin: 09/06/16 08:42 Dose: 40 mg Benzocaine/Menthol (Cepacol Lozenge) 1 each MUCOUS MEM Q2H PRN PRN Reason: Sore Throat Bisacodyl (Dulcolax) 10 mg RECTAL DAILY PRN PRN Reason: Constipation Cholecalciferol (Vitamin D3) 2,000 unit PO DAILY@1200 [facility] Last Admin: 09/06/16 08:44 Dose: 2,000 unit Ciprofloxacin (Cipro) 250 mg PO BID [facility] Last Admin: 09/06/16 08:43 Dose: 250 mg Clopidogrel Bisulfate (Plavix) 75 mg PO DAILY [facility] Last Admin: 09/06/16 08:42 Dose: 75 mg Fondaparinux (Arixtra) 2.5 mg SQ DAILY [facility] Last Admin: 09/06/16 08:42 Dose: 2.5 mg Insulin Human Lispro (Humalog) 0 unit SQ ACHS [facility] PRN Reason: Protocol Last Admin: 09/06/16 07:04 Dose: 2 unit Losartan Potassium (Cozaar) 50 mg PO DAILY [facility] Last Admin: 09/06/16 08:43 Dose: 50 mg Magnesium Hydroxide (Milk Of Magnesia) 2,400 mg PO BID PRN PRN Reason: Constipation Methimazole (Tapazole) 5 mg PO DAILY [facility] Last Admin: 09/06/16 08:44 Dose: 5 mg Metoprolol Tartrate (Lopressor) 50 mg PO BID [facility] Last Admin: 09/06/16 08:44 Dose: 50 mg Miscellaneous Information (Magnesium Per Protocol) 1 each MISCELLANE DAILY PRN ; Protocol PRN Reason: Per Protocol Miscellaneous Information (Phosphorus Per Protocol) 1 each MISCELLANE DAILY PRN ; Protocol PRN Reason: Per Protocol Miscellaneous Information (Potassium Per Protocol) 1 each MISCELLANE DAILY PRN ; Protocol PRN Reason: Per Protocol Multivitamins (Theragran) 1 each PO DAILY@1200 [facility] Last Admin: 09/06/16 08:45 Dose: 1 each Ondansetron HCl (Zofran) 4 mg IVP Q6HR PRN PRN Reason: Nausea And Vomiting Pantoprazole Sodium (Protonix) 40 mg PO AC-BRKFST [facility] Last Admin: 09/06/16 07:04 Dose: 40 mg Senna/Docusate Sodium (Senokot-S) 2 each PO HS [facility] Last Admin: 09/05/16 22:18 Dose: Not Given Sodium Chloride (Saline Flush) 10 ml IV BID [facility] Last Admin: 09/06/16 08:44 Dose: 10 ml Plan: 1. Continue baby aspirin, Lipitor, Plavix, Arixtra, beta howard and Cozaar. 2. Encourage incentive spirometer use every hour while awake. 3. We will discontinue her left leg SADAF drain today. 4. Encourage increasing activity as tolerated, physical therapy following. 5. Will start Cipro for pre-operative urinary tract infection. 6. GI/DVT prophylaxis. 7. Monitor daily labs, chest x-rays. 8. Reorient patient as necessary. 9. Discharge planning in place, patient is requesting [place] upon discharge. <Jose Luis Linton - Last Filed: 09/06/16 11:45> Progress Note - Text The patient was seen and examined. Agree with the above assessment and plan. Overall she looks good. She is on room air. She has been ambulating in the hallway with assistance. We will discontinue her left SADAF drain today. She remains on antibiotics secondary to a previous existing urinary tract infection. She will likely be discharged to subacute rehab after the long weekend.
--- NOTE | 2016-09-06 11:31 | P.PN ---
Subjective Principal diagnosis: Status post coronary artery bypass grafting surgery. This is an 81-year-old female who is status post coronary bypass grafting surgery. She was seen and examined on the telemetry unit today. Let pressure 122/58 with a heart rate in the 80s. Hemoglobin 9.5, platelet count 240 , potassium 4.1, BUN 17, creatinine 0.6. Objective - Vital Signs Vital signs: Vital Signs Temp 98.4 F 09/06/16 08:00 Pulse 85 09/06/16 08:00 Resp 18 09/06/16 08:00 BP 122/58 09/06/16 08:00 Pulse Ox 99 09/06/16 08:00 Intake & Output 09/05/16 09/06/16 09/06/16 18:59 06:59 18:59 Intake Total 132 Output Total 880 115 Balance -748 -115 Weight 65.5 kg 63.9 kg Intake: IV 12 Pressure Bag 12 Intake, IV Titration 120 Amount Lactated Ringers 1,000 ml 120 @ 20 mls/hr IV .Q24H [facility] Rx#:[id number] Output: Drainage 115 Left Thigh 40 Right Calf 75 Urine 880 Other: Voiding Method Indwelling Catheter Toilet Toilet # Voids 1 2 # Bowel Movements 0 ABP, PAP, CO, CI - Last Documented Arterial Blood Pressure 158/73 Pulmonary Artery Pressure 32/15 Cardiac Output 3.8 Cardiac Index 2.3 - Exam PHYSICAL EXAMINATION: HEENT: Head is atraumatic, normocephalic. Pupils equal, round. Neck is supple. There is no elevated jugular venous pressure. HEART EXAMINATION: Heart S1, S2 normal. No murmur or gallop heard. CHEST EXAMINATION: Lungs reveal mild diminished air entry to bilateral bases. ABDOMEN: Soft, nontender. Bowel sounds are heard. No organomegaly noted. EXTREMITIES: 2+ peripheral pulses with no evidence of peripheral edema and no calf tenderness noted. Bilateral IRWIN hose in place. NEUROLOGIC patient is awake, alert and oriented -3. . - Labs CBC & Chem 7: 09/06/16 06:29 09/06/16 06:26 Labs: Abnormal Lab Results - Last 24 Hours (Table) 09/05/16 09/05/16 09/05/16 Range/Units 11:49 16:24 20:48 RBC (3.80-5.40) m/uL Hgb (11.4-16.0) gm/dL Hct (34.0-46.0) % RDW (11.5-15.5) % Glucose (74-99) mg/dL POC Glucose (mg/dL) 160 H 127 H 187 H (75-99) mg/dL Total Protein (6.3-8.2) g/dL Albumin (3.5-5.0) g/dL 09/06/16 09/06/16 09/06/16 Range/Units 02:32 06:25 06:26 RBC (3.80-5.40) m/uL Hgb (11.4-16.0) gm/dL Hct (34.0-46.0) % RDW (11.5-15.5) % Glucose 171 H (74-99) mg/dL POC Glucose (mg/dL) 197 H 186 H (75-99) mg/dL Total Protein 5.4 L (6.3-8.2) g/dL Albumin 3.1 L (3.5-5.0) g/dL 09/06/16 Range/Units 06:29 RBC 3.39 L (3.80-5.40) m/uL Hgb 9.5 L (11.4-16.0) gm/dL Hct 29.7 L (34.0-46.0) % RDW 16.8 H (11.5-15.5) % Glucose (74-99) mg/dL POC Glucose (mg/dL) (75-99) mg/dL Total Protein (6.3-8.2) g/dL Albumin (3.5-5.0) g/dL Assessment and Plan (1) Diabetes Status: Acute (2) Hyperlipidemia Status: Acute (3) Hypertension Status: Acute (4) Hyperthyroidism Status: Acute Plan: Patient has been encouraged regarding the use of incentive spirometry. We will continue her current medications. DNP note has been reviewed, I agree with a documented findings and plan of care. Patient was seen and examined.
--- NOTE | 2016-09-06 11:36 | P.PN ---
Subjective Principal diagnosis: Acute non-ST elevation myocardial infarction with multiple coronary artery disease including left main disease. Status post CABG, postoperative day #4 This is a 81-year-old female patient was having intermittent nausea vomiting and her symptoms initially were essentially of a gastrointestinal in nature. Apparently there was no reported chest pain. The patient initially presented to [facility] and the EKG showed ST segment depression in the inferior leads and lateral leads and the patient was considered to have an acute coronary syndrome. The patient also ruled in for an acute CA. Based on that, the patient underwent a cardiac catheterization patient was found to have a left main disease and tight lesions in her left circumflex. The official report from the cardiac cath is not available to me at this point. This chest x -ray was free of any acute abnormalities. For that reason, the patient was started on IV heparin and the patient got moved to [facility] for cardiothoracic surgery evaluation. At this point in time, the patient is free of any chest pain. She is asymptomatic. She is hemodynamically stable. She has no specific complaints. She is known to have diabetes and hypertension pH is also known to have carotid artery disease. She is an ex-smoker. Most of emphysema. Most of asthma. She does not utilize any form of respiratory medications are inhalers on a regular basis. She is on oxygen at home.The patient has been independent. The patient has been able to perform household activities pH she is able to walk more than 600-700 feet at a time patient doesn 't own grocery. No pneumonias. No previous history of breathing complications. The patient is seen again today 09/02/2016 immediately postoperatively in the intensive care unit. She is status post off-pump coronary artery bypass grafting utilizing a RAO to LAD, SVG to the OM1, SVG to the PDA. She is currently sedated and on the mechanical ventilator settings of SIMV of 12 tidal volume 350 FiO2 100% and a PEEP of 5. Follow-up blood gases revealed a pO2 of 335, pCO2 of 40 and a pH of 7.36. There are [address] 1 to the left pleural cavity and 2 to the mediastinum. Urine output is adequate. Current cardiac output 3.9, cardiac index 2.4. PA pressures 31/20 with a mean of 26. Current drips include nitroglycerin at 5 mcg/m, propofol at 50 mcg/kg/m , lactated Ringer's at 50 mL per hour, insulin drip at 1.5 units per hour. Dmitry hugger is in place. Core temperature 93.8. The patient did have a drop in hemoglobin prior to surgery from 8.7 down to 6.7 and received 3 units of packed red cells before the OR. Current hemoglobin is 6.9. Patient was reevaluated on 09/03/2016, she received a total of 6 units of packed RBCs and 1 unit of platelets yesterday. Patient remains on mechanical ventilation, chest x-ray showed mostly postoperative changes, patient is still on propofol, however I plan to switch the patient to Precedex, and I would like to start some weaning trials. Patient did well on CPAP and pressure support, however there was no evidence of any cuff leak whatsoever. Multiple attempts were made, but continued to have no cough leak. Hence we decided to give the patient some Decadron, and we will likely address weeding either later today or in a.m. She will receive Decadron for at least the next 24 hours. Labs were reviewed hemoglobin is 8.3 ABG showed a pO2 of 79 pCO2 of 32 pH of 7.46. Electrolytes and renal profile are normal. Hemoglobin today is 8.3. reevaluated on 09/04/2016, patient was extubated last night uneventfully, and I was at bedside when the patient was extubated. so far the patient seems to have tolerated the extubation quite well. she is basically asymptomatic, following all instructions, and doing relatively well with incentive spirometry. chest x- ray showed minimal atelectasis, WBC count is 11.4 hemoglobin is 8.9. basic metabolic profile is normal. Renal profile is normal. Reevaluated today on 09/05/2016, patient continues to do well. She is relatively asymptomatic, patient is sitting in the chair, in no distress. Off oxygen she is presently on room air. Chest x-ray is reassuring. CBC is relatively normal except for hemoglobin of 8.7 electrolytes and renal profile are normal. Reevaluated today on 09/06/2016, patient continues to do well, relatively asymptomatic. Off oxygen, CBC is normal hemoglobin is 9.5 electrolytes and renal profile are normal. Chest x-ray minimal basilar atelectasis is noted. No evidence of pneumonia, no evidence of congestive heart failure. Objective - Vital Signs Vital signs: Vital Signs Temp 98.4 F 09/06/16 08:00 Pulse 85 09/06/16 08:00 Resp 18 09/06/16 08:00 BP 122/58 09/06/16 08:00 Pulse Ox 99 09/06/16 08:00 Intake & Output 09/05/16 09/06/16 09/06/16 18:59 06:59 18:59 Intake Total 132 Output Total 880 115 Balance -748 -115 Weight 65.5 kg 63.9 kg Intake: IV 12 Pressure Bag 12 Intake, IV Titration 120 Amount Lactated Ringers 1,000 ml 120 @ 20 mls/hr IV .Q24H KALIN Rx#:[id number] Output: Drainage 115 Left Thigh 40 Right Calf 75 Urine 880 Other: Voiding Method Indwelling Catheter Toilet Toilet # Voids 1 2 # Bowel Movements 0 ABP, PAP, CO, CI - Last Documented Arterial Blood Pressure 158/73 Pulmonary Artery Pressure 32/15 Cardiac Output 3.8 Cardiac Index 2.3 - Exam GENERAL EXAM: 81-year-old female in no distress, on room air. HEAD: Normocephalic. EYES: Within normal NOSE: Clear with pink turbinates. THROAT: No erythema or exudates. NECK: No masses, no JVD. CHEST: Sternal dressing is dry and intact. Midsternal and left pleural chest tubes in place. LUNGS: Equal air entry with faint crackles in the left posterior base. CVS: S1 and S2 normal with no audible murmurs, regular rhythm. ABDOMEN: Soft. SPINE: No scoliosis or deformity SKIN: No rashes Extremities: No clubbing, trace of edema, no cyanosis. - Labs CBC & Chem 7: 09/06/16 06:29 09/06/16 06:26 Labs: Abnormal Lab Results - Last 24 Hours (Table) 09/05/16 09/05/16 09/05/16 Range/Units 11:49 16:24 20:48 RBC (3.80-5.40) m/uL Hgb (11.4-16.0) gm/dL Hct (34.0-46.0) % RDW (11.5-15.5) % Glucose (74-99) mg/dL POC Glucose (mg/dL) 160 H 127 H 187 H (75-99) mg/dL Total Protein (6.3-8.2) g/dL Albumin (3.5-5.0) g/dL 09/06/16 09/06/16 09/06/16 Range/Units 02:32 06:25 06:26 RBC (3.80-5.40) m/uL Hgb (11.4-16.0) gm/dL Hct (34.0-46.0) % RDW (11.5-15.5) % Glucose 171 H (74-99) mg/dL POC Glucose (mg/dL) 197 H 186 H (75-99) mg/dL Total Protein 5.4 L (6.3-8.2) g/dL Albumin 3.1 L (3.5-5.0) g/dL 09/06/16 Range/Units 06:29 RBC 3.39 L (3.80-5.40) m/uL Hgb 9.5 L (11.4-16.0) gm/dL Hct 29.7 L (34.0-46.0) % RDW 16.8 H (11.5-15.5) % Glucose (74-99) mg/dL POC Glucose (mg/dL) (75-99) mg/dL Total Protein (6.3-8.2) g/dL Albumin (3.5-5.0) g/dL Assessment and Plan Plan: 1 acute non-STEMI with multivessel coronary artery disease including left main disease. Status post off-pump coronary artery bypass grafting utilizing a RAO to the LAD, SVG to the OM1, SVG to the PDA. Postoperative day 4 2 postoperative thoracotomy with ventilator dependence as an expected outcome. 3 hypertension 4 hyperlipidemia 5 breast cancer with a previous lumpectomy 6 carotid artery disease 7 skin cancer 8 hypothyroidism 9 osteoarthritis 10 acid reflux 11 diabetes mellitus Recommendation: Continue present supportive care measures, continue incentive spirometry, discharge planning likely in the next 24 hours. Time with Patient: Less than 30
[2016-09-06 12:20] LABS: Glucose,Whole Blood 184 mg/dL (75-99)
[2016-09-06] MEDS: HYDROcodone/APAP 5-325MG 1 EACH TAB PO PRN (13:49)
--- NOTE | 2016-09-06 14:44 | P.PN ---
Subjective Principal diagnosis: CAD post MS post CABG, diabetes, hypertension, hyperlipidemia, hyper thyroidism and history of breast cancer. This is an 81-year-old female patient of Dr. Laboy with past medical history of breast cancer, diabetes mellitus type 2, gastroesophageal reflux disease, hyperlipidemia, hypertension. She initially presented to [facility] with nausea and vomiting and abdominal symptoms. She had no chest discomfort or dizziness, shortness of breath. She had an EKG that showed a sinus rhythm and abnormal ST depression in the inferior leads and lateral precordial leads with ST segment abnormality in aVR and V1. Patient was then transferred to [facility] for heart catheterization for acute coronary syndrome. Patient underwent heart catheterization that showed severe disease involving the distal left main coronary artery and involving the ostial left circumflex and ostial LAD. Severe disease involving ostial and proximal left circumflex coronary artery. Severe disease involving the ostial LAD. Carotid ultrasound showed severe stenosis of the left internal carotid artery of 70% and mild right internal carotid artery stenosis of 50-69%. Patient has been seen in consultation by Dr. Corona from pulmonary medicine. Chest x-ray reveals suspect COPD, mild cardiomegaly, left basilar airspace disease with constant intermittent small effusion. Echocardiogram shows moderate concentric left ventricular hypertrophy, EF 55-60%, mild aortic valve sclerosis, mild mitral regurgitation. Patient is tentatively planned for CABG in the next 24- 48 hours. 09/02: Patient is gone for CABG. 09/03: Patient underwent CABG with RAO to LAD, SVG to OM 1, SVG to PDA. Patient remains intubated and on mechanical ventilation. She is status post 6 units of packed RBCs and 1 unit of platelets and hemoglobin is currently 8.3. Patient has no evidence of cuff leak and Decadron was started by Dr. Olivarez. Her blood glucose is running between 110 and 142. 09/04: Patient remains in the intensive care unit. She has been successfully extubated. Patient's blood pressure was elevated for which cardiology continue beta howard and started losartan. He was apparently disoriented this morning but much improved by the time of our visit. One dose of IV Lasix were given. Mediastinal chest tube to be discontinued. 09/05: Patient remains in the intensive care unit and has been hemodynamically stable with plan to transfer to [facility] care today. Patient denies any chest pain or shortness of breath. Lane catheter has also been discontinued. Patient is planning for discharge to [facility] for subacute rehab. Objective - Vital Signs Vital signs: Vital Signs Temp 98.4 F 09/06/16 08:00 Pulse 85 09/06/16 08:00 Resp 18 09/06/16 08:00 BP 122/58 09/06/16 08:00 Pulse Ox 99 09/06/16 08:00 Intake & Output 09/05/16 09/06/16 09/06/16 18:59 06:59 18:59 Intake Total 132 180 Output Total 880 115 Balance -748 -115 180 Weight 65.5 kg 63.9 kg Intake: IV 12 Pressure Bag 12 Intake, IV Titration 120 Amount Lactated Ringers 1,000 ml 120 @ 20 mls/hr IV .Q24H KALIN Rx#:[id number] Oral 180 Output: Drainage 115 Left Thigh 40 Right Calf 75 Urine 880 Other: Voiding Method Indwelling Catheter Toilet Toilet # Voids 1 2 1 # Bowel Movements 0 ABP, PAP, CO, CI - Last Documented Arterial Blood Pressure 158/73 Pulmonary Artery Pressure 32/15 Cardiac Output 3.8 Cardiac Index 2.3 - Constitutional General appearance: Present: average body habitus, cooperative, no acute distress. Absent: disheveled, mild distress, morbidly obese, obese, severe distress, thin - EENT Eyes: Present: normal appearance. Absent: abnormal pupil, anicteric sclerae, disc margins sharp, edentulous, EOMI, PERRLA, fundus normal, photophobia, dentition normal, poor dentition, ptosis, scleral icterus ENT: Present: hard of hearing, pharyngeal erythema. Absent: hearing grossly normal, NA/AT, normal oropharynx, other, thrush, tonsillar exudates, tonsillar swelling Ears: bilateral: normal - Neck Neck: Present: normal ROM. Absent: lymphadenopathy, other, rigidity, stridor, thyromegaly Carotids: bilateral: upstroke normal, upstroke delayed Thyroid: bilateral: normal size - Respiratory Respiratory: left: diminished, dullness, rales, rhonchi, wheezing - Cardiovascular Rhythm: regular Heart sounds: normal: S1, S2 Abnormal Heart Sounds: Present: systolic murmur, S3 Gallop - Gastrointestinal General gastrointestinal: Present: decreased bowel sounds, soft. Absent: absent bowel sounds, distended, hepatomegaly, hyperactive bowel sounds, normal bowel sounds, organomegaly, rigid, scaphoid, splenomegaly, tenderness, umbilical hernia, ventral hernia - Integumentary Integumentary: Present: normal, pale. Absent: calor, cellulitis, cyanotic, decreased turgor, flushed, jaundiced, normal turgor, rash, ulcer - Neurologic Neurologic: Present: CNII-XII intact - Musculoskeletal Musculoskeletal: Present: generalized weakness. Absent: gait normal, strength equal bilaterally, right sided weakness, left sided weakness - Psychiatric Psychiatric: Present: A&O x's 3 - Labs CBC & Chem 7: 09/06/16 06:29 09/06/16 06:26 Labs: Abnormal Lab Results - Last 24 Hours (Table) 09/05/16 09/05/16 09/06/16 Range/Units 16:24 20:48 02:32 RBC (3.80-5.40) m/uL Hgb (11.4-16.0) gm/dL Hct (34.0-46.0) % RDW (11.5-15.5) % Glucose (74-99) mg/dL POC Glucose (mg/dL) 127 H 187 H 197 H (75-99) mg/dL Total Protein (6.3-8.2) g/dL Albumin (3.5-5.0) g/dL 09/06/16 09/06/16 09/06/16 Range/Units 06:25 06:26 06:29 RBC 3.39 L (3.80-5.40) m/uL Hgb 9.5 L (11.4-16.0) gm/dL Hct 29.7 L (34.0-46.0) % RDW 16.8 H (11.5-15.5) % Glucose 171 H (74-99) mg/dL POC Glucose (mg/dL) 186 H (75-99) mg/dL Total Protein 5.4 L (6.3-8.2) g/dL Albumin 3.1 L (3.5-5.0) g/dL 09/06/16 Range/Units 11:48 RBC (3.80-5.40) m/uL Hgb (11.4-16.0) gm/dL Hct (34.0-46.0) % RDW (11.5-15.5) % Glucose (74-99) mg/dL POC Glucose (mg/dL) 184 H (75-99) mg/dL Total Protein (6.3-8.2) g/dL Albumin (3.5-5.0) g/dL Assessment and Plan Plan: 1. 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 Patient has been seen by cardiothoracic surgeon status post CABG. doing much better patient is out of the intensive care unit, start doing physical therapy but quite bit limited at this point. Improved. Hopefully for subacute rehabilitation when she is ready. Patient still doing well on the rest of her medical management at this point. 2. Diabetes mellitus type 2. Patient was on Janumet at home. Continue insulin long acting and would use short acting before meals meals plus sliding scales. 3. Hypertension. Patient was on Cardizem, hydrochlorothiazide, hydralazine at home 4. Hyperlipidemia. Continue Lipitor. 5. History of breast cancer status post lumpectomy. Has been in remission 6. Carotid artery disease. Mild disease only does not require any further management. 7. History of skin cancer. 8. Hyperthyroidism. Continue Tapazole with midrange TSH. 9. Gastrointestinal prophylaxis. 10. DVT prophylaxis. Heparin. Discharge plan: [place] most likely on Thursday.
[2016-09-06 16:57] LABS: Glucose,Whole Blood 155 mg/dL (75-99)
[2016-09-06] MEDS: SENNOSIDES-DOCUSATE SODIUM 1 EACH TAB PO SCH (21:14)
[2016-09-06 21:30] LABS: Glucose,Whole Blood 201 mg/dL (75-99)
[2016-09-07 01:40] LABS: Glucose,Whole Blood 143 mg/dL (75-99)
[2016-09-07 06:11] LABS: Glucose,Whole Blood 234 mg/dL (75-99)
[2016-09-07] MEDS: PANTOPRAZOLE 40 MG TABLET PO SCH (06:29)
[2016-09-07] MEDS: INSULIN LISPRO (humaLOG) 300 UNIT/3 ML VIAL SQ SCH ×7 (06:29→21:26)
[2016-09-07 06:31] LABS: Anisocytosis Slight; Basophils % (A) 0 %; CH 27.9; CHCM 31.8; Eosinophils # (A) 0.2 k/uL (0-0.7); Eosinophils % (A) 3 %; HCT 26.7 % (34.0-46.0); HDW 4.28; HGB 8.4 gm/dL (11.4-16.0); Hypochromasia Marked; Luc # (Auto) 0.21; Luc % (Auto) 3; Lymphocytes # (A) 0.9 k/uL (1.0-4.8); Lymphocytes % (A) 14 %; MCH 27.7 pg (25.0-35.0); MCHC 31.4 g/dL (31.0-37.0); MCV 88.1 fL (80.0-100.0); Mean Platelet Volume 8.3; Monocytes # (A) 0.3 k/uL (0-1.0); Monocytes % (A) 5 %; Neutrophils # (A) 4.7 k/uL (1.3-7.7); Neutrophils % (A) 74 %; Poikilocytosis Moderate; RBC 3.03 m/uL (3.80-5.40); RDW 16.9 % (11.5-15.5); WBC 6.4 k/uL (3.8-10.6); WBC (Perox) 6.62
[2016-09-07 06:36] LABS: ALT 27 U/L (9-52); AST 17 U/L (14-36); Alkaline Phosphatase 62 U/L (38-126); Anion Gap 5 mmol/L; Blood Urea Nitrogen 15 mg/dL (7-17); Calcium 8.6 mg/dL (8.4-10.2); Carbon Dioxide 24 mmol/L (22-30); Chloride 106 mmol/L (98-107); Glucose 232 mg/dL (74-99); Non-African American GFR(MDRD) >60 (>60 ml/min/1.73 sqM); Potassium 3.8 mmol/L (3.5-5.1); Sodium 135 mmol/L (137-145); Total Bilirubin 1.3 mg/dL (0.2-1.3); Total Protein 4.9 g/dL (6.3-8.2)
[2016-09-07] MEDS: LOSARTAN 50 MG TAB PO SCH (08:15)
[2016-09-07] MEDS: FONDAPARINUX 2.5 MG/0.5 ML SYRINGE SQ SCH (08:15)
[2016-09-07] MEDS: MULTIVITAMINS, THERA 1 EACH TAB PO SCH (08:16)
[2016-09-07] MEDS: METHIMAZOLE 5 MG TAB PO SCH (08:16)
[2016-09-07] MEDS: CHOLECALCIFEROL 1,000 UNIT TAB PO SCH (08:16)
[2016-09-07] MEDS: ASPIRIN 81 MG CHEW PO SCH (08:16)
[2016-09-07] MEDS: ATORVASTATIN 40 MG TAB PO SCH (08:16)
[2016-09-07] MEDS: CLOPIDOGREL 75 MG TAB PO SCH (08:17)
[2016-09-07] MEDS: METOPROLOL TARTRATE 50 MG TAB PO SCH ×2 (08:17→20:03)
[2016-09-07] MEDS: CIPROFLOXACIN HCL 250 MG TAB PO SCH ×2 (08:18→21:25)
[2016-09-07] MEDS ORDERED: POTASSIUM CHLORIDE ER 20 MEQ TAB.ER PO SCH (11:00)
[2016-09-07] MEDS ORDERED: BISACODYL 10 MG SUPP RECTAL STA (11:10)
--- NOTE | 2016-09-07 11:44 | P.PN ---
<Sha London L - Last Filed: 09/07/16 11:43> Progress Note - Text CV Surgery Nursing Principal diagnosis: Non-STEMI. 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 Preserved systolic function. Mild mitral valve regurgitation. Hypertension. Hyperlipidemia. Diabetes mellitus. Hyperparathyroidism. POD #5 non-aortic clamp off pump triple vessel coronary artery bypass grafting using the left internal mammary artery to the left anterior descending artery, a reverse saphenous vein graft connected to the aorta using the Passport device connected distally to the posterior descending artery, a reverse saphenous vein graft connected to the aorta using the Passport device to connected distally to the obtuse marginal artery. Endoscopic harvesting of the right and the left greater saphenous veins. Intraoperative transesophageal echocardiogram and epi- aortic scanning. Intraoperative graft flow measurements using the Mesosphere system. Patient awake and alert, no distress noted, no specific complaints. She is sitting up to bedside chair. Vital Signs: Afebrile Vital Signs - 24 hr 09/06/16 09/06/16 09/06/16 12:00 16:00 20:00 Temperature Pulse Rate [ 78 80 87 [employer] ] Respiratory 18 18 18 Rate Blood Pressure [Right Arm] O2 Sat by Pulse Oximetry 09/06/16 09/07/16 09/07/16 23:48 03:41 08:00 Temperature 96.6 F L 97.4 F L 98.9 F Pulse Rate [ 79 77 80 [employer] ] Respiratory 18 18 18 Rate Blood Pressure 111/53 116/55 111/53 [Right Arm] O2 Sat by Pulse 92 L 96 96 Oximetry Labs: Short CBC 09/07/16 Range/Units 06:06 WBC 6.4 (3.8-10.6) k/uL Hgb 8.4 L (11.4-16.0) gm/dL Hct 26.7 L (34.0-46.0) % Plt Count 224 (150-450) k/uL Neutrophils # 4.7 (1.3-7.7) k/uL BMP 09/07/16 06:06 Sodium 135 L Potassium 3.8 Chloride 106 Carbon Dioxide 24 BUN 15 Creatinine 0.54 Glucose 232 H Calcium 8.6 Liver Function 09/07/16 Range/Units 06:06 Total Bilirubin 1.3 (0.2-1.3) mg/dL AST 17 (14-36) U/L ALT 27 (9-52) U/L Alkaline Phosphatase 62 (38-126) U/L Albumin 2.5 L (3.5-5.0) g/dL Microbiology 08/31/16 14:28 Urine,Voided Urine Culture - Final Citrobacter freundii Enterococcus faecalis 08/31/16 17:50 Nasal Swab Nasal Screen MRSA/MSSA (CATIE) - Final Lungs: Essentially clear throughout, diminished bilateral bases. Respirations are symmetrical and unlabored. O2 sat: 96% on room air. I/S: 750 mL, reviewed with the patient important of using her incentive spirometry every hour while awake. The patient did give a good return demonstration on her incentive spirometry. Heart: S1S2, regular rhythm and rate, negative for S3, gallop or murmur. Remote telemetry showing normal sinus rhythm with frequent PACs heart rate 89. Sternum stable, chest incision clean with sternal dressing clean and dry. No drainage noted. Heart hugger in place, the patient is demonstrating appropriate use of her heart hugger. Right and left leg incisions clean dry and well approximated. No drainage noted. SADAF drain remains in place to her right mid lower leg. 30 mL output of serosanguineous drainage in the last 8 hours. Abdomen: Soft, Positive bowel sounds present in all 4 quadrants. Patient states that she has not had a bowel movement since surgery. CBGs: 143-234 mg/dL in the last 24 hours. U/O: Adequate. 24 hr Total: Intake & Output 09/05/16 09/06/16 09/07/16 09/08/16 06:59 06:59 06:59 06:59 Intake Total 1619.43 132 430 100 Output Total 4010 995 403 40 Balance -2390.57 -863 27 60 Weight 65.5 kg 63.9 kg 64.6 kg Active Medications Hydrocodone Bitart/Acetaminophen ([place] 5-325) 2 each PO Q4HR PRN PRN Reason: Severe Pain Last Admin: 09/06/16 13:49 Dose: 2 each Hydrocodone Bitart/Acetaminophen ([place] 5-325) 1 each PO Q4HR PRN PRN Reason: Moderate Pain Last Admin: 09/05/16 21:50 Dose: 1 each Albuterol/Ipratropium (Duoneb 0.5 Mg-3 Mg/3 Ml Soln) 3 ml INHALATION RT-Q2H PRN PRN Reason: Shortness Of Breath Or Wheezing Last Admin: 09/05/16 16:22 Dose: 3 ml Aspirin (Aspirin) 81 mg PO DAILY [facility] Last Admin: 09/07/16 08:16 Dose: 81 mg Atorvastatin Calcium (Lipitor) 40 mg PO DAILY [facility] Last Admin: 09/07/16 08:16 Dose: 40 mg Benzocaine/Menthol (Cepacol Lozenge) 1 each MUCOUS MEM Q2H PRN PRN Reason: Sore Throat Bisacodyl (Dulcolax) 10 mg RECTAL DAILY PRN PRN Reason: Constipation Cholecalciferol (Vitamin D3) 2,000 unit PO DAILY@1200 [facility] Last Admin: 09/07/16 08:16 Dose: 2,000 unit Ciprofloxacin (Cipro) 250 mg PO BID [facility] Last Admin: 09/07/16 08:18 Dose: 250 mg Clopidogrel Bisulfate (Plavix) 75 mg PO DAILY [facility] Last Admin: 09/07/16 08:17 Dose: 75 mg Fondaparinux (Arixtra) 2.5 mg SQ DAILY [facility] Last Admin: 09/07/16 08:15 Dose: 2.5 mg Insulin Human Lispro (Humalog) 0 unit SQ ACHS [facility] PRN Reason: Protocol Last Admin: 09/07/16 06:29 Dose: 3 unit Insulin Human Lispro (Humalog) 5 unit SQ ACHS [facility] Losartan Potassium (Cozaar) 50 mg PO DAILY [facility] Last Admin: 09/07/16 08:15 Dose: 50 mg Magnesium Hydroxide (Milk Of Magnesia) 2,400 mg PO BID PRN PRN Reason: Constipation Methimazole (Tapazole) 5 mg PO DAILY [facility] Last Admin: 09/07/16 08:16 Dose: 5 mg Metoprolol Tartrate (Lopressor) 50 mg PO BID [facility] Last Admin: 09/07/16 08:17 Dose: 50 mg Miscellaneous Information (Magnesium Per Protocol) 1 each MISCELLANE DAILY PRN ; Protocol PRN Reason: Per Protocol Miscellaneous Information (Phosphorus Per Protocol) 1 each MISCELLANE DAILY PRN ; Protocol PRN Reason: Per Protocol Miscellaneous Information (Potassium Per Protocol) 1 each MISCELLANE DAILY PRN ; Protocol PRN Reason: Per Protocol Multivitamins (Theragran) 1 each PO DAILY@1200 [facility] Last Admin: 09/07/16 08:16 Dose: 1 each Ondansetron HCl (Zofran) 4 mg IVP Q6HR PRN PRN Reason: Nausea And Vomiting Pantoprazole Sodium (Protonix) 40 mg PO AC-BRKFST [facility] Last Admin: 09/07/16 06:29 Dose: 40 mg Senna/Docusate Sodium (Senokot-S) 2 each PO HS [facility] Last Admin: 09/06/16 21:14 Dose: Not Given Sodium Chloride (Saline Flush) 10 ml IV BID [facility] Last Admin: 09/07/16 08:17 Dose: 10 ml Plan: 1. Continue baby aspirin, Lipitor, Plavix, Arixtra, beta howard and Cozaar. 2. Encourage incentive spirometer use every hour while awake. 3. We will discontinue her right leg SADAF drain today. 4. Encourage increasing activity as tolerated, physical therapy following. 5. Will continue Ciprofloxacin for pre-operative urinary tract infection. 6. GI/DVT prophylaxis. 7. Monitor daily labs, chest x-rays. 8. Dulcolax 10 mg per rectum ordered for today today due to her constipation. 9. Discharge planning in place, patient is requesting [place] upon discharge. <Jose Luis Linton - Last Filed: 09/07/16 12:12> Progress Note - Text The patient was seen and examined. I agree with the above assessment and plan. There were no new issues overnight. Her SADAF drain was removed. Give her Dulcolax to encourage a bowel movement. Awaiting transfer to subacute rehab. Physical therapy as tolerated.
[2016-09-07] MEDS: HYDROcodone/APAP 5-325MG 1 EACH TAB PO PRN (11:48)
--- NOTE | 2016-09-07 11:48 | PN ---
Nancy Garvin is an 81-year-old female who presented with an ST elevation myocardial infarction and underwent coronary angiography which will be severe calcific 2 vessel coronary artery disease and underwent coronary artery bypass. She is doing very well from a cardiac standpoint. She has been ambulating in the hallway. She is lying comfortably in bed at this time. She is afebrile 98.9 degrees Fahrenheit, pulse rate is in the 80s. Head and neck examination are normal. Blood pressure 111/53 mmHg. Breath sounds are reduced bilaterally but no crackles. Abdomen was soft, nontender. Heart sounds are soft. IMPRESSION: 1. Coronary artery disease, coronary artery bypass grafting. 2. History of acute myocardial infarction on this admission. PLAN: Continue medical treatment and likely discharge in the next 48 hours.
[2016-09-07 12:31] LABS: Glucose,Whole Blood 250 mg/dL (75-99)
--- NOTE | 2016-09-07 12:37 | P.PN ---
Subjective Principal diagnosis: Acute non-ST elevation myocardial infarction with multiple coronary artery disease including left main disease. Status post CABG, postoperative day # 5 This is a 81-year-old female patient was having intermittent nausea vomiting and her symptoms initially were essentially of a gastrointestinal in nature. Apparently there was no reported chest pain. The patient initially presented to [facility] and the EKG showed ST segment depression in the inferior leads and lateral leads and the patient was considered to have an acute coronary syndrome. The patient also ruled in for an acute AL. Based on that, the patient underwent a cardiac catheterization patient was found to have a left main disease and tight lesions in her left circumflex. The official report from the cardiac cath is not available to me at this point. This chest x -ray was free of any acute abnormalities. For that reason, the patient was started on IV heparin and the patient got moved to [facility] for cardiothoracic surgery evaluation. At this point in time, the patient is free of any chest pain. She is asymptomatic. She is hemodynamically stable. She has no specific complaints. She is known to have diabetes and hypertension pH is also known to have carotid artery disease. She is an ex-smoker. Most of emphysema. Most of asthma. She does not utilize any form of respiratory medications are inhalers on a regular basis. She is on oxygen at home.The patient has been independent. The patient has been able to perform household activities pH she is able to walk more than 600-700 feet at a time patient doesn 't own grocery. No pneumonias. No previous history of breathing complications. The patient is seen again today 09/02/2016 immediately postoperatively in the intensive care unit. She is status post off-pump coronary artery bypass grafting utilizing a RAO to LAD, SVG to the OM1, SVG to the PDA. She is currently sedated and on the mechanical ventilator settings of SIMV of 12 tidal volume 350 FiO2 100% and a PEEP of 5. Follow-up blood gases revealed a pO2 of 335, pCO2 of 40 and a pH of 7.36. There are [address] 1 to the left pleural cavity and 2 to the mediastinum. Urine output is adequate. Current cardiac output 3.9, cardiac index 2.4. PA pressures 31/20 with a mean of 26. Current drips include nitroglycerin at 5 mcg/m, propofol at 50 mcg/kg/m , lactated Ringer's at 50 mL per hour, insulin drip at 1.5 units per hour. Dmitry hugger is in place. Core temperature 93.8. The patient did have a drop in hemoglobin prior to surgery from 8.7 down to 6.7 and received 3 units of packed red cells before the OR. Current hemoglobin is 6.9. Patient was reevaluated on 09/03/2016, she received a total of 6 units of packed RBCs and 1 unit of platelets yesterday. Patient remains on mechanical ventilation, chest x-ray showed mostly postoperative changes, patient is still on propofol, however I plan to switch the patient to Precedex, and I would like to start some weaning trials. Patient did well on CPAP and pressure support, however there was no evidence of any cuff leak whatsoever. Multiple attempts were made, but continued to have no cough leak. Hence we decided to give the patient some Decadron, and we will likely address weeding either later today or in a.m. She will receive Decadron for at least the next 24 hours. Labs were reviewed hemoglobin is 8.3 ABG showed a pO2 of 79 pCO2 of 32 pH of 7.46. Electrolytes and renal profile are normal. Hemoglobin today is 8.3. reevaluated on 09/04/2016, patient was extubated last night uneventfully, and I was at bedside when the patient was extubated. so far the patient seems to have tolerated the extubation quite well. she is basically asymptomatic, following all instructions, and doing relatively well with incentive spirometry. chest x- ray showed minimal atelectasis, WBC count is 11.4 hemoglobin is 8.9. basic metabolic profile is normal. Renal profile is normal. Reevaluated today on 09/05/2016, patient continues to do well. She is relatively asymptomatic, patient is sitting in the chair, in no distress. Off oxygen she is presently on room air. Chest x-ray is reassuring. CBC is relatively normal except for hemoglobin of 8.7 electrolytes and renal profile are normal. Reevaluated today on 09/06/2016, patient continues to do well, relatively asymptomatic. Off oxygen, CBC is normal hemoglobin is 9.5 electrolytes and renal profile are normal. Chest x-ray minimal basilar atelectasis is noted. No evidence of pneumonia, no evidence of congestive heart failure. On 08/30/2016, patient continues to do quite well, she is ambulating in the hallway, she is off oxygen, and she is on room air. No shortness of breath no cough no wheezing no chest pain. Objective - Vital Signs Vital signs: Vital Signs Temp 98.9 F 09/07/16 08:00 Pulse 80 09/07/16 08:00 Resp 18 09/07/16 08:00 BP 111/53 09/07/16 08:00 Pulse Ox 96 09/07/16 08:00 Intake & Output 09/06/16 09/07/16 09/07/16 18:59 06:59 18:59 Intake Total 430 100 Output Total 293 110 40 Balance 137 -110 60 Weight 64.6 kg Intake: Oral 430 100 Output: Drainage 293 110 40 Left Thigh 123 Right Calf 170 110 40 Other: Voiding Method Toilet Toilet Toilet # Voids 1 1 ABP, PAP, CO, CI - Last Documented Arterial Blood Pressure 158/73 Pulmonary Artery Pressure 32/15 Cardiac Output 3.8 Cardiac Index 2.3 - Exam GENERAL EXAM: 81-year-old female in no distress, on room air. HEAD: Normocephalic. EYES: Within normal NOSE: Clear with pink turbinates. THROAT: No erythema or exudates. NECK: No masses, no JVD. CHEST: Sternal dressing is dry and intact. Midsternal and left pleural chest tubes in place. LUNGS: Equal air entry with faint crackles in the left posterior base. CVS: S1 and S2 normal with no audible murmurs, regular rhythm. ABDOMEN: Soft. SPINE: No scoliosis or deformity SKIN: No rashes Extremities: No clubbing, trace of edema, no cyanosis. - Labs CBC & Chem 7: 09/07/16 06:06 09/07/16 06:06 Labs: Abnormal Lab Results - Last 24 Hours (Table) 09/06/16 09/06/16 09/07/16 Range/Units 16:48 21:10 01:38 RBC (3.80-5.40) m/uL Hgb (11.4-16.0) gm/dL Hct (34.0-46.0) % RDW (11.5-15.5) % Lymphocytes # (1.0-4.8) k/uL Sodium (137-145) mmol/L Glucose (74-99) mg/dL POC Glucose (mg/dL) 155 H 201 H 143 H (75-99) mg/dL Total Protein (6.3-8.2) g/dL Albumin (3.5-5.0) g/dL 09/07/16 09/07/16 09/07/16 Range/Units 06:04 06:06 06:06 RBC 3.03 L (3.80-5.40) m/uL Hgb 8.4 L (11.4-16.0) gm/dL Hct 26.7 L (34.0-46.0) % RDW 16.9 H (11.5-15.5) % Lymphocytes # 0.9 L (1.0-4.8) k/uL Sodium 135 L (137-145) mmol/L Glucose 232 H (74-99) mg/dL POC Glucose (mg/dL) 234 H (75-99) mg/dL Total Protein 4.9 L (6.3-8.2) g/dL Albumin 2.5 L (3.5-5.0) g/dL 09/07/16 Range/Units 11:47 RBC (3.80-5.40) m/uL Hgb (11.4-16.0) gm/dL Hct (34.0-46.0) % RDW (11.5-15.5) % Lymphocytes # (1.0-4.8) k/uL Sodium (137-145) mmol/L Glucose (74-99) mg/dL POC Glucose (mg/dL) 250 H (75-99) mg/dL Total Protein (6.3-8.2) g/dL Albumin (3.5-5.0) g/dL Assessment and Plan Plan: 1 acute non-STEMI with multivessel coronary artery disease including left main disease. Status post off-pump coronary artery bypass grafting utilizing a RAO to the LAD, SVG to the OM1, SVG to the PDA. Postoperative day 5 2 postoperative thoracotomy with ventilator dependence as an expected outcome. 3 hypertension 4 hyperlipidemia 5 breast cancer with a previous lumpectomy 6 carotid artery disease 7 skin cancer 8 hypothyroidism 9 osteoarthritis 10 acid reflux 11 diabetes mellitus Recommendation: Continue present supportive care measures, continue incentive spirometry, discharge planning to a rehab facility by Thursday. Time with Patient: Less than 30
--- NOTE | 2016-09-07 13:35 | P.PN ---
Subjective Principal diagnosis: CAD post FL post CABG, diabetes, hypertension, hyperlipidemia, hyper thyroidism and history of breast cancer. This is an 81-year-old female patient of Dr. Laboy with past medical history of breast cancer, diabetes mellitus type 2, gastroesophageal reflux disease, hyperlipidemia, hypertension. She initially presented to [facility] with nausea and vomiting and abdominal symptoms. She had no chest discomfort or dizziness, shortness of breath. She had an EKG that showed a sinus rhythm and abnormal ST depression in the inferior leads and lateral precordial leads with ST segment abnormality in aVR and V1. Patient was then transferred to [facility] for heart catheterization for acute coronary syndrome. Patient underwent heart catheterization that showed severe disease involving the distal left main coronary artery and involving the ostial left circumflex and ostial LAD. Severe disease involving ostial and proximal left circumflex coronary artery. Severe disease involving the ostial LAD. Carotid ultrasound showed severe stenosis of the left internal carotid artery of 70% and mild right internal carotid artery stenosis of 50-69%. Patient has been seen in consultation by Dr. Corona from pulmonary medicine. Chest x-ray reveals suspect COPD, mild cardiomegaly, left basilar airspace disease with constant intermittent small effusion. Echocardiogram shows moderate concentric left ventricular hypertrophy, EF 55-60%, mild aortic valve sclerosis, mild mitral regurgitation. Patient is tentatively planned for CABG in the next 24- 48 hours. 09/02: Patient is gone for CABG. 09/03: Patient underwent CABG with RAO to LAD, SVG to OM 1, SVG to PDA. Patient remains intubated and on mechanical ventilation. She is status post 6 units of packed RBCs and 1 unit of platelets and hemoglobin is currently 8.3. Patient has no evidence of cuff leak and Decadron was started by Dr. Olivarez. Her blood glucose is running between 110 and 142. 09/04: Patient remains in the intensive care unit. She has been successfully extubated. Patient's blood pressure was elevated for which cardiology continue beta howard and started losartan. He was apparently disoriented this morning but much improved by the time of our visit. One dose of IV Lasix were given. Mediastinal chest tube to be discontinued. 09/05: Patient remains in the intensive care unit and has been hemodynamically stable with plan to transfer to [facility] for rehabilitation care today. Patient denies any chest pain or shortness of breath. Lane catheter has also been discontinued. Patient is planning for discharge to [facility] for subacute rehab. 09/06/2016 patient is feeling much better so far increased mobility she is basically shower with the aid patient's Lane catheter is out she still have 1 drainage tube in the right leg otherwise feeling good. Objective - Vital Signs Vital signs: Vital Signs Temp 98.3 F 09/07/16 12:00 Pulse 71 09/07/16 12:00 Resp 18 09/07/16 12:00 BP 119/58 09/07/16 12:00 Pulse Ox 96 09/07/16 12:00 Intake & Output 09/06/16 09/07/16 09/07/16 18:59 06:59 18:59 Intake Total 430 220 Output Total 293 110 480 Balance 137 -110 -260 Weight 64.6 kg Intake: Oral 430 220 Output: Drainage 293 110 80 Left Thigh 123 Right Calf 170 110 80 Urine 400 Other: Voiding Method Toilet Toilet Toilet # Voids 1 1 ABP, PAP, CO, CI - Last Documented Arterial Blood Pressure 158/73 Pulmonary Artery Pressure 32/15 Cardiac Output 3.8 Cardiac Index 2.3 - Constitutional General appearance: Present: cooperative, no acute distress. Absent: average body habitus, disheveled, mild distress, morbidly obese, obese, severe distress , thin - EENT Eyes: Present: normal appearance. Absent: abnormal pupil, anicteric sclerae, disc margins sharp, edentulous, EOMI, PERRLA, fundus normal, photophobia, dentition normal, poor dentition, ptosis, scleral icterus ENT: Present: hard of hearing, normal oropharynx. Absent: hearing grossly normal, NA/AT, other, pharyngeal erythema, thrush, tonsillar exudates, tonsillar swelling Ears: bilateral: normal - Neck Neck: Present: normal ROM. Absent: lymphadenopathy, other, rigidity, stridor, thyromegaly Carotids: bilateral: upstroke normal Thyroid: bilateral: normal size - Respiratory Respiratory: bilateral: CTA, diminished - Cardiovascular Rhythm: regular Heart sounds: normal: S1, S2 Abnormal Heart Sounds: Present: systolic murmur - Gastrointestinal General gastrointestinal: Present: decreased bowel sounds, soft. Absent: absent bowel sounds, distended, hepatomegaly, hyperactive bowel sounds, normal bowel sounds, organomegaly, rigid, scaphoid, splenomegaly, tenderness, umbilical hernia, ventral hernia - Integumentary Integumentary Comment(s): Still have drainage tube in the right side from her veno graft site. Integumentary: Present: normal, pale, rash. Absent: calor, cellulitis, cyanotic , decreased turgor, flushed, jaundiced, normal turgor, ulcer - Neurologic Neurologic: Present: CNII-XII intact - Musculoskeletal Musculoskeletal: Present: gait normal, generalized weakness. Absent: strength equal bilaterally, right sided weakness, left sided weakness - Psychiatric Psychiatric: Present: A&O x's 3, appropriate affect. Absent: intact judgment & insight - Labs CBC & Chem 7: 09/07/16 06:06 09/07/16 06:06 Labs: Abnormal Lab Results - Last 24 Hours (Table) 09/06/16 09/06/16 09/07/16 Range/Units 16:48 21:10 01:38 RBC (3.80-5.40) m/uL Hgb (11.4-16.0) gm/dL Hct (34.0-46.0) % RDW (11.5-15.5) % Lymphocytes # (1.0-4.8) k/uL Sodium (137-145) mmol/L Glucose (74-99) mg/dL POC Glucose (mg/dL) 155 H 201 H 143 H (75-99) mg/dL Total Protein (6.3-8.2) g/dL Albumin (3.5-5.0) g/dL 09/07/16 09/07/16 09/07/16 Range/Units 06:04 06:06 06:06 RBC 3.03 L (3.80-5.40) m/uL Hgb 8.4 L (11.4-16.0) gm/dL Hct 26.7 L (34.0-46.0) % RDW 16.9 H (11.5-15.5) % Lymphocytes # 0.9 L (1.0-4.8) k/uL Sodium 135 L (137-145) mmol/L Glucose 232 H (74-99) mg/dL POC Glucose (mg/dL) 234 H (75-99) mg/dL Total Protein 4.9 L (6.3-8.2) g/dL Albumin 2.5 L (3.5-5.0) g/dL 09/07/16 Range/Units 11:47 RBC (3.80-5.40) m/uL Hgb (11.4-16.0) gm/dL Hct (34.0-46.0) % RDW (11.5-15.5) % Lymphocytes # (1.0-4.8) k/uL Sodium (137-145) mmol/L Glucose (74-99) mg/dL POC Glucose (mg/dL) 250 H (75-99) mg/dL Total Protein (6.3-8.2) g/dL Albumin (3.5-5.0) g/dL Assessment and Plan Plan: 1. 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 Patient has been seen by cardiothoracic surgeon status post CABG. doing much better patient is out of the intensive care unit, start doing physical therapy but quite bit limited at this point. Improved. Hopefully for subacute rehabilitation when she is ready. Patient still doing well on the rest of her medical management at this point. 2. Diabetes mellitus type 2. Patient was on Janumet at home. Continue insulin long acting and would use short acting before meals meals plus sliding scales. We will restart patient back on Janumet today and add 5 units of Humalog beside a sliding scales with every meals. 3. Hypertension. Patient was on Cardizem, hydrochlorothiazide, hydralazine at home 4. Hyperlipidemia. Continue Lipitor. 5. History of breast cancer status post lumpectomy. Has been in remission 6. Carotid artery disease. Mild disease only does not require any further management. 7. History of skin cancer. 8. Hyperthyroidism. Continue Tapazole with midrange TSH. 9. Gastrointestinal prophylaxis. 10. DVT prophylaxis. Heparin. Discharge plan: [facility] most likely on Thursday.
[2016-09-07 17:04] LABS: Glucose,Whole Blood 137 mg/dL (75-99)
[2016-09-07] MEDS: SENNOSIDES-DOCUSATE SODIUM 1 EACH TAB PO SCH (20:03)
[2016-09-07 21:43] LABS: Glucose,Whole Blood 145 mg/dL (75-99)
[2016-09-08 02:16] LABS: Glucose,Whole Blood 89 mg/dL (75-99)
[2016-09-08] MEDS: HYDROcodone/APAP 5-325MG 1 EACH TAB PO PRN ×2 (03:17→17:04)
[2016-09-08 06:12] LABS: Anion Gap 6 mmol/L; Blood Urea Nitrogen 12 mg/dL (7-17); Carbon Dioxide 26 mmol/L (22-30); Chloride 106 mmol/L (98-107); Glucose 159 mg/dL (74-99); Magnesium 1.5 mg/dL (1.6-2.3); Non-African American GFR(MDRD) >60 (>60 ml/min/1.73 sqM); Potassium 3.8 mmol/L (3.5-5.1); Sodium 138 mmol/L (137-145)
[2016-09-08 06:46] LABS: Glucose,Whole Blood 151 mg/dL (75-99)
[2016-09-08] MEDS: PANTOPRAZOLE 40 MG TABLET PO SCH (07:34)
[2016-09-08] MEDS: INSULIN LISPRO (humaLOG) 300 UNIT/3 ML VIAL SQ SCH ×8 (07:34→21:40)
[2016-09-08] MEDS ORDERED: POTASSIUM CHLORIDE ER 20 MEQ TAB.ER PO ONE (08:00)
[2016-09-08] MEDS: ATORVASTATIN 40 MG TAB PO SCH (08:02)
[2016-09-08] MEDS: METOPROLOL TARTRATE 50 MG TAB PO SCH ×2 (08:02→20:08)
[2016-09-08] MEDS: LOSARTAN 50 MG TAB PO SCH (08:03)
[2016-09-08] MEDS: CLOPIDOGREL 75 MG TAB PO SCH (08:03)
[2016-09-08] MEDS: ASPIRIN 81 MG CHEW PO SCH (08:03)
[2016-09-08] MEDS: METHIMAZOLE 5 MG TAB PO SCH (08:03)
[2016-09-08] MEDS: CIPROFLOXACIN HCL 250 MG TAB PO SCH ×2 (08:03→20:08)
[2016-09-08] MEDS: FONDAPARINUX 2.5 MG/0.5 ML SYRINGE SQ SCH (08:03)
[2016-09-08] MEDS: MAGNESIUM SULFATE-D5W PMX 1 GM in DEXTROSE/WATER 1 100ML.BAG IVPB SCH ×2 (09:02→11:11)
[2016-09-08] MEDS: CHOLECALCIFEROL 1,000 UNIT TAB PO SCH (11:11)
[2016-09-08] MEDS: MULTIVITAMINS, THERA 1 EACH TAB PO SCH (11:12)
[2016-09-08 11:45] LABS: Glucose,Whole Blood 332 mg/dL (75-99)
--- NOTE | 2016-09-08 11:49 | P.PN ---
<Iesha Nina - Last Filed: 09/08/16 11:49> Subjective Principal diagnosis: Non-STEMI. 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 Preserved systolic function. Mild mitral valve regurgitation. Hypertension. Hyperlipidemia. Diabetes mellitus. Hyperparathyroidism. POD #6 non-aortic clamp off pump triple coronary artery bypass grafting using the left internal mammary artery to the left anterior descending artery, reverse saphenous vein graft connected to the aorta using the Passport device connected distally to the posterior descending artery, reverse saphenous vein graft connected to the aorta using the Passport device to connected distally to the obtuse marginal artery. Endoscopic harvesting of the right and the left greater saphenous veins. Intraoperative transesophageal echocardiogram and epi- aortic scanning. Intraoperative graft flow measurements using the [place] [facility] system. Currently sitting up in the chair in no apparent distress. States her pain is well-controlled. Eating breakfast without any complaints. Understands we are waiting for a bed and authorization to transfer her to [facility]. Objective - Vital Signs Vital signs: Vital Signs Temp 97 F L 09/08/16 08:00 Pulse 70 09/08/16 08:00 Resp 17 09/08/16 08:00 BP 123/56 09/08/16 08:00 Pulse Ox 98 09/08/16 08:00 Intake & Output 09/07/16 09/08/16 09/08/16 18:59 06:59 18:59 Intake Total 420 Output Total 480 Balance -60 Weight 65 kg Intake: Oral 420 Output: Drainage 80 Right Calf 80 Urine 400 Other: Voiding Method Toilet Toilet Toilet # Voids 1 0 ABP, PAP, CO, CI - Last Documented Arterial Blood Pressure 158/73 Pulmonary Artery Pressure 32/15 Cardiac Output 3.8 Cardiac Index 2.3 - Constitutional General appearance: Present: cooperative, no acute distress - Respiratory Details: Lungs sounds diminished bilaterally. Respirations even, nonlabored. Currently on room air with oxygen saturations 96%. Able to achieve 1000 mL on her incentive spirometry. Effective cough. - Cardiovascular Details: S1, S2 present. Regular rate and rhythm, normal sinus rhythm on telemetry. Sternum stable. Heart hugger in place with patient demonstrating appropriate use. Teds/SCDs present. - Gastrointestinal Gastrointestinal Comment(s): Abdomen soft, nontender, nondistended. Active bowel sounds 4 quadrants. Tolerating diet. - Genitourinary Genitourinary Comment(s): Continues to void clear, yellow urine. - Musculoskeletal Musculoskeletal: Present: gait normal, strength equal bilaterally - Psychiatric Psychiatric: Present: A&O x's 3, appropriate affect, intact judgment & insight - Allied health notes Allied health notes reviewed: nursing - Labs CBC & Chem 7: 09/07/16 06:06 09/08/16 05:47 Labs: Abnormal Lab Results - Last 24 Hours (Table) 09/07/16 09/07/16 09/07/16 Range/Units 11:47 16:42 21:12 Glucose (74-99) mg/dL POC Glucose (mg/dL) 250 H 137 H 145 H (75-99) mg/dL Magnesium (1.6-2.3) mg/dL 09/08/16 09/08/16 Range/Units 05:47 06:21 Glucose 159 H (74-99) mg/dL POC Glucose (mg/dL) 151 H (75-99) mg/dL Magnesium 1.5 L (1.6-2.3) mg/dL Assessment and Plan (1) STEMI (ST elevation myocardial infarction) Status: Acute (2) Diabetes Status: Acute (3) Hypertension Status: Acute (4) Hyperlipidemia Status: Acute (5) Hyperthyroidism Status: Acute (6) History of breast cancer Status: Acute Plan: 1. Continue baby aspirin, Lipitor, Plavix, Arixtra, beta howard, Cozaar. 2. Encourage incentive spirometer use. 3. Increase activity, ambulate in hallway. Physical therapy following. 4. Continue Cipro for pre-operative urinary tract infection. 5. Potassium, magnesium replacement per protocol. 6. GI/DVT prophylaxis. 7. Monitor daily labs. 8. Likely will discharge to [facility] soon. Time with Patient: Greater than 30 <Jose Luis Linton - Last Filed: 09/08/16 12:09> Objective - Vital Signs Vital signs: Vital Signs Temp 97 F L 09/08/16 08:00 Pulse 65 09/08/16 11:15 Resp 17 09/08/16 11:15 BP 107/51 09/08/16 11:15 Pulse Ox 96 09/08/16 11:15 Intake & Output 09/07/16 09/08/16 09/08/16 18:59 06:59 18:59 Intake Total 420 180 Output Total 480 400 Balance -60 -220 Weight 65 kg Intake: Oral 420 180 Output: Drainage 80 Right Calf 80 Urine 400 400 Other: Voiding Method Toilet Toilet Toilet # Voids 1 0 1 ABP, PAP, CO, CI - Last Documented Arterial Blood Pressure 158/73 Pulmonary Artery Pressure 32/15 Cardiac Output 3.8 Cardiac Index 2.3 - Labs CBC & Chem 7: 09/07/16 06:06 09/08/16 05:47 Labs: Abnormal Lab Results - Last 24 Hours (Table) 09/07/16 09/07/16 09/07/16 Range/Units 11:47 16:42 21:12 Glucose (74-99) mg/dL POC Glucose (mg/dL) 250 H 137 H 145 H (75-99) mg/dL Magnesium (1.6-2.3) mg/dL 09/08/16 09/08/16 09/08/16 Range/Units 05:47 06:21 11:39 Glucose 159 H (74-99) mg/dL POC Glucose (mg/dL) 151 H 332 H (75-99) mg/dL Magnesium 1.5 L (1.6-2.3) mg/dL Assessment and Plan Plan: The patient was seen and examined. I agree with the above assessment and plan. Overall she looks good. She is currently on room air and has been ambulating without difficulty. We will give her a dose of Lasix. She remains on antibiotics secondary to her preoperative UTI. Plan for discharge to [facility] soon.
--- NOTE | 2016-09-08 12:03 | P.PN ---
Subjective Principal diagnosis: Acute non-ST elevation myocardial infarction with multiple coronary artery disease including left main disease. Status post CABG, postoperative day # 6 This is a 81-year-old female patient was having intermittent nausea vomiting and her symptoms initially were essentially of a gastrointestinal in nature. Apparently there was no reported chest pain. The patient initially presented to [facility] and the EKG showed ST segment depression in the inferior leads and lateral leads and the patient was considered to have an acute coronary syndrome. The patient also ruled in for an acute OK. Based on that, the patient underwent a cardiac catheterization patient was found to have a left main disease and tight lesions in her left circumflex. The official report from the cardiac cath is not available to me at this point. This chest x -ray was free of any acute abnormalities. For that reason, the patient was started on IV heparin and the patient got moved to [facility] for cardiothoracic surgery evaluation. At this point in time, the patient is free of any chest pain. She is asymptomatic. She is hemodynamically stable. She has no specific complaints. She is known to have diabetes and hypertension pH is also known to have carotid artery disease. She is an ex-smoker. Most of emphysema. Most of asthma. She does not utilize any form of respiratory medications are inhalers on a regular basis. She is on oxygen at home.The patient has been independent. The patient has been able to perform household activities pH she is able to walk more than 600-700 feet at a time patient doesn 't own grocery. No pneumonias. No previous history of breathing complications. The patient is seen again today 09/02/2016 immediately postoperatively in the intensive care unit. She is status post off-pump coronary artery bypass grafting utilizing a RAO to LAD, SVG to the OM1, SVG to the PDA. She is currently sedated and on the mechanical ventilator settings of SIMV of 12 tidal volume 350 FiO2 100% and a PEEP of 5. Follow-up blood gases revealed a pO2 of 335, pCO2 of 40 and a pH of 7.36. There are [address] 1 to the left pleural cavity and 2 to the mediastinum. Urine output is adequate. Current cardiac output 3.9, cardiac index 2.4. PA pressures 31/20 with a mean of 26. Current drips include nitroglycerin at 5 mcg/m, propofol at 50 mcg/kg/m , lactated Ringer's at 50 mL per hour, insulin drip at 1.5 units per hour. Dmitry hugger is in place. Core temperature 93.8. The patient did have a drop in hemoglobin prior to surgery from 8.7 down to 6.7 and received 3 units of packed red cells before the OR. Current hemoglobin is 6.9. Patient was reevaluated on 09/03/2016, she received a total of 6 units of packed RBCs and 1 unit of platelets yesterday. Patient remains on mechanical ventilation, chest x-ray showed mostly postoperative changes, patient is still on propofol, however I plan to switch the patient to Precedex, and I would like to start some weaning trials. Patient did well on CPAP and pressure support, however there was no evidence of any cuff leak whatsoever. Multiple attempts were made, but continued to have no cough leak. Hence we decided to give the patient some Decadron, and we will likely address weeding either later today or in a.m. She will receive Decadron for at least the next 24 hours. Labs were reviewed hemoglobin is 8.3 ABG showed a pO2 of 79 pCO2 of 32 pH of 7.46. Electrolytes and renal profile are normal. Hemoglobin today is 8.3. reevaluated on 09/04/2016, patient was extubated last night uneventfully, and I was at bedside when the patient was extubated. so far the patient seems to have tolerated the extubation quite well. she is basically asymptomatic, following all instructions, and doing relatively well with incentive spirometry. chest x- ray showed minimal atelectasis, WBC count is 11.4 hemoglobin is 8.9. basic metabolic profile is normal. Renal profile is normal. Reevaluated today on 09/05/2016, patient continues to do well. She is relatively asymptomatic, patient is sitting in the chair, in no distress. Off oxygen she is presently on room air. Chest x-ray is reassuring. CBC is relatively normal except for hemoglobin of 8.7 electrolytes and renal profile are normal. Reevaluated today on 09/06/2016, patient continues to do well, relatively asymptomatic. Off oxygen, CBC is normal hemoglobin is 9.5 electrolytes and renal profile are normal. Chest x-ray minimal basilar atelectasis is noted. No evidence of pneumonia, no evidence of congestive heart failure. On 09/07/2016, patient continues to do quite well, she is ambulating in the hallway, she is off oxygen, and she is on room air. No shortness of breath no cough no wheezing no chest pain. On 09/08/2016, patient continues to do well, relatively asymptomatic, in no distress, patient is being considered for transfer tomorrow in a.m. Objective - Vital Signs Vital signs: Vital Signs Temp 97 F L 09/08/16 08:00 Pulse 65 09/08/16 11:15 Resp 17 09/08/16 11:15 BP 107/51 09/08/16 11:15 Pulse Ox 96 09/08/16 11:15 Intake & Output 09/07/16 09/08/16 09/08/16 18:59 06:59 18:59 Intake Total 420 180 Output Total 480 400 Balance -60 -220 Weight 65 kg Intake: Oral 420 180 Output: Drainage 80 Right Calf 80 Urine 400 400 Other: Voiding Method Toilet Toilet Toilet # Voids 1 0 1 ABP, PAP, CO, CI - Last Documented Arterial Blood Pressure 158/73 Pulmonary Artery Pressure 32/15 Cardiac Output 3.8 Cardiac Index 2.3 - Exam GENERAL EXAM: 81-year-old female in no distress, on room air. HEAD: Normocephalic. EYES: Within normal NOSE: Clear with pink turbinates. THROAT: No erythema or exudates. NECK: No masses, no JVD. CHEST: Sternal dressing is dry and intact. LUNGS: Diminished breath sounds at the bases no crackles or rhonchi or wheezes CVS: S1 and S2 normal with no audible murmurs, regular rhythm. ABDOMEN: Soft. SPINE: No scoliosis or deformity SKIN: No rashes Extremities: No clubbing, trace of edema, no cyanosis. - Labs CBC & Chem 7: 09/07/16 06:06 09/08/16 05:47 Labs: Abnormal Lab Results - Last 24 Hours (Table) 09/07/16 09/07/16 09/07/16 Range/Units 11:47 16:42 21:12 Glucose (74-99) mg/dL POC Glucose (mg/dL) 250 H 137 H 145 H (75-99) mg/dL Magnesium (1.6-2.3) mg/dL 05/29/17 05/29/17 05/29/17 Range/Units 05:47 06:21 11:39 Glucose 159 H (74-99) mg/dL POC Glucose (mg/dL) 151 H 332 H (75-99) mg/dL Magnesium 1.5 L (1.6-2.3) mg/dL Assessment and Plan Plan: 1 acute non-STEMI with multivessel coronary artery disease including left main disease. Status post off-pump coronary artery bypass grafting utilizing a RAO to the LAD, SVG to the OM1, SVG to the PDA. Postoperative day 6 2 postoperative thoracotomy with ventilator dependence as an expected outcome. 3 hypertension 4 hyperlipidemia 5 breast cancer with a previous lumpectomy 6 carotid artery disease 7 skin cancer 8 hypothyroidism 9 osteoarthritis 10 acid reflux 11 diabetes mellitus Recommendation: Continue present supportive care measures, continue incentive spirometry, discharge planning to [facility] likely in a.m. Time with Patient: Less than 30
[2016-09-08] MEDS ORDERED: FUROSEMIDE 10 MG/ML 2 ML VIAL IV ONE (12:15)
--- NOTE | 2016-09-08 12:52 | P.PN ---
Subjective Principal diagnosis: CAD post GA post CABG, diabetes, hypertension, hyperlipidemia, hyper thyroidism and history of breast cancer. This is an 81-year-old female patient of Dr. Laboy with past medical history of breast cancer, diabetes mellitus type 2, gastroesophageal reflux disease, hyperlipidemia, hypertension. She initially presented to [facility] with nausea and vomiting and abdominal symptoms. She had no chest discomfort or dizziness, shortness of breath. She had an EKG that showed a sinus rhythm and abnormal ST depression in the inferior leads and lateral precordial leads with ST segment abnormality in aVR and V1. Patient was then transferred to [facility] for heart catheterization for acute coronary syndrome. Patient underwent heart catheterization that showed severe disease involving the distal left main coronary artery and involving the ostial left circumflex and ostial LAD. Severe disease involving ostial and proximal left circumflex coronary artery. Severe disease involving the ostial LAD. Carotid ultrasound showed severe stenosis of the left internal carotid artery of 70% and mild right internal carotid artery stenosis of 50-69%. Patient has been seen in consultation by Dr. Corona from pulmonary medicine. Chest x-ray reveals suspect COPD, mild cardiomegaly, left basilar airspace disease with constant intermittent small effusion. Echocardiogram shows moderate concentric left ventricular hypertrophy, EF 55-60%, mild aortic valve sclerosis, mild mitral regurgitation. Patient is tentatively planned for CABG in the next 24- 48 hours. 09/02: Patient is gone for CABG. 09/03: Patient underwent CABG with RAO to LAD, SVG to OM 1, SVG to PDA. Patient remains intubated and on mechanical ventilation. She is status post 6 units of packed RBCs and 1 unit of platelets and hemoglobin is currently 8.3. Patient has no evidence of cuff leak and Decadron was started by Dr. Olivarez. Her blood glucose is running between 110 and 142. 09/04: Patient remains in the intensive care unit. She has been successfully extubated. Patient's blood pressure was elevated for which cardiology continue beta howard and started losartan. He was apparently disoriented this morning but much improved by the time of our visit. One dose of IV Lasix were given. Mediastinal chest tube to be discontinued. 09/05: Patient remains in the intensive care unit and has been hemodynamically stable with plan to transfer to [facility] today. Patient denies any chest pain or shortness of breath. Lane catheter has also been discontinued. Patient is planning for discharge to [facility] for subacute rehab. 09/06/2016 patient is feeling much better so far increased mobility she is basically shower with the aid patient's Lane catheter is out she still have 1 drainage tube in the right leg otherwise feeling good. 09/07/2016: Patient is feeling much better her drainage tube is out completely patient is ambulating with slight help decrease shortness of breath her blood sugars much better so far. And prepare hopefully for discharge tomorrow to one of the rehab center. Objective - Vital Signs Vital signs: Vital Signs Temp 97 F L 09/08/16 08:00 Pulse 65 09/08/16 11:15 Resp 17 09/08/16 11:15 BP 107/51 09/08/16 11:15 Pulse Ox 96 09/08/16 11:15 Intake & Output 09/07/16 09/08/16 09/08/16 18:59 06:59 18:59 Intake Total 420 180 Output Total 480 400 Balance -60 -220 Weight 65 kg Intake: Oral 420 180 Output: Drainage 80 Right Calf 80 Urine 400 400 Other: Voiding Method Toilet Toilet Toilet # Voids 1 0 1 ABP, PAP, CO, CI - Last Documented Arterial Blood Pressure 158/73 Pulmonary Artery Pressure 32/15 Cardiac Output 3.8 Cardiac Index 2.3 - Constitutional General appearance: Present: cooperative, no acute distress. Absent: average body habitus, disheveled, mild distress, morbidly obese, obese, severe distress , thin - EENT Eyes: Present: abnormal pupil, normal appearance. Absent: anicteric sclerae, disc margins sharp, edentulous, EOMI, PERRLA, fundus normal, photophobia, dentition normal, poor dentition, ptosis, scleral icterus ENT: Present: normal oropharynx. Absent: hard of hearing, hearing grossly normal, NA/AT, other, pharyngeal erythema, thrush, tonsillar exudates, tonsillar swelling Ears: bilateral: normal - Neck Neck: Present: normal ROM. Absent: lymphadenopathy, other, rigidity, stridor, thyromegaly Carotids: bilateral: upstroke normal Thyroid: bilateral: normal size - Respiratory Respiratory: bilateral: CTA, diminished - Cardiovascular Rhythm: regular Heart sounds: normal: S1, S2 Abnormal Heart Sounds: Present: systolic murmur - Gastrointestinal General gastrointestinal: Present: decreased bowel sounds, normal bowel sounds, soft. Absent: absent bowel sounds, distended, hepatomegaly, hyperactive bowel sounds, organomegaly, rigid, scaphoid, splenomegaly, tenderness, umbilical hernia, ventral hernia - Integumentary Integumentary: Present: normal, rash. Absent: calor, cellulitis, cyanotic, decreased turgor, flushed, jaundiced, normal turgor, pale, ulcer - Neurologic Neurologic: Present: CNII-XII intact - Musculoskeletal Musculoskeletal: Present: gait normal, generalized weakness, strength equal bilaterally. Absent: right sided weakness, left sided weakness - Psychiatric Psychiatric: Present: A&O x's 3, appropriate affect. Absent: intact judgment & insight - Labs CBC & Chem 7: 09/07/16 06:06 09/08/16 05:47 Labs: Abnormal Lab Results - Last 24 Hours (Table) 09/07/16 09/07/16 09/08/16 Range/Units 16:42 21:12 05:47 Glucose 159 H (74-99) mg/dL POC Glucose (mg/dL) 137 H 145 H (75-99) mg/dL Magnesium 1.5 L (1.6-2.3) mg/dL 09/08/16 09/08/16 Range/Units 06:21 11:39 Glucose (74-99) mg/dL POC Glucose (mg/dL) 151 H 332 H (75-99) mg/dL Magnesium (1.6-2.3) mg/dL Assessment and Plan Plan: 1. 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 Patient has been seen by cardiothoracic surgeon status post CABG. doing much better patient is out of the intensive care unit, start doing physical therapy but quite bit limited at this point. Improved. Hopefully for subacute rehabilitation when she is ready. Patient still doing well on the rest of her medical management at this point. 2. Diabetes mellitus type 2. Patient was on Janumet at home. Continue insulin long acting and would use short acting before meals meals plus sliding scales. We will restart patient back on Janumet today and add 5 units of Humalog beside a sliding scales with every meals. Blood sugar become running in the low 100 at this point much better so far. 3. Hypertension. Patient was on Cardizem, hydrochlorothiazide, hydralazine at home 4. Hyperlipidemia. Continue Lipitor. No reaction or side effect. 5. History of breast cancer status post lumpectomy. Has been in remission 6. Carotid artery disease. Mild disease only does not require any further management. 7. History of skin cancer. 8. Hyperthyroidism. Continue Tapazole with midrange TSH. 9. Gastrointestinal prophylaxis. 10. DVT prophylaxis. Heparin. Discharge plan: [place] most likely on Thursday.
[2016-09-08 17:12] LABS: Glucose,Whole Blood 120 mg/dL (75-99)
[2016-09-08 20:07] VITALS: RESP 18
[2016-09-08] MEDS: SENNOSIDES-DOCUSATE SODIUM 1 EACH TAB PO SCH (20:09)
[2016-09-08 20:24] LABS: Glucose,Whole Blood 156 mg/dL (75-99)
[2016-09-09 03:14] LABS: Glucose,Whole Blood 133 mg/dL (75-99)
[2016-09-09 06:18] LABS: Glucose,Whole Blood 154 mg/dL (75-99)
[2016-09-09 06:34] LABS: ALT 28 U/L (9-52); AST 19 U/L (14-36); Alkaline Phosphatase 70 U/L (38-126); Anion Gap 6 mmol/L; Blood Urea Nitrogen 10 mg/dL (7-17); Calcium 9.1 mg/dL (8.4-10.2); Carbon Dioxide 26 mmol/L (22-30); Chloride 106 mmol/L (98-107); Glucose 149 mg/dL (74-99); Non-African American GFR(MDRD) >60 (>60 ml/min/1.73 sqM); Potassium 4.3 mmol/L (3.5-5.1); Sodium 138 mmol/L (137-145); Total Bilirubin 1.4 mg/dL (0.2-1.3); Total Protein 5.6 g/dL (6.3-8.2)
[2016-09-09 06:36] LABS: Anisocytosis Slight; Basophils % (A) 0 %; CH 27.6; Eosinophils # (A) 0.3 k/uL (0-0.7); Eosinophils % (A) 4 %; HCT 29.5 % (34.0-46.0); HDW 4.05; HGB 9.1 gm/dL (11.4-16.0); Hypochromasia Marked; Luc % (Auto) 2; Lymphocytes # (A) 1.2 k/uL (1.0-4.8); Lymphocytes % (A) 15 %; MCH 27.7 pg (25.0-35.0); MCV 89.4 fL (80.0-100.0); Mean Platelet Volume 8.3; Monocytes # (A) 0.5 k/uL (0-1.0); Monocytes % (A) 6 %; Neutrophils % (A) 73 %; Poikilocytosis Moderate; RDW 17.6 % (11.5-15.5); WBC 8.2 k/uL (3.8-10.6); WBC (Perox) 7.97
[2016-09-09] MEDS: PANTOPRAZOLE 40 MG TABLET PO SCH (07:16)
[2016-09-09] MEDS: INSULIN LISPRO (humaLOG) 300 UNIT/3 ML VIAL SQ SCH ×4 (07:16→12:11)
--- NOTE | 2016-09-09 08:03 | P.PN ---
<Iesha Nina - Last Filed: 09/09/16 08:03> Subjective Principal diagnosis: Non-STEMI. 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 Preserved systolic function. Mild mitral valve regurgitation. Hypertension. Hyperlipidemia. Diabetes mellitus. Hyperparathyroidism. POD #7 non-aortic clamp off pump triple coronary artery bypass grafting using the left internal mammary artery to the left anterior descending artery, reverse saphenous vein graft connected to the aorta using the Passport device connected distally to the posterior descending artery, reverse saphenous vein graft connected to the aorta using the Passport device to connected distally to the obtuse marginal artery. Endoscopic harvesting of the right and the left greater saphenous veins. Intraoperative transesophageal echocardiogram and epi- aortic scanning. Intraoperative graft flow measurements using the [employer] system. Currently sitting up in the chair in no apparent distress. States her pain is well-controlled. Understands we are waiting for a bed and authorization to transfer her to [facility]. Feels ready to leave. Objective - Vital Signs Vital signs: Vital Signs Temp 97.5 F L 09/09/16 04:00 Pulse 76 09/09/16 04:00 Resp 18 09/09/16 04:00 BP 125/61 09/09/16 04:00 Pulse Ox 95 09/09/16 04:00 Intake & Output 09/08/16 09/09/16 09/09/16 18:59 06:59 18:59 Intake Total 480 120 Output Total 1700 Balance -1220 120 Weight 64.9 kg Intake: Oral 480 120 Output: Urine 1700 Other: Voiding Method Toilet Toilet # Voids 1 2 # Bowel Movements 1 ABP, PAP, CO, CI - Last Documented Arterial Blood Pressure 158/73 Pulmonary Artery Pressure 32/15 Cardiac Output 3.8 Cardiac Index 2.3 - Constitutional General appearance: Present: cooperative, no acute distress - Respiratory Details: Lungs sounds diminished bilaterally. Respirations even, nonlabored. Currently on room air with oxygen saturation 95%. Able to achieve 1000 mL on her incentive spirometry. - Cardiovascular Details: S1, S2 present. Regular rate and rhythm, normal sinus rhythm on telemetry. Sternum stable. Heart hugger in place with patient demonstrating appropriate use. Trace bilateral lower extremity edema still present. Teds present. - Gastrointestinal Gastrointestinal Comment(s): Abdomen soft, nontender, nondistended. Active bowel sounds 4 quadrants. Tolerating diet. - Genitourinary Genitourinary Comment(s): Continues to void clear, yellow urine. - Musculoskeletal Musculoskeletal: Present: gait normal, strength equal bilaterally - Psychiatric Psychiatric: Present: A&O x's 3, appropriate affect, intact judgment & insight - Allied health notes Allied health notes reviewed: nursing - Labs CBC & Chem 7: 09/09/16 05:58 09/09/16 05:58 Labs: Abnormal Lab Results - Last 24 Hours (Table) 09/08/16 09/08/16 09/08/16 Range/Units 11:39 16:56 20:18 RBC (3.80-5.40) m/uL Hgb (11.4-16.0) gm/dL Hct (34.0-46.0) % RDW (11.5-15.5) % Glucose (74-99) mg/dL POC Glucose (mg/dL) 332 H 120 H 156 H (75-99) mg/dL Total Bilirubin (0.2-1.3) mg/dL Total Protein (6.3-8.2) g/dL Albumin (3.5-5.0) g/dL 09/09/16 09/09/16 09/09/16 Range/Units 02:54 05:58 05:58 RBC 3.30 L (3.80-5.40) m/uL Hgb 9.1 L (11.4-16.0) gm/dL Hct 29.5 L (34.0-46.0) % RDW 17.6 H (11.5-15.5) % Glucose 149 H (74-99) mg/dL POC Glucose (mg/dL) 133 H (75-99) mg/dL Total Bilirubin 1.4 H (0.2-1.3) mg/dL Total Protein 5.6 L (6.3-8.2) g/dL Albumin 2.8 L (3.5-5.0) g/dL 09/09/16 Range/Units 06:12 RBC (3.80-5.40) m/uL Hgb (11.4-16.0) gm/dL Hct (34.0-46.0) % RDW (11.5-15.5) % Glucose (74-99) mg/dL POC Glucose (mg/dL) 154 H (75-99) mg/dL Total Bilirubin (0.2-1.3) mg/dL Total Protein (6.3-8.2) g/dL Albumin (3.5-5.0) g/dL Assessment and Plan (1) STEMI (ST elevation myocardial infarction) Status: Acute (2) Diabetes Status: Acute (3) Hypertension Status: Acute (4) Hyperlipidemia Status: Acute (5) Hyperthyroidism Status: Acute (6) History of breast cancer Status: Acute Plan: 1. Continue baby aspirin, Lipitor, Plavix, Arixtra, beta howard, Cozaar. 2. Encourage incentive spirometer use. 3. Increase activity, ambulate in hallway. Physical therapy following. 4. Continue Cipro for 7 days for pre-operative urinary tract infection. 5. GI/DVT prophylaxis. 6. Monitor daily labs. 7. Will discharge to [facility] when bed available. Time with Patient: Greater than 30 <Jose Luis Linton - Last Filed: 09/09/16 13:31> Objective - Vital Signs Vital signs: Vital Signs Temp 97.4 F L 09/09/16 12:00 Pulse 67 09/09/16 12:00 Resp 18 09/09/16 12:00 BP 114/69 09/09/16 12:00 Pulse Ox 95 09/09/16 12:00 Intake & Output 09/08/16 09/09/16 09/09/16 18:59 06:59 18:59 Intake Total 480 120 Output Total 1700 Balance -1220 120 Weight 64.9 kg Intake: Oral 480 120 Output: Urine 1700 Other: Voiding Method Toilet Toilet Toilet # Voids 1 2 # Bowel Movements 1 ABP, PAP, CO, CI - Last Documented Arterial Blood Pressure 158/73 Pulmonary Artery Pressure 32/15 Cardiac Output 3.8 Cardiac Index 2.3 - Labs CBC & Chem 7: 09/09/16 05:58 09/09/16 05:58 Labs: Abnormal Lab Results - Last 24 Hours (Table) 09/08/16 09/08/16 09/09/16 Range/Units 16:56 20:18 02:54 RBC (3.80-5.40) m/uL Hgb (11.4-16.0) gm/dL Hct (34.0-46.0) % RDW (11.5-15.5) % Glucose (74-99) mg/dL POC Glucose (mg/dL) 120 H 156 H 133 H (75-99) mg/dL Total Bilirubin (0.2-1.3) mg/dL Total Protein (6.3-8.2) g/dL Albumin (3.5-5.0) g/dL 09/09/16 09/09/16 09/09/16 Range/Units 05:58 05:58 06:12 RBC 3.30 L (3.80-5.40) m/uL Hgb 9.1 L (11.4-16.0) gm/dL Hct 29.5 L (34.0-46.0) % RDW 17.6 H (11.5-15.5) % Glucose 149 H (74-99) mg/dL POC Glucose (mg/dL) 154 H (75-99) mg/dL Total Bilirubin 1.4 H (0.2-1.3) mg/dL Total Protein 5.6 L (6.3-8.2) g/dL Albumin 2.8 L (3.5-5.0) g/dL 09/09/16 Range/Units 12:00 RBC (3.80-5.40) m/uL Hgb (11.4-16.0) gm/dL Hct (34.0-46.0) % RDW (11.5-15.5) % Glucose (74-99) mg/dL POC Glucose (mg/dL) 205 H (75-99) mg/dL Total Bilirubin (0.2-1.3) mg/dL Total Protein (6.3-8.2) g/dL Albumin (3.5-5.0) g/dL Assessment and Plan Plan: The patient was seen and examined. I agree with the above assessment and plan. She is currently on day 5 of 7 of antibiotics secondary to a urinary tract infection. She'll be discharged to rehab today.
[2016-09-09] MEDS: ASPIRIN 81 MG CHEW PO SCH (09:21)
[2016-09-09] MEDS: ATORVASTATIN 40 MG TAB PO SCH (09:21)
[2016-09-09] MEDS: LOSARTAN 50 MG TAB PO SCH (09:21)
[2016-09-09] MEDS: FONDAPARINUX 2.5 MG/0.5 ML SYRINGE SQ SCH (09:22)
[2016-09-09] MEDS: CHOLECALCIFEROL 1,000 UNIT TAB PO SCH (09:22)
[2016-09-09] MEDS: CIPROFLOXACIN HCL 250 MG TAB PO SCH (09:22)
[2016-09-09] MEDS: CLOPIDOGREL 75 MG TAB PO SCH (09:22)
[2016-09-09] MEDS: METHIMAZOLE 5 MG TAB PO SCH (09:22)
[2016-09-09] MEDS: MULTIVITAMINS, THERA 1 EACH TAB PO SCH (09:23)
[2016-09-09] MEDS: METOPROLOL TARTRATE 50 MG TAB PO SCH (09:23)
--- NOTE | 2016-09-09 11:32 | P.PN ---
Subjective Principal diagnosis: Non ST segment elevation myocardial infarction, coronary artery disease. This is a 81-year-old female patient was having intermittent nausea vomiting and her symptoms initially were essentially of a gastrointestinal in nature. Apparently there was no reported chest pain. The patient initially presented to [facility] and the EKG showed ST segment depression in the inferior leads and lateral leads and the patient was considered to have an acute coronary syndrome. The patient also ruled in for an acute NH. Based on that, the patient underwent a cardiac catheterization patient was found to have a left main disease and tight lesions in her left circumflex. The official report from the cardiac cath is not available to me at this point. This chest x -ray was free of any acute abnormalities. For that reason, the patient was started on IV heparin and the patient got moved to [facility] for cardiothoracic surgery evaluation. At this point in time, the patient is free of any chest pain. She is asymptomatic. She is hemodynamically stable. She has no specific complaints. She is known to have diabetes and hypertension pH is also known to have carotid artery disease. She is an ex-smoker. Most of emphysema. Most of asthma. She does not utilize any form of respiratory medications are inhalers on a regular basis. She is on oxygen at home.The patient has been independent. The patient has been able to perform household activities pH she is able to walk more than 600-700 feet at a time patient doesn 't own grocery. No pneumonias. No previous history of breathing complications. The patient is seen again today 09/02/2016 immediately postoperatively in the intensive care unit. She is status post off-pump coronary artery bypass grafting utilizing a RAO to LAD, SVG to the OM1, SVG to the PDA. She is currently sedated and on the mechanical ventilator settings of SIMV of 12 tidal volume 350 FiO2 100% and a PEEP of 5. Follow-up blood gases revealed a pO2 of 335, pCO2 of 40 and a pH of 7.36. There are [address] 1 to the left pleural cavity and 2 to the mediastinum. Urine output is adequate. Current cardiac output 3.9, cardiac index 2.4. PA pressures 31/20 with a mean of 26. Current drips include nitroglycerin at 5 mcg/m, propofol at 50 mcg/kg/m , lactated Ringer's at 50 mL per hour, insulin drip at 1.5 units per hour. Dmitry hugger is in place. Core temperature 93.8. The patient did have a drop in hemoglobin prior to surgery from 8.7 down to 6.7 and received 3 units of packed red cells before the OR. Current hemoglobin is 6.9. Patient was reevaluated on 09/03/2016, she received a total of 6 units of packed RBCs and 1 unit of platelets yesterday. Patient remains on mechanical ventilation, chest x-ray showed mostly postoperative changes, patient is still on propofol, however I plan to switch the patient to Precedex, and I would like to start some weaning trials. Patient did well on CPAP and pressure support, however there was no evidence of any cuff leak whatsoever. Multiple attempts were made, but continued to have no cough leak. Hence we decided to give the patient some Decadron, and we will likely address weeding either later today or in a.m. She will receive Decadron for at least the next 24 hours. Labs were reviewed hemoglobin is 8.3 ABG showed a pO2 of 79 pCO2 of 32 pH of 7.46. Electrolytes and renal profile are normal. Hemoglobin today is 8.3. reevaluated on 09/04/2016, patient was extubated last night uneventfully, and I was at bedside when the patient was extubated. so far the patient seems to have tolerated the extubation quite well. she is basically asymptomatic, following all instructions, and doing relatively well with incentive spirometry. chest x- ray showed minimal atelectasis, WBC count is 11.4 hemoglobin is 8.9. basic metabolic profile is normal. Renal profile is normal. Reevaluated today on 09/05/2016, patient continues to do well. She is relatively asymptomatic, patient is sitting in the chair, in no distress. Off oxygen she is presently on room air. Chest x-ray is reassuring. CBC is relatively normal except for hemoglobin of 8.7 electrolytes and renal profile are normal. Reevaluated today on 09/06/2016, patient continues to do well, relatively asymptomatic. Off oxygen, CBC is normal hemoglobin is 9.5 electrolytes and renal profile are normal. Chest x-ray minimal basilar atelectasis is noted. No evidence of pneumonia, no evidence of congestive heart failure. On 09/07/2016, patient continues to do quite well, she is ambulating in the hallway, she is off oxygen, and she is on room air. No shortness of breath no cough no wheezing no chest pain. On 09/08/2016, patient continues to do well, relatively asymptomatic, in no distress, patient is being considered for transfer tomorrow in a.m. The patient is seen again today 09/09/2016 in follow-up on the selective care unit. She is currently sitting up in a chair at the bedside. She is awake and alert in no acute distress. The plan is for possible transfer back to [facility] for further inpatient rehabilitation today. He denies any shortness of breath, cough or congestion. He is maintaining good O2 saturations in the mid to upper 90s on room air. She's been hemodynamically stable. Afebrile. Hemoglobin stable at 9.1. Objective - Vital Signs Vital signs: Vital Signs Temp 95.6 F L 09/09/16 08:00 Pulse 83 09/09/16 08:00 Resp 18 09/09/16 08:00 BP 116/62 09/09/16 08:00 Pulse Ox 97 09/09/16 08:00 Intake & Output 09/08/16 09/09/16 09/09/16 18:59 06:59 18:59 Intake Total 480 120 Output Total 1700 Balance -1220 120 Weight 64.9 kg Intake: Oral 480 120 Output: Urine 1700 Other: Voiding Method Toilet Toilet Toilet # Voids 1 2 # Bowel Movements 1 ABP, PAP, CO, CI - Last Documented Arterial Blood Pressure 158/73 Pulmonary Artery Pressure 32/15 Cardiac Output 3.8 Cardiac Index 2.3 - Exam GENERAL EXAM: Awake, alert in no acute distress. HEAD: Normocephalic. EYES: Sluggish reaction of pupils, equal size. NOSE: Clear with pink turbinates. THROAT: No erythema or exudates. NECK: No masses, no JVD. CHEST: Sternal dressing is dry and intact. LUNGS: Equal air entry with faint crackles in the left posterior base. CVS: S1 and S2 normal with no audible murmurs, regular rhythm. ABDOMEN: Soft. SPINE: No scoliosis or deformity SKIN: No rashes Extremities: There is bilateral lower extremities. Peripheral pulses are intact. - Labs CBC & Chem 7: 09/09/16 05:58 09/09/16 05:58 Labs: Abnormal Lab Results - Last 24 Hours (Table) 09/08/16 09/08/16 09/08/16 Range/Units 11:39 16:56 20:18 RBC (3.80-5.40) m/uL Hgb (11.4-16.0) gm/dL Hct (34.0-46.0) % RDW (11.5-15.5) % Glucose (74-99) mg/dL POC Glucose (mg/dL) 332 H 120 H 156 H (75-99) mg/dL Total Bilirubin (0.2-1.3) mg/dL Total Protein (6.3-8.2) g/dL Albumin (3.5-5.0) g/dL 09/09/16 09/09/16 09/09/16 Range/Units 02:54 05:58 05:58 RBC 3.30 L (3.80-5.40) m/uL Hgb 9.1 L (11.4-16.0) gm/dL Hct 29.5 L (34.0-46.0) % RDW 17.6 H (11.5-15.5) % Glucose 149 H (74-99) mg/dL POC Glucose (mg/dL) 133 H (75-99) mg/dL Total Bilirubin 1.4 H (0.2-1.3) mg/dL Total Protein 5.6 L (6.3-8.2) g/dL Albumin 2.8 L (3.5-5.0) g/dL 09/09/16 Range/Units 06:12 RBC (3.80-5.40) m/uL Hgb (11.4-16.0) gm/dL Hct (34.0-46.0) % RDW (11.5-15.5) % Glucose (74-99) mg/dL POC Glucose (mg/dL) 154 H (75-99) mg/dL Total Bilirubin (0.2-1.3) mg/dL Total Protein (6.3-8.2) g/dL Albumin (3.5-5.0) g/dL Assessment and Plan Plan: Impression: 1 acute non-STEMI with multivessel coronary artery disease including left main disease. Status post off-pump coronary artery bypass grafting utilizing a RAO to the LAD, SVG to the OM1, SVG to the PDA. 2 postoperative thoracotomy with ventilator dependence as an expected outcome. Recovered. 3 hypertension 4 hyperlipidemia 5 breast cancer with a previous lumpectomy 6 carotid artery disease 7 skin cancer 8 hypothyroidism 9 osteoarthritis 10 acid reflux 11 diabetes mellitus PLAN: The patient was seen and evaluated by Dr. Clark. She is stable from the pulmonary standpoint. She could be discharged once cleared surgically. She should follow-up in our office in 1-2 weeks and we'll repeat a chest x-ray at that time. She is again encouraged regarding the increased use of the incentive spirometer and cough and deep breathing exercises.
--- NOTE | 2016-09-09 11:47 | P.DS ---
Providers Date of admission: 08/31/16 03:45 Attending physician: Molly Kelsey Consults: 08/31/16 04:21 Consult Physician Stat Consulting Provider: Molly Kelsey Consult Reason/Comments: LM disease, pl notify ирина Do you want consulting provider notified?: Yes 08/31/16 06:33 Consult Physician Stat Consulting Provider: Jake Rivera Consult Reason/Comments: Acute [place], Cardiac cath Do you want consulting provider notified?: Already Contacted 08/31/16 10:38 Consult Physician Routine Consulting Provider: Linh Cornoa Consult Reason/Comments: critical care Do you want consulting provider notified?: Already Contacted 09/01/16 11:18 Consult Anesthesia Routine Consulting Provider: Anesthesia,Services Consult Reason/Comments: Cardiac Surgery Pre-Op 09/02/16 14:04 Consult Physician Routine Consulting Provider: Audrey Rice Consult Reason/Comments: medical managment Do you want consulting provider notified?: Already Contacted Primary care physician: Gregg Laboy - Discharge Diagnosis(es) (1) STEMI (ST elevation myocardial infarction) Current Visit: Yes Status: Acute (2) Diabetes Current Visit: Yes Status: Acute (3) Hypertension Current Visit: Yes Status: Acute (4) Hyperlipidemia Current Visit: Yes Status: Acute (5) Hyperthyroidism Current Visit: Yes Status: Acute (6) History of breast cancer Current Visit: Yes Status: Acute Hospital Course: FINAL DIAGNOSIS: 1.[Non-ST elevation myocardial infarction] 2.[Triple-vessel calcific coronary artery disease with left main disease, preserved systolic function] 3.[Mild mitral valve regurgitation] 4.[Hypertension] 5.[Hyperlipidemia] 6.[Uncontrolled type 2 diabetes mellitus] 7.[Hyperparathyroidism] 8.[Prolonged mechanical ventilation secondary to absence of cuff leak] 9.[Postoperative anemia] PRINCIPAL PROCEDURE: [] 1.[Urgent non-aortic clamp off pump triple coronary artery bypass grafting using the left internal mammary artery to the left anterior descending artery, reverse saphenous vein graft connected to the aorta using the passport device connected distally to the posterior descending artery, reverse saphenous vein graft connected to the aorta using the passport device connected distally to the obtuse marginal artery] 2.[Endoscopic harvesting of the right and the left greater saphenous veins] 3.[Intraoperative transesophageal echocardiogram and epi-aortic scanning] 4.[Intraoperative graft flow measurements using the Medistim system] 5.[Selective right and left coronary angiogram] HISTORY OF PRESENT ILLNESS: [This 81-year-old female was having heartburn-like chest pain over weeks time associated with nausea and vomiting. She was taken the [facility], EKG was performed revealing non-ST elevation myocardial infarction. She was transferred to [facility] for cardiac catheterization. Dr. Ravi performed a right and left coronary angiogram revealing an extremely calcified right and left coronary system, mild disease involving the mid right coronary artery, severe disease involving the distal left main coronary artery and involving the ostial left circumflex and ostial LAD, severe disease involving the ostial and proximal left circumflex coronary artery, and severe disease involving the ostial LAD. Dr. Kelsey from cardiothoracic surgery was consulted for the possible surgical revascularization. An extensive discussion was had with the patient and her family, reverse and benefits were explained, and consent was obtained to proceed with surgery. Due to the nature of her disease process the patient was kept inpatient.] HOSPITAL COURSE:[ On the morning of 09/02/2016, the patient was taken to the preoperative area, prepared in the usual fashion, and subsequently taken to the operating room where Dr. Kelsey performed an urgent non-aortic clamp off pump triple coronary artery bypass grafting using the left internal mammary artery to the left anterior descending artery, reverse saphenous vein graft connected to the aorta using the passport device connected distally to the posterior descending artery, reverse saphenous vein graft connected to the aorta using the passport device connected distally to the obtuse marginal artery, endoscopic harvesting of the right and the left greater saphenous veins, intraoperative transesophageal echocardiogram, epi-aortic scanning, and intraoperative graft flow measurements using the Medistim system. Upon completion of surgery the patient was transferred to the cardiovascular intensive care unit where she was recovered, monitored hemodynamically, and where she progressed to cardiac rehabilitation phase 1. She did have a prolonged mechanical ventilation secondary to absence of a cuff leak and was placed on Decadron for 24 hours, and postoperative anemia requiring transfusion. She was finally extubated, all lines, tubes, and drips were discontinued when appropriate, and she was transferred to [address] [place] [address] for further monitoring and rehabilitation. Her oxygen was titrated down, she continued to work with physical therapy, and was ready to be discharged to rehabilitation on postoperative day #7. She did have a preoperative urinary tract infection which was treated accordingly. She received written and verbal instructions regarding her medications, activity restriction, signs and symptoms requiring physician notification, and follow-up appointments.] COMPLICATIONS: [This patient experienced postoperative complications of prolonged mechanical ventilation and postoperative anemia, both which were treated accordingly.] CONSULTATIONS: 1.[ Dr. Rivera for cardiology] 2.[ Dr. Corona for pulmonology] 3.[ Dr. Rice for medical management] DISCHARGE INSTRUCTIONS: 1. No driving for 4 weeks, or until physician gives their ok. 2. The patient should sleep in their own bed, no medical bed needed. 3. Stairs are not an issue. If the bedroom is upstairs, it is advised that the patient go up at night and down in the morning for the first week. Go slowly, using handrail and take 1 step at a time. 4. IRWIN hose are to be worn for 30 days or until physician discontinues. 5. Heart hugger is to be worn 100% of the time until physician discontinues.( except when showering) 6. No lifting, pushing, or pulling more than 10 pounds for 12 weeks. The physician will advise of any restriction changes. 7. The patient is expected to continue the prescribed walking program. 8. Continue pain control per as needed orders. 9. Continue with incentive spirometry and splinting/heart hugger until otherwise directed by the physician. 10. Must shower daily using liquid antibacterial soap and a separate white washcloth for each individual incision. 11. Routine sternal incision care. No lotions, powders, ointments on incisions. 12. Please call surgeon/FAMILY MEDICINE PHYSICIAN with temp>[phone] or purulent drainage from incisions. REHAB SERVICES/NURSING SERVICES TO PROVIDE: RN SKILLED HOME CARE SERVICES FOR POST-OP SURGICAL PATIENTS WITH THE FOLLOWING: Coronary Artery Bypass Surgery (CABG), Mitral Valve Replacement/ Repair ( MVR), Aortic Valve Replacement/Repair (AVR) RN TO CONTINUE EDUCATION FROM ``ROAD TO A HEALTH HEART PATIENT EDUCATION MANUAL (GIVEN TO PATIENT IN THE HOSPITAL) MEDICATION RECONCILIATION WITH EDUCATION NEEDED ON FIRST HOME VISIT EMPHASIZE IMPORTANCE OF WEARING BREAST SUPPORT/HEART HUGGER ENCOURAGE USE OF INCENTIVE SPIROMETER 10 X EVERY HOUR WHILE AWAKE ENCOURAGE UTILIZATION OF LOWER EXTREMITY COMPRESSION STOCKINGS/IRWIN HOSE and ELEVATE LEGS ABOVE LEVEL OF HEART WHILE AT REST. ENCOURAGE AMBULATION 3-5x/day INCREASING TOLERATES, WHILE AVOID EXTREMES IN TEMPERATURE FREQUENCY: RN TO OPEN THE PATIENT WITHIN 24 HOURS OF DISCHARGE FROM THE HOSPITAL WITH TELEHEALTH INSTALLED AT [facility], RN TO VISIT 2-3 X A WEEK FOR 4 WEEKS ESTABLISHED BY PATIENT NEEDS. REMOVAL OF SUTURES: NURSING SERVICES TO REMOVE SUTURES TWO WEEKS POST SURGICAL DATE [09/16/16 ]. If any questions regarding suture removal please call the office at [phone]. LABORATORY: CBC, CMP TO BE DRAWN ON THE THIRD DAY POST DISCHARGE, Thursday09/12/2016 (RAN STAT) FAX RESULTS TO [phone]. TELEHEALTH PARAMETERS: WEIGHT: NOTIFY MD OF WEIGHT GAIN OF 2 LBS IN 24 HOURS OR 5 LBS IN ONE WEEK HR: NOTIFY MD OF HR <55 BPM OR HR>100 BPM BP: NOTIFY MD IF BP <90/55 OR BP>140/100 O2 SAT: NOTIFY MD IF PO2<93% ON ROOM AIR SEND TELEHEALTH REPORT TO THUMB SEWER AND CARDIOVASCULAR SURGEON THE FIRST WEEK OF CARE AND THEN BI-WEEKLY. PLEASE ADDITIONALLY COMMUNICATE ANY ABNORMALS AND NEW FINDINGS TO THE SURGEONS OFFICE. Dr. Laboy to follow patient while at [facility]. Plan - Discharge Summary New Discharge Prescriptions: HYDROcodone/APAP 5-325MG [[place] 5-325] 1 - 2 each PO Q6HR PRN #120 tab PRN Reason: Moderate Pain Discharge Medication List Aspirin [Adult Low Dose Aspirin EC] 81 mg PO DAILY 08/15/16 [History] Cholecalciferol [Vitamin D3] 2,000 unit PO DAILY 08/15/16 [History] Methimazole [Tapazole] 5 mg PO DAILY 08/15/16 [History] Multivitamins, Thera [Multivitamin (formulary)] 1 tab PO DAILY 08/15/16 [History ] sitaGLIPtin PHOS/metFORMIN HCL [Janumet 50-500 mg Tablet] 1 tab PO BID 08/15/16 [History] Atorvastatin [Lipitor] 40 mg PO DAILY tab 09/09/16 [Rx] Ciprofloxacin HCl [Cipro] 250 mg PO BID #4 tab 09/09/16 [Rx] Clopidogrel [Plavix] 75 mg PO DAILY tab 09/09/16 [Rx] HYDROcodone/APAP 5-325MG [[place] 5-325] 1 - 2 each PO Q6HR PRN #120 tab 09/09/16 [Rx] INSULIN LISPRO (humaLOG) [humaLOG (formulary)] 0 unit SQ ACHS vial 09/09/16 [Rx ] INSULIN LISPRO (humaLOG) [humaLOG (formulary)] 5 unit SQ ACHS vial 09/09/16 [Rx ] Ipratropium-Albuterol Nebulize [Duoneb 0.5 mg-3 mg/3 ml Soln] 3 ml INHALATION RT -Q2H PRN neb 09/09/16 [Rx] Losartan [Cozaar] 50 mg PO DAILY tab 09/09/16 [Rx] Magnesium Hydroxide [Milk of Magnesia Concentrate] 2,400 mg PO BID PRN dose [Rx] Metoprolol Tartrate [Lopressor] 50 mg PO BID tab 09/09/16 [Rx] Pantoprazole [Protonix] 40 mg PO AC-BRKFST tab 09/09/16 [Rx] Sennosides-Docusate Sodium [Senokot-S] 2 each PO HS tab 09/09/16 [Rx] Follow up Appointment(s)/Referral(s): Gregg Laboy MD [Primary Care Provider] - As Needed (Dr. Laboy to follow at [facility]) Molly Kelsey MD [STAFF PHYSICIAN] - 10/03/16 10:30 am Jake Rivera MD [STAFF PHYSICIAN] - 2 Weeks Linh Corona MD [STAFF PHYSICIAN] - 09/24/16 2:30 pm Ambulatory/Diagnostic Orders: Complete Blood Count w/diff [LAB.AMB] Time Frame: 3 Days, Location: Determined By Patient Comprehensive Metabolic Panel [LAB.AMB] Time Frame: 3 Days, Location: Determined By Patient Discharge Disposition: TRANSFER TO SNF/ECF
[2016-09-09 12:21] LABS: Glucose,Whole Blood 205 mg/dL (75-99)
[2016-09-09 12:54] VITALS: PULSE 67
--- NOTE | 2016-09-09 12:54 | P.PN ---
Subjective Principal diagnosis: Status post coronary artery bypass grafting surgery. This is an 81-year-old female who is status post coronary bypass grafting surgery. She was seen and examined on the telemetry unit today. B/P 116/62, 82. Awaiting transfer to [facility] today. Objective - Vital Signs Vital signs: Vital Signs Temp 95.6 F L 09/09/16 08:00 Pulse 83 09/09/16 08:00 Resp 18 09/09/16 08:00 BP 116/62 09/09/16 08:00 Pulse Ox 97 09/09/16 08:00 Intake & Output 09/08/16 09/09/16 09/09/16 18:59 06:59 18:59 Intake Total 480 120 Output Total 1700 Balance -1220 120 Weight 64.9 kg Intake: Oral 480 120 Output: Urine 1700 Other: Voiding Method Toilet Toilet Toilet # Voids 1 2 # Bowel Movements 1 ABP, PAP, CO, CI - Last Documented Arterial Blood Pressure 158/73 Pulmonary Artery Pressure 32/15 Cardiac Output 3.8 Cardiac Index 2.3 - Exam PHYSICAL EXAMINATION: HEENT: Head is atraumatic, normocephalic. Pupils equal, round. Neck is supple. There is no elevated jugular venous pressure. HEART EXAMINATION: Heart S1, S2 normal. No murmur or gallop heard. CHEST EXAMINATION: Lungs reveal mild diminished air entry to bilateral bases. ABDOMEN: Soft, nontender. Bowel sounds are heard. No organomegaly noted. EXTREMITIES: 2+ peripheral pulses with no evidence of peripheral edema and no calf tenderness noted. Bilateral IRWIN hose in place. NEUROLOGIC patient is awake, alert and oriented -3. . - Labs CBC & Chem 7: 09/09/16 05:58 09/09/16 05:58 Labs: Abnormal Lab Results - Last 24 Hours (Table) 09/08/16 09/08/16 09/09/16 Range/Units 16:56 20:18 02:54 RBC (3.80-5.40) m/uL Hgb (11.4-16.0) gm/dL Hct (34.0-46.0) % RDW (11.5-15.5) % Glucose (74-99) mg/dL POC Glucose (mg/dL) 120 H 156 H 133 H (75-99) mg/dL Total Bilirubin (0.2-1.3) mg/dL Total Protein (6.3-8.2) g/dL Albumin (3.5-5.0) g/dL 09/09/16 09/09/16 09/09/16 Range/Units 05:58 05:58 06:12 RBC 3.30 L (3.80-5.40) m/uL Hgb 9.1 L (11.4-16.0) gm/dL Hct 29.5 L (34.0-46.0) % RDW 17.6 H (11.5-15.5) % Glucose 149 H (74-99) mg/dL POC Glucose (mg/dL) 154 H (75-99) mg/dL Total Bilirubin 1.4 H (0.2-1.3) mg/dL Total Protein 5.6 L (6.3-8.2) g/dL Albumin 2.8 L (3.5-5.0) g/dL 09/09/16 Range/Units 12:00 RBC (3.80-5.40) m/uL Hgb (11.4-16.0) gm/dL Hct (34.0-46.0) % RDW (11.5-15.5) % Glucose (74-99) mg/dL POC Glucose (mg/dL) 205 H (75-99) mg/dL Total Bilirubin (0.2-1.3) mg/dL Total Protein (6.3-8.2) g/dL Albumin (3.5-5.0) g/dL Assessment and Plan (1) Diabetes Status: Acute (2) Hyperlipidemia Status: Acute (3) Hypertension Status: Acute (4) Hyperthyroidism Status: Acute Plan: Patient is doing well overall, anticipating discharged to [facility] today. DNP note has been reviewed, I agree with a documented findings and plan of care. Patient was seen and examined.
[2016-09-09 12:55] VITALS: BP 114/69; TEMP 97.4
--- NOTE | 2016-09-09 14:58 | P.PN ---
Subjective This is an 81-year-old female patient of Dr. Laboy with past medical history of breast cancer, diabetes mellitus type 2, gastroesophageal reflux disease, hyperlipidemia, hypertension. She initially presented to [facility] with nausea and vomiting and abdominal symptoms. She had no chest discomfort or dizziness, shortness of breath. She had an EKG that showed a sinus rhythm and abnormal ST depression in the inferior leads and lateral precordial leads with ST segment abnormality in aVR and V1. Patient was then transferred to [facility] for heart catheterization for acute coronary syndrome. Patient underwent heart catheterization that showed severe disease involving the distal left main coronary artery and involving the ostial left circumflex and ostial LAD. Severe disease involving ostial and proximal left circumflex coronary artery. Severe disease involving the ostial LAD. Carotid ultrasound showed severe stenosis of the left internal carotid artery of 70% and mild right internal carotid artery stenosis of 50-69%. Patient has been seen in consultation by Dr. Corona from pulmonary medicine. Chest x-ray reveals suspect COPD, mild cardiomegaly, left basilar airspace disease with constant intermittent small effusion. Echocardiogram shows moderate concentric left ventricular hypertrophy, EF 55-60%, mild aortic valve sclerosis, mild mitral regurgitation. Patient is tentatively planned for CABG in the next 24- 48 hours. 09/02: Patient is gone for CABG. 09/03: Patient underwent CABG with RAO to LAD, SVG to OM 1, SVG to PDA. Patient remains intubated and on mechanical ventilation. She is status post 6 units of packed RBCs and 1 unit of platelets and hemoglobin is currently 8.3. Patient has no evidence of cuff leak and Decadron was started by Dr. Olivarez. Her blood glucose is running between 110 and 142. 09/04: Patient remains in the intensive care unit. She has been successfully extubated. Patient's blood pressure was elevated for which cardiology continue beta howard and started losartan. He was apparently disoriented this morning but much improved by the time of our visit. One dose of IV Lasix were given. Mediastinal chest tube to be discontinued. 09/05: Patient remains in the intensive care unit and has been hemodynamically stable with plan to transfer to [facility] care today. Patient denies any chest pain or shortness of breath. Lane catheter has also been discontinued. Patient is planning for discharge to [facility] for subacute rehab. 09/06/2016 patient is feeling much better so far increased mobility she is basically shower with the aid patient's Lane catheter is out she still have 1 drainage tube in the right leg otherwise feeling good. 09/07/2016: Patient is feeling much better her drainage tube is out completely patient is ambulating with slight help decrease shortness of breath her blood sugars much better so far. And prepare hopefully for discharge tomorrow to one of the rehab center. 09/09: Patient is being prepared for discharge to [facility] today in stable condition. She denies any complaints. No chest pain or shortness of breath. She has been afebrile. Hemoglobin is 9.1. Pulse ox is running 95-97% on room air. Patient will be followed at [facility] by Dr. Laboy. Objective - Vital Signs Vital signs: Vital Signs Temp 97.4 F L 09/09/16 12:00 Pulse 67 09/09/16 12:00 Resp 18 09/09/16 12:00 BP 114/69 09/09/16 12:00 Pulse Ox 95 09/09/16 12:00 Intake & Output 09/08/16 09/09/16 09/09/16 18:59 06:59 18:59 Intake Total 480 120 Output Total 1700 Balance -1220 120 Weight 64.9 kg Intake: Oral 480 120 Output: Urine 1700 Other: Voiding Method Toilet Toilet Toilet # Voids 1 2 # Bowel Movements 1 ABP, PAP, CO, CI - Last Documented Arterial Blood Pressure 158/73 Pulmonary Artery Pressure 32/15 Cardiac Output 3.8 Cardiac Index 2.3 - Exam General appearance: Present: cooperative, no acute distress. Absent: average body habitus, disheveled, mild distress, morbidly obese, obese, severe distress , thin - EENT Eyes: Present: abnormal pupil, normal appearance. Absent: anicteric sclerae, disc margins sharp, edentulous, EOMI, PERRLA, fundus normal, photophobia, dentition normal, poor dentition, ptosis, scleral icterus ENT: Present: normal oropharynx. Absent: hard of hearing, hearing grossly normal, NA/AT, other, pharyngeal erythema, thrush, tonsillar exudates, tonsillar swelling Ears: bilateral: normal - Neck Neck: Present: normal ROM. Absent: lymphadenopathy, other, rigidity, stridor, thyromegaly Carotids: bilateral: upstroke normal Thyroid: bilateral: normal size - Respiratory Respiratory: bilateral: CTA, diminished - Cardiovascular Rhythm: regular Heart sounds: normal: S1, S2 Abnormal Heart Sounds: Present: systolic murmur - Gastrointestinal General gastrointestinal: Present: decreased bowel sounds, normal bowel sounds, soft. Absent: absent bowel sounds, distended, hepatomegaly, hyperactive bowel sounds, organomegaly, rigid, scaphoid, splenomegaly, tenderness, umbilical hernia, ventral hernia - Integumentary Integumentary: Present: normal, rash. Absent: calor, cellulitis, cyanotic, decreased turgor, flushed, jaundiced, normal turgor, pale, ulcer - Neurologic Neurologic: Present: CNII-XII intact - Musculoskeletal Musculoskeletal: Present: gait normal, generalized weakness, strength equal bilaterally. Absent: right sided weakness, left sided weakness - Psychiatric Psychiatric: Present: A&O x's 3, appropriate affect. Absent: intact judgment & insight - Labs CBC & Chem 7: 09/09/16 05:58 09/09/16 05:58 Labs: Abnormal Lab Results - Last 24 Hours (Table) 09/08/16 09/08/16 09/09/16 Range/Units 16:56 20:18 02:54 RBC (3.80-5.40) m/uL Hgb (11.4-16.0) gm/dL Hct (34.0-46.0) % RDW (11.5-15.5) % Glucose (74-99) mg/dL POC Glucose (mg/dL) 120 H 156 H 133 H (75-99) mg/dL Total Bilirubin (0.2-1.3) mg/dL Total Protein (6.3-8.2) g/dL Albumin (3.5-5.0) g/dL 09/09/16 09/09/16 09/09/16 Range/Units 05:58 05:58 06:12 RBC 3.30 L (3.80-5.40) m/uL Hgb 9.1 L (11.4-16.0) gm/dL Hct 29.5 L (34.0-46.0) % RDW 17.6 H (11.5-15.5) % Glucose 149 H (74-99) mg/dL POC Glucose (mg/dL) 154 H (75-99) mg/dL Total Bilirubin 1.4 H (0.2-1.3) mg/dL Total Protein 5.6 L (6.3-8.2) g/dL Albumin 2.8 L (3.5-5.0) g/dL 09/09/16 Range/Units 12:00 RBC (3.80-5.40) m/uL Hgb (11.4-16.0) gm/dL Hct (34.0-46.0) % RDW (11.5-15.5) % Glucose (74-99) mg/dL POC Glucose (mg/dL) 205 H (75-99) mg/dL Total Bilirubin (0.2-1.3) mg/dL Total Protein (6.3-8.2) g/dL Albumin (3.5-5.0) g/dL Assessment and Plan Plan: 1. 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 Patient has been seen by cardiothoracic surgeon status post CABG. doing much better patient is out of the intensive care unit, start doing physical therapy but quite bit limited at this point. Improved. Hopefully for subacute rehabilitation when she is ready. Patient still doing well on the rest of her medical management at this point. 2. Diabetes mellitus type 2. Patient was on Janumet at home. Continue insulin long acting and would use short acting before meals meals plus sliding scales. We will restart patient back on Janumet today and add 5 units of Humalog beside a sliding scales with every meals. Blood sugar become running in the low 100 at this point much better so far. 3. Hypertension. Patient was on Cardizem, hydrochlorothiazide, hydralazine at home 4. Hyperlipidemia. Continue Lipitor. No reaction or side effect. 5. History of breast cancer status post lumpectomy. Has been in remission 6. Carotid artery disease. Mild disease only does not require any further management. 7. History of skin cancer. 8. Hyperthyroidism. Continue Tapazole with midrange TSH. 9. Gastrointestinal prophylaxis. 10. DVT prophylaxis. Heparin. Discharge plan: Thursday. Impression and plan of care have been directed as dictated by the signing physician. Eileen Gomez nurse practitioner acting as scribe for signing physician.
--- NOTE | 2016-09-10 10:57 | P.ARTDOP ---
Arterial Doppler LOWER EXTREMITY ARTERIAL DOPPLER: DATE OF SERVICE: 09/01/2016 Reason for study: Pre-open heart. Doppler waveforms: Multiphasic bilaterally throughout. Pulse volume recording: []. Pressure gradients: None. Ankle-brachial indices: Greater than 1 bilaterally. Toe pressures: [] on the right, [] on the left Impression: Normal study.
[2016-09-17 13:27] LABS: ABG PCO2 31 mmHg (35-45); ABG PH 7.46 (7.35-7.45); ABG PO2 225 mmHg (83-108)
[2016-09-17 13:28] LABS: ABG Base Excess -2.1 mmol/L; ABG HCO3 21 mmol/L (21-25); ABG PCO2 33 mmHg (35-45); ABG PH 7.43 (7.35-7.45); ABG PO2 145 mmHg (83-108); ABG TCO2 22 mmol/L (19-24)
[2016-09-17 13:28] LABS: ABG Base Excess -1.6 mmol/L; ABG HCO3 21 mmol/L (21-25); ABG Oxygen Saturation 99.8 % (94-97); ABG TCO2 22 mmol/L (19-24)
[2016-09-17 13:29] LABS: ABG Base Excess -2.4 mmol/L; ABG HCO3 22 mmol/L (21-25); ABG Oxygen Saturation 99.5 % (94-97); ABG PCO2 35 mmHg (35-45); ABG PO2 165 mmHg (83-108); ABG TCO2 23 mmol/L (19-24)
[2016-09-17 13:29] LABS: ABG Oxygen Saturation 99.3 % (94-97)
[2016-09-17 13:31] LABS: ABG Base Excess -3.3 mmol/L; ABG HCO3 22 mmol/L (21-25); ABG Oxygen Saturation 99.5 % (94-97); ABG PCO2 46 mmHg (35-45); ABG PH 7.31 (7.35-7.45); ABG PO2 183 mmHg (83-108); ABG TCO2 24 mmol/L (19-24)
[2016-09-17 13:32] LABS: ABG Base Excess -4.8 mmol/L; ABG HCO3 19 mmol/L (21-25); ABG Oxygen Saturation 98.8 % (94-97); ABG PCO2 34 mmHg (35-45); ABG PH 7.38 (7.35-7.45); ABG PO2 124 mmHg (83-108); ABG TCO2 20 mmol/L (19-24)
[2016-09-17 13:33] LABS: ABG Base Excess -1.6 mmol/L; ABG HCO3 22 mmol/L (21-25); ABG Oxygen Saturation 95.6 % (94-97); ABG PCO2 33 mmHg (35-45); ABG PH 7.44 (7.35-7.45); ABG PO2 75 mmHg (83-108); ABG TCO2 23 mmol/L (19-24)
== END 2016-09-09 15:48 | DRG 234 ==
LOC: 6ICU 03:45 → 6SEL 09-05 15:25
PROVIDERS: ADMIT Internal Medicine; ATTEND Surgery
PROC: 4A023N7 Measurement of Cardiac Sampling and Pressure, Left Heart, Percutaneous Approach (ICD-10-PCS; principal; 2016-08-31 03:42)
PROC: B2111ZZ Fluoroscopy of Multiple Coronary Arteries using Low Osmolar Contrast (ICD-10-PCS; principal; 2016-08-31 03:42)
PROC: 4A033BC Measurement of Arterial Pressure, Coronary, Percutaneous Approach (ICD-10-PCS; 2016-09-02 08:00)
PROC: 06BP0ZZ Excision of Right Saphenous Vein, Open Approach (ICD-10-PCS; 2016-09-02 08:00)
PROC: 02100Z9 Bypass Coronary Artery, One Artery from Left Internal Mammary, Open Approach (ICD-10-PCS; 2016-09-02 08:00)
PROC: 021109W Bypass Coronary Artery, Two Arteries from Aorta with Autologous Venous Tissue, Open Approach (ICD-10-PCS; 2016-09-02 08:00)
PROC: 06BQ0ZZ Excision of Left Saphenous Vein, Open Approach (ICD-10-PCS; 2016-09-02 08:00)
DX: I21.4 Non-ST elevation (NSTEMI) myocardial infarction (principal); E11.65 Type 2 diabetes mellitus with hyperglycemia; N39.0 Urinary tract infection, site not specified; D64.9 Anemia, unspecified; E05.90 Thyrotoxicosis, unspecified without thyrotoxic crisis or storm; E03.9 Hypothyroidism, unspecified; I25.10 Atherosclerotic heart disease of native coronary artery without angina pectoris; E21.3 Hyperparathyroidism, unspecified; E78.5 Hyperlipidemia, unspecified; E87.6 Hypokalemia; I08.0 Rheumatic disorders of both mitral and aortic valves; I10 Essential (primary) hypertension; I65.23 Occlusion and stenosis of bilateral carotid arteries; I73.9 Peripheral vascular disease, unspecified; J43.9 Emphysema, unspecified; J45.909 Unspecified asthma, uncomplicated; K21.9 Gastro-esophageal reflux disease without esophagitis; M19.90 Unspecified osteoarthritis, unspecified site; Z79.82 Long term (current) use of aspirin; Z79.84 Long term (current) use of oral hypoglycemic drugs; Z79.899 Other long term (current) drug therapy; Z85.3 Personal history of malignant neoplasm of breast; Z85.828 Personal history of other malignant neoplasm of skin; Z87.442 Personal history of urinary calculi; Z87.891 Personal history of nicotine dependence; Z99.81 Dependence on supplemental oxygen
CPT/HCPCS: 36620; 71010; 71020; 80048; 80053; 80074; 80076; 81001; 82330; 82805; 83036; 83735; 83880; 84132; 84439; 84443; 84484; 85025; 85027; 85520; 85610; 85730; 86850; 86891; 86900; 86901; 86920; 87070; 87077; 87086; 87186; 93306; 93454; 93880; 93923; 93970; 94002; 94003; 94150; 94640; 94760

== ENCOUNTER → 2016-10-01 | Outpatient (CLI) | payer MEDICARE, BC ==
--- NOTE | 2016-10-01 15:53 | FL ---
EXAMINATION TYPE: FL barium swallow DATE OF EXAM: 10/01/2016 COMPARISON: NONE HISTORY: Dysphasia difficulty breathing gastroesophageal reflux TECHNIQUE: A single contrast UGI study is performed. FINDINGS: Upright esophagram is performed. Esophagus dilates to normal caliber has normal contour to the gastroesophageal junction. There is moderate hesitancy of contrast passing through the mildly patience rowed gastroesophageal junction. There is complete emptying of the esophagus during the examination. Multiple tertiary contractions were evident during the exam. Due to the patient's recent surgical history and physical condition of the time of this examination, additional supine imaging was not performed. IMPRESSIONS: 1. AV mild narrowing at the gastroesophageal junction with some hesitancy of contrast emptying throug h the gastroesophageal junction into the stomach. More severe stenosis however is not identified. 2. Presbyesophagus.
== END | disposition home or self-care (01) ==
LOC: RADFLWHC 09-29 11:04
PROVIDERS: ATTEND Internal Medicine Geriatric Medicine
DX: K22.8 Other specified diseases of esophagus (principal); R13.10 Dysphagia, unspecified
CPT/HCPCS: 74220

== ENCOUNTER 2017-01-16 12:41 | Inpatient (IN) | payer MEDICARE, BC ==
[2017-01-16] MEDS ORDERED: SODIUM CHLORIDE 0.9% 500 ML IV STA (13:07)
--- NOTE | 2017-01-16 13:15 | ED ---
General Adult HPI - General Source: patient, RN notes reviewed Mode of arrival: wheelchair Limitations: no limitations <Martha Danielson - Last Filed: 01/16/17 16:17> <Dimitris Bello - Last Filed: 01/16/17 16:18> - General Chief complaint: Weakness Stated complaint: weakness/cancer patient Time Seen by Provider: 01/16/17 13:00 - History of Present Illness Initial comments: 81-year-old female presents to the emergency department with a chief complaint of weakness. Patient was recently diagnosed with esophageal cancer. Beginning the week her hemoglobin dropped so low that she 2 units of blood. Patient states that he was concerned because she started this weakness again. Patient states she starts just feel short of breath and weak and she could not get up and move around like she normally does state they're concerned her hemoglobin may of free dropped. They state they have not received other results from her esophageal cancer workup for seizure treatment plan at this time. They were concerned due to her increased weakness without that they should be evaluated. Patient denies any recent fever, chills, shortness of breath, chest pain, back pain, abdominal pain, nausea vomiting, numbness or tingling, dysuria or hematuria, constipation or diarrhea, headaches or visual changes, or any other current symptoms. (Martha Danielson) - Related Data Home Medications Medication Instructions Recorded Confirmed Aspirin [Adult Low Dose Aspirin EC] 81 mg PO HS 08/15/16 01/16/17 Cholecalciferol [Vitamin D3] 2,000 unit PO HS 08/15/16 01/16/17 Multivitamins, Thera [Multivitamin 1 tab PO HS 08/15/16 01/16/17 (formulary)] sitaGLIPtin PHOS/metFORMIN HCL 1 tab PO BID 08/15/16 01/16/17 [Janumet 50-500 mg Tablet] Losartan [Cozaar] 25 mg PO DAILY 01/16/17 01/16/17 Magnesium Chloride [Slow Mag] 64 mg PO BID 01/16/17 01/16/17 Metoclopramide [Reglan] 5 mg PO AC-TID 01/16/17 01/16/17 Mirtazapine [Remeron] 30 mg PO HS 01/16/17 01/16/17 Potassium Chloride Oral Liquid 20 meq PO HS 01/16/17 01/16/17 Previous Rx's Medication Instructions Recorded Atorvastatin [Lipitor] 40 mg PO DAILY tab 09/09/16 Clopidogrel [Plavix] 75 mg PO DAILY tab 09/09/16 Metoprolol Tartrate [Lopressor] 50 mg PO BID tab 09/09/16 Pantoprazole [Protonix] 40 mg PO AC-BRKFST tab 09/09/16 Allergies Allergy/AdvReac Type Severity Reaction Status Date / Time No Known Allergies Allergy Verified 01/16/17 13:08 Review of Systems ROS Other: All systems not noted in ROS Statement are negative. <Martha Danielson - Last Filed: 01/16/17 16:17> ROS Other: All systems not noted in ROS Statement are negative. <Dimitris Bello - Last Filed: 01/16/17 16:18> ROS Statement: Those systems with pertinent positive or pertinent negative responses have been documented in the HPI. Past Medical History Past Medical History: Cancer, Diabetes Mellitus, GERD/Reflux, Hyperlipidemia, Hypertension, Osteoarthritis (OA), Thyroid Disorder Additional Past Medical History / Comment(s): Coronary artery disease, diabetes mellitus, hypertension, hyperlipidemia, acid reflux, osteoarthritis, skin cancer , hyperthyroidism, breast cancer, rotator cuff surgery on the right, nephrolithiasis History of Any Multi-Drug Resistant Organisms: None Reported Past Surgical History: Breast Surgery, Cholecystectomy Additional Past Surgical History / Comment(s): skin cancer removed from nose, rt breast lumpectomy, brandon cataracts Past Anesthesia/Blood Transfusion Reactions: Motion Sickness Past Psychological History: No Psychological Hx Reported Smoking Status: Former smoker Past Alcohol Use History: None Reported Past Drug Use History: None Reported - Past Family History Sister(s) Family Medical History: Cancer Brother(s) Family Medical History: Cancer <Martha Danielson - Last Filed: 01/16/17 16:17> General Exam Limitations: no limitations <Martha Danielson - Last Filed: 01/16/17 16:17> <Dimitris Bello - Last Filed: 01/16/17 16:18> - General Exam Comments Initial Comments: General: The patient is awake and alert, in no distress, and does not appear acutely ill. pallor Eye: Pupils are equal, round and reactive to light, extra-ocular movements are intact; there is normal conjunctiva bilaterally. No signs of icterus. Ears, nose, mouth and throat: There are moist mucous membranes and no oral lesions. Neck: The neck is supple, there is no tenderness. Cardiovascular: There is a regular rate and rhythm. No murmur, rub or gallop is appreciated. Respiratory: Lungs are clear to auscultation, respirations are non-labored, breath sounds are equal. No wheezes, stridor, rales, or rhonchi. Gastrointestinal: Soft, non-distended, non-tender abdomen without masses or organomegaly noted. There is no rebound or guarding present. No CVA tenderness. Bowel sounds are unremarkable. Back: There is no tenderness to palpation in the midline. There is no obvious deformity. No rashes noted. Musculoskeletal: Normal ROM, no tenderness, There is no pedal edema. There is no calf tenderness or swelling. Sensation intact. Pulses equal bilaterally 2+. Neurological: CN II-XII intact, There are no obvious motor or sensory deficits. Coordination appears grossly intact. Speech is normal. Skin: Skin is warm and dry and no rashes or lesions are noted. Psychiatric: Cooperative, appropriate mood & affect, normal judgment. (Martha Danielson) Course <Martha Danielson - Last Filed: 01/16/17 16:17> <Dimitris Bello - Last Filed: 01/16/17 16:18> Vital Signs 01/16/17 01/16/17 01/16/17 12:44 15:27 15:45 Temperature 98.7 F 98.2 F 98.9 F Pulse Rate 86 84 86 Respiratory 18 18 18 Rate Blood Pressure 97/49 99/54 99/52 O2 Sat by Pulse 98 95 94 L Oximetry 01/16/17 15:52 Temperature 98.6 F Pulse Rate 84 Respiratory 16 Rate Blood Pressure 94/51 O2 Sat by Pulse 94 L Oximetry - Reevaluation(s) Reevaluation #1: 01/16/17 16:17 I did personally do a [id number] evaluation the patient did discuss the findings with her. Her abdomen currently soft and nontender no evidence of any GI bleeding. Patient does have 6.7 hemoglobin as well as hypomagnesemia hypokalemia. I did discuss the case with Dr. Brewer. Dr. Causey will be consulted. (Dimitris Bello) Medical Decision Making - Lab Data Result diagrams: 01/16/17 13:30 01/16/17 13:30 - Radiology Data Radiology results: report reviewed, image reviewed <Martha Danielson - Last Filed: 01/16/17 16:17> - Lab Data Result diagrams: 01/16/17 13:30 01/16/17 13:30 <AceDimitris - Last Filed: 01/16/17 16:18> - Medical Decision Making 81-year-old female presents for weakness. At this time patient's lab work is been reviewed. This time patient was found to be anemic. She does receive 2 units of blood at [facility] on Thursday she's back 6.7. This time we will transfuse the patient. We also replaced her potassium as well as her magnesium. At this time we will admit the patient for continued care. Her blood pressure has remained stable here in the emergency department. Patient continues have no complaints. Occult is negative. This time patient is in the beginning stages of her esophageal cancer workup. She does not know her stage. This time we will consult Dr. Hemphill for additional care on the floor. (Martha Danielson) - Lab Data Lab Results 01/16/17 01/16/17 01/16/17 Range/Units 13:30 13:30 13:30 WBC 13.5 H (3.8-10.6) k/uL RBC 2.50 L (3.80-5.40) m/uL Hgb 6.7 L* (11.4-16.0) gm/dL Hct 22.1 L (34.0-46.0) % MCV 88.3 (80.0-100.0) fL MCH 27.0 (25.0-35.0) pg MCHC 30.6 L (31.0-37.0) g/dL RDW 15.9 H (11.5-15.5) % Plt Count 266 (150-450) k/uL Neutrophils % 93 % Lymphocytes % 3 % Monocytes % 3 % Eosinophils % 0 % Basophils % 0 % Neutrophils # 12.5 H (1.3-7.7) k/uL Lymphocytes # 0.4 L (1.0-4.8) k/uL Monocytes # 0.5 (0-1.0) k/uL Eosinophils # 0.0 (0-0.7) k/uL Basophils # 0.0 (0-0.2) k/uL Hypochromasia Marked Poikilocytosis Moderate PT (9.0-12.0) sec INR (<1.2) APTT (22.0-30.0) sec Sodium 138 (137-145) mmol/L Potassium 2.7 L* (3.5-5.1) mmol/L Chloride 110 H (98-107) mmol/L Carbon Dioxide 19 L (22-30) mmol/L Anion Gap 9 mmol/L BUN 7 (7-17) mg/dL Creatinine 0.49 L (0.52-1.04) mg/dL Est GFR (MDRD) Af Amer >60 (>60 ml/min/1.73 sqM) Est GFR (MDRD) Non-Af >60 (>60 ml/min/1.73 sqM) Glucose 112 H (74-99) mg/dL Calcium 6.4 L* (8.4-10.2) mg/dL Magnesium (1.6-2.3) mg/dL Total Bilirubin 0.7 (0.2-1.3) mg/dL AST 19 (14-36) U/L ALT 17 (9-52) U/L Alkaline Phosphatase 56 (38-126) U/L Total Protein 4.7 L (6.3-8.2) g/dL Albumin 2.0 L (3.5-5.0) g/dL Urine Color Urine Appearance (Clear) Urine pH (5.0-8.0) Ur Specific [place] (1.001-1.035) Urine Protein (Negative) Urine Glucose (UA) (Negative) Urine Ketones (Negative) Urine Blood (Negative) Urine Nitrite (Negative) Urine Bilirubin (Negative) Urine Urobilinogen (<2.0) mg/dL Ur Leukocyte Esterase (Negative) Stool Occult Blood (Negative) Blood Type O Positive Blood Type Recheck No Antibody Screen NEGATIVE Crossmatch See Detail Spec Expiration Date 01/19/2017 - 232901/16/17 01/16/17 01/16/17 Range/Units 13:30 13:30 14:00 WBC (3.8-10.6) k/uL RBC (3.80-5.40) m/uL Hgb (11.4-16.0) gm/dL Hct (34.0-46.0) % MCV (80.0-100.0) fL MCH (25.0-35.0) pg MCHC (31.0-37.0) g/dL RDW (11.5-15.5) % Plt Count (150-450) k/uL Neutrophils % % Lymphocytes % % Monocytes % % Eosinophils % % Basophils % % Neutrophils # (1.3-7.7) k/uL Lymphocytes # (1.0-4.8) k/uL Monocytes # (0-1.0) k/uL Eosinophils # (0-0.7) k/uL Basophils # (0-0.2) k/uL Hypochromasia Poikilocytosis PT 13.5 H (9.0-12.0) sec INR 1.4 H (<1.2) APTT 27.5 (22.0-30.0) sec Sodium (137-145) mmol/L Potassium (3.5-5.1) mmol/L Chloride (98-107) mmol/L Carbon Dioxide (22-30) mmol/L Anion Gap mmol/L BUN (7-17) mg/dL Creatinine (0.52-1.04) mg/dL Est GFR (MDRD) Af Amer (>60 ml/min/1.73 sqM) Est GFR (MDRD) Non-Af (>60 ml/min/1.73 sqM) Glucose (74-99) mg/dL Calcium (8.4-10.2) mg/dL Magnesium 0.7 L* (1.6-2.3) mg/dL Total Bilirubin (0.2-1.3) mg/dL AST (14-36) U/L ALT (9-52) U/L Alkaline Phosphatase (38-126) U/L Total Protein (6.3-8.2) g/dL Albumin (3.5-5.0) g/dL Urine Color Urine Appearance (Clear) Urine pH (5.0-8.0) Ur Specific [place] (1.001-1.035) Urine Protein (Negative) Urine Glucose (UA) (Negative) Urine Ketones (Negative) Urine Blood (Negative) Urine Nitrite (Negative) Urine Bilirubin (Negative) Urine Urobilinogen (<2.0) mg/dL Ur Leukocyte Esterase (Negative) Stool Occult Blood Negative (Negative) Blood Type Blood Type Recheck Antibody Screen Crossmatch Spec Expiration Date 01/16/17 Range/Units 15:00 WBC (3.8-10.6) k/uL RBC (3.80-5.40) m/uL Hgb (11.4-16.0) gm/dL Hct (34.0-46.0) % MCV (80.0-100.0) fL MCH (25.0-35.0) pg MCHC (31.0-37.0) g/dL RDW (11.5-15.5) % Plt Count (150-450) k/uL Neutrophils % % Lymphocytes % % Monocytes % % Eosinophils % % Basophils % % Neutrophils # (1.3-7.7) k/uL Lymphocytes # (1.0-4.8) k/uL Monocytes # (0-1.0) k/uL Eosinophils # (0-0.7) k/uL Basophils # (0-0.2) k/uL Hypochromasia Poikilocytosis PT (9.0-12.0) sec INR (<1.2) APTT (22.0-30.0) sec Sodium (137-145) mmol/L Potassium (3.5-5.1) mmol/L Chloride (98-107) mmol/L Carbon Dioxide (22-30) mmol/L Anion Gap mmol/L BUN (7-17) mg/dL Creatinine (0.52-1.04) mg/dL Est GFR (MDRD) Af Amer (>60 ml/min/1.73 sqM) Est GFR (MDRD) Non-Af (>60 ml/min/1.73 sqM) Glucose (74-99) mg/dL Calcium (8.4-10.2) mg/dL Magnesium (1.6-2.3) mg/dL Total Bilirubin (0.2-1.3) mg/dL AST (14-36) U/L ALT (9-52) U/L Alkaline Phosphatase (38-126) U/L Total Protein (6.3-8.2) g/dL Albumin (3.5-5.0) g/dL Urine Color Yellow Urine Appearance Clear (Clear) Urine pH 7.0 (5.0-8.0) Ur Specific [place] 1.005 (1.001-1.035) Urine Protein Negative (Negative) Urine Glucose (UA) Negative (Negative) Urine Ketones Negative (Negative) Urine Blood Negative (Negative) Urine Nitrite Negative (Negative) Urine Bilirubin Negative (Negative) Urine Urobilinogen <2.0 (<2.0) mg/dL Ur Leukocyte Esterase Negative (Negative) Stool Occult Blood (Negative) Blood Type Blood Type Recheck Antibody Screen Crossmatch Spec Expiration Date Disposition Decision Date: 01/16/17 Decision Time: 15:37 <Martha Danielson - Last Filed: 01/16/17 16:17> <Dimitris Bello - Last Filed: 01/16/17 16:18> Clinical Impression: Anemia, Weakness, Hypokalemia, Esophageal cancer, Hypomagnesemia Disposition: ADMITTED IP TO THIS [facility] Condition: Stable Referrals: Gregg Laboy MD [Primary Care Provider] - 1-2 days
[2017-01-16 13:51] LABS: Basophils % (A) 0 %; CH 26.7; CHCM 30.4; Eosinophils % (A) 0 %; HCT 22.1 % (34.0-46.0); HDW 4.23; Hypochromasia Marked; Luc % (Auto) 1; Lymphocytes # (A) 0.4 k/uL (1.0-4.8); Lymphocytes % (A) 3 %; MCHC 30.6 g/dL (31.0-37.0); MCV 88.3 fL (80.0-100.0); Mean Platelet Volume 8.9; Monocytes # (A) 0.5 k/uL (0-1.0); Monocytes % (A) 3 %; Neutrophils # (A) 12.5 k/uL (1.3-7.7); Neutrophils % (A) 93 %; Poikilocytosis Moderate; RDW 15.9 % (11.5-15.5); WBC 13.5 k/uL (3.8-10.6); WBC (Perox) 13.82
[2017-01-16 13:55] LABS: HGB 6.7 gm/dL (11.4-16.0)
[2017-01-16 14:05] LABS: INR 1.4 (<1.2); Partial Thromboplastin Time 27.5 sec (22.0-30.0); Prothrombin Time 13.5 sec (9.0-12.0)
[2017-01-16 14:09] LABS: ALT 17 U/L (9-52); AST 19 U/L (14-36); Alkaline Phosphatase 56 U/L (38-126); Anion Gap 9 mmol/L; Blood Urea Nitrogen 7 mg/dL (7-17); Carbon Dioxide 19 mmol/L (22-30); Chloride 110 mmol/L (98-107); Glucose 112 mg/dL (74-99); Non-African American GFR(MDRD) >60 (>60 ml/min/1.73 sqM); Sodium 138 mmol/L (137-145); Total Bilirubin 0.7 mg/dL (0.2-1.3); Total Protein 4.7 g/dL (6.3-8.2)
[2017-01-16 14:21] LABS: Potassium 2.7 mmol/L (3.5-5.1)
[2017-01-16 14:22] LABS: Calcium 6.4 mg/dL (8.4-10.2)
--- NOTE | 2017-01-16 14:22 | XR ---
EXAMINATION TYPE: XR chest 2V DATE OF EXAM: 01/16/2017 COMPARISON: 09/06/16 HISTORY: Shortness of breath TECHNIQUE: Frontal and lateral views of the chest are obtained. FINDINGS: Scattered senescent parenchymal changes noted. Hyperinflation compatible with COPD. No evidence for infiltrate. No evidence for atelectasis. Heart size is stable. Mediastinal structures are stable and grossly unremarkable. No evidence for hilar prominence. Degenerative changes dorsal spine. IMPRESSION: 1. No evidence for acute pulmonary disease.
[2017-01-16] MEDS ORDERED: MAGNESIUM SULFATE-D5W PMX 1 GM in DEXTROSE/WATER 1 100ML.BAG IVPB ONE ×2 (15:00→15:11)
[2017-01-16] MEDS: POTASSIUM CHLORIDE 10 MEQ, LIDOCAINE 2% INJ 10 MG in SODIUM CHLORIDE 0.9% 100 ML IVPB SCH ×2 (15:12→16:17)
[2017-01-16 15:22] LABS: Appearance,Urine Clear (Clear); Bilirubin,Urine Negative (Negative); Glucose,Urine (UA) Negative (Negative); Ketones,Urine Negative (Negative); Leukocyte Esterase,Urine Negative (Negative); Nitrite,Urine Negative (Negative); Protein,Urine Negative (Negative); Specific Gravity,Urine 1.005 (1.001-1.035); UA Billing (MACRO vs. MICRO) CHEM; Urobilinogen,Urine <2.0 mg/dL (<2.0)
[2017-01-16] MEDS ORDERED: NALOXONE 0.4 MG/ML 1 ML VIAL IV PRN (15:37)
[2017-01-16] MEDS ORDERED: ONDANSETRON 4 MG/2 ML VIAL IVP PRN (15:37)
[2017-01-16] MEDS: METOCLOPRAMIDE 5 MG TAB PO SCH (18:19)
[2017-01-16] MEDS: SODIUM CHLORIDE 0.9% 1,000 ML IV SCH (18:19)
[2017-01-16] MEDS ORDERED: NON-FORMULARY DRUG (Sitagliptin Phos/Metformin Hcl [Janumet 50-500 Mg Tablet] 1 TAB) PO SCH (21:00)
[2017-01-16] MEDS ORDERED: POTASSIUM CHLORIDE ORAL LIQUID 40 MEQ/30 ML CUP PO SCH (21:00)
[2017-01-16] MEDS ORDERED: CHOLECALCIFEROL 1,000 UNIT TAB PO SCH (21:00)
[2017-01-16] MEDS ORDERED: ASPIRIN 81 MG PO SCH (21:00)
[2017-01-16 21:05] LABS: Glucose,Whole Blood 191 mg/dL (75-99)
[2017-01-16] MEDS: MAGNESIUM OXIDE 400 MG TAB PO SCH (21:24)
[2017-01-16] MEDS: metFORMIN 500 MG TAB PO SCH (21:24)
[2017-01-16] MEDS: METOPROLOL TARTRATE 50 MG TAB PO SCH (21:24)
[2017-01-16] MEDS: MIRTAZAPINE 15 MG TAB PO SCH (21:25)
[2017-01-16] MEDS: MULTIVITAMINS, THERA 1 EACH TAB PO SCH (21:25)
[2017-01-17 06:12] LABS: Glucose,Whole Blood 102 mg/dL (75-99)
[2017-01-17 06:34] LABS: Anisocytosis Slight; Basophils % (A) 0 %; CH 29.2; Eosinophils # (A) 0.1 k/uL (0-0.7); Eosinophils % (A) 1 %; HCT 35.4 % (34.0-46.0); HDW 4.12; Hypochromasia Moderate; Luc # (Auto) 0.14; Luc % (Auto) 1; Lymphocytes % (A) 9 %; MCH 27.7 pg (25.0-35.0); MCHC 31.3 g/dL (31.0-37.0); MCV 88.8 fL (80.0-100.0); Mean Platelet Volume 8.6; Monocytes # (A) 0.7 k/uL (0-1.0); Monocytes % (A) 6 %; Neutrophils # (A) 9.4 k/uL (1.3-7.7); Neutrophils % (A) 83 %; Poikilocytosis Moderate; RBC 3.99 m/uL (3.80-5.40); RDW 16.3 % (11.5-15.5); WBC 11.3 k/uL (3.8-10.6); WBC (Perox) 11.79
[2017-01-17 06:45] LABS: HGB 11.1 gm/dL (11.4-16.0)
[2017-01-17] MEDS: SODIUM CHLORIDE 0.9% 1,000 ML IV SCH ×2 (06:45→12:17)
[2017-01-17] MEDS: METOCLOPRAMIDE 5 MG TAB PO SCH ×3 (06:46→16:58)
[2017-01-17 06:59] LABS: ALT 21 U/L (9-52); AST 21 U/L (14-36); Alkaline Phosphatase 82 U/L (38-126); Anion Gap 6 mmol/L; Blood Urea Nitrogen 10 mg/dL (7-17); Calcium 9.1 mg/dL (8.4-10.2); Carbon Dioxide 27 mmol/L (22-30); Chloride 100 mmol/L (98-107); Glucose 93 mg/dL (74-99); Magnesium 1.8 mg/dL (1.6-2.3); Non-African American GFR(MDRD) >60 (>60 ml/min/1.73 sqM); Potassium 4.5 mmol/L (3.5-5.1); Sodium 133 mmol/L (137-145); Total Protein 5.3 g/dL (6.3-8.2)
[2017-01-17] MEDS ORDERED: PANTOPRAZOLE 40 MG TABLET PO SCH (07:30)
[2017-01-17] MEDS: MAGNESIUM OXIDE 400 MG TAB PO SCH (08:31)
[2017-01-17] MEDS: METOPROLOL TARTRATE 50 MG TAB PO SCH ×2 (08:31→21:07)
[2017-01-17] MEDS: ATORVASTATIN 40 MG TAB PO SCH (08:31)
[2017-01-17] MEDS: LOSARTAN 25 MG TAB PO SCH (08:31)
[2017-01-17] MEDS: metFORMIN 500 MG TAB PO SCH (08:32)
[2017-01-17] MEDS: LINAGLIPTIN 5 MG TABLET PO SCH (08:32)
[2017-01-17] MEDS ORDERED: CLOPIDOGREL 75 MG TAB PO SCH (09:00)
[2017-01-17 11:29] LABS: Glucose,Whole Blood 121 mg/dL (75-99)
[2017-01-17 16:42] LABS: Glucose,Whole Blood 88 mg/dL (75-99)
--- NOTE | 2017-01-17 16:47 | P.HPIM ---
History of Present Illness H&P Date: 01/17/17 Chief Complaint: esophageal cancer with severe sympathetic anemia. This ia an 81-year-old white female one of Dr. Laboy who was having heartburn- like chest pain over weeks time associated with nausea and vomiting. She was taken the [facility], EKG was performed revealing non-ST elevation myocardial infarction. She was transferred to [facility] for cardiac catheterization. Dr. Ravi performed a right and left coronary angiogram revealing an extremely calcified right and left coronary system, mild disease involving the mid right coronary artery, severe disease involving the distal left main coronary artery and involving the ostial left circumflex and ostial LAD, severe disease involving the ostial and proximal left circumflex coronary artery, and severe disease involving the ostial LAD. Dr. Kelsey from cardiothoracic surgery was consulted at that time and patient underwent a coronary artery bypass graft with RAO to LAD reverse saphenous venous graft to the PDA and reverse evidences graft to the marginal branch, patient went to [facility] for physical therapy rehabitation after that she developed to have a significant episodes of dysphagia associated with increased regurgitation and nausea and vomiting eventually she ended up going for an EGD that was done initially by Dr. Babb that was not completed due to the fact that the patient has so many food materials subsequently she underwent EGD by Dr. Jenkins who could not pass the scope and she was found to have an esophageal mass suggestive of esophageal cancer patient was seen as an outpatient by hematology oncology and the patient underwent blood transfusion and the IV fluid resuscitation in the office, yesterday the patient felt extremely weak and she could not eat or drink anything associated with nausea and vomiting I received a call from her oncologist stating that the patient to be admitted to hospital for blood transfusion and IV fluid resuscitation and the patient subsequently was admitted to the floor and she was taken off most of her medication and she was given 2 units of packed red blood cells as well as IV fluid and she was given magnesium sulfate for placement she will be seen in consultation by hematology oncology and had a long conversation with the patient and her family and at this point they did not want to pursue any treatment plan as the patient is not a candidate for any invasive procedure however there are interested in possible esophageal stenting if it's possible since the patient is not going to be able to tolerate chemoradiation therapy along with surgical intervention. Review of Systems Constitutional: Reports malaise, Reports weakness, Reports weight loss, Denies anorexia, Denies chronic headaches, Denies chronic pain, Denies lethargy Eyes: denies blurred vision, denies bulging eye, denies decreased vision, denies diplopia Ears: bilateral: decreased hearing Ears, nose, mouth and throat: Reports dysphagia, Denies neck lump, Denies sore throat, Denies vertigo Cardiovascular: Denies chest pain, Denies decreased exercise tolerance, Denies dyspnea on exertion, Denies phlebitis, Denies rapid heart beat, Denies shortness of breath, Denies syncope Respiratory: Reports cough, Reports cough with sputum, Denies congestion, Denies home oxygen, Denies sleep apnea, Denies snoring, Denies wheezing Gastrointestinal: Reports loss of appetite, Reports nausea, Reports vomiting, Denies abdominal pain, Denies belching, Denies excessive gas, Denies heartburn, Denies hematemesis, Denies melena Genitourinary: Denies dysuria, Denies hematuria Musculoskeletal: Reports atrophy, Reports gait dysfunction, Denies myalgias Musculoskeletal: absent: ankle pain, ankle stiffness, ankle swelling, elbow pain , elbow stiffness, elbow swelling, foot pain, foot stiffness, foot swelling, hand pain, hand stiffness, hand swelling, hip pain, hip stiffness, hip swelling , knee pain, knee stiffness, knee swelling, shoulder pain, shoulder stiffness, shoulder swelling, wrist pain, wrist stiffness, wrist swelling Integumentary: Denies pruritus, Denies rash Neurological: Denies numbness, Denies weakness Psychiatric: Denies anxiety, Denies depression Endocrine: Denies fatigue, Denies weight change Past Medical History Past Medical History: Coronary Artery Disease (CAD), Cancer, Diabetes Mellitus, GERD/Reflux, Hyperlipidemia, Hypertension, Osteoarthritis (OA), Thyroid Disorder Additional Past Medical History / Comment(s): Coronary artery disease, diabetes mellitus, hypertension, hyperlipidemia, acid reflux, osteoarthritis, skin cancer , hyperthyroidism, breast cancer, rotator cuff surgery on the right, nephrolithiasis, throat cancer-diagnosed 2 weeks ago History of Any Multi-Drug Resistant Organisms: None Reported Past Surgical History: Breast Surgery, Cholecystectomy, Coronary Bypass/CABG ( RAO to LAD, reverse saphenous venous graft to the PDA, reverse saphenous venous graft to the obtuse marginal branch), Heart Catheterization Additional Past Surgical History / Comment(s): skin cancer removed from nose, rt breast lumpectomy, brandon cataracts Past Anesthesia/Blood Transfusion Reactions: Motion Sickness Past Psychological History: No Psychological Hx Reported Smoking Status: Former smoker Past Alcohol Use History: None Reported Additional Past Alcohol Use History / Comment(s): quit smoking 45 yrs ago, smoked for 5 yrs, Past Drug Use History: None Reported - Past Family History Sister(s) Family Medical History: Cancer (her sister at age of 55 from lung cancer with metastatic disease to the pancreas.) Brother(s) Family Medical History: Cancer (patient had 2 brothers one of them from acute myelogenous leukemia.) Mother Family Medical History: Congestive Heart Failure (CHF) (mother at age of 87 from CVA and congestive heart failure.), CVA/TIA Father Family Medical History: Blood Disorder, Diabetes Mellitus (father at age of the 63 from diabetes also had polycythemia vera.) Daughter(s) Family Medical History: No Reported History (patient has 2 daughters no major medical problems) Son(s) Family Medical History: No Reported History (patient has one son no major medical problems.) Medications and Allergies Home Medications Medication Instructions Recorded Confirmed Type Aspirin [Adult Low Dose Aspirin EC] 81 mg PO HS 08/15/16 01/16/17 History Cholecalciferol [Vitamin D3] 2,000 unit PO HS 08/15/16 01/16/17 History Multivitamins, Thera [Multivitamin 1 tab PO HS 08/15/16 01/16/17 History (formulary)] sitaGLIPtin PHOS/metFORMIN HCL 1 tab PO BID 08/15/16 01/16/17 History [Janumet 50-500 mg Tablet] Atorvastatin [Lipitor] 40 mg PO DAILY tab 09/09/16 01/16/17 Rx Clopidogrel [Plavix] 75 mg PO DAILY tab 09/09/16 01/16/17 Rx Metoprolol Tartrate [Lopressor] 50 mg PO BID tab 09/09/16 01/16/17 Rx Pantoprazole [Protonix] 40 mg PO AC-BRKFST tab 09/09/16 01/16/17 Rx Losartan [Cozaar] 25 mg PO DAILY 01/16/17 01/16/17 History Magnesium Chloride [Slow Mag] 64 mg PO BID 01/16/17 01/16/17 History Metoclopramide [Reglan] 5 mg PO AC-TID 01/16/17 01/16/17 History Mirtazapine [Remeron] 30 mg PO HS 01/16/17 01/16/17 History Potassium Chloride Oral Liquid 20 meq PO HS 01/16/17 01/16/17 History Allergies Allergy/AdvReac Type Severity Reaction Status Date / Time No Known Allergies Allergy Verified 01/16/17 13:08 Physical Exam Vitals: Vital Signs Temp Pulse Pulse Resp BP BP Pulse Ox 01/17/17 11:20 97.2 F L 67 18 107/58 96 01/17/17 08:32 97 F L 80 18 105/59 96 01/17/17 04:20 97.0 F L 75 18 116/64 97 01/17/17 04:00 72 18 01/17/17 00:00 97.8 F 67 18 117/65 97 01/16/17 21:17 98.1 F 72 18 103/59 95 01/16/17 20:00 98.1 F 72 18 103/59 95 01/16/17 18:54 97.8 F 72 18 104/56 97 01/16/17 18:24 98.3 F 72 18 97/58 98 01/16/17 18:14 97.8 F 72 18 102/58 98 01/16/17 16:56 98.5 F 80 16 108/62 95 01/16/17 16:28 98.1 F 69 16 97/51 95 01/16/17 16:22 98.7 F 84 18 94/51 01/16/17 15:58 98.5 F 84 16 99/52 95 01/16/17 15:52 98.6 F 84 16 94/51 94 L 01/16/17 15:48 98.3 F 84 16 94/51 95 01/16/17 15:45 98.9 F 86 18 99/52 94 L 01/16/17 15:27 98.2 F 84 18 99/54 95 01/16/17 12:44 98.7 F 86 18 97/49 98 Intake and Output 01/16/17 01/17/17 01/17/17 22:59 06:59 14:59 Intake Total 620 500 Output Total 500 Balance 620 -500 500 Intake: Intake, IV Titration 100 Amount Sodium Chloride 0.9% 1, 100 000 ml @ 100 mls/hr IV . Q10H KALIN Rx#:[id number] Oral 400 Blood Product 620 Rc As-1 Unit 310 [id number] Rc As-1 Unit 310 [id number] Output: Urine 500 Other: # Voids 1 Weight 52.163 kg 52.9 kg 52.9 kg Patient Weight 01/18/17 06:59 Weight 52.9 kg - Constitutional General appearance: mild distress, thin - EENT Eyes: anicteric sclerae, EOMI, PERRLA, no ptosis, no scleral icterus, normal appearance ENT: hard of hearing, NA/AT, pharyngeal erythema Ears: bilateral: normal - Neck Neck: no lymphadenopathy, normal ROM, no rigidity, no stridor, no thyromegaly Carotids: bilateral: upstroke delayed Thyroid: bilateral: normal size - Respiratory Respiratory: bilateral: diminished, rhonchi, negative: dullness, rales, wheezing , prolonged expiration, prolonged inspiration - Cardiovascular Rhythm: regular Heart sounds: normal: S1, S2 Abnormal Heart Sounds: systolic murmur, no S3 Gallop, no S4 Gallop - Gastrointestinal General gastrointestinal: normal bowel sounds, soft, no splenomegaly, no tenderness, no umbilical hernia, no ventral hernia - Integumentary Integumentary: decreased turgor, no jaundiced, no normal - Neurologic Neurologic: CNII-XII intact - Musculoskeletal Musculoskeletal: generalized weakness, strength equal bilaterally - Psychiatric Psychiatric: A&O x's 3, appropriate affect, intact judgment & insight Results CBC & Chem 7: 01/17/17 05:26 01/17/17 05:26 Labs: Abnormal Lab Results - Last 24 Hours (Table) 01/16/17 01/16/17 01/16/17 Range/Units 13:30 13:30 13:30 WBC 13.5 H (3.8-10.6) k/uL RBC 2.50 L (3.80-5.40) m/uL Hgb 6.7 L* (11.4-16.0) gm/dL Hct 22.1 L (34.0-46.0) % MCHC 30.6 L (31.0-37.0) g/dL RDW 15.9 H (11.5-15.5) % Neutrophils # 12.5 H (1.3-7.7) k/uL Lymphocytes # 0.4 L (1.0-4.8) k/uL PT (9.0-12.0) sec INR (<1.2) Sodium (137-145) mmol/L Potassium 2.7 L* (3.5-5.1) mmol/L Chloride 110 H (98-107) mmol/L Carbon Dioxide 19 L (22-30) mmol/L Creatinine 0.49 L (0.52-1.04) mg/dL Glucose 112 H (74-99) mg/dL POC Glucose (mg/dL) (75-99) mg/dL Calcium 6.4 L* (8.4-10.2) mg/dL Magnesium (1.6-2.3) mg/dL Total Bilirubin (0.2-1.3) mg/dL Total Protein 4.7 L (6.3-8.2) g/dL Albumin 2.0 L (3.5-5.0) g/dL Crossmatch See Detail 01/16/17 01/16/17 01/16/17 Range/Units 13:30 13:30 20:53 WBC (3.8-10.6) k/uL RBC (3.80-5.40) m/uL Hgb (11.4-16.0) gm/dL Hct (34.0-46.0) % MCHC (31.0-37.0) g/dL RDW (11.5-15.5) % Neutrophils # (1.3-7.7) k/uL Lymphocytes # (1.0-4.8) k/uL PT 13.5 H (9.0-12.0) sec INR 1.4 H (<1.2) Sodium (137-145) mmol/L Potassium (3.5-5.1) mmol/L Chloride (98-107) mmol/L Carbon Dioxide (22-30) mmol/L Creatinine (0.52-1.04) mg/dL Glucose (74-99) mg/dL POC Glucose (mg/dL) 191 H (75-99) mg/dL Calcium (8.4-10.2) mg/dL Magnesium 0.7 L* (1.6-2.3) mg/dL Total Bilirubin (0.2-1.3) mg/dL Total Protein (6.3-8.2) g/dL Albumin (3.5-5.0) g/dL Crossmatch 01/17/17 01/17/17 01/17/17 Range/Units 05:26 05:26 06:11 WBC 11.3 H (3.8-10.6) k/uL RBC (3.80-5.40) m/uL Hgb 11.1 L D (11.4-16.0) gm/dL Hct (34.0-46.0) % MCHC (31.0-37.0) g/dL RDW 16.3 H (11.5-15.5) % Neutrophils # 9.4 H (1.3-7.7) k/uL Lymphocytes # (1.0-4.8) k/uL PT (9.0-12.0) sec INR (<1.2) Sodium 133 L (137-145) mmol/L Potassium (3.5-5.1) mmol/L Chloride (98-107) mmol/L Carbon Dioxide (22-30) mmol/L Creatinine (0.52-1.04) mg/dL Glucose (74-99) mg/dL POC Glucose (mg/dL) 102 H (75-99) mg/dL Calcium (8.4-10.2) mg/dL Magnesium (1.6-2.3) mg/dL Total Bilirubin 2.0 H (0.2-1.3) mg/dL Total Protein 5.3 L (6.3-8.2) g/dL Albumin 2.4 L (3.5-5.0) g/dL Crossmatch 01/17/17 Range/Units 11:28 WBC (3.8-10.6) k/uL RBC (3.80-5.40) m/uL Hgb (11.4-16.0) gm/dL Hct (34.0-46.0) % MCHC (31.0-37.0) g/dL RDW (11.5-15.5) % Neutrophils # (1.3-7.7) k/uL Lymphocytes # (1.0-4.8) k/uL PT (9.0-12.0) sec INR (<1.2) Sodium (137-145) mmol/L Potassium (3.5-5.1) mmol/L Chloride (98-107) mmol/L Carbon Dioxide (22-30) mmol/L Creatinine (0.52-1.04) mg/dL Glucose (74-99) mg/dL POC Glucose (mg/dL) 121 H (75-99) mg/dL Calcium (8.4-10.2) mg/dL Magnesium (1.6-2.3) mg/dL Total Bilirubin (0.2-1.3) mg/dL Total Protein (6.3-8.2) g/dL Albumin (3.5-5.0) g/dL Crossmatch Thrombosis Risk Factor Assmnt - DVT/VTE Prophylaxis DVT/VTE Prophylaxis: Pharmacologic Prophylaxis ordered, Mechanical Prophylaxis ordered - Choose All That Apply Each Factor Represents 1 point: Obesity (BMI >25) Each Risk Factor Represents 3 Points: Age 75 years or older Thrombosis Risk Factor Assessment Total Risk Factor Score: 4 Thrombosis Risk Factor Assessment Level: Moderate Risk Assessment and Plan Plan: Assessment and plan: 1. Newly diagnosed esophageal cancer status post EGD with biopsy as well as a PET scan. Continue patient on conservative management for now, consultation hematology and culture, discontinue IV fluid patient is post 2 units of packed red blood cell transfusion as well as IV fluid resuscitation, continue clear liquid diet only, discontinue aspirin, Plavix, metformin, discontinue vitamin D , magnesium, and the switch on the medicine to IV. I had a long conversation with the family and they are not interested in invasive procedures such as chemoradiation and surgical intervention as the patient cannot be able to survive huge procedure like that, however they're interested in possible esophageal stenting. 2. CAD post CABG 3 back in August 2016. Continue patient on metoprolol 50 mg orally twice every day, 2 patient on Lipitor 40 mg orally once every day, discontinue aspirin and Plavix. 3. Hypertension and hypertensive cardiovascular disease. Continue metoprolol 50 mg orally twice every day, losartan 25 mg orally once every day. 4. Hyperlipemia. Continue Lipitor 40 mg orally once every day. 5. Diabetes mellitus type 2. Discontinue metformin, continue patient on sliding scale insulin along with Tradjenta 5 mg orally once every day. 6. Acute syptomatic anemia due to her malignancy. Status post 2 units of packed red blood cell transfusion. 7. Hypomagnesemia. Status post replacement. 8. Depressive disorder. Continue Remeron 30 mg orally bedtime. 9. GI prophylaxis. Continue Protonix 40 mg IV push every 24 hours. 10. DVT prophylaxis. Heparin 5000 units subcutaneously every 8 hours along with knee-high IRWIN hose. 11. Admitted to inpatient. Estimate length of stay 2 midnights. 12. CODE STATUS was not discussed.
[2017-01-17 20:59] LABS: Glucose,Whole Blood 179 mg/dL (75-99)
--- NOTE | 2017-01-17 21:01 | CONS ---
CONSULTATION DATE OF CONSULTATION: January 17, 2017. REASON FOR CONSULTATION: Esophageal cancer. CHIEF COMPLAINT: Dysphagia. REASON FOR ADMISSION: Weakness and severe anemia. 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 The patient presented with progressive dysphagia initially started in August of this year. However, it was very mild, but shortly after it started, she had significant coronary artery disease and she required cardiac bypass surgery and then went to extended care facility for rehabilitation, but her dysphagia got progressively worse and she has lost weight since then. The patient had dysphagia was initially for solids and then subsequently progressed to even liquids. The patient was evaluated by Dr. Natalie Bettencourt on 12/22/2016. She underwent upper endoscopy and there was a tight stricture in the distal esophagus about 40 cm from the incisor. Upon attempting to dilate this, deep ulcer was found that started to ooze. 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 The patient was evaluated by Dr. Causey in the office on 01/13/2017 and she did have hydration on 2 occasions, one on 01/14/2017 and one on 01/15/2017 and she was set up to have a staging PET scan which was done yesterday. However, the patient came into the emergency department yesterday afternoon with progressive weakness and tiredness and she was found to be severely anemic. She ended up being admitted to the hospital and received transfusion with packed red blood cells. She feels much better this morning. Overall she feels tired. She stated she has significant dysphagia. She has lost weight about 15 pounds over the last 2 or 3 months. She denies any melena. She denies hematuria, hemoptysis, hematemesis or epistaxis. She is overall feeling weak, but she has been relatively independent and able to ambulate fairly well. PAST MEDICAL HISTORY: Is significant for coronary artery disease and recent cardiac bypass surgery. She has a history of right breast cancer in the past. She had the right breast lumpectomy. She has a history of diabetes, hypertension, gastroesophageal reflux disease, and arthritis. PAST SURGICAL HISTORY: She had also cholecystectomy in the past. REVIEW OF SYSTEMS: Review of systems as stated above in history of present illness. Otherwise negative. ALLERGIES: There is no known drug allergies. HOME MEDICATIONS: Includes: 1. Lipitor 40 mg a day. 2. Aspirin 81 mg daily. 3. Lasix 40 mg daily. 4. Janumet XR 50/500 mg daily. 5. Lopressor 50 mg twice a day. 6. Losartan 25 mg daily. 7. 5 mg daily. 8. Plavix 75 mg daily. 9. Vitamin D3 2000 international units daily. FAMILY HISTORY: She has a brother with leukemia. She has a sister who had lung cancer. One daughter with breast cancer. SOCIAL HISTORY: She used to smoke, no alcohol abuse or substance abuse. PHYSICAL EXAMINATION: She is alert and oriented x3. She does not appear to be in acute distress. She is well developed, well nourished. Her vital signs are temperature 98.7, afebrile, pulse 69 and regular, respiration 18, blood pressure 118/56. HEENT: Normocephalic, atraumatic. No obvious icterus. NECK: Supple. Chest equal expansion bilaterally. LUNGS: Clear to auscultation and percussion. Heart is regular rate and rhythm. ABDOMEN: Soft. No tenderness or organomegaly or mass. Bowel sounds present. Extremities revealed no edema. Skin no significant musculoskeletal defects. Lymphatics: No peripheral, cervical, supraclavicular lymph node. LABORATORY DATA: Hemoglobin today is 11.1, it was down to 6.7 yesterday. WBC are 11.3, hematocrit is 35.4, platelets 305. Sodium 133, potassium 4.5, chloride 100, CO2 is 27, BUN is 10, creatinine 0.60. IMPRESSION: 1. Recent diagnosis of adenocarcinoma of the distal esophagus. 2. Anemia likely secondary to above probably with chronic blood loss from it. 3. Severe dysphagia. 4. Multiple other comorbidities. RECOMMENDATION: 1. We will review the staging PET scan, which was done yesterday. 2. Agree with supportive transfusion, her hemoglobin has improved already. 3. Agree with holding antiplatelet therapy at this point in time given her significant risk of recurrent bleed. 4. Based on the PET scan, further therapeutic decision will be made. She may require at least palliative radiation therapy in order to relieve her dysphagia and recurrent blood loss. 5. The above was discussed with the patient and I have answered all her questions to her satisfaction. Thank you very much for asking me to participate in the care of this nice lady. MMODL / IJN: [id number] /
[2017-01-17] MEDS: MIRTAZAPINE 15 MG TAB PO SCH (21:07)
[2017-01-17] MEDS: MULTIVITAMINS, THERA 1 EACH TAB PO SCH (21:07)
[2017-01-18] MEDS: HEPARIN SODIUM,PORCINE 5,000 UNIT/ML 1 ML VIAL SQ SCH ×4 (00:15→23:05)
[2017-01-18 06:07] LABS: Anisocytosis Slight; Basophils % (A) 0 %; CH 28.9; CHCM 32.8; Eosinophils # (A) 0.1 k/uL (0-0.7); Eosinophils % (A) 1 %; HCT 38.8 % (34.0-46.0); HDW 4.03; HGB 12.2 gm/dL (11.4-16.0); Hypochromasia Moderate; Luc # (Auto) 0.15; Luc % (Auto) 1; Lymphocytes % (A) 10 %; MCH 27.8 pg (25.0-35.0); MCHC 31.4 g/dL (31.0-37.0); MCV 88.3 fL (80.0-100.0); Mean Platelet Volume 8.4; Monocytes # (A) 0.9 k/uL (0-1.0); Monocytes % (A) 8 %; Neutrophils # (A) 8.1 k/uL (1.3-7.7); Neutrophils % (A) 79 %; Poikilocytosis Moderate; RDW 16.2 % (11.5-15.5); WBC 10.3 k/uL (3.8-10.6); WBC (Perox) 10.51
[2017-01-18 06:09] LABS: Glucose,Whole Blood 99 mg/dL (75-99)
[2017-01-18 06:23] LABS: ALT 25 U/L (9-52); AST 22 U/L (14-36); Alkaline Phosphatase 90 U/L (38-126); Anion Gap 5 mmol/L; Blood Urea Nitrogen 6 mg/dL (7-17); Calcium 9.3 mg/dL (8.4-10.2); Carbon Dioxide 25 mmol/L (22-30); Chloride 103 mmol/L (98-107); Glucose 105 mg/dL (74-99); Magnesium 1.5 mg/dL (1.6-2.3); Non-African American GFR(MDRD) >60 (>60 ml/min/1.73 sqM); Potassium 4.1 mmol/L (3.5-5.1); Sodium 133 mmol/L (137-145); Total Bilirubin 1.2 mg/dL (0.2-1.3); Total Protein 5.5 g/dL (6.3-8.2)
[2017-01-18] MEDS: METOCLOPRAMIDE 5 MG TAB PO SCH ×3 (06:32→16:56)
[2017-01-18] MEDS: PANTOPRAZOLE 40 MG/10 ML VIAL IVP SCH (08:43)
[2017-01-18] MEDS: ATORVASTATIN 40 MG TAB PO SCH (08:43)
[2017-01-18] MEDS: LINAGLIPTIN 5 MG TABLET PO SCH (08:44)
[2017-01-18] MEDS: LOSARTAN 25 MG TAB PO SCH (08:44)
[2017-01-18] MEDS: METOPROLOL TARTRATE 50 MG TAB PO SCH ×2 (08:44→19:48)
[2017-01-18] MEDS ORDERED: MAGNESIUM SULFATE-D5W PMX 1 GM in DEXTROSE/WATER 1 100ML.BAG IVPB ONE (10:00)
[2017-01-18 11:21] LABS: Glucose,Whole Blood 228 mg/dL (75-99)
[2017-01-18] MEDS: INSULIN LISPRO (humaLOG) 300 UNIT/3 ML VIAL SQ SCH ×3 (11:59→21:11)
[2017-01-18 14:24] LABS: Hemoglobin A1C 5.9 % (4.2-6.1)
[2017-01-18 16:44] LABS: Glucose,Whole Blood 121 mg/dL (75-99)
--- NOTE | 2017-01-18 17:31 | P.PN ---
Subjective Progress Note Date: 01/18/17 This ia an 81-year-old white female one of Dr. Laboy who was having heartburn- like chest pain over weeks time associated with nausea and vomiting. She was taken the [facility], EKG was performed revealing non-ST elevation myocardial infarction. She was transferred to [facility] for cardiac catheterization. Dr. Ravi performed a right and left coronary angiogram revealing an extremely calcified right and left coronary system, mild disease involving the mid right coronary artery, severe disease involving the distal left main coronary artery and involving the ostial left circumflex and ostial LAD, severe disease involving the ostial and proximal left circumflex coronary artery, and severe disease involving the ostial LAD. Dr. Kelsey from cardiothoracic surgery was consulted at that time and patient underwent a coronary artery bypass graft with RAO to LAD reverse saphenous venous graft to the PDA and reverse evidences graft to the marginal branch, patient went to [facility] for physical therapy rehabitation after that she developed to have a significant episodes of dysphagia associated with increased regurgitation and nausea and vomiting eventually she ended up going for an EGD that was done initially by Dr. Babb that was not completed due to the fact that the patient has so many food materials subsequently she underwent EGD by Dr. Jenkins who could not pass the scope and she was found to have an esophageal mass suggestive of esophageal cancer patient was seen as an outpatient by hematology oncology and the patient underwent blood transfusion and the IV fluid resuscitation in the office, yesterday the patient felt extremely weak and she could not eat or drink anything associated with nausea and vomiting I received a call from her oncologist stating that the patient to be admitted to hospital for blood transfusion and IV fluid resuscitation and the patient subsequently was admitted to the floor and she was taken off most of her medication and she was given 2 units of packed red blood cells as well as IV fluid and she was given magnesium sulfate for placement she will be seen in consultation by hematology oncology and had a long conversation with the patient and her family and at this point they did not want to pursue any treatment plan as the patient is not a candidate for any invasive procedure however there are interested in possible esophageal stenting if it's possible since the patient is not going to be able to tolerate chemoradiation therapy along with surgical intervention. 01/18: patient is feeling much better, will continue to feel generally weak, there is significant dysphagia was seen by Hem-Onc yesterday and we will plan to get the result of the PET-sacn and have a plan for possible esophageal stenting. Objective - Vital Signs Vital signs: Vital Signs Temp 97.0 F L 01/18/17 04:00 Pulse 82 01/18/17 04:00 Resp 18 01/18/17 04:00 BP 144/72 01/18/17 04:00 Pulse Ox 95 01/18/17 04:00 Intake & Output 01/17/17 01/18/17 01/18/17 18:59 06:59 18:59 Intake Total 800 Output Total 400 1200 Balance 400 -1200 Weight 52.9 kg 52.4 kg Intake: Intake, IV Titration 100 Amount Sodium Chloride 0.9% 1, 100 000 ml @ 100 mls/hr IV . Q10H KAILN Rx#:[id number] Oral 700 Output: Urine 400 1200 Other: # Voids 1 - Exam - Constitutional General appearance: mild distress, thin - EENT Eyes: anicteric sclerae, EOMI, PERRLA, no ptosis, no scleral icterus, normal appearance ENT: hard of hearing, NA/AT, pharyngeal erythema Ears: bilateral: normal - Neck Neck: no lymphadenopathy, normal ROM, no rigidity, no stridor, no thyromegaly Carotids: bilateral: upstroke delayed Thyroid: bilateral: normal size - Respiratory Respiratory: bilateral: diminished, rhonchi, negative: dullness, rales, wheezing , prolonged expiration, prolonged inspiration - Cardiovascular Rhythm: regular Heart sounds: normal: S1, S2 Abnormal Heart Sounds: systolic murmur, no S3 Gallop, no S4 Gallop - Gastrointestinal General gastrointestinal: normal bowel sounds, soft, no splenomegaly, no tenderness, no umbilical hernia, no ventral hernia - Integumentary Integumentary: decreased turgor, no jaundiced, no normal - Neurologic Neurologic: CNII-XII intact - Musculoskeletal Musculoskeletal: generalized weakness, strength equal bilaterally - Psychiatric Psychiatric: A&O x's 3, appropriate affect, intact judgment & insight - Labs CBC & Chem 7: 01/18/17 05:33 01/18/17 05:33 Labs: Abnormal Lab Results - Last 24 Hours (Table) 01/17/17 01/17/17 01/18/17 Range/Units 11:28 20:58 05:33 RDW 16.2 H (11.5-15.5) % Neutrophils # 8.1 H (1.3-7.7) k/uL Sodium (137-145) mmol/L BUN (7-17) mg/dL Creatinine (0.52-1.04) mg/dL Glucose (74-99) mg/dL POC Glucose (mg/dL) 121 H 179 H (75-99) mg/dL Magnesium (1.6-2.3) mg/dL Total Protein (6.3-8.2) g/dL Albumin (3.5-5.0) g/dL 01/18/17 Range/Units 05:33 RDW (11.5-15.5) % Neutrophils # (1.3-7.7) k/uL Sodium 133 L (137-145) mmol/L BUN 6 L (7-17) mg/dL Creatinine 0.50 L (0.52-1.04) mg/dL Glucose 105 H (74-99) mg/dL POC Glucose (mg/dL) (75-99) mg/dL Magnesium 1.5 L (1.6-2.3) mg/dL Total Protein 5.5 L (6.3-8.2) g/dL Albumin 2.4 L (3.5-5.0) g/dL Assessment and Plan Plan: Assessment and plan: 1. Newly diagnosed esophageal cancer status post EGD with biopsy as well as a PET scan. Continue patient on conservative management for now, consultation hematology and culture, discontinue IV fluid patient is post 2 units of packed red blood cell transfusion as well as IV fluid resuscitation, continue clear liquid diet only, discontinue aspirin, Plavix, metformin, discontinue vitamin D , magnesium, and the switch on the medicine to IV. I had a long conversation with the family and they are not interested in invasive procedures such as chemoradiation and surgical intervention as the patient cannot be able to survive huge procedure like that, however they're interested in possible esophageal stenting. 2. CAD post CABG 3 back in August 2016. Continue patient on metoprolol 50 mg orally twice every day, 2 patient on Lipitor 40 mg orally once every day, discontinue aspirin and Plavix. 3. Hypertension and hypertensive cardiovascular disease. Continue metoprolol 50 mg orally twice every day, losartan 25 mg orally once every day. 4. Hyperlipemia. Continue Lipitor 40 mg orally once every day. 5. Diabetes mellitus type 2. Discontinue metformin, continue patient on sliding scale insulin along with Tradjenta 5 mg orally once every day. 6. Acute syptomatic anemia due to her malignancy. Status post 2 units of packed red blood cell transfusion. 7. Hypomagnesemia. Status post replacement. 8. Depressive disorder. Continue Remeron 30 mg orally bedtime. 9. GI prophylaxis. Continue Protonix 40 mg IV push every 24 hours. 10. DVT prophylaxis. Heparin 5000 units subcutaneously every 8 hours along with knee-high IRWIN hose. 11. poor prognosis.
[2017-01-18] MEDS: MIRTAZAPINE 15 MG TAB PO SCH (19:48)
[2017-01-18] MEDS: MULTIVITAMINS, THERA 1 EACH TAB PO SCH (19:48)
[2017-01-18 20:34] LABS: Glucose,Whole Blood 140 mg/dL (75-99)
[2017-01-19 05:38] LABS: Glucose,Whole Blood 121 mg/dL (75-99)
[2017-01-19 06:28] LABS: Basophils % (A) 1 %; CH 28.2; CHCM 31.3; Eosinophils # (A) 0.2 k/uL (0-0.7); Eosinophils % (A) 2 %; HCT 41.1 % (34.0-46.0); HDW 3.93; HGB 12.7 gm/dL (11.4-16.0); Hypochromasia Marked; Luc # (Auto) 0.18; Luc % (Auto) 2; Lymphocytes # (A) 1.1 k/uL (1.0-4.8); Lymphocytes % (A) 14 %; MCH 27.8 pg (25.0-35.0); MCHC 30.8 g/dL (31.0-37.0); MCV 90.2 fL (80.0-100.0); Mean Platelet Volume 8.1; Monocytes # (A) 0.6 k/uL (0-1.0); Monocytes % (A) 7 %; Neutrophils # (A) 5.7 k/uL (1.3-7.7); Neutrophils % (A) 74 %; Poikilocytosis Slight; RBC 4.56 m/uL (3.80-5.40); RDW 15.3 % (11.5-15.5); WBC 7.8 k/uL (3.8-10.6); WBC (Perox) 7.89
[2017-01-19] MEDS: METOCLOPRAMIDE 5 MG TAB PO SCH ×3 (06:35→16:53)
[2017-01-19] MEDS: INSULIN LISPRO (humaLOG) 300 UNIT/3 ML VIAL SQ SCH ×4 (06:36→20:32)
[2017-01-19 06:43] LABS: ALT 20 U/L (9-52); AST 29 U/L (14-36); Alkaline Phosphatase 85 U/L (38-126); Anion Gap 6 mmol/L; Blood Urea Nitrogen 5 mg/dL (7-17); Calcium 9.5 mg/dL (8.4-10.2); Carbon Dioxide 24 mmol/L (22-30); Chloride 105 mmol/L (98-107); Glucose 115 mg/dL (74-99); Magnesium 1.5 mg/dL (1.6-2.3); Non-African American GFR(MDRD) >60 (>60 ml/min/1.73 sqM); Potassium 4.1 mmol/L (3.5-5.1); Sodium 135 mmol/L (137-145); Total Bilirubin 1.1 mg/dL (0.2-1.3); Total Protein 5.8 g/dL (6.3-8.2)
[2017-01-19] MEDS: PANTOPRAZOLE 40 MG/10 ML VIAL IVP SCH (08:09)
[2017-01-19] MEDS: HEPARIN SODIUM,PORCINE 5,000 UNIT/ML 1 ML VIAL SQ SCH ×2 (08:10→16:53)
[2017-01-19] MEDS: METOPROLOL TARTRATE 50 MG TAB PO SCH ×2 (08:10→20:33)
[2017-01-19] MEDS: LINAGLIPTIN 5 MG TABLET PO SCH (08:10)
[2017-01-19] MEDS: LOSARTAN 25 MG TAB PO SCH (08:10)
[2017-01-19] MEDS: ATORVASTATIN 40 MG TAB PO SCH (08:11)
[2017-01-19] MEDS ORDERED: Magnesium Replacement Protocol 1 EACH MISC MISCELLANE PRN (10:56)
[2017-01-19] MEDS: MAGNESIUM SULFATE-D5W PMX 1 GM in DEXTROSE/WATER 1 100ML.BAG IVPB SCH ×2 (11:20→12:16)
[2017-01-19 12:12] LABS: Glucose,Whole Blood 227 mg/dL (75-99)
--- NOTE | 2017-01-19 13:47 | P.PN ---
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 She was taken the [facility], EKG was performed revealing non-ST elevation myocardial infarction. She was transferred to [facility] for cardiac catheterization. Dr. Ravi performed a right and left coronary angiogram revealing an extremely calcified right and left coronary system, mild disease involving the mid right coronary artery, severe disease involving the distal left main coronary artery and involving the ostial left circumflex and ostial LAD, severe disease involving the ostial and proximal left circumflex coronary artery, and severe disease involving the ostial LAD. Dr. Kelsey from cardiothoracic surgery was consulted at that time and patient underwent a coronary artery bypass graft with RAO to LAD reverse saphenous venous graft to the PDA and reverse evidences graft to the marginal branch, patient went to [facility] for physical therapy rehabitation after that she developed to have a significant episodes of dysphagia associated with increased regurgitation and nausea and vomiting eventually she ended up going for an EGD that was done initially by Dr. Babb that was not completed due to the fact that the patient has so many food materials subsequently she underwent EGD by Dr. Jenkins who could not pass the scope and she was found to have an esophageal mass suggestive of esophageal cancer patient was seen as an outpatient by hematology oncology and the patient underwent blood transfusion and the IV fluid resuscitation in the office, yesterday the patient felt extremely weak and she could not eat or drink anything associated with nausea and vomiting I received a call from her oncologist stating that the patient to be admitted to hospital for blood transfusion and IV fluid resuscitation and the patient subsequently was admitted to the floor and she was taken off most of her medication and she was given 2 units of packed red blood cells as well as IV fluid and she was given magnesium sulfate for placement she will be seen in consultation by hematology oncology and had a long conversation with the patient and her family and at this point they did not want to pursue any treatment plan as the patient is not a candidate for any invasive procedure however there are interested in possible esophageal stenting if it's possible since the patient is not going to be able to tolerate chemoradiation therapy along with surgical intervention. 01/18: patient is feeling much better, will continue to feel generally weak, there is significant dysphagia was seen by Hem-Onc yesterday and we will plan to get the result of the PET-sacn and have a plan for possible esophageal stenting. 01/19:patient's diet will be advanced to full liquids. Magnesium will be replaced. On discussion with the patient's daughter regarding care and prognosis. Patient will be transferred to [facility] floor today. Discharge plan is to [facility] tomorrow. Objective - Vital Signs Vital signs: Vital Signs Temp 97.0 F L 01/19/17 04:00 Pulse 70 01/19/17 04:00 Resp 18 01/19/17 04:00 BP 118/67 01/19/17 04:00 Pulse Ox 95 01/19/17 04:00 Intake & Output 01/18/17 01/19/17 01/19/17 18:59 06:59 18:59 Intake Total 675 Output Total 400 700 Balance 275 -700 Weight 52.3 kg Intake: Intake, IV Titration 100 Amount Magnesium Sulfate-D5w Pmx 100 1 gm In Dextrose/Water 1 100ml.bag @ 100 mls/hr IVPB ONCE ONE Rx#: [id number] Oral 575 Output: Urine 400 700 - Exam - Constitutional General appearance: mild distress, thin - EENT Eyes: anicteric sclerae, EOMI, PERRLA, no ptosis, no scleral icterus, normal appearance ENT: hard of hearing, NA/AT, pharyngeal erythema Ears: bilateral: normal - Neck Neck: no lymphadenopathy, normal ROM, no rigidity, no stridor, no thyromegaly Carotids: bilateral: upstroke delayed Thyroid: bilateral: normal size - Respiratory Respiratory: bilateral: diminished, rhonchi, negative: dullness, rales, wheezing , prolonged expiration, prolonged inspiration - Cardiovascular Rhythm: regular Heart sounds: normal: S1, S2 Abnormal Heart Sounds: systolic murmur, no S3 Gallop, no S4 Gallop - Gastrointestinal General gastrointestinal: normal bowel sounds, soft, no splenomegaly, no tenderness, no umbilical hernia, no ventral hernia - Integumentary Integumentary: decreased turgor, no jaundiced, no normal - Neurologic Neurologic: CNII-XII intact - Musculoskeletal Musculoskeletal: generalized weakness, strength equal bilaterally - Psychiatric Psychiatric: A&O x's 3, appropriate affect, intact judgment & insight - Labs CBC & Chem 7: 01/19/17 05:29 01/19/17 05:26 Labs: Abnormal Lab Results - Last 24 Hours (Table) 01/18/17 01/18/17 01/18/17 Range/Units 11:20 16:43 20:33 MCHC (31.0-37.0) g/dL Sodium (137-145) mmol/L BUN (7-17) mg/dL Glucose (74-99) mg/dL POC Glucose (mg/dL) 228 H 121 H 140 H (75-99) mg/dL Magnesium (1.6-2.3) mg/dL Total Protein (6.3-8.2) g/dL Albumin (3.5-5.0) g/dL 01/19/17 01/19/17 01/19/17 Range/Units 05:26 05:29 05:36 MCHC 30.8 L (31.0-37.0) g/dL Sodium 135 L (137-145) mmol/L BUN 5 L (7-17) mg/dL Glucose 115 H (74-99) mg/dL POC Glucose (mg/dL) 121 H (75-99) mg/dL Magnesium 1.5 L (1.6-2.3) mg/dL Total Protein 5.8 L (6.3-8.2) g/dL Albumin 2.4 L (3.5-5.0) g/dL Assessment and Plan Plan: 1. Newly diagnosed esophageal cancer status post EGD with biopsy as well as a PET scan. Continue patient on conservative management for now, consultation hematology and culture, discontinue IV fluid patient is post 2 units of packed red blood cell transfusion as well as IV fluid resuscitation, continue clear liquid diet only, discontinue aspirin, Plavix, metformin, discontinue vitamin D , magnesium, and the switch on the medicine to IV. I had a long conversation with the family and they are not interested in invasive procedures such as chemoradiation and surgical intervention as the patient cannot be able to survive huge procedure like that, however they're interested in possible esophageal stenting. 2. CAD post CABG 3 back in August 2016. Continue patient on metoprolol 50 mg orally twice every day, 2 patient on Lipitor 40 mg orally once every day, discontinue aspirin and Plavix. 3. Hypertension and hypertensive cardiovascular disease. Continue metoprolol 50 mg orally twice every day, losartan 25 mg orally once every day. 4. Hyperlipemia. Continue Lipitor 40 mg orally once every day. 5. Diabetes mellitus type 2. Discontinue metformin, continue patient on sliding scale insulin along with Tradjenta 5 mg orally once every day. 6. Acute syptomatic anemia due to her malignancy. Status post 2 units of packed red blood cell transfusion. 7. Hypomagnesemia. Status post replacement. 8. Depressive disorder. Continue Remeron 30 mg orally bedtime. 9. GI prophylaxis. Continue Protonix 40 mg IV push every 24 hours. 10. DVT prophylaxis. Heparin 5000 units subcutaneously every 8 hours along with knee-high IRWIN hose. 11. poor prognosis. Discharge plan: on Thursday Impression and plan of care have been directed as dictated by the signing physician. Eileen Gomez nurse practitioner acting as scribe for signing physician.
[2017-01-19 16:37] LABS: Glucose,Whole Blood 143 mg/dL (75-99)
[2017-01-19] MEDS: MULTIVITAMINS, THERA 1 EACH TAB PO SCH (20:33)
[2017-01-19] MEDS: MIRTAZAPINE 15 MG TAB PO SCH (20:33)
[2017-01-19 20:34] LABS: Glucose,Whole Blood 115 mg/dL (75-99)
[2017-01-20] MEDS: HEPARIN SODIUM,PORCINE 5,000 UNIT/ML 1 ML VIAL SQ SCH ×3 (00:48→15:16)
[2017-01-20 07:06] LABS: Glucose,Whole Blood 109 mg/dL (75-99)
[2017-01-20] MEDS: INSULIN LISPRO (humaLOG) 300 UNIT/3 ML VIAL SQ SCH ×4 (07:11→22:06)
[2017-01-20] MEDS: LOSARTAN 25 MG TAB PO SCH (08:20)
[2017-01-20] MEDS: ATORVASTATIN 40 MG TAB PO SCH (08:20)
[2017-01-20] MEDS: LINAGLIPTIN 5 MG TABLET PO SCH (08:20)
[2017-01-20] MEDS: PANTOPRAZOLE 40 MG/10 ML VIAL IVP SCH (08:21)
[2017-01-20] MEDS: METOPROLOL TARTRATE 50 MG TAB PO SCH ×2 (08:21→22:06)
[2017-01-20] MEDS: METOCLOPRAMIDE 5 MG TAB PO SCH ×3 (08:21→16:37)
[2017-01-20 12:20] LABS: Glucose,Whole Blood 153 mg/dL (75-99)
[2017-01-20 17:54] LABS: Glucose,Whole Blood 147 mg/dL (75-99)
[2017-01-20 21:03] LABS: Glucose,Whole Blood 117 mg/dL (75-99)
[2017-01-20] MEDS: MULTIVITAMINS, THERA 1 EACH TAB PO SCH (22:06)
[2017-01-20] MEDS: MIRTAZAPINE 15 MG TAB PO SCH (22:06)
--- NOTE | 2017-01-20 22:32 | P.PN ---
Subjective Progress Note Date: 01/20/17 the patient remains quite weak. She states that her swallowing is somewhat better. However oral intake is still comparatively low. Objective - Vital Signs Vital signs: Vital Signs Temp 97.7 F 01/20/17 15:00 Pulse 68 01/20/17 15:00 Resp 16 01/20/17 15:00 BP 147/81 01/20/17 15:00 Pulse Ox 96 01/20/17 15:00 Intake & Output 01/20/17 01/20/17 01/21/17 06:59 18:59 06:59 Weight 53 kg Other: Voiding Method Toilet # Voids 1 1 # Bowel Movements 1 - Constitutional General appearance: Present: no acute distress - EENT Eyes: Present: EOMI, PERRLA ENT: Present: hearing grossly normal, normal oropharynx - Respiratory Respiratory: bilateral: CTA - Cardiovascular Rhythm: regular Heart sounds: normal: S1, S2 - Gastrointestinal General gastrointestinal: Present: normal bowel sounds, soft - Integumentary Integumentary: Present: normal - Neurologic Neurologic: Present: CNII-XII intact - Musculoskeletal Musculoskeletal: Present: generalized weakness, strength equal bilaterally - Psychiatric Psychiatric: Present: A&O x's 3 - Labs CBC & Chem 7: 01/19/17 05:29 01/19/17 05:26 Labs: Abnormal Lab Results - Last 24 Hours (Table) 01/20/17 01/20/17 01/20/17 Range/Units 07:04 12:19 17:36 POC Glucose (mg/dL) 109 H 153 H 147 H (75-99) mg/dL 01/20/17 Range/Units 20:49 POC Glucose (mg/dL) 117 H (75-99) mg/dL Assessment and Plan (1) Esophageal cancer Narrative/Plan: The patient had a PET scan done at [facility] on 01/16/17. Other than uptake at the primary site, uptake was also noted in mediastinal lymph nodes, as well as in bilateral upper lobes of the lung. This was suspicious for metastatic disease, but not definitive as SUV value was comparatively low. Thus these findings could also represent inflammation, such as from aspiration. The results of the PET scan were discussed in detail with the patient and her son. They were advised, that though not definitive, metastasis cannot be totally ruled out. Even if these did not represent metastatic disease, the patient almost certainly has locally advanced cancer based on the EGD findings and would not be a candidate for primary surgery. In addition, from the [facility], she is unlikely to be a surgical candidate anyway especially in her current compromised state. in addition, given her poor performance status at this time, she is unlikely to be a good candidate for concurrent chemoradiation that would be utilized if she indeed has localized disease. Due to the patient's persistent weakness and compromise, ECF placement for rehabilitation is being considered. The patient's son had several questions about prognosis and treatment options. These were answered to the best of my ability. He expressed understanding, that if the patient does have metastatic disease, it would not be curable. Even if the PET findings do not represent metastatic disease, she is not a candidate for any aggressive treatment at this point. Therefore attempt at rehabilitation is felt to be reasonable. If the patient does not improve and continues to decline, then comfort care can be considered at that time. If she does show significant improvement, especially if nutrition can be established, then treatment can be considered. Status: Acute (2) Dysphagia Narrative/Plan: this is due to distal esophageal malignancy. This is quite profound, and is the main reason for the patient's admission. Case was previously discussed with , who hadstated that stent placement may be feasible, with the use of a smaller scope. It was discussed with the admitting service, that nutrition /oral intake be better established, before discharge. Therefore, gastroenterology will be consulted for the same Status: Acute
[2017-01-21] MEDS: HEPARIN SODIUM,PORCINE 5,000 UNIT/ML 1 ML VIAL SQ SCH ×4 (00:09→23:41)
[2017-01-21 07:07] LABS: Glucose,Whole Blood 99 mg/dL (75-99)
[2017-01-21] MEDS: INSULIN LISPRO (humaLOG) 300 UNIT/3 ML VIAL SQ SCH ×4 (07:18→21:19)
[2017-01-21] MEDS: ATORVASTATIN 40 MG TAB PO SCH ×2 (07:47→07:56)
[2017-01-21] MEDS: LOSARTAN 25 MG TAB PO SCH ×2 (07:47→07:56)
[2017-01-21] MEDS: PANTOPRAZOLE 40 MG/10 ML VIAL IVP SCH ×2 (07:47→07:56)
[2017-01-21] MEDS: METOPROLOL TARTRATE 50 MG TAB PO SCH ×2 (07:47→21:19)
[2017-01-21] MEDS: LINAGLIPTIN 5 MG TABLET PO SCH ×2 (07:47→07:56)
[2017-01-21] MEDS: METOCLOPRAMIDE 5 MG TAB PO SCH ×3 (07:48→18:26)
--- NOTE | 2017-01-21 08:40 | P.PN ---
Subjective Progress Note Date: 01/20/17 This ia an 81-year-old white female one of Dr. Laboy who was having heartburn- like chest pain over weeks time associated with nausea and vomiting. She was taken the [facility], EKG was performed revealing non-ST elevation myocardial infarction. She was transferred to [facility] for cardiac catheterization. Dr. Ravi performed a right and left coronary angiogram revealing an extremely calcified right and left coronary system, mild disease involving the mid right coronary artery, severe disease involving the distal left main coronary artery and involving the ostial left circumflex and ostial LAD, severe disease involving the ostial and proximal left circumflex coronary artery, and severe disease involving the ostial LAD. Dr. Kelsey from cardiothoracic surgery was consulted at that time and patient underwent a coronary artery bypass graft with RAO to LAD reverse saphenous venous graft to the PDA and reverse evidences graft to the marginal branch, patient went to [facility] for physical therapy rehabitation after that she developed to have a significant episodes of dysphagia associated with increased regurgitation and nausea and vomiting eventually she ended up going for an EGD that was done initially by Dr. Babb that was not completed due to the fact that the patient has so many food materials subsequently she underwent EGD by Dr. Jenkins who could not pass the scope and she was found to have an esophageal mass suggestive of esophageal cancer patient was seen as an outpatient by hematology oncology and the patient underwent blood transfusion and the IV fluid resuscitation in the office, yesterday the patient felt extremely weak and she could not eat or drink anything associated with nausea and vomiting I received a call from her oncologist stating that the patient to be admitted to hospital for blood transfusion and IV fluid resuscitation and the patient subsequently was admitted to the floor and she was taken off most of her medication and she was given 2 units of packed red blood cells as well as IV fluid and she was given magnesium sulfate for placement she will be seen in consultation by hematology oncology and had a long conversation with the patient and her family and at this point they did not want to pursue any treatment plan as the patient is not a candidate for any invasive procedure however there are interested in possible esophageal stenting if it's possible since the patient is not going to be able to tolerate chemoradiation therapy along with surgical intervention. 01/18: patient is feeling much better, will continue to feel generally weak, there is significant dysphagia was seen by Hem-Onc yesterday and we will plan to get the result of the PET-sacn and have a plan for possible esophageal stenting. 01/19:patient's diet will be advanced to full liquids. Magnesium will be replaced. On discussion with the patient's daughter regarding care and prognosis. Patient [facility] floor today. Discharge plan is to [facility] tomorrow. 01/20: Case discussed with Dr. Causey and he will add in consult with Dr. Jenkins regarding esophageal stent. Discharge to [facility] is postponed. Patient continues to be extremely weak. Swallowing is slightly better today. Patient's nurses been updated. Objective - Vital Signs Vital signs: Vital Signs Temp 98.8 F 01/20/17 07:00 Pulse 65 01/20/17 07:00 Resp 17 01/20/17 07:00 BP 131/92 01/20/17 07:00 Pulse Ox 95 01/20/17 07:00 Intake & Output 01/19/17 01/20/17 01/20/17 18:59 06:59 18:59 Intake Total 1080 Output Total 550 Balance 530 Intake: Oral 1080 Output: Urine 550 Other: # Voids 1 1 - Exam - Constitutional General appearance: mild distress, thin - EENT Eyes: anicteric sclerae, EOMI, PERRLA, no ptosis, no scleral icterus, normal appearance ENT: hard of hearing, NA/AT, pharyngeal erythema Ears: bilateral: normal - Neck Neck: no lymphadenopathy, normal ROM, no rigidity, no stridor, no thyromegaly Carotids: bilateral: upstroke delayed Thyroid: bilateral: normal size - Respiratory Respiratory: bilateral: diminished, rhonchi, negative: dullness, rales, wheezing , prolonged expiration, prolonged inspiration - Cardiovascular Rhythm: regular Heart sounds: normal: S1, S2 Abnormal Heart Sounds: systolic murmur, no S3 Gallop, no S4 Gallop - Gastrointestinal General gastrointestinal: normal bowel sounds, soft, no splenomegaly, no tenderness, no umbilical hernia, no ventral hernia - Integumentary Integumentary: decreased turgor, no jaundiced, no normal - Neurologic Neurologic: CNII-XII intact - Musculoskeletal Musculoskeletal: generalized weakness, strength equal bilaterally - Psychiatric Psychiatric: A&O x's 3, appropriate affect, intact judgment & insight - Labs CBC & Chem 7: 01/19/17 05:29 01/19/17 05:26 Labs: Abnormal Lab Results - Last 24 Hours (Table) 01/19/17 01/19/17 01/19/17 Range/Units 11:44 16:22 20:32 POC Glucose (mg/dL) 227 H 143 H 115 H (75-99) mg/dL 01/20/17 Range/Units 07:04 POC Glucose (mg/dL) 109 H (75-99) mg/dL Assessment and Plan Plan: 1. Newly diagnosed esophageal cancer status post EGD with biopsy as well as a PET scan. Continue patient on conservative management for now, consultation hematology, discontinue IV fluid patient is post 2 units of packed red blood cell transfusion as well as IV fluid resuscitation, continue full liquid diet only, discontinue aspirin, Plavix, metformin, vitamin D, magnesium. I had a long conversation with the family and they are not interested in invasive procedures such as chemoradiation and surgical intervention as the patient cannot be able to survive huge procedure like that, however they're interested in possible esophageal stenting. Consult with Dr. Up for esophageal stent 2. CAD post CABG 3 back in August 2016. Continue patient on metoprolol 50 mg orally twice every day, 2 patient on Lipitor 40 mg orally once every day, discontinue aspirin and Plavix. 3. Hypertension and hypertensive cardiovascular disease. Continue metoprolol 50 mg orally twice every day, losartan 25 mg orally once every day. 4. Hyperlipemia. Continue Lipitor 40 mg orally once every day. 5. Diabetes mellitus type 2. Discontinue metformin, continue patient on sliding scale insulin along with Tradjenta 5 mg orally once every day. 6. Acute syptomatic anemia due to her malignancy. Status post 2 units of packed red blood cell transfusion. 7. Hypomagnesemia. Status post replacement. 8. Depressive disorder. Continue Remeron 30 mg orally bedtime. 9. GI prophylaxis. Continue Protonix 40 mg IV push every 24 hours. 10. DVT prophylaxis. Heparin 5000 units subcutaneously every 8 hours along with knee-high IRWIN hose. 11. poor prognosis. Discharge plan: [place] on Thursday or Impression and plan of care have been directed as dictated by the signing physician. Eileen Gomez nurse practitioner acting as scribe for signing physician.
--- NOTE | 2017-01-21 08:41 | P.PN ---
Subjective Progress Note Date: 01/21/17 This ia an 81-year-old white female one of Dr. Laboy who was having heartburn- like chest pain over weeks time associated with nausea and vomiting. She was taken the [facility], EKG was performed revealing non-ST elevation myocardial infarction. She was transferred to [facility] for cardiac catheterization. Dr. Ravi performed a right and left coronary angiogram revealing an extremely calcified right and left coronary system, mild disease involving the mid right coronary artery, severe disease involving the distal left main coronary artery and involving the ostial left circumflex and ostial LAD, severe disease involving the ostial and proximal left circumflex coronary artery, and severe disease involving the ostial LAD. Dr. Kelsey from cardiothoracic surgery was consulted at that time and patient underwent a coronary artery bypass graft with RAO to LAD reverse saphenous venous graft to the PDA and reverse evidences graft to the marginal branch, patient went to [facility] for physical therapy rehabitation after that she developed to have a significant episodes of dysphagia associated with increased regurgitation and nausea and vomiting eventually she ended up going for an EGD that was done initially by Dr. Babb that was not completed due to the fact that the patient has so many food materials subsequently she underwent EGD by Dr. Jenkins who could not pass the scope and she was found to have an esophageal mass suggestive of esophageal cancer patient was seen as an outpatient by hematology oncology and the patient underwent blood transfusion and the IV fluid resuscitation in the office, yesterday the patient felt extremely weak and she could not eat or drink anything associated with nausea and vomiting I received a call from her oncologist stating that the patient to be admitted to hospital for blood transfusion and IV fluid resuscitation and the patient subsequently was admitted to the floor and she was taken off most of her medication and she was given 2 units of packed red blood cells as well as IV fluid and she was given magnesium sulfate for placement she will be seen in consultation by hematology oncology and had a long conversation with the patient and her family and at this point they did not want to pursue any treatment plan as the patient is not a candidate for any invasive procedure however there are interested in possible esophageal stenting if it's possible since the patient is not going to be able to tolerate chemoradiation therapy along with surgical intervention. 01/18: patient is feeling much better, will continue to feel generally weak, there is significant dysphagia was seen by Hem-Onc yesterday and we will plan to get the result of the PET-sacn and have a plan for possible esophageal stenting. 01/19:patient's diet will be advanced to full liquids. Magnesium will be replaced. On discussion with the patient's daughter regarding care and prognosis. Patient will be transferred to [facility] floor today. Discharge plan is to [facility] tomorrow. 01/20: Case discussed with Dr. Causey and he will add in consult with Dr. Jenkins regarding esophageal stent. Discharge to [facility] is postponed. Patient continues to be extremely weak. Swallowing is slightly better today. Patient's nurses been updated. 01/21: Patient has been seen by GI with plan for EGD and esophageal stent on Thursday because stent is not available until then. We'll plan for stent placement and then discharge to [facility] that afternoon. Patient continues to have weakness. Objective - Vital Signs Vital signs: Vital Signs Temp 96.9 F L 01/21/17 07:00 Pulse 69 01/21/17 07:00 Resp 18 01/21/17 07:00 BP 145/93 01/21/17 07:00 Pulse Ox 92 L 01/21/17 07:00 Intake & Output 01/20/17 01/21/17 01/21/17 18:59 06:59 18:59 Weight 53 kg 53.5 kg Other: Voiding Method Toilet # Voids 1 1 # Bowel Movements 1 - Exam - Constitutional General appearance: mild distress, thin - EENT Eyes: anicteric sclerae, EOMI, PERRLA, no ptosis, no scleral icterus, normal appearance ENT: hard of hearing, NA/AT, pharyngeal erythema Ears: bilateral: normal - Neck Neck: no lymphadenopathy, normal ROM, no rigidity, no stridor, no thyromegaly Carotids: bilateral: upstroke delayed Thyroid: bilateral: normal size - Respiratory Respiratory: bilateral: diminished, rhonchi, negative: dullness, rales, wheezing , prolonged expiration, prolonged inspiration - Cardiovascular Rhythm: regular Heart sounds: normal: S1, S2 Abnormal Heart Sounds: systolic murmur, no S3 Gallop, no S4 Gallop - Gastrointestinal General gastrointestinal: normal bowel sounds, soft, no splenomegaly, no tenderness, no umbilical hernia, no ventral hernia - Integumentary Integumentary: decreased turgor, no jaundiced, no normal - Neurologic Neurologic: CNII-XII intact - Musculoskeletal Musculoskeletal: generalized weakness, strength equal bilaterally - Psychiatric Psychiatric: A&O x's 3, appropriate affect, intact judgment & insight - Labs CBC & Chem 7: 01/21/17 08:53 01/21/17 08:53 Labs: Abnormal Lab Results - Last 24 Hours (Table) 01/20/17 01/20/17 01/20/17 Range/Units 12:19 17:36 20:49 POC Glucose (mg/dL) 153 H 147 H 117 H (75-99) mg/dL Assessment and Plan Plan: 1. Newly diagnosed esophageal cancer status post EGD with biopsy as well as a PET scan. Continue patient on conservative management for now, consultation hematology, discontinue IV fluid patient is post 2 units of packed red blood cell transfusion as well as IV fluid resuscitation, continue full liquid diet only, discontinue aspirin, Plavix, metformin, vitamin D, magnesium. I had a long conversation with the family and they are not interested in invasive procedures such as chemoradiation and surgical intervention as the patient cannot be able to survive huge procedure like that, however they're interested in possible esophageal stenting. Consult with Dr. Montenegro for esophageal stent on Thursday 2. CAD post CABG 3 back in August 2016. Continue patient on metoprolol 50 mg orally twice every day, 2 patient on Lipitor 40 mg orally once every day, discontinue aspirin and Plavix. 3. Hypertension and hypertensive cardiovascular disease. Continue metoprolol 50 mg orally twice every day, losartan 25 mg orally once every day. 4. Hyperlipemia. Continue Lipitor 40 mg orally once every day. 5. Diabetes mellitus type 2. Discontinue metformin, continue patient on sliding scale insulin along with Tradjenta 5 mg orally once every day. 6. Acute syptomatic anemia due to her malignancy. Status post 2 units of packed red blood cell transfusion. 7. Hypomagnesemia. Status post replacement. 8. Depressive disorder. Continue Remeron 30 mg orally bedtime. 9. GI prophylaxis. Continue Protonix 40 mg IV push every 24 hours. 10. DVT prophylaxis. Heparin 5000 units subcutaneously every 8 hours along with knee-high IRWIN hose. 11. poor prognosis. Discharge plan: [place] on Thursday Impression and plan of care have been directed as dictated by the signing physician. Eileen Gomez nurse practitioner acting as scribe for signing physician.
[2017-01-21 09:16] LABS: Anisocytosis Slight; CH 28.7; CHCM 31.9; HCT 42.3 % (34.0-46.0); HDW 3.73; Hypochromasia Moderate; MCH 27.7 pg (25.0-35.0); MCHC 30.7 g/dL (31.0-37.0); MCV 90.2 fL (80.0-100.0); Mean Platelet Volume 8.9; Poikilocytosis Slight; RBC 4.69 m/uL (3.80-5.40); RDW 16.1 % (11.5-15.5); WBC 6.5 k/uL (3.8-10.6)
--- NOTE | 2017-01-21 09:35 | P.CONS ---
History of Present Illness - Reason for Consult Consult date: 01/21/17 Dysphagia/esophageal stent evaluation Requesting physician: Jb Causey - History of Present Illness 81-year-old female well-known to Dr. 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 Consultation requested for esophageal stent evaluation. Patient has been experiencing progressive dysphagia for several months with weight loss. She underwent EGD with findings of a tight stricture in the distal esophagus about 38-40 cm from the incisors. 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 PET scan 01/16/2017 reported uptake in the mediastinal lymph nodes as well as bilateral upper lobes of the lung suspicious for metastatic disease. Presently she is tolerating small amounts of full liquid diet. Afebrile. Most current lab studies sodium 135. Potassium 4.1. LFTs within normal limits. White count 7.8. Hemoglobin 12.7. Platelet 294. INR 1.4. Albumin 2-2.4. Approximately 12 kg weight loss since August. Review of Systems Constitutional: Denies fever, chills, sweats, weight gain, or loss. HEENT: Negative for migraines, blurred vision or loss, earaches, drainage, tinnitus, oral mucosal lesions, dysphagia, or odynophagia. CARDIAC: CAD. CABG. Hyperlipidemia. Hypertension. Negative for chest pain, arrhythmias, or palpitation. RESPIRATORY: Negative for shortness of breath, hemoptysis, cough, or sputum production. GI: See HPI for pertinent findings. : Negative for hematuria, urgency, frequency, polyuria, or dysuria. GYNc: Negative vaginal discharge. History of breast cancer. MUSCULOSKELETAL: Negative for muscle aches, swelling, arthritis, and arthralgias. NEUROLOGIC: Negative for stroke or TIA. ENDOCRINE: Hypothyroidism.. SKIN: History of skin carcinoma.. PSYCHIATRIC: Negative history for depression and anxiety All systems: negative (See HPI) Past Medical History Past Medical History: Coronary Artery Disease (CAD), Cancer, Diabetes Mellitus, GERD/Reflux, Hyperlipidemia, Hypertension, Osteoarthritis (OA), Thyroid Disorder Additional Past Medical History / Comment(s): Coronary artery disease, diabetes mellitus, hypertension, hyperlipidemia, acid reflux, osteoarthritis, skin cancer , hyperthyroidism, breast cancer, rotator cuff surgery on the right, nephrolithiasis, throat cancer-diagnosed 2 weeks ago History of Any Multi-Drug Resistant Organisms: None Reported Past Surgical History: Breast Surgery, Cholecystectomy, Coronary Bypass/CABG, Heart Catheterization Additional Past Surgical History / Comment(s): skin cancer removed from nose, rt breast lumpectomy, brandon cataracts Past Anesthesia/Blood Transfusion Reactions: Motion Sickness Past Psychological History: No Psychological Hx Reported Smoking Status: Former smoker Past Alcohol Use History: None Reported Additional Past Alcohol Use History / Comment(s): quit smoking 45 yrs ago, smoked for 5 yrs, Past Drug Use History: None Reported - Past Family History Sister(s) Family Medical History: Cancer Brother(s) Family Medical History: Cancer Mother Family Medical History: Congestive Heart Failure (CHF), CVA/TIA Father Family Medical History: Blood Disorder, Diabetes Mellitus Daughter(s) Family Medical History: No Reported History Son(s) Family Medical History: No Reported History Medications and Allergies Home Medications Medication Instructions Recorded Confirmed Type Cholecalciferol [Vitamin D3] 2,000 unit PO HS 08/15/16 01/16/17 History Multivitamins, Thera [Multivitamin 1 tab PO HS 08/15/16 01/16/17 History (formulary)] Atorvastatin [Lipitor] 40 mg PO DAILY tab 09/09/16 01/16/17 Rx Metoprolol Tartrate [Lopressor] 50 mg PO BID tab 09/09/16 01/16/17 Rx Pantoprazole [Protonix] 40 mg PO AC-BRKFST tab 09/09/16 01/16/17 Rx Losartan [Cozaar] 25 mg PO DAILY 01/16/17 01/16/17 History Metoclopramide [Reglan] 5 mg PO AC-TID 01/16/17 01/16/17 History Mirtazapine [Remeron] 30 mg PO HS 01/16/17 01/16/17 History Linagliptin [Tradjenta] 5 mg PO DAILY tab 01/19/17 Rx Allergies Allergy/AdvReac Type Severity Reaction Status Date / Time No Known Allergies Allergy Verified 01/16/17 13:08 Physical Exam Vitals: Vital Signs Temp Pulse Resp BP Pulse Ox 01/21/17 07:00 96.9 F L 69 18 145/93 92 L 01/20/17 23:00 98.8 F 78 20 121/58 93 L 01/20/17 15:00 97.7 F 68 16 147/81 96 Intake and Output 01/20/17 01/21/17 01/21/17 22:59 06:59 14:59 Other: # Voids 1 1 # Bowel Movements 1 Weight 53.5 kg General appearance: The patient is alert, oriented, in no acute distress. Cachectic appearance. HET: Head is normocephalic and atraumatic. Pupils are equal and reactive. Oropharynx is clear without lesions. Neck: Supple without lymphadenopathy. Trachea midline. Heart: S1 S2. Regular rate and rhythm. Lungs: No crackles or wheezes are heard. Abdomen: Soft, nontender, nondistended with bowel sounds. No peritoneal signs. No palpable organomegaly or masses. Extremities: Normal skin color and turgor. No cyanosis, rash, ulceration, clubbing, or edema. Radial and pedal pulses are 2/4 bilaterally. Neurological: No focal deficits. Strength and sensation are grossly intact. Results CBC & Chem 7: 01/21/17 08:53 01/19/17 05:26 Labs: Abnormal Lab Results - Last 24 Hours (Table) 01/20/17 01/20/17 01/20/17 Range/Units 12:19 17:36 20:49 POC Glucose (mg/dL) 153 H 147 H 117 H (75-99) mg/dL Assessment and Plan (1) Dysphagia Narrative/Plan: Secondary to distal esophageal stricture poorly differentiated adenocarcinoma distal esophagus Status: Acute (2) Esophageal cancer Status: Acute (3) Protein calorie malnutrition Narrative/Plan: Suspect moderate with greater than 25 pound weight loss, albumin 2.0-2.4 Status: Acute Plan: 1. Least invasive approach is ideal therefore will attempt EGD with esophageal stent placement on Thursday. [employer] has been notified and delivery of stent is expected by Thursday. If esophageal stent placement is unsuccessful patient will require open placement of feeding tube for nutritional support as distal esophageal tumor/stricture would impede passage of endoscopically placed gastrostomy tube. 2. Check prealbumin. Continue with full liquid diet and liquid protein supplementation as tolerated. The property management accountant has discussed the risks, benefits and alternative therapies for the above-mentioned procedure and for both sedation/analgesia as well as necessary blood product administration, if indicated, as they pertain to this patient. The patient has indicated understanding and acceptance of the risks and procedures discussed. Thank you for this kind referral and the opportunity to participate in the care of your patient. This consultation was discussed with Dr. Bettencourt. The impression and plan of care have been directed as dictated.
[2017-01-21 09:37] LABS: ALT 29 U/L (9-52); AST 32 U/L (14-36); Alkaline Phosphatase 102 U/L (38-126); Anion Gap 8 mmol/L; Blood Urea Nitrogen 7 mg/dL (7-17); Calcium 9.6 mg/dL (8.4-10.2); Carbon Dioxide 25 mmol/L (22-30); Chloride 105 mmol/L (98-107); Glucose 137 mg/dL (74-99); Non-African American GFR(MDRD) >60 (>60 ml/min/1.73 sqM); Sodium 138 mmol/L (137-145); Total Bilirubin 0.7 mg/dL (0.2-1.3); Total Protein 6.1 g/dL (6.3-8.2)
[2017-01-21 11:52] LABS: Glucose,Whole Blood 120 mg/dL (75-99)
[2017-01-21 17:19] LABS: Glucose,Whole Blood 131 mg/dL (75-99)
[2017-01-21 20:51] LABS: Glucose,Whole Blood 141 mg/dL (75-99)
[2017-01-21] MEDS: MIRTAZAPINE 15 MG TAB PO SCH (21:19)
[2017-01-21] MEDS: MULTIVITAMINS, THERA 1 EACH TAB PO SCH (21:19)
[2017-01-22 07:35] LABS: Glucose,Whole Blood 142 mg/dL (75-99)
[2017-01-22] MEDS: HEPARIN SODIUM,PORCINE 5,000 UNIT/ML 1 ML VIAL SQ SCH ×2 (07:49→15:36)
[2017-01-22] MEDS: METOPROLOL TARTRATE 50 MG TAB PO SCH ×2 (07:49→20:50)
[2017-01-22] MEDS: METOCLOPRAMIDE 5 MG TAB PO SCH ×3 (07:49→17:21)
[2017-01-22] MEDS: INSULIN LISPRO (humaLOG) 300 UNIT/3 ML VIAL SQ SCH ×4 (07:49→20:50)
--- NOTE | 2017-01-22 09:49 | P.PN ---
Subjective Progress Note Date: 01/22/17 Principal diagnosis: Dysphagia Small emesis this morning after eating oatmeal. Diet decreased to clear liquids. Daughter at bedside. Denies abdominal pain. EGD possible esophageal stent scheduled for tomorrow. Objective - Vital Signs Vital signs: Vital Signs Temp 97.9 F 01/22/17 07:00 Pulse 71 01/22/17 07:00 Resp 20 01/22/17 07:00 BP 123/60 01/22/17 07:00 Pulse Ox 90 L 01/22/17 07:00 Intake & Output 01/21/17 01/22/17 01/22/17 18:59 06:59 18:59 Intake Total 125 975 Balance 125 975 Weight 52.5 kg Intake: Oral 125 975 Other: Voiding Method Bedside Commode Bedside Commode Bedside Commode # Voids 1 2 # Bowel Movements 0 - Exam General appearance: The patient is alert, oriented, in no acute distress. HET: Head is normocephalic and atraumatic. Pupils are equal and reactive. Oropharynx is clear without lesions. Neck: Supple without lymphadenopathy. Trachea midline. Heart: S1 S2. Regular rate and rhythm. Lungs: No crackles or wheezes are heard. Abdomen: Soft, nontender, nondistended with bowel sounds. No peritoneal signs. No palpable organomegaly or masses. Extremities: Normal skin color and turgor. No cyanosis, rash, ulceration, clubbing, or edema. Radial and pedal pulses are 2/4 bilaterally. Neurological: No focal deficits. Strength and sensation are grossly intact. - Labs CBC & Chem 7: 01/21/17 08:53 01/21/17 08:53 Labs: Abnormal Lab Results - Last 24 Hours (Table) 01/21/17 01/21/17 01/21/17 Range/Units 08:53 08:53 11:49 Glucose 137 H (74-99) mg/dL POC Glucose (mg/dL) 120 H (75-99) mg/dL Total Protein 6.1 L (6.3-8.2) g/dL Albumin 2.7 L (3.5-5.0) g/dL Prealbumin 5.0 L (18.0-42.0) mg/dL 01/21/17 01/21/17 01/22/17 Range/Units 17:14 20:46 07:21 Glucose (74-99) mg/dL POC Glucose (mg/dL) 131 H 141 H 142 H (75-99) mg/dL Total Protein (6.3-8.2) g/dL Albumin (3.5-5.0) g/dL Prealbumin (18.0-42.0) mg/dL Assessment and Plan (1) Dysphagia Narrative/Plan: Secondary to distal esophageal 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 Supportive measures. EGD esophageal stent attempt tomorrow. Liquid diet as tolerated. Nothing by mouth after midnight. Continue GI prophylaxis. Assessment and plan a care discussed with Dr. Bettencourt
[2017-01-22 11:58] LABS: Glucose,Whole Blood 83 mg/dL (75-99)
--- NOTE | 2017-01-22 12:23 | P.PN ---
Subjective Progress Note Date: 01/22/17 This ia an 81-year-old white female one of Dr. Laboy who was having heartburn- like chest pain over weeks time associated with nausea and vomiting. She was taken the [facility], EKG was performed revealing non-ST elevation myocardial infarction. She was transferred to [facility] for cardiac catheterization. Dr. Ravi performed a right and left coronary angiogram revealing an extremely calcified right and left coronary system, mild disease involving the mid right coronary artery, severe disease involving the distal left main coronary artery and involving the ostial left circumflex and ostial LAD, severe disease involving the ostial and proximal left circumflex coronary artery, and severe disease involving the ostial LAD. Dr. Kelsey from cardiothoracic surgery was consulted at that time and patient underwent a coronary artery bypass graft with RAO to LAD reverse saphenous venous graft to the PDA and reverse evidences graft to the marginal branch, patient went to [facility] for physical therapy rehabitation after that she developed to have a significant episodes of dysphagia associated with increased regurgitation and nausea and vomiting eventually she ended up going for an EGD that was done initially by Dr. Babb that was not completed due to the fact that the patient has so many food materials subsequently she underwent EGD by Dr. Jenkins who could not pass the scope and she was found to have an esophageal mass suggestive of esophageal cancer patient was seen as an outpatient by hematology oncology and the patient underwent blood transfusion and the IV fluid resuscitation in the office, yesterday the patient felt extremely weak and she could not eat or drink anything associated with nausea and vomiting I received a call from her oncologist stating that the patient to be admitted to hospital for blood transfusion and IV fluid resuscitation and the patient subsequently was admitted to the floor and she was taken off most of her medication and she was given 2 units of packed red blood cells as well as IV fluid and she was given magnesium sulfate for placement she will be seen in consultation by hematology oncology and had a long conversation with the patient and her family and at this point they did not want to pursue any treatment plan as the patient is not a candidate for any invasive procedure however there are interested in possible esophageal stenting if it's possible since the patient is not going to be able to tolerate chemoradiation therapy along with surgical intervention. 01/18: patient is feeling much better, will continue to feel generally weak, there is significant dysphagia was seen by Hem-Onc yesterday and we will plan to get the result of the PET-sacn and have a plan for possible esophageal stenting. 01/19:patient's diet will be advanced to full liquids. Magnesium will be replaced. On discussion with the patient's daughter regarding care and prognosis. Patient will be transferred to [facility] floor today. Discharge plan is to [facility] tomorrow. 01/20: Case discussed with Dr. Causey and he will add in consult with Dr. Jenkins regarding esophageal stent. Discharge to [facility] is postponed. Patient continues to be extremely weak. Swallowing is slightly better today. Patient's nurses been updated. 01/21: Patient has been seen by GI with plan for EGD and esophageal stent on Thursday because stent is not available until then. We'll plan for stent placement and then discharge to [facility] that afternoon. Patient continues to have weakness. 01/22: Patient is waiting for EGD and stent placement scheduled for tomorrow. Plan is to obtain PET scan to review with the patient's daughter. Discharge plan is still for [facility] on Thursday or Thursday. Objective - Vital Signs Vital signs: Vital Signs Temp 97.9 F 01/22/17 07:00 Pulse 71 01/22/17 07:00 Resp 20 01/22/17 07:00 BP 123/60 01/22/17 07:00 Pulse Ox 90 L 01/22/17 07:00 Intake & Output 01/21/17 01/22/17 01/22/17 18:59 06:59 18:59 Intake Total 125 975 Balance 125 975 Weight 52.5 kg Intake: Oral 125 975 Other: Voiding Method Bedside Commode Bedside Commode Bedside Commode # Voids 1 2 # Bowel Movements 0 - Exam - Constitutional General appearance: mild distress, thin - EENT Eyes: anicteric sclerae, EOMI, PERRLA, no ptosis, no scleral icterus, normal appearance ENT: hard of hearing, NA/AT, pharyngeal erythema Ears: bilateral: normal - Neck Neck: no lymphadenopathy, normal ROM, no rigidity, no stridor, no thyromegaly Carotids: bilateral: upstroke delayed Thyroid: bilateral: normal size - Respiratory Respiratory: bilateral: diminished, rhonchi, negative: dullness, rales, wheezing , prolonged expiration, prolonged inspiration - Cardiovascular Rhythm: regular Heart sounds: normal: S1, S2 Abnormal Heart Sounds: systolic murmur, no S3 Gallop, no S4 Gallop - Gastrointestinal General gastrointestinal: normal bowel sounds, soft, no splenomegaly, no tenderness, no umbilical hernia, no ventral hernia - Integumentary Integumentary: decreased turgor, no jaundiced, no normal - Neurologic Neurologic: CNII-XII intact - Musculoskeletal Musculoskeletal: generalized weakness, strength equal bilaterally - Psychiatric Psychiatric: A&O x's 3, appropriate affect, intact judgment & insight - Labs CBC & Chem 7: 01/21/17 08:53 01/21/17 08:53 Labs: Abnormal Lab Results - Last 24 Hours (Table) 01/21/17 01/21/17 01/21/17 Range/Units 08:53 08:53 08:53 MCHC 30.7 L (31.0-37.0) g/dL RDW 16.1 H (11.5-15.5) % Glucose 137 H (74-99) mg/dL POC Glucose (mg/dL) (75-99) mg/dL Total Protein 6.1 L (6.3-8.2) g/dL Albumin 2.7 L (3.5-5.0) g/dL Prealbumin 5.0 L (18.0-42.0) mg/dL 01/21/17 01/21/17 01/21/17 Range/Units 11:49 17:14 20:46 MCHC (31.0-37.0) g/dL RDW (11.5-15.5) % Glucose (74-99) mg/dL POC Glucose (mg/dL) 120 H 131 H 141 H (75-99) mg/dL Total Protein (6.3-8.2) g/dL Albumin (3.5-5.0) g/dL Prealbumin (18.0-42.0) mg/dL 01/22/17 Range/Units 07:21 MCHC (31.0-37.0) g/dL RDW (11.5-15.5) % Glucose (74-99) mg/dL POC Glucose (mg/dL) 142 H (75-99) mg/dL Total Protein (6.3-8.2) g/dL Albumin (3.5-5.0) g/dL Prealbumin (18.0-42.0) mg/dL Assessment and Plan Plan: 1. Newly diagnosed esophageal cancer status post EGD with biopsy as well as a PET scan. Continue patient on conservative management for now, consultation hematology, post 2 units of packed red blood cell transfusion as well as IV fluid resuscitation, continue full liquid diet only, discontinue aspirin, Plavix , metformin, vitamin D, magnesium. I had a long conversation with the family and they are not interested in invasive procedures such as chemoradiation and surgical intervention as the patient cannot be able to survive huge procedure like that, however they're interested in possible esophageal stenting. Consult with Dr. Montenegro for esophageal stent on Thursday 2. CAD post CABG 3 back in August 2016. Continue patient on metoprolol 50 mg orally twice every day, 2 patient on Lipitor 40 mg orally once every day, discontinue aspirin and Plavix. 3. Hypertension and hypertensive cardiovascular disease. Continue metoprolol 50 mg orally twice every day, losartan 25 mg orally once every day. 4. Hyperlipemia. Continue Lipitor 40 mg orally once every day. 5. Diabetes mellitus type 2. Discontinue metformin, continue patient on sliding scale insulin along with Tradjenta 5 mg orally once every day. 6. Acute syptomatic anemia due to her malignancy. Status post 2 units of packed red blood cell transfusion. 7. Hypomagnesemia. Status post replacement. 8. Depressive disorder, recurrent. Continue Remeron 30 mg orally bedtime. 9. GI prophylaxis. Continue Protonix 40 mg IV push every 24 hours. 10. DVT prophylaxis. Heparin 5000 units subcutaneously every 8 hours along with knee-high IRWIN hose. 11. Severe protein calorie malnutrition. Continue supplements. Poor prognosis. Discharge plan: [facility] on Thursday Impression and plan of care have been directed as dictated by the signing physician. Eileen Gomez nurse practitioner acting as scribe for signing physician.
[2017-01-22 17:23] LABS: Glucose,Whole Blood 156 mg/dL (75-99)
[2017-01-22] MEDS: MULTIVITAMINS, THERA 1 EACH TAB PO SCH (20:50)
[2017-01-22] MEDS: MIRTAZAPINE 15 MG TAB PO SCH (20:50)
[2017-01-22 20:52] LABS: Glucose,Whole Blood 209 mg/dL (75-99)
[2017-01-23] MEDS: HEPARIN SODIUM,PORCINE 5,000 UNIT/ML 1 ML VIAL SQ SCH ×4 (00:18→23:45)
[2017-01-23] MEDS: ATORVASTATIN 40 MG TAB PO SCH (07:23)
[2017-01-23] MEDS: METOCLOPRAMIDE 5 MG TAB PO SCH ×3 (07:23→17:21)
[2017-01-23] MEDS: LINAGLIPTIN 5 MG TABLET PO SCH (07:24)
[2017-01-23 07:36] LABS: Glucose,Whole Blood 113 mg/dL (75-99)
[2017-01-23] MEDS: INSULIN LISPRO (humaLOG) 300 UNIT/3 ML VIAL SQ SCH ×4 (08:16→21:59)
[2017-01-23] MEDS: PANTOPRAZOLE 40 MG/10 ML VIAL IVP SCH (08:18)
[2017-01-23] MEDS: LOSARTAN 25 MG TAB PO SCH (08:18)
[2017-01-23] MEDS: METOPROLOL TARTRATE 50 MG TAB PO SCH ×2 (08:18→21:59)
[2017-01-23 09:00] LABS: INR 1.1 (<1.2); Prothrombin Time 11.2 sec (9.0-12.0)
[2017-01-23 12:22] LABS: Glucose,Whole Blood 107 mg/dL (75-99)
[2017-01-23 13:22] VITALS: BMI 20.3
[2017-01-23] MEDS ORDERED: PROPOFOL 10 MG/ML 20 ML VIAL IV ONE (13:29)
[2017-01-23] MEDS ORDERED: LIDOCAINE 1% INJ 10MG/ML (20 ML MDV) ONE (13:29)
[2017-01-23] MEDS ORDERED: LACTATED RINGERS 1,000 ML IV ONE (13:29)
--- NOTE | 2017-01-23 13:46 | P.PN ---
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 She was taken the [facility], EKG was performed revealing non-ST elevation myocardial infarction. She was transferred to [facility] for cardiac catheterization. Dr. Ravi performed a right and left coronary angiogram revealing an extremely calcified right and left coronary system, mild disease involving the mid right coronary artery, severe disease involving the distal left main coronary artery and involving the ostial left circumflex and ostial LAD, severe disease involving the ostial and proximal left circumflex coronary artery, and severe disease involving the ostial LAD. Dr. Kelsey from cardiothoracic surgery was consulted at that time and patient underwent a coronary artery bypass graft with RAO to LAD reverse saphenous venous graft to the PDA and reverse evidences graft to the marginal branch, patient went to [facility] for physical therapy rehabitation after that she developed to have a significant episodes of dysphagia associated with increased regurgitation and nausea and vomiting eventually she ended up going for an EGD that was done initially by Dr. Babb that was not completed due to the fact that the patient has so many food materials subsequently she underwent EGD by Dr. Jenkins who could not pass the scope and she was found to have an esophageal mass suggestive of esophageal cancer patient was seen as an outpatient by hematology oncology and the patient underwent blood transfusion and the IV fluid resuscitation in the office, yesterday the patient felt extremely weak and she could not eat or drink anything associated with nausea and vomiting I received a call from her oncologist stating that the patient to be admitted to hospital for blood transfusion and IV fluid resuscitation and the patient subsequently was admitted to the floor and she was taken off most of her medication and she was given 2 units of packed red blood cells as well as IV fluid and she was given magnesium sulfate for placement she will be seen in consultation by hematology oncology and had a long conversation with the patient and her family and at this point they did not want to pursue any treatment plan as the patient is not a candidate for any invasive procedure however there are interested in possible esophageal stenting if it's possible since the patient is not going to be able to tolerate chemoradiation therapy along with surgical intervention. 01/18: patient is feeling much better, will continue to feel generally weak, there is significant dysphagia was seen by Hem-Onc yesterday and we will plan to get the result of the PET-sacn and have a plan for possible esophageal stenting. 01/19:patient's diet will be advanced to full liquids. Magnesium will be replaced. On discussion with the patient's daughter regarding care and prognosis. Patient will be transferred to [facility] floor today. Discharge plan is to [facility] tomorrow. 01/20: Case discussed with Dr. Causey and he will add in consult with Dr. Jenkins regarding esophageal stent. Discharge to [facility] is postponed. Patient continues to be extremely weak. Swallowing is slightly better today. Patient's nurses been updated. 01/21: Patient has been seen by GI with plan for EGD and esophageal stent on Thursday because stent is not available until then. We'll plan for stent placement and then discharge to [facility] that afternoon. Patient continues to have weakness. 01/22: Patient is waiting for EGD and stent placement scheduled for tomorrow. Plan is to obtain PET scan to review with the patient's daughter. Discharge plan is still for [facility] on Thursday or Thursday. 01/23: Patient is scheduled for EGD and stent placement today with Dr. Bettencourt. PET scan was and placed on the front of the chart. Anticipate possible discharge to [facility] tomorrow if cleared by Dr. Jenkins. Objective - Vital Signs Vital signs: Vital Signs Temp 97.0 F L 01/23/17 07:00 Pulse 71 01/23/17 07:00 Resp 18 01/23/17 07:00 BP 141/69 01/23/17 07:00 Pulse Ox 91 L 01/23/17 07:00 Intake & Output 01/22/17 01/23/17 01/23/17 18:59 06:59 18:59 Intake Total 250 Balance 250 Weight 50.5 kg Intake: Oral 250 Other: Voiding Method Bedside Commode Bedside Commode Bedside Commode # Voids 1 2 - Exam - Constitutional General appearance: mild distress, thin - EENT Eyes: anicteric sclerae, EOMI, PERRLA, no ptosis, no scleral icterus, normal appearance ENT: hard of hearing, NA/AT, pharyngeal erythema Ears: bilateral: normal - Neck Neck: no lymphadenopathy, normal ROM, no rigidity, no stridor, no thyromegaly Carotids: bilateral: upstroke delayed Thyroid: bilateral: normal size - Respiratory Respiratory: bilateral: diminished, rhonchi, negative: dullness, rales, wheezing , prolonged expiration, prolonged inspiration - Cardiovascular Rhythm: regular Heart sounds: normal: S1, S2 Abnormal Heart Sounds: systolic murmur, no S3 Gallop, no S4 Gallop - Gastrointestinal General gastrointestinal: normal bowel sounds, soft, no splenomegaly, no tenderness, no umbilical hernia, no ventral hernia - Integumentary Integumentary: decreased turgor, no jaundiced, no normal - Neurologic Neurologic: CNII-XII intact - Musculoskeletal Musculoskeletal: generalized weakness, strength equal bilaterally - Psychiatric Psychiatric: A&O x's 3, appropriate affect, intact judgment & insight - Labs CBC & Chem 7: 01/21/17 08:53 01/21/17 08:53 Labs: Abnormal Lab Results - Last 24 Hours (Table) 01/22/17 01/22/17 01/23/17 Range/Units 17:03 20:45 07:29 POC Glucose (mg/dL) 156 H 209 H 113 H (75-99) mg/dL Assessment and Plan Plan: 1. Newly diagnosed esophageal cancer status post EGD with biopsy as well as a PET scan. Continue patient on conservative management for now, consultation hematology, post 2 units of packed red blood cell transfusion as well as IV fluid resuscitation, continue full liquid diet only, discontinue aspirin, Plavix , metformin, vitamin D, magnesium. I had a long conversation with the family and they are not interested in invasive procedures such as chemoradiation and surgical intervention as the patient cannot be able to survive huge procedure like that, however they're interested in possible esophageal stenting. Consult with Dr. Montenegro for esophageal stent on Thursday 2. CAD post CABG 3 back in August 2016. Continue patient on metoprolol 50 mg orally twice every day, 2 patient on Lipitor 40 mg orally once every day, discontinue aspirin and Plavix. 3. Hypertension and hypertensive cardiovascular disease. Continue metoprolol 50 mg orally twice every day, losartan 25 mg orally once every day. 4. Hyperlipemia. Continue Lipitor 40 mg orally once every day. 5. Diabetes mellitus type 2. Discontinue metformin, continue patient on sliding scale insulin along with Tradjenta 5 mg orally once every day. 6. Acute syptomatic anemia due to her malignancy. Status post 2 units of packed red blood cell transfusion. 7. Hypomagnesemia. Status post replacement. 8. Depressive disorder, recurrent. Continue Remeron 30 mg orally bedtime. 9. GI prophylaxis. Continue Protonix 40 mg IV push every 24 hours. 10. DVT prophylaxis. Heparin 5000 units subcutaneously every 8 hours along with knee-high IRWIN hose. 11. Severe protein calorie malnutrition. Continue supplements. Poor prognosis. Discharge plan: [facility] possibly on Thursday if cleared by Dr. Bettencourt Impression and plan of care have been directed as dictated by the signing physician. Eileen Gomez nurse practitioner acting as scribe for signing physician.
--- NOTE | 2017-01-23 14:05 | P.PCN ---
Date of Procedure: 01/23/17 Procedure(s) Performed: BRIEF HISTORY: Patient is a 81-year-old, pleasant, white female, admitted to the hospital with decreased oral intake. She was recently diagnosed with esophageal cancer when she presented with progressive dysphagia of 2 months duration. Upper endoscopy done 3 weeks ago showed a tight distal esophageal stricture with ulceration and biopsy revealed poorly differentiated carcinoma. She is scheduled for an upper endoscopy with esophageal stent placement today PROCEDURE PERFORMED: Esophagoscopy with balloon dilation and esophageal wall flex stent placement. 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 IV sedation per anesthesia. PROCEDURE: After informed consent was obtained, the patient was brought into the endoscopy unit. IV sedation was administered by Anesthesia under continuous monitoring. Initially the Olympus GIF-140 video endoscope was inserted into the mouth. Esophagus intubated without any difficulty. It was gradually advanced into the distal esophagus with a tight suture was identified at 38 cm from the incisors. I was not able to advance the scope any further. Initially presented balloon dilation using 8, 9 mm TTS balloon for 60 seconds. At this time some oozing was identified. Despite the dilation was not able to advance the scope any further. At this time he decided to proceed a guidewire under fluoroscopy guidance into the stomach. The scope was gently withdrawn. The esophageal Wallstent 12 cm X18 mm partially covered Wallstent was passed over the guidewire and under fluoroscopy guidance was gently deployed without any immediate complications. Repeat upper endoscopy was performed in the scope was advanced into the distal esophagus and the stent appeared to be in good position. The mid and proximal esophagus appeared normal the patient tolerated the procedure well. IMPRESSION: 1. Tight distal esophageal stricture with ulceration status post balloon dilation with 8-9 mm TTS balloon followed by esophageal wallflex stent placement as described above. RECOMMENDATIONS: The findings of this examination were discussed with the patient as well as her family. She'll be on a clear liquid diet today. We'll try to advance to soft diet tomorrow..
--- NOTE | 2017-01-23 15:21 | FL ---
EXAMINATION TYPE: FL guided dilation DATE OF EXAM: 01/23/2017 COMPARISON: NONE HISTORY: Stenosis Fluoroscopy support supplied to the referring clinician. See dictated report from gastroenterology, 4 minutes 5 seconds fluoroscopy time, 2 intraoperative C-arm images document the procedure
[2017-01-23] MEDS ORDERED: HYDROmorphone 0.5 MG/0.5 ML SYRINGE IVP PRN (16:01)
[2017-01-23 17:21] LABS: Glucose,Whole Blood 137 mg/dL (75-99)
[2017-01-23] MEDS ORDERED: TEMAZEPAM 15 MG CAP PO SCH (21:00)
[2017-01-23 21:04] LABS: Glucose,Whole Blood 169 mg/dL (75-99)
[2017-01-23] MEDS: MIRTAZAPINE 15 MG TAB PO SCH (21:58)
[2017-01-23] MEDS: MULTIVITAMINS, THERA 1 EACH TAB PO SCH (21:58)
[2017-01-23 23:07] VITALS: TEMP 97.2
[2017-01-24 07:39] LABS: Glucose,Whole Blood 144 mg/dL (75-99)
[2017-01-24 08:22] VITALS: BP 148/82; PULSE 83; RESP 16
[2017-01-24] MEDS: INSULIN LISPRO (humaLOG) 300 UNIT/3 ML VIAL SQ SCH ×2 (08:30→12:26)
[2017-01-24] MEDS: METOCLOPRAMIDE 5 MG TAB PO SCH ×2 (08:31→12:27)
[2017-01-24] MEDS: HEPARIN SODIUM,PORCINE 5,000 UNIT/ML 1 ML VIAL SQ SCH (08:31)
[2017-01-24] MEDS: METOPROLOL TARTRATE 50 MG TAB PO SCH (08:31)
[2017-01-24] MEDS: LOSARTAN 25 MG TAB PO SCH (08:33)
[2017-01-24] MEDS: LINAGLIPTIN 5 MG TABLET PO SCH (08:33)
[2017-01-24] MEDS: PANTOPRAZOLE 40 MG/10 ML VIAL IVP SCH (08:33)
[2017-01-24] MEDS: ATORVASTATIN 40 MG TAB PO SCH (08:33)
--- NOTE | 2017-01-24 09:57 | P.DS ---
Providers Date of admission: 01/16/17 15:37 Attending physician: Justino Brewer Consults: 01/16/17 15:38 Consult Physician Routine Consulting Provider: Jb Causey Consult Reason/Comments: Esophageal cancer Do you want consulting provider notified?: Yes 01/20/17 08:52 Consult Physician Routine Consulting Provider: Natalie Bettencourt Consult Reason/Comments: Esophageal cancer. Eval for stent placement Do you want consulting provider notified?: Yes Primary care physician: [facility] Course: This is a 3 years FEMALE with past medical history significant for coronary artery disease presents to the hospital with worsening dysphagia. Patient recently had diagnosis of esophageal cancer was evaluated by GI specialist who performed EGD followed by dilation and stent placement patient was started on clear liquid diet and advance to soft diet and tolerated well without difficulty patient felt stable from the medical standpoint and asked to follow- up closely with her primary care physician and primary oncologist for further workup on an outpatient basis plan of this showed discussed with GI specialist who is agreeable to the current treatment plan patient aware of that aspirin and Plavix placed on hold and the risk and benefit was discussed at length patient was discharged [facility] in stable condition. Patient Condition at Discharge: Stable Plan - Discharge Summary New Discharge Prescriptions: New Linagliptin [Tradjenta] 5 mg PO DAILY tab Continue Multivitamins, Thera [Multivitamin (formulary)] 1 tab PO HS Cholecalciferol [Vitamin D3] 2,000 unit PO HS Atorvastatin [Lipitor] 40 mg PO DAILY tab Metoprolol Tartrate [Lopressor] 50 mg PO BID tab Pantoprazole [Protonix] 40 mg PO AC-BRKFST tab Metoclopramide [Reglan] 5 mg PO AC-TID Mirtazapine [Remeron] 30 mg PO HS Losartan [Cozaar] 25 mg PO DAILY Discontinued Aspirin [Adult Low Dose Aspirin EC] 81 mg PO HS sitaGLIPtin PHOS/metFORMIN HCL [Janumet 50-500 mg Tablet] 1 tab PO BID Clopidogrel [Plavix] 75 mg PO DAILY tab Magnesium Chloride [Slow Mag] 64 mg PO BID Potassium Chloride Oral Liquid 20 meq PO HS Discharge Medication List Cholecalciferol [Vitamin D3] 2,000 unit PO HS 08/15/16 [History] Multivitamins, Thera [Multivitamin (formulary)] 1 tab PO HS 08/15/16 [History] Atorvastatin [Lipitor] 40 mg PO DAILY tab 09/09/16 [Rx] Metoprolol Tartrate [Lopressor] 50 mg PO BID tab 09/09/16 [Rx] Pantoprazole [Protonix] 40 mg PO AC-BRKFST tab 09/09/16 [Rx] Losartan [Cozaar] 25 mg PO DAILY 01/16/17 [History] Metoclopramide [Reglan] 5 mg PO AC-TID 01/16/17 [History] Mirtazapine [Remeron] 30 mg PO HS 01/16/17 [History] Linagliptin [Tradjenta] 5 mg PO DAILY tab 01/19/17 [Rx] Follow up Appointment(s)/Referral(s): Jb Causey MD [STAFF PHYSICIAN] - 01/22/17 9:00 am Gregg Laboy MD [Primary Care Provider] - 01/26/17 10:30 am (at [facility]) Kaykay Gonzalez [NON-STAFF] - As Needed Patient Instructions/Handouts: Type 2 Diabetes in Adults (DC), Anemia (DC) Discharge Disposition: TRANSFER TO SNF/ECF
[2017-01-24 12:25] LABS: Glucose,Whole Blood 169 mg/dL (75-99)
--- NOTE | 2017-01-24 12:27 | PN ---
PROGRESS NOTE DATE OF DICTATION: 01/24/2017 Patient is an 81-year-old white female who was admitted to the hospital a few days ago with progressive decreased oral intake. She was just diagnosed with locally advanced distal esophageal carcinoma about 3 weeks ago. She underwent an upper endoscopy with esophageal wall flex stent placement yesterday. This morning she says that she feels better. She denies any chest pain. She is on a liquid diet, tolerating well. PHYSICAL EXAMINATION: She appears comfortable. No apparent distress. VITAL SIGNS: Stable. Blood pressure is 175/97, pulse rate 86, and afebrile. HEENT EXAMINATION: Unremarkable. Conjunctivae are pink, sclerae anicteric. Oral cavity with no lesions. NECK: No JVD or lymph node enlargement. Chest was clear to auscultation. HEART: Regular rate and rhythm. ABDOMEN: Soft. Bowel sounds are positive. No organomegaly. EXTREMITIES: No pedal edema. SKIN: No rashes. NEURO: Alert and oriented x3. No focal deficits. LABS: No labs available from today. 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 She is doing better, tolerating liquids reasonably well. RECOMMENDATIONS: Advance to a soft diet today. Continue with PPI. Will follow her closely. MMODL / IJN: [id number] /
== END 2017-01-24 14:22 | DRG 374 ==
LOC: EC 12:41 → 6SEL 15:37 → 4MS4W 01-19 21:28
PROVIDERS: ADMIT Internal Medicine; ATTEND Internal Medicine
PROC: 30233N1 Transfusion of Nonautologous Red Blood Cells into Peripheral Vein, Percutaneous Approach (ICD-10-PCS; principal; 2017-01-16)
PROC: 0D758DZ Dilation of Esophagus with Intraluminal Device, Via Natural or Artificial Opening Endoscopic (ICD-10-PCS; 2017-01-23 14:30)
DX: C15.5 Malignant neoplasm of lower third of esophagus (principal); E43 Unspecified severe protein-calorie malnutrition; E83.42 Hypomagnesemia; K22.2 Esophageal obstruction; R13.10 Dysphagia, unspecified; D50.0 Iron deficiency anemia secondary to blood loss (chronic); E11.9 Type 2 diabetes mellitus without complications; I10 Essential (primary) hypertension; F32.9 Major depressive disorder, single episode, unspecified; D63.0 Anemia in neoplastic disease; E78.5 Hyperlipidemia, unspecified; K21.9 Gastro-esophageal reflux disease without esophagitis; M19.90 Unspecified osteoarthritis, unspecified site; I25.10 Atherosclerotic heart disease of native coronary artery without angina pectoris; E87.6 Hypokalemia; Z95.1 Presence of aortocoronary bypass graft; Z79.899 Other long term (current) drug therapy; Z79.02 Long term (current) use of antithrombotics/antiplatelets; Z79.82 Long term (current) use of aspirin; Z83.3 Family history of diabetes mellitus; Z80.1 Family history of malignant neoplasm of trachea, bronchus and lung; Z80.3 Family history of malignant neoplasm of breast; Z82.3 Family history of stroke; Z82.49 Family history of ischemic heart disease and other diseases of the circulatory system; Z80.6 Family history of leukemia; Z87.891 Personal history of nicotine dependence; Z90.49 Acquired absence of other specified parts of digestive tract; Z98.41 Cataract extraction status, right eye; Z98.42 Cataract extraction status, left eye; Z85.828 Personal history of other malignant neoplasm of skin; Z85.3 Personal history of malignant neoplasm of breast; Z79.84 Long term (current) use of oral hypoglycemic drugs; Z68.20 Body mass index [BMI] 20.0-20.9, adult; Z87.442 Personal history of urinary calculi; I25.2 Old myocardial infarction
CPT/HCPCS: 36415; 43249; 43266; 71020; 74360; 80053; 81003; 82272; 83036; 83735; 84132; 84134; 85025; 85027; 85610; 85730; 86850; 86900; 86901; 86920; 96365; 96367; 99285